=== PATIENT | female | born 1955 | race Caucasian/White ===

== ENCOUNTER → 2016-05-09 | Outpatient (CLI) | payer BC ==
[~2016-05-09] MED LIST: ACET-1047 PO; AZITTAB PO; CLIN300C2 PO; CMPS25 PR; CORN1POW2 PO; DICL50TA3 PO; HYDR-3419 PO; HYDR-5688 PO; HYDR12.56 PO; IMD/2 PO; LISI-725 PO; LISI20TA3 PO; MAGN30TA4 PO; MRLP17X PO; MULT-513 PO; ONDA8TAB6 PO; OXYC1TAB3 PO; PHEN-876 PO; PHEN95TA PO; POLY1POW2 PO; POLY335019 PO; POTA10CA28 PO; PROC1TAB5 PO; PSYL48.59; SENN8.6T36 PO
[2016-05-09 17:55] LABS: ALT/SGPT 22 U/L (12-78); BLOOD UREA NITROGEN 18 mg/dl (7-18); BUN/CREATININE RATIO 16.4 (10-20); CARBON DIOXIDE 27 mmol/L (21-32); CHLORIDE 103 mmol/L (98-107); GLUCOSE 89 mg/dl (70-99); SODIUM 138 mmol/L (136-145)
[2016-05-09 18:06] LABS: ALKALINE PHOSPHATASE 111 U/L (45-117); AST/SGOT 16 U/L (15-37)
[2016-05-09 19:05] LABS: BASO % 0.6 %; BASO ABS # 0.06 K/uL (0-0.2); COMPLETE YES; EOS % 1.8 %; HEMATOCRIT 40.9 % (37-47); IG% 0.3 %; LYMPH % 31.4 %; LYMPH ABS # 3.18 K/uL (1.2-3.4); MEAN CELL VOLUME 88.3 fL (80-100); MEAN CORPUSCULAR HEMOGLOBIN 31.5 pg (25-34); MEAN CORPUSCULAR HGB CONC 35.7 g/dl (32-36); MEAN PLATELET VOLUME 9.9 fL (7.4-10.4); NEUT % 55.9 %; PLATELET COUNT 312 K/uL (130-400); RED BLOOD COUNT 4.63 M/uL (4.2-5.4); WHITE BLOOD COUNT 10.13 K/uL (4.8-10.8)
== END | disposition home or self-care (01) ==
LOC: C.LABPVFM 15:20
PROVIDERS: ATTEND Nurse Practitioner
DX: R53.83 Other fatigue (principal); I10 Essential (primary) hypertension; H93.13 Tinnitus, bilateral; N93.9 Abnormal uterine and vaginal bleeding, unspecified; R39.9 Unspecified symptoms and signs involving the genitourinary system

== ENCOUNTER 2016-05-31 08:59 | Emergency (ER) | payer BC ==
[~2016-05-31] VITALS: Ht 165.1 cm; Wt 99.0 kg
[2016-05-31 09:01] VITALS: TEMP 38; Ht 165.1 cm; Wt 99.0 kg
[2016-05-31] MEDS ORDERED: SODIUM CHLORIDE 0.9% 1000ML 1,000 ML IV STA (09:21)
[2016-05-31] MEDS ORDERED: SODIUM CHLORIDE 0.9% 1000ML 1,000 ML IV ONE (09:21)
[2016-05-31] MEDS ORDERED: CLINDAMYCIN IV 900 MG in DEXTROSE 5% ADD-VANTAGE 100ML 100 ML IV STA (09:21)
[2016-05-31] MEDS ORDERED: ONDANSETRON INJ 2 MG/ML 2 ML VIAL IV STA (09:21)
[2016-05-31] MEDS ORDERED: MoRPHine SULFATE 4 MG/ML 1 ML CARP\\VIAL IV STA (09:21)
[2016-05-31] MEDS ORDERED: AZITTAB PO (09:31)
[2016-05-31] MEDS ORDERED: LISI-725 PO (09:31)
[2016-05-31] MEDS ORDERED: DICL50TA3 PO (09:31)
[2016-05-31 09:55] LABS: BASO % 0.1 %; BASO ABS # 0.01 K/uL (0-0.2); COMPLETE YES; EOS % 0.1 %; HEMATOCRIT 39.8 % (37-47); IG% 0.2 %; LYMPH ABS # 1.15 K/uL (1.2-3.4); MEAN CELL VOLUME 83.6 fL (80-100); MEAN CORPUSCULAR HEMOGLOBIN 30.5 pg (25-34); MEAN CORPUSCULAR HGB CONC 36.4 g/dl (32-36); MEAN PLATELET VOLUME 8.9 fL (7.4-10.4); MONO % 11.5 %; NEUT % 77.1 %; PLATELET COUNT 260 K/uL (130-400); RED BLOOD COUNT 4.76 M/uL (4.2-5.4); WHITE BLOOD COUNT 10.46 K/uL (4.8-10.8)
--- NOTE | 2016-05-31 09:55 | EMERGENCY ROOM VISIT NOTE ---
History Report prepared by Effie: Nory Palacios Under the Supervision of: Dr. Fred Patel M.D. First contact with patient: 09:08 Chief Complaint: DENTAL PAIN Stated Complaint: SWOLLEN/INFECTED TOOTH Nursing Triage Summary: PT PRESENTS C/O RIGHT UPPER #5 INFECTED TOOTH. PT SCHEDULED TO HAVE IT PULLED ON THURSDAY WITH DR. VASQUEZ. PAIN SEVERELY INCREASED TODAY DESPITE TAKING OXYCODONE AND SWELLING INCREASED, WAS STARTED ON ABX X3 DOSES. History of Present Illness The patient is a 61 year old female who presents to the Emergency Room via with complaints of worsening dental pain with onset two days ago. She rates her pain as a 10/10. Two days ago, the patient saw her dentist. The patient has an infected tooth and she has an appointment to have this tooth pulled in three days. She has been taking antibiotics and has had three doses so far. However, the patient's pain has increased today, despite the fact that the patient has tried taking oxycodone. The patient has had increased swelling of her nose and lips, starting today and she also has a headache. She denies trouble speaking or swallowing, rash, itching. No cough or shortness of breath. Source of History: patient, spouse/significant other Onset: two days ago Position: teeth Symptom Intensity: 10/10 Quality: other (dental pain) Timing: worsening Associated Symptoms: + headache, No rash Note: The patient has had increased swelling of her nose and lips. She denies trouble speaking or swallowing, itching. Review of Systems See HPI for pertinent positives & negatives. A total of 10 systems reviewed and were otherwise negative. Past Medical & Surgical Medical Problems: (1) Hypertension Old medical records were reviewed. Nurse's notes were reviewed and I agree with. Denies diabetes Family History FHx: cancer Social History Smoking Status: Never Smoker Alcohol Use: none Marital Status: Housing Status: lives with family Occupation Status: employed Current/Historical Medications Scheduled Azithromycin (Zithromax Z-Niraj), 1 PKT PO UD Clindamycin Hcl (Cleocin), 300 MG PO QID Hydrochlorothiazide (Hctz), 12.5 MG PO DAILY Lisinopril (Zestril), 20 MG PO DAILY Multivitamins/Minerals (Mvi With Minerals), 1 TAB PO DAILY Scheduled PRN Diclofenac (Voltaren), 50 MG PO TID PRN for Pain Oxycodone Immediate Rel Tab (Roxicodone Ir), 1-2 TAB PO Q4H PRN for Severe Pain Allergies Coded Allergies: Penicillins (Verified Allergy, Unknown, unk, 05/31/16) Physical Exam Vital Signs Date Time Temp Pulse Resp B/P Pulse Ox O2 Delivery O2 Flow Rate FiO2 05/31/16 10:35 70 16 137/71 98 Room Air 05/31/16 09:01 38.0 98 18 155/79 96 Room Air Physical Exam General: Non ill appearing middle aged female, in no acute distress. HEENT: Normal cephalic atraumatic. Pupils are equal round and reactive to light. Sclerae anicteric. Extraocular movements are intact. Oropharynx is pink with moist mucous membranes. Mild swelling in the right cheek, no redness or warmth, tender on the right first upper molar, multiple dental caries that have been filled. No swelling of the mouth lips or tongue. No Lugwig's angina Neck: Supple with a midline trachea. No meningeal signs or stiffness, no JVD or bruits. No Stridor. Chest: Clear to auscultation bilaterally. No wheezes or rhonchi. No increased work of breathing. Heart: regular rate and rhythm. Abdomen: Soft nontender, nondistended without rebound guarding or rigidity. Extremities: No cyanosis clubbing or edema. No calf tenderness or assymetry Spine/Back. Non tender to palpation. No CVA tenderness Skin: Good turgor without rashes. Neurologic exam: Cranial nerves two through 12 are intact. Motor and sensation are intact and symmetrical throughout. Medical Decision & Procedures Laboratory Results 05/31/16 09:15 Red Blood Count 4.76, Mean Corpuscular Volume 83.6, Mean Corpuscular Hemoglobin 30.5, Mean Corpuscular Hemoglobin Concent 36.4, Mean Platelet Volume 8.9, Neutrophils (%) (Auto) 77.1, Lymphocytes (%) (Auto) 11.0, Monocytes (%) (Auto) 11.5, Eosinophils (%) (Auto) 0.1, Basophils (%) (Auto) 0.1, Neutrophils # (Auto ) 8.07, Lymphocytes # (Auto) 1.15, Monocytes # (Auto) 1.20, Eosinophils # (Auto ) 0.01, Basophils # (Auto) 0.01 3/25/17 09:15 Test 05/31/16 09:15 White Blood Count 10.46 K/uL (4.8-10.8) Red Blood Count 4.76 M/uL (4.2-5.4) Hemoglobin 14.5 g/dL (12.0-16.0) Hematocrit 39.8 % (37-47) Mean Corpuscular Volume 83.6 fL (80-100) Mean Corpuscular Hemoglobin 30.5 pg (25-34) Mean Corpuscular Hemoglobin Concent 36.4 g/dl (32-36) Platelet Count 260 K/uL (130-400) Mean Platelet Volume 8.9 fL (7.4-10.4) Neutrophils (%) (Auto) 77.1 % Lymphocytes (%) (Auto) 11.0 % Monocytes (%) (Auto) 11.5 % Eosinophils (%) (Auto) 0.1 % Basophils (%) (Auto) 0.1 % Neutrophils # (Auto) 8.07 K/uL (1.4-6.5) Lymphocytes # (Auto) 1.15 K/uL (1.2-3.4) Monocytes # (Auto) 1.20 K/uL (0.11-0.59) Eosinophils # (Auto) 0.01 K/uL (0-0.5) Basophils # (Auto) 0.01 K/uL (0-0.2) RDW Standard Deviation 37.7 fL (36.4-46.3) RDW Coefficient of Variation 12.4 % (11.5-14.5) Immature Granulocyte % (Auto) 0.2 % Immature Granulocyte # (Auto) 0.02 K/uL (0.00-0.02) Anion Gap 8.0 mmol/L (3-11) Est Creatinine Clear Calc Drug Dose 85.0 ml/min Estimated GFR () 90.9 Estimated GFR (Non- 78.4 BUN/Creatinine Ratio 10.4 (10-20) Calcium Level 9.6 mg/dl (8.5-10.1) Laboratory studies as stated above per my review. Medications Administered Medications (Trade) Dose Ordered Sig/Radha Route Start Time Stop Time Status Last Admin Dose Admin Sodium Chloride (Nss 1000ml) 1,000 ml @ 999 mls/hr Q1H1M STAT IV 05/31/16 09:21 05/31/16 10:21 DC 05/31/16 09:41 999 MLS/HR Morphine Sulfate (MoRPHine SULFATE INJ) 4 mg NOW STAT IV 05/31/16 09:21 05/31/16 09:23 DC 05/31/16 09:40 4 MG Ondansetron HCl 4 mg 4 mg NOW STAT IV 05/31/16 09:21 05/31/16 09:23 DC 05/31/16 09:37 4 MG Clindamycin Phosphate/Dextrose (Cleocin Iv/ Dextrose Add-[place] 100ML) 106 ml @ 100 mls/hr ONE STAT IV 05/31/16 09:21 05/31/16 10:24 DC 05/31/16 09:41 100 MLS/HR ED Course 09: Past medical records reviewed. The patient was evaluated in room A2, and a complete history and physical examination were performed. 0921: Clindamycin Phosphate 9000 mg/ Dextrose 106 ml @ 100 mls/ he IV, Zofran 4 mg IV, Morphine Sulfate 4 mg IV, Sodium Chloride 1000 ml @ 150 mls/hr IV, Sodium Chloride 1000 ml @ 999 mls/hr IV 1024: Upon reevaluation, the patient is doing well. I discussed the results and treatment plan with the patient. She verbalized agreement of the treatment plan. The patient was discharged home. Medical Decision Differentials include, but are not limited to; abscess, dental caries, allergic reaction. This patient comes in as described above she has a toothache. She has a mild facial swelling of the cheek, it is not red or warm. She does have a temperature. She's had no fluctuance on exam. She was started on antibiotics yesterday with azithromycin. She was given IV clindamycin 900 mg IV as she an allergic to penicillin. I will send her home with a prescription for clindamycin as it should have better coverage. She was given IV morphine here as well as IV Zofran. She has a normal white count. she's no electrolyte or metabolic abnormalities. His feel up to going home. She has appointment with a dentist early this week which I encouraged her to keep. She should return over the weekend if: increasing pain or swelling, worsening of symptoms, any new problems or concerns. Impression Primary Impression: Toothache Additional Impression: Dental abscess Scribe Attestation The scribe's documentation has been prepared under my direction and personally reviewed by me in its entirety. I confirm that the note above accurately reflects all work, treatment, procedures, and medical decision making performed by me. Departure Information Dispostion Home / Self-Care Prescriptions Oxycodone Immediate Rel Tab (ROXICODONE IR) 5 Mg Tab 1-2 TAB PO Q4H Y for Severe Pain, #24 TAB Prov: Fred Patel M.D. 05/31/16 Clindamycin Hcl (CLEOCIN) 300 Mg Cap 300 MG PO QID for 7 Days, #28 CAP Prov: Fred Patel M.D. 05/31/16 Referrals Ana Paula Dumont, Eliceo.R.N.P (PCP) Forms HOME CARE DOCUMENTATION FORM, IMPORTANT VISIT INFORMATION Patient Instructions My [facility] Additional Instructions Rest. Drink plenty of fluids. Use clindamycin 300 mg 4 times a day for 7 days May continue to use your diclofenac For more severe pain use OxyIR 5 mg, one or 2 pills every 4-6 hours as needed OxyIR may make you drowsy and do not take before drinking, driving, working Return if: Increasing pain, worsening of symptoms, facial swelling gets worse, shortness of breath, any new problems or concerns Follow-up with your dentist on Thursday for recheck Problem Qualifiers
[2016-05-31 10:19] LABS: BLOOD UREA NITROGEN 8 mg/dl (7-18); BUN/CREATININE RATIO 10.4 (10-20); CALCIUM 9.6 mg/dl (8.5-10.1); CARBON DIOXIDE 30 mmol/L (21-32); CHLORIDE 92 mmol/L (98-107); CREATININE 0.81 mg/dl (0.60-1.20); GLUCOSE 107 mg/dl (70-99); SODIUM 130 mmol/L (136-145)
[2016-05-31] MEDS ORDERED: OXYC1TAB3 PO (10:28)
[2016-05-31] MEDS ORDERED: CLIN300C2 PO (10:28)
[2016-05-31 10:35] VITALS: BP 137/71; PULSE 70; O2SAT 98
[2016-08-05] MEDS ORDERED: PSYL48.59 (19:29)
[2016-08-06] MEDS ORDERED: CORN1POW2 PO (15:14)
[2016-08-06] MEDS ORDERED: PROC1TAB5 PO (15:15)
[2016-08-06] MEDS ORDERED: CMPS25 PR (19:11)
[2016-08-06] MEDS ORDERED: ONDA8TAB6 PO (19:11)
[2016-08-11] MEDS ORDERED: HYDR-5688 PO (11:06)
[2016-08-12] MEDS ORDERED: HYDR-3419 PO (14:58)
[2016-09-01] MEDS ORDERED: PHEN95TA PO (15:17)
[2016-09-05] MEDS ORDERED: IMD/2 PO (13:31)
[2016-09-08] MEDS ORDERED: PHEN-876 PO (15:00)
[2016-09-12] MEDS ORDERED: ACET-1047 PO (18:55)
[2016-09-12] MEDS ORDERED: MRLP17X PO (18:55)
[2016-09-17] MEDS ORDERED: PHEN-876 PO (05:50)
[2016-10-05] MEDS ORDERED: POTA10CA28 PO (05:48)
[2016-10-05] MEDS ORDERED: MAGN30TA4 PO (05:48)
[2016-10-05] MEDS ORDERED: HYDR12.56 PO (09:31)
[2016-10-05] MEDS ORDERED: MULT-513 PO (09:31)
[2016-10-05] MEDS ORDERED: ONDA8TAB6 PO (15:15)
[2016-10-31] MEDS ORDERED: LISI20TA3 PO (10:59)
== END 2016-05-31 11:02 | disposition home or self-care (01) ==
LOC: C.EDB 09:00 → C.EDA 11:02
DX: K04.7 Periapical abscess without sinus (principal); I10 Essential (primary) hypertension; Z79.899 Other long term (current) drug therapy

== ENCOUNTER → 2016-06-13 | Outpatient (CLI) | payer BC ==
[~2016-06-13] MED LIST changes: -CLIN300C2 PO; +HYDR25TA5 PO
== END | disposition home or self-care (01) ==
LOC: C.PAPS 08:53
PROVIDERS: ATTEND Obstetrics & Gynecology
DX: C53.0 Malignant neoplasm of endocervix (principal)

== ENCOUNTER → 2016-07-09 | Outpatient (CLI) | payer BC ==
[~2016-07-09] MED LIST changes: -AZITTAB PO; +GADAVIST IV PRN; -OXYC1TAB3 PO
--- NOTE | 2016-07-10 07:19 | DIAGNOSTIC IMAGING REPORT ---
MRI OF THE PELVIS WITH AND WITHOUT CONTRAST CLINICAL HISTORY: Cervical cancer. Thin cuts for treatment planning. COMPARISON STUDY: PET/CT July 09, [address] July 04, 2016. TECHNIQUE: Utilizing a 1.5 Aracelis magnet and dedicated coil, multiplanar, multi echo imaging of the pelvis was performed pre and postcontrast administration. Injection of 9.5 cc of Gadavist IV was uneventful. Thin cut imaging was performed pre and postcontrast administration. FINDINGS: No enlarged pelvic lymph nodes are identified. No areas of suspicious marrow replacement are identified within visualized skeletal structures. Note is made of a polypoid mass involving the left lateral fornix of the vagina extending into the cervix. This mass measures 4.5 x 3.2 x 4.2 cm and was FDG avid on PET/CT. There is no associated hydronephrosis. There are multiple T1 and T2 hypointense enhancing lesions within the uterus which are consistent with fibroids, the largest of which is a 3.6 x 3.7 cm posterior fundal fibroid. There is a 2.7 x 2.2 cm right uterine body fibroid. Several smaller fibroids are present. The endometrium is thickened. Note is made of an enhancing 2.3 x 1.8 x 1.5 cm lesion within the upper aspect of the endometrium which corresponds to the FDG avid focus on PET/CT from earlier today. IMPRESSION: 1. 4.5 x 3.2 x 4.2 cm polypoid mass within the left lateral fornix of the vagina extending into the cervix with disruption of the stromal ring which is consistent with the biopsy-proven carcinoma. No hydronephrosis. 2. 2.3 x 1.8 x 1.5 cm lesion within the upper aspect of the endometrial cavity which corresponds to the FDG avid focus on PET/CT from earlier today. This is suspicious for a carcinoma as well and may reflect an endometrial carcinoma. 3. Multiple uterine fibroids. 4. No pelvic lymphadenopathy. Electronically signed by: Viet Reyes M.D. 07/10/2016 7:17 AM Dictated Date/Time: 07/09/2016 3:42 PM
== END | disposition home or self-care (01) ==
LOC: C.MRI 13:19
PROVIDERS: ATTEND Physician Assistant Medical
DX: C53.8 Malignant neoplasm of overlapping sites of cervix uteri (principal); D25.9 Leiomyoma of uterus, unspecified

== ENCOUNTER → 2016-07-09 | Outpatient (CLI) | payer BC ==
[~2016-07-09] MED LIST changes: -GADAVIST IV PRN
--- NOTE | 2016-07-09 13:54 | DIAGNOSTIC IMAGING REPORT ---
PET/CT SKULL-THIGH CLINICAL HISTORY: Cervical carcinoma COMPARISON STUDY: No previous studies for comparison. FINDINGS: Patient was injected with 12.9 mCi of F 18 labeled FDG. Following the standard induction phase, PET/CT scanning is performed from the skull base to the upper thigh region. Activity within the neck is likely physiologic. There is slight asymmetry in activity involving the anterior tongue base on the right, a finding of doubtful clinical significance. Activity within the thorax is felt to be within normal limits. Wispy opacities with thin the right lower lobe are likely atelectatic or inflammatory. There is no pathologic hepatic activity. There is no pathologic adrenal activity. There is physiologic urinary tract and bowel activity. There is intense focus of increased activity within the uterine fundus with SUV maximum 8.7. This corresponds to a subtle hypodense area, possibly representing endometrial thickening. There is an adjacent fibroid but this is not felt to be FDG avid. There is intense focus of increased FDG activity involving the cervix/upper vagina to the left of midline. This measures 4.4 cm, containing central air, and has an SUV maximum of 15.8. There is no pathologic che activity within the abdomen or pelvis. IMPRESSION: 1. Intense focus of increased FDG activity involving the cervix/upper vagina to the left of midline. This measures 4.4 cm and has an SUV maximum of 15.8 2. Intense focus of increased activity within the uterine fundus with SUV maximum of 8.7 3. No evidence of pathologic che activity Electronically signed by: Clarence Rhoades M.D. 07/09/2016 1:53 PM Dictated Date/Time: 07/09/2016 1:44 PM
== END | disposition home or self-care (01) ==
LOC: C.PET 10:19
PROVIDERS: ATTEND Physician Assistant Medical
DX: C53.8 Malignant neoplasm of overlapping sites of cervix uteri (principal)

== ENCOUNTER 2016-08-11 07:39 | Day surgery (SDC) | payer BC ==
[2016-08-05 19:26] VITALS: BP 176/94; PULSE 92; TEMP 36.7; O2SAT 98
[2016-08-06 15:16] VITALS: BMI 34.0
[~2016-08-11] VITALS: Ht 165.1 cm; Wt 94.6 kg
[~2016-08-11 07:39] MED LIST changes: -ACET-1047 PO; +ATROPINE SULFATE 0.1 MG/ML 5ML SYR IV PRN; +CLINDAMYCIN 900MG IV SCH; +CLINDAMYCIN IV 900 MG in DEXTROSE 5% ADD-VANTAGE 100ML 100 ML IV SCH; -DICL50TA3 PO; +EpHEDrine SULFATE INJ 50 MG/ML AMP IV PRN; +FENTANYL CITRATE INJ 50 MCG/1 ML 2 ML VIAL IV PRN; -HYDR-3419 PO; -HYDR-5688 PO; -HYDR12.56 PO; -HYDR25TA5 PO; +HYDROmorphone INJ 1 MG/ML SYR IV PRN; -IMD/2 PO; +LACTATED RINGER'S 1000ML 1,000 ML IV SCH; -LISI20TA3 PO; -MAGN30TA4 PO; -MRLP17X PO; -MULT-513 PO; -PHEN-876 PO; -PHEN95TA PO; -POLY1POW2 PO; -POLY335019 PO; -POTA10CA28 PO; -PSYL48.59; -SENN8.6T36 PO
[2016-08-11 08:11] VITALS: BP 163/95; PULSE 87; TEMP 36.9; O2SAT 96; Ht 165.1 cm; Wt 94.6 kg
[2016-08-11 08:25] LABS: HEMATOCRIT 37.5 % (37-47); MEAN CORPUSCULAR HEMOGLOBIN 30.4 pg (25-34); MEAN PLATELET VOLUME 8.6 fL (7.4-10.4); PLATELET COUNT 241 K/uL (130-400); RED BLOOD COUNT 4.31 M/uL (4.2-5.4); WHITE BLOOD COUNT 4.85 K/uL (4.8-10.8)
[2016-08-11 08:54] LABS: MEAN CORPUSCULAR HGB CONC 34.9 g/dl (32-36)
[2016-08-11] MEDS ORDERED: LIDOCAINE HCL 2% 2 ML VIAL (20MG/ML) ONE (09:22)
[2016-08-11] MEDS ORDERED: PROPOFOL IV EMULSION 10 MG/ML 20 ML VIAL IV ONE (09:22)
[2016-08-11] MEDS ORDERED: MIDAZOLAM HCL 1 MG/ML 2ML VIAL ONE (09:22)
[2016-08-11] MEDS ORDERED: FENTANYL CITRATE INJ 50 MCG/1 ML 2 ML VIAL ONE (09:22)
[2016-08-11] MEDS ORDERED: THROMBIN FOR SOLN 20000 UNIT KIT ONE (09:36)
[2016-08-11] MEDS ORDERED: LIDOCAINE HCL 1% 20 ML VIAL ONE (09:36)
[2016-08-11] MEDS ORDERED: CEFAZOLIN SOD 1 GM VIAL ONE (09:36)
[2016-08-11] MEDS ORDERED: HEPARIN SOD (PORCINE) 1000 UNIT/ML 10 ML VIAL ONE (09:37)
--- NOTE | 2016-08-11 10:07 | History & Physical Bridge Note ---
H&P Re-Evaluation Bridge Note: I have examined the patient, reviewed the History & Physical and in the interval since the performance of the History & Physical I have noted the following changes of clinical significance: No changes noted
[2016-08-11] MEDS ORDERED: KETAMINE HCL INJ 50 MG/ML 10 ML VIAL ONE (10:21)
[2016-08-11] MEDS ORDERED: ONDANSETRON INJ 2 MG/ML 2 ML VIAL ONE (10:25)
[2016-08-11] MEDS ORDERED: SODIUM CHLORIDE 0.9% INJ 10 ML VIAL ONE (10:48)
--- NOTE | 2016-08-11 11:04 | [facility] Post Operative Brief Note ---
Immediate Operative Summary Operative Date Aug 11, 2016. Pre-Operative Diagnosis Cervical Cancer Post-Operative Diagnosis Cervical Cancer Procedure(s) Performed Insertion A-port Surgeon Dr. Santiago Promotions Assistant Sales Marketing Surgeon(s) none Estimated Blood Loss 10ML Findings placed via Lt cephalic vein Specimens none per surgeon Anesthesia local/ sedation Complication(s) None Disposition Recovery Room / PACU
[2016-08-11] MEDS ORDERED: HYDR-5688 PO (11:06)
--- NOTE | 2016-08-11 11:09 | Discharge Instructions ---
Discharge Instructions Date of Service Aug 11, 2016. Visit Reason for Visit: Cervical Squamous Cell Carcinoma Discharge Discharge Diagnosis / Problem: cervical cancer Discharge Goals Goal(s): Decrease discomfort, Improve function, Improve disease control Activity Recommendations Activity Limitations: as noted below Lifting Limitations: until after follow-up appointment Exercise/Sports Limitations: until after follow-up appointment May Resume Sexual Activity: when tolerated Shower/Bathe: tomorrow Driving or Machine Use: resume 1 day after discharge SPECIAL CARE INSTRUCTIONS: * Cover incisions and change daily for comfort/drainage. * May use ibuprofen for pain as tolerated. * Expect some swelling and bruising. Call your doctor if: * Temperature above 101 degrees * Pain not relieved by pain medicine ordered * There is increased drainage or redness from any incision * You have any unanswered questions or concerns [phone]. FOLLOW UP VISIT: If not already scheduled, please call the office for a follow-up visit. for 2 weeks- suture removal OFFICE PHONE NUMBER: Dr. Santiago Office Anesthesia . Post Anesthesia Instructions: If you have had General Anesthesia or IV Sedation: * Do not drive today. * Resume driving when surgeon permits. * Do not make important decisions or sign legal documents today. * Call surgeon for: 1. Temperature elevations greater than 101 degrees F. 2. Uncontrollable pain. 3. Excessive bleeding. 4. Persistent nausea and vomiting. 5. Medication intolerance (nausea, vomiting or rash). * For nausea and vomiting use only clear liquids such as: tea, soda, bouillon until nausea subsides, then gradually increase diet as tolerated. * If you have any concerns or questions, call your surgeon's office. If physician is unavailable and it is an emergency, call 911 or go to the nearest emergency room. . Diet Recommendations Recommended Home Diet: resume previous diet Procedures Procedures Performed: Insertion A-port Pending Studies Studies pending at discharge: no Work Instructions Return To Work: 3 days Lifting Limitations: no more than 20 pounds Medical Emergencies . Who to Call and When: Medical Emergencies: If at any time you feel your situation is an emergency, please call 911 immediately. . Non-Emergent Contact Non-Emergency issues call your: Primary Care Provider, Surgeon . . "Provider Documentation" section prepared by Alexis Santiago. .
[2016-08-11] MEDS ORDERED: ONDANSETRON INJ 2 MG/ML 2 ML VIAL IV PRN (11:15)
[2016-08-11] MEDS ORDERED: HYDROCODONE/ACETAMOPHEN 5/325MG TAB PO PRN ×2 (11:15)
--- NOTE | 2016-08-11 11:19 | Anesthesiology Progress Note ---
Anesthesia Post Op Note Date & Time Aug 11, 2016 at 11:19 Vital Signs Pain Intensity: 0 Vital Signs Past 12 Hours Date Time Temp Pulse Resp B/P (MAP) Pulse Ox O2 Delivery O2 Flow Rate FiO2 08/11/16 11:10 69 13 114/69 98 Room Air 08/11/16 11:00 36.6 75 12 109/75 99 Mask 10 08/11/16 08:11 36.9 87 16 163/95 (117) 96 Room Air Notes Mental Status: alert / awake / arousable, participated in evaluation Pt Amnestic to Procedure: Yes Nausea / Vomiting: adequately controlled Pain: adequately controlled Airway Patency, RR, SpO2: stable & adequate BP & HR: stable & adequate Hydration State: stable & adequate Anesthetic Complications: no major complications apparent
--- NOTE | 2016-08-11 11:23 | DIAGNOSTIC IMAGING REPORT ---
CHEST ONE VIEW PORTABLE CLINICAL HISTORY: A-Port catheter placement. COMPARISON STUDY: No previous studies for comparison. FINDINGS: The cardiac and mediastinal contours are normal. There is no evidence of focal pulmonary consolidation. There is no evidence of failure. No pleural effusions are visualized.[ There is a left-sided A-Port catheter. The tip projects over the superior vena cava. There is no pneumothorax. IMPRESSION: No active disease in the chest. Electronically signed by: Clarence Rhoades M.D. 08/11/2016 11:22 AM Dictated Date/Time: 08/11/2016 11:21 AM
[2016-08-11 11:25] VITALS: BP 137/71; PULSE 71; TEMP 36.7; O2SAT 100
--- NOTE | 2016-08-11 11:47 | OPERATIVE REPORT ---
DATE OF OPERATION: 08/11/2016 NAME OF OPERATION: Port placement. PREOPERATIVE DIAGNOSIS: Cervical cancer. POSTOPERATIVE DIAGNOSIS: Same. STAFF SURGEON: Dr. Santiago. ANESTHESIA: 1% plain lidocaine with sedation. PROCEDURE: The patient was brought in the operating room and placed on the operating table in supine position. Her chest was prepped and draped in usual fashion on the left side. 1% plain lidocaine was used to anesthetize skin and subcutaneous tissue over the left deltopectoral groove. Incision made carrying dissection down and identifying a large cephalic vein. It was ligated distally using 2-0 silk suture. It was then opened and a catheter passed under fluoroscopy into the superior vena cava, secured using 2-0 silk suture. The catheter was aspirated and flushed with heparinized solution. A pocket was then fashioned in the chest wall. Port attached to the catheter, port placed into the pocket, it was in the subcutaneous tissue, it was secured using 3-0 Prolene suture. Port had been aspirated and flushed with heparinized solution and also irrigated with antibiotic solution. Subcutaneous tissue was then reapproximated using 2-0 chromic catgut suture, then the skin reapproximated using 4-0 nylon suture. Dressing applied and the patient transferred to recovery room in stable condition. I attest to the content of the Intraoperative Record and any orders documented therein. Any exception s are noted below.
[2016-08-11 11:55] VITALS: BP 137/71; PULSE 74; O2SAT 97
[2016-08-11 12:20] VITALS: BP 139/70; PULSE 72; TEMP 36.3; O2SAT 100
[2016-08-12] MEDS ORDERED: HYDR-3419 PO (14:58)
[2016-09-01] MEDS ORDERED: PHEN95TA PO (15:17)
[2016-09-05] MEDS ORDERED: IMD/2 PO (13:31)
[2016-09-08] MEDS ORDERED: PHEN-876 PO (15:00)
[2016-09-12] MEDS ORDERED: MRLP17X PO (18:55)
[2016-09-12] MEDS ORDERED: ACET-1047 PO (18:55)
[2016-09-17] MEDS ORDERED: PHEN-876 PO (05:50)
[2016-10-05] MEDS ORDERED: MAGN30TA4 PO (05:48)
[2016-10-05] MEDS ORDERED: POTA10CA28 PO (05:48)
[2016-10-05] MEDS ORDERED: MULT-513 PO (09:31)
[2016-10-05] MEDS ORDERED: HYDR12.56 PO (09:31)
[2016-10-05] MEDS ORDERED: ONDA8TAB6 PO (15:15)
[2016-10-31] MEDS ORDERED: LISI20TA3 PO (10:59)
[2017-01-07] MEDS ORDERED: HYDR25TA5 PO (15:00)
== END 2016-08-11 12:27 | disposition home or self-care (01) ==
LOC: C.ACU 07:39
PROVIDERS: ATTEND Surgery
DX: C53.9 Malignant neoplasm of cervix uteri, unspecified (principal); K21.9 Gastro-esophageal reflux disease without esophagitis; F32.9 Major depressive disorder, single episode, unspecified; I10 Essential (primary) hypertension; Z82.49 Family history of ischemic heart disease and other diseases of the circulatory system; Z80.3 Family history of malignant neoplasm of breast; Z77.22 Contact with and (suspected) exposure to environmental tobacco smoke (acute) (chronic); E66.9 Obesity, unspecified

== ENCOUNTER → 2016-09-01 | Outpatient (CLI) | payer BC ==
[~2016-09-01] MED LIST changes: +ACET-1047 PO; -ATROPINE SULFATE 0.1 MG/ML 5ML SYR IV PRN; -CLINDAMYCIN 900MG IV SCH; -CLINDAMYCIN IV 900 MG in DEXTROSE 5% ADD-VANTAGE 100ML 100 ML IV SCH; -CMPS25 PR; -EpHEDrine SULFATE INJ 50 MG/ML AMP IV PRN; +FENTANYL CITRATE INJ 50 MCG/1 ML 2 ML VIAL IV ONE; -FENTANYL CITRATE INJ 50 MCG/1 ML 2 ML VIAL IV PRN; +HYDR-3419 PO; +HYDR12.56 PO; +HYDR25TA5 PO; -HYDROmorphone INJ 1 MG/ML SYR IV PRN; +IMD/2 PO; -LACTATED RINGER'S 1000ML 1,000 ML IV SCH; +LISI20TA3 PO; +MAGN30TA4 PO; +MIDAZOLAM HCL 5 MG/ML 1 ML VIAL IV ONE; +MRLP17X PO; +MULT-513 PO; +PHEN-876 PO; +PHEN95TA PO; +POLY1POW2 PO; +POLY335019 PO; +POTA10CA28 PO; +SENN8.6T36 PO
--- NOTE | 2016-09-01 13:33 | DIAGNOSTIC IMAGING REPORT ---
CHEST 2 VIEWS ROUTINE CLINICAL HISTORY: Preoperative evaluation. Cervical cancer. COMPARISON STUDY: PET/CT July 09, 2016. FINDINGS: A left subclavian [id number] is in place. There is no pneumothorax or pleural effusion. Cardiac size is normal. Mediastinal contours are normal. There is no evidence of pulmonary edema. IMPRESSION: No acute cardiopulmonary findings. Electronically signed by: Viet Reyes M.D. 09/01/2016 1:31 PM Dictated Date/Time: 09/01/2016 1:30 PM
== END | disposition home or self-care (01) ==
LOC: C.RAD 13:12
PROVIDERS: ATTEND Obstetrics & Gynecology Gynecologic Oncology
DX: Z01.818 Encounter for other preprocedural examination (principal); C53.9 Malignant neoplasm of cervix uteri, unspecified

== ENCOUNTER 2016-09-10 16:53 | Inpatient (IN) | payer BC ==
[~2016-09-10] VITALS: Ht 165.1 cm; Wt 85.0 kg
[~2016-09-10 16:53] MED LIST changes: -ACET-1047 PO; -FENTANYL CITRATE INJ 50 MCG/1 ML 2 ML VIAL IV ONE; -HYDR-3419 PO; -HYDR12.56 PO; -HYDR25TA5 PO; -LISI20TA3 PO; -MAGN30TA4 PO; -MIDAZOLAM HCL 5 MG/ML 1 ML VIAL IV ONE; -MRLP17X PO; -MULT-513 PO; -ONDA8TAB6 PO; -POLY1POW2 PO; -POLY335019 PO; -POTA10CA28 PO; -SENN8.6T36 PO
[2016-09-10] MEDS ORDERED: SODIUM CHLORIDE 0.9% 1000ML 1,000 ML IV STA (17:47)
--- NOTE | 2016-09-10 17:51 | EMERGENCY ROOM VISIT NOTE ---
History Report prepared by Effie: Toña Sarmiento Under the Supervision of: Dr. Akash Hall M.D. First contact with patient: 17:38 Chief Complaint: VOMITING Stated Complaint: LIGHT HEADED, VOMITING-CA PATIENT Nursing Triage Summary: Pt c/o lightheadedness, syncopal episode and vomiting after a BM today around 1430. Pt reports she was straining for BM. Pt has CA of cervix, last radiation tx was September 3th, dehydrated at that time was given fluids. Pt was to have another tx today, pt cancelled because she was feeling sick. Pt was referred by Oncology to check if pt was dehydrated and BP. pt reports she has a procedure is scheduled for tomorrow. History of Present Illness The patient is a 61 year old female who presents to the Emergency Room with complaints of intermittent dizziness beginning 2 days ago. The patient states that she has cervical cancer and is being treated with chemotherapy and radiation. She reports that she has finished her chemotherapy but is now getting radiation. She notes that her last appointment for radiation was 2 days ago and she states that she was feeling dizzy at her appointment but felt a little better after receiving fluids. The patient states that today she began to feel dizzy again while she was straining to have a bowel movement. She notes that she had an episode of syncope but denies any head injury or trauma. She complains of nausea, vomiting, dehydration, and dysuria that is not new. The patient notes that she takes peridium for dysuria from her radiation without relief of her symptoms. She denies any fever, black or bloody stools, and abdominal pain. The patient reports that her dizziness is worse with standing. She has been taking Zofran for nausea without any relief. She denies any previous blood transfusions. Source of History: patient Onset: 2 days ago Position: other (global) Quality: other (dizziness) Timing: intermittent Modifying Factors (Worsening): other (standing) Modifying Factors (Relieving): other (fluids) Associated Symptoms: + LOC, + nausea, + vomiting, + urinary symptoms, No fevers Note: Pt denies head injury or trauma. Review of Systems See HPI for pertinent positives & negatives. A total of 10 systems reviewed and were otherwise negative. Past Medical & Surgical Medical Problems: (1) Dizziness (2) Hypertension (3) Nausea and vomiting Family History FHx: cancer Social History Smoking Status: Never Smoker Alcohol Use: none Marital Status: Housing Status: lives with family Occupation Status: employed Current/Historical Medications Scheduled [place] Dextrin (Fiber Powder), 1 DOSE PO QAM Hydrochlorothiazide (Hctz), 12.5 MG PO QAM Lisinopril (Zestril), 20 MG PO QAM Multivitamins/Minerals (Mvi With Minerals), 1 TAB PO QAM Phenazopyridine HCl (Pyridium), 100 MG PO TID Scheduled PRN Loperamide Hcl (Imodium), 2 MG PO DIRECTED PRN for Diarrhea Ondansetron Hcl (Zofran), 8 MG PO Q8H PRN for N Prochlorperazine Maleate (Compazine), 10 MG PO Q6H PRN for PRN Allergies Coded Allergies: Penicillins (Verified Allergy, Mild, rash, nausea, 09/05/16) Sulfa Antibiotics (Unverified Allergy, Mild, rash,nausea, 09/05/16) Physical Exam Vital Signs Date Time Temp Pulse Resp B/P (MAP) Pulse Ox O2 Delivery O2 Flow Rate FiO2 09/10/16 21:57 77 20 142/65 97 Room Air 09/10/16 21:03 72 16 138/72 96 Room Air 09/10/16 20:01 75 18 132/74 99 Room Air 09/10/16 18:37 77 18 117/71 98 Room Air 09/10/16 18:09 77 16 106/60 97 Room Air 09/10/16 17:30 77 09/10/16 17:07 36.7 82 18 80/52 98 Room Air Physical Exam GENERAL: Patient is dehydrated appearing, tired appearing, mild distress, lightheaded with sitting up HEENT: No acute trauma, normocephalic atraumatic, mucous membranes moist, no nasal congestion, no scleral icterus. NECK: No stridor, no adenopathy, no meningismus, trachea is midline. CHEST: Bruising over left upper chest Mediport. LUNGS: No dyspnea. Clear to auscultation and equal bilaterally. No wheeze, no rhonchi. HEART: Regular rate and rhythm. No murmurs, rubs, gallops appreciated. ABDOMEN: Soft, nontender, bowel sounds positive, no masses appreciated, no peritonitis. BACK: No midline tenderness, no CVA tenderness EXTREMITIES: Normal motion all extremities, no cyanosis, no edema. NEUROLOGIC: Alert and oriented, no acute motor or sensory deficits, no focal weakness, cranial nerves grossly intact. SKIN: No rash, no jaundice, no diaphoresis. Medical Decision & Procedures Laboratory Results 09/10/16 18:03 Red Blood Count 2.61, Mean Corpuscular Volume 85.1, Mean Corpuscular Hemoglobin 31.4, Mean Corpuscular Hemoglobin Concent 36.9, Mean Platelet Volume 8.8, Neutrophils (%) (Auto) 83.0, Lymphocytes (%) (Auto) 9.5, Monocytes (%) (Auto) 6.7, Eosinophils (%) (Auto) 0.4, Basophils (%) (Auto) 0.2, Neutrophils # (Auto) 3.94, Lymphocytes # (Auto) 0.45, Monocytes # (Auto) 0.32, Eosinophils # (Auto) 0.02, Basophils # (Auto) 0.01 09/10/16 18:03 Test 09/10/16 18:03 09/10/16 21:30 White Blood Count 4.75 K/uL (4.8-10.8) Red Blood Count 2.61 M/uL (4.2-5.4) Hemoglobin 8.2 g/dL (12.0-16.0) Hematocrit 22.2 % (37-47) Mean Corpuscular Volume 85.1 fL (80-100) Mean Corpuscular Hemoglobin 31.4 pg (25-34) Mean Corpuscular Hemoglobin Concent 36.9 g/dl (32-36) Platelet Count 98 K/uL (130-400) Mean Platelet Volume 8.8 fL (7.4-10.4) Neutrophils (%) (Auto) 83.0 % Lymphocytes (%) (Auto) 9.5 % Monocytes (%) (Auto) 6.7 % Eosinophils (%) (Auto) 0.4 % Basophils (%) (Auto) 0.2 % Neutrophils # (Auto) 3.94 K/uL (1.4-6.5) Lymphocytes # (Auto) 0.45 K/uL (1.2-3.4) Monocytes # (Auto) 0.32 K/uL (0.11-0.59) Eosinophils # (Auto) 0.02 K/uL (0-0.5) Basophils # (Auto) 0.01 K/uL (0-0.2) RDW Standard Deviation 40.6 fL (36.4-46.3) RDW Coefficient of Variation 13.7 % (11.5-14.5) Immature Granulocyte % (Auto) 0.2 % Immature Granulocyte # (Auto) 0.01 K/uL (0.00-0.02) Platelet Estimate DECREASED Polychromasia 1+ Anisocytosis PRESENT Anion Gap 10.0 mmol/L (3-11) Est Creatinine Clear Calc Drug Dose 53.0 ml/min Estimated GFR () 56.5 Estimated GFR (Non- 48.7 BUN/Creatinine Ratio 11.9 (10-20) Calcium Level 9.4 mg/dl (8.5-10.1) Magnesium Level 1.2 mg/dl (1.8-2.4) Total Bilirubin 0.4 mg/dl (0.2-1) Direct Bilirubin 0.1 mg/dl (0-0.2) Aspartate Amino Transf (AST/SGOT) 20 U/L (15-37) Alanine Aminotransferase (ALT/SGPT) 33 U/L (12-78) Alkaline Phosphatase 96 U/L (45-117) Total Creatine Kinase 25 U/L (26-192) Troponin I < 0.015 ng/ml (0-0.045) Total Protein 6.5 gm/dl (6.4-8.2) Albumin 3.2 gm/dl (3.4-5.0) Lipase 81 U/L (73-393) Urine Color DK YELLOW Urine Appearance CLEAR (CLEAR) Urine pH 6.5 (4.5-7.5) Urine Specific Green 1.011 (1.000-1.030) Urine Protein NEG (NEG) Urine Glucose (UA) NEG (NEG) Urine Ketones NEG (NEG) Urine Occult Blood TRACE (NEG) Urine Nitrite POS (NEG) Urine Bilirubin NEG (NEG) Urine Urobilinogen NEG (NEG) Urine Leukocyte Esterase TRACE (NEG) Urine WBC (Auto) 1-5 /hpf (0-5) Urine RBC (Auto) 0-4 /hpf (0-4) Urine Hyaline Casts (Auto) 1-5 /lpf (0-5) Urine Epithelial Cells (Auto) 5-10 /lpf (0-5) Urine Bacteria (Auto) NEG (NEG) Laboratory results as reviewed by me. Medications Administered Medications (Trade) Dose Ordered Sig/Radha Route Start Time Stop Time Status Last Admin Dose Admin Sodium Chloride 1,000 ml @ 999 mls/hr Q1H1M STAT IV 09/10/16 17:47 09/10/16 18:47 DC 09/10/16 18:23 999 MLS/HR Ondansetron HCl (Zofran Inj) 4 mg NOW STAT IV 09/10/16 17:56 09/10/16 17:59 DC 09/10/16 18:23 4 MG Magnesium Sulfate (Magnesium Sulfate) 2 gm NOW STAT IV 09/10/16 18:53 09/10/16 18:55 DC 09/10/16 19:01 2 GM Prochlorperazine Edisylate (Compazine Inj) 5 mg NOW STAT IV 09/10/16 21:19 09/10/16 21:20 DC 09/10/16 21:29 5 MG Diphenhydramine HCl (Benadryl Inj) 25 mg NOW STAT IV 09/10/16 21:19 09/10/16 21:20 DC 09/10/16 21:29 25 MG ECG Indication: nausea Rate (beats per minute): 80 Rhythm: normal sinus Findings: no acute ischemic change, no ectopy ED Course 1738: The patient was evaluated in room A3. A complete history and physical exam was performed. 1747: Sodium Chloride 1000 ml @ 999 mls/hr IV. 1756: Zofran Inj 4mg IV. 1853: I reevaluated the patient. She has better coloring and is feeling better. However, with her multiple lab abnormalities we have decided to page a hospitalist for further management. 1853: Magnesium Sulfate 2gm IV. 1859: Discussed the patient's case with Dr. Dickerson of [facility] [place]. The patient will be evaluated for further treatment and disposition. 1913: Upon reevaluation, the patient is doing well. Discussed results and treatment plan with the patient. She verbalized understanding and agreement with the treatment plan. The patient will be evaluated for further management. Medical Decision Differential: Gastroenteritis, Food Borne, Esophageal Perforation, , Electrolyte Abnormality, Dehydration, Intraabdominal Infection, UTI/ Pyelonephritis, Bowel Obstruction, Biliary Pathology, amongst other pathology entertained. Blood Pressure Screening: Patient was found to have a slightly low blood pressure due to circumstances. I do not believe that the patient requires hypertension monitoring. Medication Reconciliation: I attest that I have personally reviewed the patient 's current medication list. 61 yr old female with cervical CA on chemo and radiation therapy arrives for generalized weakness and dehydration. Unable to keep hydrated and by exam very dehydrated. Fluids and vastly improved. Initial BP low but improved with fluids. Nausea meds helping. Hgb has continued trending down as well. No peritonitis and patient states no bloody/black stools. Suspect this is secondary to recent chemo. Mag continues to trend down as well. Discussed with hospitalist who will come evaluate for further treatment. Consults Time Called: 1839 Consulting Physician: Dr. Dickerson - [facility] [place] Returned Call: 1858 Discussed the patient's case with Dr. Dickerson of [facility] [place]. The patient will be evaluated for further treatment and disposition. Impression Primary Impression: Vomiting Additional Impressions: Dehydration Anemia Hypomagnesemia Scribe Attestation The scribe's documentation has been prepared under my direction and personally reviewed by me in its entirety. I confirm that the note above accurately reflects all work, treatment, procedures, and medical decision making performed by me. Departure Information Dispostion Being Evaluated By Hospitalist Referrals Ana Paula Dumont, MallyNRosalino (PCP) Patient Instructions [facility] Problem Qualifiers
[2016-09-10] MEDS ORDERED: ONDANSETRON INJ 2 MG/ML 2 ML VIAL IV STA (17:56)
[2016-09-10 18:12] LABS: HEMATOCRIT 22.2 % (37-47); MEAN CELL VOLUME 85.1 fL (80-100); MEAN CORPUSCULAR HEMOGLOBIN 31.4 pg (25-34); MEAN CORPUSCULAR HGB CONC 36.9 g/dl (32-36); RED BLOOD COUNT 2.61 M/uL (4.2-5.4); WHITE BLOOD COUNT 4.75 K/uL (4.8-10.8)
[2016-09-10 18:34] LABS: ALT/SGPT 33 U/L (12-78); BLOOD UREA NITROGEN 14 mg/dl (7-18); BUN/CREATININE RATIO 11.9 (10-20); CALCIUM 9.4 mg/dl (8.5-10.1); CARBON DIOXIDE 26 mmol/L (21-32); CHLORIDE 98 mmol/L (98-107); GLUCOSE 104 mg/dl (70-99); MAGNESIUM 1.2 mg/dl (1.8-2.4); POTASSIUM 2.8 mmol/L (3.5-5.1); SODIUM 134 mmol/L (136-145)
[2016-09-10 18:39] LABS: ALKALINE PHOSPHATASE 96 U/L (45-117); AST/SGOT 20 U/L (15-37); PLATELET COUNT 98 K/uL (130-400)
[2016-09-10 18:45] LABS: BASO % 0.2 %; BASO ABS # 0.01 K/uL (0-0.2); COMPLETE YES; EOS % 0.4 %; IG% 0.2 %; LYMPH % 9.5 %; LYMPH ABS # 0.45 K/uL (1.2-3.4); MEAN PLATELET VOLUME 8.8 fL (7.4-10.4); MONO % 6.7 %
[2016-09-10 18:46] LABS: ANISOCYTOSIS PRESENT; PLT ESTIMATE DECREASED; POLYCHROMASIA 1+
[2016-09-10] MEDS ORDERED: MAGNESIUM SULFATE 1GM / D5W 1 GM BAG IV STA (18:53)
[2016-09-10] MEDS ORDERED: DiphenhydrAMINE HCL 50 MG/ML VIAL IV STA (21:19)
[2016-09-10] MEDS ORDERED: PROCHLORPERAZINE 5 MG/ML 2 ML VIAL IV STA (21:19)
[2016-09-10 21:50] LABS: URINE APPEARANCE CLEAR (CLEAR); URINE BILIRUBIN NEG (NEG); URINE COLOR DK YELLOW; URINE NITRITE POS (NEG); URINE PH 6.5 (4.5-7.5); URINE SPECIFIC GRAVITY 1.011 (1.000-1.030); UROBILINOGEN NEG (NEG); ZZUR CULT IF INDIC CLEAN CATCH NO
[2016-09-10 21:52] LABS: MANUAL MICROSCOPIC REQUIRED? NO; REVIEW REQ? NO
[2016-09-10] MEDS ORDERED: ONDANSETRON INJ 2 MG/ML 2 ML VIAL IV PRN (22:00)
[2016-09-10] MEDS ORDERED: PROCHLORPERAZINE MALEATE 10 MG TAB PO PRN (22:00)
[2016-09-10] MEDS ORDERED: ACETAMINOPHEN 325 MG TAB PO PRN (22:00)
--- NOTE | 2016-09-10 22:29 | History and Physical ---
History & Physical Date & Time of Service: Sep 10, 2016 at 22:22 Chief Complaint: Light Headed, Vomiting-Ca Patient Primary Care Physician: Ana Paula Dumont C.R.N.P History of Present Illness Source: patient, family 61-year-old female with past medical history of hypertension, cervical cancer diagnosed in June 2016 currently undergoing chemotherapy and radiation therapy presented to the ER with complaints of intermittent dizziness which started about 2 days ago. Her last chemotherapy session was about a week ago and last radiation session was 2 days ago. During the radiation session 2 days ago she had felt dizzy but was better after receiving IV fluids. Complains of feeling dizzy/lightheaded associated with nausea and vomiting. Denies any abdominal pain, diarrhea, fevers or chills. She also complains of dysuria which she states that she has been experiencing for a while and is using Pyridium. Denies any bright red bleeding per rectum or dark tarry stools. Past Medical/Surgical History Medical Problems: (1) Hypertension Status: Chronic Family History FHx: cancer Social History Smoking Status: Never Smoker Marital Status: Occupational Status: employed Multi-Drug Resistant Organisms History of MDRO: No Allergies Coded Allergies: Penicillins (Verified Allergy, Mild, rash, nausea, 09/05/16) Sulfa Antibiotics (Unverified Allergy, Mild, rash,nausea, 09/05/16) Home Medications Scheduled [place] Dextrin (Fiber Powder), 1 DOSE PO QAM Hydrochlorothiazide (Hctz), 12.5 MG PO QAM Lisinopril (Zestril), 20 MG PO QAM Multivitamins/Minerals (Mvi With Minerals), 1 TAB PO QAM Phenazopyridine HCl (Pyridium), 100 MG PO TID Scheduled PRN Loperamide Hcl (Imodium), 2 MG PO DIRECTED PRN for Diarrhea Ondansetron Hcl (Zofran), 8 MG PO Q8H PRN for N Prochlorperazine Maleate (Compazine), 10 MG PO Q6H PRN for PRN Review of Systems Constitutional: No fever, No chills Eyes: No worsening of vision ENT: No hearing loss Respiratory: No cough, No sputum, No shortness of breath Cardiovascular: + problem reported (dizziness), No chest pain Abdomen: + nausea, + vomiting, No pain Genitourinary - Female: + dysuria, + urinary urgency, No urinary frequency Neurologic: No memory loss Psychiatric: No depression symptoms Endocrine: No fatigue Hematologic / Lymphatic: No abnormal bleeding/bruising Integumentary: No rash Physical Exam Vital Signs Date Time Temp Pulse Resp B/P (MAP) Pulse Ox O2 Delivery O2 Flow Rate FiO2 09/10/16 21:57 77 20 142/65 97 Room Air 09/10/16 21:03 72 16 138/72 96 Room Air 09/10/16 20:01 75 18 132/74 99 Room Air 09/10/16 18:37 77 18 117/71 98 Room Air 09/10/16 18:09 77 16 106/60 97 Room Air 09/10/16 17:30 77 09/10/16 17:07 36.7 82 18 80/52 98 Room Air General Appearance: WD/WN, no apparent distress Head: normocephalic Eyes: normal inspection ENT: normal ENT inspection, hearing grossly normal Neck: supple Respiratory/Chest: chest non-tender, lungs clear, normal breath sounds, no respiratory distress, no accessory muscle use Cardiovascular: regular rate, rhythm Abdomen/GI: normal bowel sounds, non tender, soft Extremities/Musculoskelatal: normal inspection, no calf tenderness Neurologic/Psych: alert, normal mood/affect, oriented x 3 Skin: normal color Diagnostics Laboratory Results Results Past 24 Hours Test 09/10/16 18:03 09/10/16 21:30 Range/Units White Blood Count 4.75 4.8-10.8 K/uL Red Blood Count 2.61 4.2-5.4 M/uL Hemoglobin 8.2 12.0-16.0 g/dL Hematocrit 22.2 37-47 % Mean Corpuscular Volume 85.1 80-100 fL Mean Corpuscular Hemoglobin 31.4 25-34 pg Mean Corpuscular Hemoglobin Concent 36.9 32-36 g/dl Platelet Count 98 130-400 K/uL Mean Platelet Volume 8.8 7.4-10.4 fL Neutrophils (%) (Auto) 83.0 % Lymphocytes (%) (Auto) 9.5 % Monocytes (%) (Auto) 6.7 % Eosinophils (%) (Auto) 0.4 % Basophils (%) (Auto) 0.2 % Neutrophils # (Auto) 3.94 1.4-6.5 K/uL Lymphocytes # (Auto) 0.45 1.2-3.4 K/uL Monocytes # (Auto) 0.32 0.11-0.59 K/uL Eosinophils # (Auto) 0.02 0-0.5 K/uL Basophils # (Auto) 0.01 0-0.2 K/uL RDW Standard Deviation 40.6 36.4-46.3 fL RDW Coefficient of Variation 13.7 11.5-14.5 % Immature Granulocyte % (Auto) 0.2 % Immature Granulocyte # (Auto) 0.01 0.00-0.02 K/uL Platelet Estimate DECREASED Polychromasia 1+ Anisocytosis PRESENT Sodium Level 134 136-145 mmol/L Potassium Level 2.8 3.5-5.1 mmol/L Chloride Level 98 98-107 mmol/L Carbon Dioxide Level 26 21-32 mmol/L Anion Gap 10.0 3-11 mmol/L Blood Urea Nitrogen 14 7-18 mg/dl Creatinine 1.20 0.60-1.20 mg/dl Est Creatinine Clear Calc Drug Dose 53.0 ml/min Estimated GFR () 56.5 Estimated GFR (Non- 48.7 BUN/Creatinine Ratio 11.9 10-20 Random Glucose 104 70-99 mg/dl Calcium Level 9.4 8.5-10.1 mg/dl Magnesium Level 1.2 1.8-2.4 mg/dl Total Bilirubin 0.4 0.2-1 mg/dl Direct Bilirubin 0.1 0-0.2 mg/dl Aspartate Amino Transf (AST/SGOT) 20 15-37 U/L Alanine Aminotransferase (ALT/SGPT) 33 12-78 U/L Alkaline Phosphatase 96 45-117 U/L Total Creatine Kinase 25 26-192 U/L Troponin I < 0.015 0-0.045 ng/ml Total Protein 6.5 6.4-8.2 gm/dl Albumin 3.2 3.4-5.0 gm/dl Lipase 81 73-393 U/L Urine Color DK YELLOW Urine Appearance CLEAR CLEAR Urine pH 6.5 4.5-7.5 Urine Specific [place] 1.011 1.000-1.030 Urine Protein NEG NEG Urine Glucose (UA) NEG NEG Urine Ketones NEG NEG Urine Occult Blood TRACE NEG Urine Nitrite POS NEG Urine Bilirubin NEG NEG Urine Urobilinogen NEG NEG Urine Leukocyte Esterase TRACE NEG Urine WBC (Auto) 1-5 0-5 /hpf Urine RBC (Auto) 0-4 0-4 /hpf Urine Hyaline Casts (Auto) 1-5 0-5 /lpf Urine Epithelial Cells (Auto) 5-10 0-5 /lpf Urine Bacteria (Auto) NEG NEG Diagnostic Radiology Normal sinus rhythm Normal ECG No previous ECGs available EKG Normal sinus rhythm Normal ECG No previous ECGs available Impression Assessment and Plan 61-year-old female with past medical history of hypertension, cervical cancer diagnosed in June 2016 currently undergoing chemotherapy and radiation therapy presented to the ER with complaints of intermittent dizziness which started about 2 days ago. Dizziness likely secondary to dehydration/ anemia - EKG unremarkable - Continue IV fluids - Orthostatic vitals every shift - Zofran/Compazine for nausea/vomiting Hypokalemia: - K at 2.8 - Mag at 1.2 - Repleted - Monitor BMP Anemia/thrombocytopenia - Likely secondary to bone marrow suppression from chemotherapy - Hemoglobin at 8.2, last hemoglobin on 09/03 was 10.4 - Recheck H&H in 4 hours - Hemoccult pending Platelet count at 98, decreased from 120 on 09/03 - Monitor platelets - Heme oncology consult Cervical cancer stage IIB, diagnosed in June 2016 - Scheduled for radiation - Radiation oncology consult - Nothing by mouth after midnight Hypertension: - Continue hydrochlorothiazide and lisinopril Dysuria likely secondary to radiation - Pyridium for symptomatic relief DVT prophylaxis: SCDs Full code Disposition: Admitted to Med Surg Resident Physician Supervision Note: I was present with Dr. Lindquist during the history and exam. I discussed the case with the resident and agree with the findings and plan as documented in the note. Any exceptions or clarifications are listed here: Documented By: Jung Byrne 61 y/o F with Cervical CA undergoing chemo / radiation - presenting with inractable N/V - has mild pancytopenia as well OE AAO x 3 S1,2 R CTAB NT, ND, BS+ No CCE AP IVF antiemetics trend BMP - may need transfusion Contact H/O and rad onc AM as she is due for radiation under anesthesia tomorrow Level of Care Med/Surg Resuscitation Status FULL RESUSCITATION VTE Prophylaxis VTE Risk Assessment Done? Y/N: Yes Risk Level: Moderate Given or contraindicated: SCD's Resident Tracking Resident Involvement: Resident Care Provided Care Provided: Adult [facility] Medicine
[2016-09-10] MEDS ORDERED: POLYETHYLENE (MIRALAX) 17 GM PACK PO PRN (22:45)
[2016-09-10 23:05] VITALS: BP 122/74; PULSE 77; TEMP 36.6; O2SAT 96; Ht 165.1 cm; Wt 85.0 kg
[2016-09-10] MEDS ORDERED: PHENAZOPYRIDINE HCL 100 MG TAB PO PRN (23:15)
[2016-09-10] MEDS: POTASSIUM CHLR 10 MEQ / WTR 10 MEQ in PREMIXED WATER 100 ML IV SCH (23:54)
[2016-09-10] MEDS: NSS + 20MEQ KCL 1000ML 1,000 ML IV SCH (23:54)
[2016-09-11] MEDS: POTASSIUM CHLR 10 MEQ / WTR 10 MEQ in PREMIXED WATER 100 ML IV SCH ×2 (01:23→02:32)
[2016-09-11 01:39] LABS: HEMATOCRIT 24.6 % (37-47); MEAN CELL VOLUME 86.6 fL (80-100); MEAN CORPUSCULAR HEMOGLOBIN 30.6 pg (25-34); MEAN CORPUSCULAR HGB CONC 35.4 g/dl (32-36); RED BLOOD COUNT 2.84 M/uL (4.2-5.4); WHITE BLOOD COUNT 3.67 K/uL (4.8-10.8)
[2016-09-11 01:40] LABS: MEAN PLATELET VOLUME 9.2 fL (7.4-10.4); PLATELET COUNT 98 K/uL (130-400)
[2016-09-11 01:59] LABS: BUN/CREATININE RATIO 12.3 (10-20); CALCIUM 8.8 mg/dl (8.5-10.1); CREATININE 0.9 mg/dl (0.60-1.20); POTASSIUM 3.9 mmol/L (3.5-5.1)
[2016-09-11 02:17] LABS: BASO % 0.3 %; BASO ABS # 0.01 K/uL (0-0.2); COMPLETE YES; EOS % 1.1 %; IG% 0.3 %; LYMPH % 10.6 %; LYMPH ABS # 0.39 K/uL (1.2-3.4); MONO % 14.7 %
[2016-09-11 06:22] LABS: HEMATOCRIT 21.9 % (37-47); MEAN CELL VOLUME 86.2 fL (80-100); MEAN CORPUSCULAR HEMOGLOBIN 30.7 pg (25-34); MEAN CORPUSCULAR HGB CONC 35.6 g/dl (32-36); RED BLOOD COUNT 2.54 M/uL (4.2-5.4); WHITE BLOOD COUNT 2.68 K/uL (4.8-10.8)
[2016-09-11 06:26] LABS: MEAN PLATELET VOLUME 8.7 fL (7.4-10.4); PLATELET COUNT 88 K/uL (130-400)
[2016-09-11 06:52] LABS: BASO % 0.4 %; BASO ABS # 0.01 K/uL (0-0.2); COMPLETE YES; EOS % 1.1 %; IG% 0.4 %; LYMPH % 10.4 %; LYMPH ABS # 0.28 K/uL (1.2-3.4); MONO % 17.5 %; NEUT % 70.2 %
[2016-09-11 06:57] LABS: CALCIUM 8.6 mg/dl (8.5-10.1); CREATININE 0.84 mg/dl (0.60-1.20); MAGNESIUM 1.7 mg/dl (1.8-2.4); POTASSIUM 3.3 mmol/L (3.5-5.1)
[2016-09-11 07:12] VITALS: BP 125/73; PULSE 74; TEMP 36.8; O2SAT 98
[2016-09-11] MEDS ORDERED: HYDROCHLOROTHIAZIDE 25 MG TAB PO SCH (09:00)
--- NOTE | 2016-09-11 09:08 | Oncology Consultation ---
Oncology/Heme Consultation Date of Consultation: Sep 11, 2016. Attending Physician: Jung Byrne M.D. Reason for Consultation: History of cervical carcinoma History of Present Illness Ms. Irvin was admitted last evening with lightheadedness and just not feeling well. She has been treated with weekly cisplatin and radiation therapy for cervical carcinoma. Her last chemotherapy was 1 week ago. She denies nausea. She states she just felt lightheaded and weak. She denied diarrhea. She denies any overt bleeding. She denies any fever or chills. She has had dysuria. Past Medical/Surgical History Medical Problems: (1) Anemia Status: Acute (2) Dehydration Status: Acute (3) Dental abscess Status: Acute (4) Hypomagnesemia Status: Acute (5) Toothache Status: Acute (6) Vomiting Status: Acute Family History FHx: cancer Social History Smoking Status: Never Smoker Marital Status: Housing Status: lives with family Occupation Status: employed Allergies Coded Allergies: Penicillins (Verified Allergy, Mild, rash, nausea, 09/05/16) Sulfa Antibiotics (Unverified Allergy, Mild, rash,nausea, 09/05/16) Home Medications Scheduled [place] Dextrin (Fiber Powder), 1 DOSE PO QAM Hydrochlorothiazide (Hctz), 12.5 MG PO QAM Lisinopril (Zestril), 20 MG PO QAM Multivitamins/Minerals (Mvi With Minerals), 1 TAB PO QAM Phenazopyridine HCl (Pyridium), 100 MG PO TID Scheduled PRN Loperamide Hcl (Imodium), 2 MG PO DIRECTED PRN for Diarrhea Ondansetron Hcl (Zofran), 8 MG PO Q8H PRN for N Prochlorperazine Maleate (Compazine), 10 MG PO Q6H PRN for PRN Current Inpatient Medications Current Inpatient Medications Medications (Trade) Dose Ordered Sig/Radha Route Start Time Stop Time Status Last Admin Dose Admin Acetaminophen (Tylenol Tab) 650 mg Q4H PRN PO 09/10/16 22:00 10/10/16 21:59 Polyethylene (Miralax Powder Packet) 17 gm DAILY PRN PO 09/10/16 22:45 10/10/16 22:44 Ondansetron HCl (Zofran Inj) 4 mg Q6H PRN IV 09/10/16 22:00 10/10/16 21:59 Hydrochlorothiazide (Hydrochlorothiazide Tab) 12.5 mg QAM PO 09/11/16 09:00 10/11/16 08:59 Lisinopril (Zestril Tab) 20 mg QAM PO 09/11/16 09:00 10/11/16 08:59 Multivitamins/ Minerals (Multivitamin W/ Minerals Tab) 1 tab QAM PO 09/11/16 09:00 10/11/16 08:59 Phenazopyridine HCl (Pyridium Tab) 100 mg TID PO 09/11/16 09:00 10/11/16 08:59 Prochlorperazine Maleate (Compazine Tab) 10 mg Q6H PRN PO 09/10/16 22:00 10/10/16 21:59 Potassium Chloride/Sodium Chloride 1,000 ml @ 100 mls/hr Q10H IV 09/10/16 23:30 10/10/16 23:29 09/10/16 23:54 100 MLS/HR Heparin Sodium (Porcine) (Heparin 100 Unit/ml 5ml Flush) 5 ml PRN PRN IV 09/11/16 06:15 10/11/16 06:14 Potassium Chloride (Klor-Con M10) 40 meq NOW STAT PO 09/11/16 09:00 09/11/16 09:01 UNV Magnesium Sulfate 1 gm/Prmx 100 ml @ 100 mls/hr ONE IV 09/11/16 09:00 10/11/16 08:59 UNV Review of Systems Constitutional: Negative for weight loss, night sweats, or fever Eyes: Negative for event change of vision ENT: Negative for epistaxis, nasal discharge, sore throat, or deafness Cardiovascular: Negative for chest pain, palpitations, dizziness, diaphoresis Respiratory: Negative for new shortness of breath,hemoptysis, or purulent cough Gastrointestinal: Negative for diarrhea, hematemesis, melena, nausea, vomiting , or dyspepsia Integumentary (skin): Negative for rash or jaundice discoloration Genitourinary: Negative for urinary frequency, hematuria, she has had dysuria Neurological: Negative for weakness, seizure activity, headache, or dizziness Lymphatic/Hematologic: Negative for petechiae, bleeding or new adenopathy Musculoskeletal: Negative for new joint or back pain Allergic/Immunologic: Negative for unusual rash or pruritis. Physical Exam Date Time Temp Pulse Resp B/P (MAP) Pulse Ox O2 Delivery O2 Flow Rate FiO2 09/11/16 07:45 Room Air 09/11/16 07:12 36.8 74 16 125/73 (90) 98 Room Air 09/10/16 23:05 36.6 77 16 122/74 (90) 96 Room Air 09/10/16 23:05 36.6 77 16 122/74 Room Air 09/10/16 23:05 Room Air 09/10/16 22:33 75 16 123/67 97 Room Air 09/10/16 21:57 77 20 142/65 97 Room Air 09/10/16 21:03 72 16 138/72 96 Room Air 09/10/16 20:01 75 18 132/74 99 Room Air 09/10/16 18:37 77 18 117/71 98 Room Air 09/10/16 18:09 77 16 106/60 97 Room Air 09/10/16 17:30 77 09/10/16 17:07 36.7 82 18 80/52 98 Room Air Constitutional: vitals are stable. Alert pleasant female. Eyes: Eyes are NOE EOMI without conjuctival erythema or icterus. ENT: External examination was negative for masses. Neck: Negative for masses or palpable thyromegaly Respiratory: Lung sounds were generally clear bilaterally Cardiovascular: Heart was RRR without significant murmur, gallops aoe rubs Gastrointestinal: No palpable hepatic or splenomegaly. The abdomen was soft with normal bowel sounds. Lymphatic system: there was no palpable peripheral lymphadenopathy Musculoskeletal System: The musculoskeletal system seemed concordant with age. Skin: The skin was negative for jaundice. Neurologic exam: The exam was negative for any focal findings. Deep tendon reflexes were equal and symmetrical. Psychiatric exam: Was essentially negative with normal mood and effect. Breast exam: Not done Extremities: Negative for edema erythema Laboratory Results Last 24 Hours Test 09/10/16 18:03 09/10/16 21:30 09/11/16 01:30 09/11/16 05:52 White Blood Count 4.75 K/uL 3.67 K/uL 2.68 K/uL Red Blood Count 2.61 M/uL 2.84 M/uL 2.54 M/uL Hemoglobin 8.2 g/dL 8.7 g/dL 7.8 g/dL Hematocrit 22.2 % 24.6 % 21.9 % Mean Corpuscular Volume 85.1 fL 86.6 fL 86.2 fL Mean Corpuscular Hemoglobin 31.4 pg 30.6 pg 30.7 pg Mean Corpuscular Hemoglobin Concent 36.9 g/dl 35.4 g/dl 35.6 g/dl Platelet Count 98 K/uL 98 K/uL 88 K/uL Mean Platelet Volume 8.8 fL 9.2 fL 8.7 fL Neutrophils (%) (Auto) 83.0 % 73.0 % 70.2 % Lymphocytes (%) (Auto) 9.5 % 10.6 % 10.4 % Monocytes (%) (Auto) 6.7 % 14.7 % 17.5 % Eosinophils (%) (Auto) 0.4 % 1.1 % 1.1 % Basophils (%) (Auto) 0.2 % 0.3 % 0.4 % Neutrophils # (Auto) 3.94 K/uL 2.68 K/uL 1.88 K/uL Lymphocytes # (Auto) 0.45 K/uL 0.39 K/uL 0.28 K/uL Monocytes # (Auto) 0.32 K/uL 0.54 K/uL 0.47 K/uL Eosinophils # (Auto) 0.02 K/uL 0.04 K/uL 0.03 K/uL Basophils # (Auto) 0.01 K/uL 0.01 K/uL 0.01 K/uL RDW Standard Deviation 40.6 fL 42.0 fL 42.2 fL RDW Coefficient of Variation 13.7 % 13.9 % 13.9 % Immature Granulocyte % (Auto) 0.2 % 0.3 % 0.4 % Immature Granulocyte # (Auto) 0.01 K/uL 0.01 K/uL 0.01 K/uL Platelet Estimate DECREASED Polychromasia 1+ Anisocytosis PRESENT Sodium Level 134 mmol/L 138 mmol/L 137 mmol/L Potassium Level 2.8 mmol/L 3.9 mmol/L 3.3 mmol/L Chloride Level 98 mmol/L 103 mmol/L 105 mmol/L Carbon Dioxide Level 26 mmol/L 28 mmol/L 26 mmol/L Anion Gap 10.0 mmol/L 7.0 mmol/L 6.0 mmol/L Blood Urea Nitrogen 14 mg/dl 11 mg/dl 10 mg/dl Creatinine 1.20 mg/dl 0.90 mg/dl 0.84 mg/dl Est Creatinine Clear Calc Drug Dose 53.0 ml/min 70.7 ml/min 75.7 ml/min Estimated GFR () 56.5 80.0 86.9 Estimated GFR (Non- 48.7 69.0 75.0 BUN/Creatinine Ratio 11.9 12.3 12.0 Random Glucose 104 mg/dl 93 mg/dl 89 mg/dl Calcium Level 9.4 mg/dl 8.8 mg/dl 8.6 mg/dl Magnesium Level 1.2 mg/dl 2.0 mg/dl 1.7 mg/dl Total Bilirubin 0.4 mg/dl Direct Bilirubin 0.1 mg/dl Aspartate Amino Transf (AST/SGOT) 20 U/L Alanine Aminotransferase (ALT/SGPT) 33 U/L Alkaline Phosphatase 96 U/L Total Creatine Kinase 25 U/L Troponin I < 0.015 ng/ml Total Protein 6.5 gm/dl Albumin 3.2 gm/dl Lipase 81 U/L Urine Color DK YELLOW Urine Appearance CLEAR Urine pH 6.5 Urine Specific [place] 1.011 Urine Protein NEG Urine Glucose (UA) NEG Urine Ketones NEG Urine Occult Blood TRACE Urine Nitrite POS Urine Bilirubin NEG Urine Urobilinogen NEG Urine Leukocyte Esterase TRACE Urine WBC (Auto) 1-5 /hpf Urine RBC (Auto) 0-4 /hpf Urine Hyaline Casts (Auto) 1-5 /lpf Urine Epithelial Cells (Auto) 5-10 /lpf Urine Bacteria (Auto) NEG Red Blood Cell Morphology Unremarkable Assessment & Plan History of cervical carcinoma receiving concurrent chemoradiotherapy. She is mildly cytopenic secondary to therapy. This been no overt bleeding. She is nearing the end of her therapy. Approach should be supportive. Magnesium is low and she is being replenished. Hemoglobin is 7.8 but may not need transfusion just yet. White cell number is adequate as is the platelet number. She has been afebrile. Recent urine culture from September 08 showed multiple organisms.
[2016-09-11] MEDS: CEROVITE ADV FORMULA TAB PO SCH (09:16)
[2016-09-11] MEDS: LISINOPRIL 20 MG TAB PO SCH (09:17)
[2016-09-11] MEDS: PHENAZOPYRIDINE HCL 100 MG TAB PO SCH ×3 (09:17→20:11)
[2016-09-11] MEDS: NSS + 20MEQ KCL 1000ML 1,000 ML IV SCH ×2 (09:18→18:55)
[2016-09-11] MEDS ORDERED: MAGNESIUM SULFATE 1GM / D5W 1 GM in PREMIXED IN D5W 100 ML IV ONE (09:30)
[2016-09-11] MEDS ORDERED: POTASSIUM CHLORIDE 10 MEQ TABCR PO ONE (09:30)
[2016-09-11 10:43] VITALS: BP 116/72; PULSE 74; TEMP 36.7; O2SAT 97
--- NOTE | 2016-09-11 10:52 | Radiation Oncology Progress Nt ---
Radiation Oncology Progress Nt Date of Service Date of Service: Sep 11, 2016. (Tanisha Perez PA-C) Subjective Pt evaluation today including: conversation w/ patient, physical exam, chart review, lab review, review of studies, conversation w/ business sales consultant, review of inpatient medication list Voiding: no voiding problems, voiding difficulty Ms. Irvin is a 61-year-old female who recently noticed some vaginal bleeding over the last 3-4 months. She noted that she was experiencing some bleeding during sexual intercourse. She was referred by her primary care physician to Dr. Funes from gynecology. Dr. Funes saw the patient in 06/13/2016 and performed a pelvic examination which revealed a lesion involving the left lateral vaginal fornix concerning for cervical cancer. A Pap smear was performed at the time of the examination which confirmed squamous cell carcinoma. The patient was referred to Dr. Panchal on 06/23/2016. Dr. Panchal performed a pelvic examination which revealed a nodularity involving the left fornix; he also noted that the cervix was abnormal and covered with abnormal vessel circumferentially. Dr. Panchal also noted some nodularity involving the left parametrium and stage the patient as FIGO stage IIB. Dr. Panchal did perform biopsies of the left posterior vaginal fornix and cervix during the office examination and both were positive for squamous cell carcinoma. We are now seeing the patient in consultation to discuss the role of radiation therapy for treatment of her cervical cancer. Currently, the patient states that she continues to have some vaginal discharge and bleeding. She denies any significant pain but does note some pain during intercourse. She denies any bleeding per rectum or discomfort with rectal defecation. She began concurrent radiation and chemotherapy 07/31/2016. She did have side effects of fatigue and and then nausea. She then developed issues with recurrent vomiting. She was given hydration in our office. Following day she continued to have difficulty. She was advised to go to the emergency room which she did. She was to have hypokalemia and low magnesium. She has been receiving fluids and electrolyte replacement. She is steadily improving and feeling well. 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 Marital Status: Allergies Coded Allergies: Sulfa Antibiotics (Unverified Allergy, Mild, rash,nausea, 07/02/16) Penicillins (Verified Allergy, Unknown, unk, 05/31/16) (Tanisha Perez PA-C) Review of Systems Constitutional: + weakness, + fatigue Eyes: No see HPI, No worsening of vision, No eye pain, No redness, No discharge , No diplopia, No problem reported ENT: No see HPI, No hearing loss, No unusual epistaxis, No nasal symptoms, No sore throat, No tinnitus, No dental problems, No trouble swallowing, No problem reported Respiratory: No see HPI, No cough, No sputum, No wheezing, No shortness of breath, No dyspnea on exertion, No dyspnea at rest, No hemoptysis, No problem reported Cardiac: No see HPI, No chest pain, No orthopnea, No PND, No edema, No claudication, No palpitations, No problem reported Abdomen: + nausea, + vomiting, + diarrhea Female : + dysuria, + urinary frequency Neurologic: No see HPI, No memory loss, No paralysis, No weakness, No numbness/ tingling, No vertigo, No balance problems, No problem reported Psychiatric: No see HPI, No depression symptoms, No anhedonism, No anxiety, No insomnia, No substance abuse, No problem reported Heme: No see HPI, No abnormal bleeding/bruising, No clotting problems, No swollen lymph nodes, No night sweats, No problem reported Endo: + fatigue (Tanisha Perez PA-C) Medications Medications Dose Route/Sig Max Daily Dose Days Date Category Pyridium (Phenazopyridine HCl) 200 Mg Tab 100 Mg PO TID 09/08/16 Reported Imodium (Loperamide HCl) 2 Mg Cap 2 Mg PO DIRECTED PRN 09/05/16 Reported Compazine (Prochlorperazine Maleate) 10 Mg Tab 10 Mg PO Q6H PRN 08/06/16 Reported Zofran (Ondansetron HCl) 8 Mg Tab 8 Mg PO Q8H PRN 08/06/16 Reported Fiber Powder ([place] Dextrin) 1 Pow Pow 1 Dose PO QAM 08/06/16 Reported Mvi With Minerals (Multivitamins/Minerals) Tab 1 Tab PO QAM 05/31/16 Reported Zestril (Lisinopril) 20 Mg Tab 20 Mg PO QAM 05/31/16 Reported Hctz (Hydrochlorothiazide) 12.5 Mg Cap 12.5 Mg PO QAM 05/31/16 Reported (Tanisha Perez PA-C) Objective Vital Signs Date Time Temp Pulse Resp B/P (MAP) Pulse Ox O2 Delivery O2 Flow Rate FiO2 09/11/16 07:45 Room Air 09/11/16 07:12 36.8 74 16 125/73 (90) 98 Room Air 09/10/16 23:05 36.6 77 16 122/74 (90) 96 Room Air 09/10/16 23:05 36.6 77 16 122/74 Room Air 09/10/16 23:05 Room Air 09/10/16 22:33 75 16 123/67 97 Room Air 09/10/16 21:57 77 20 142/65 97 Room Air 09/10/16 21:03 72 16 138/72 96 Room Air 09/10/16 20:01 75 18 132/74 99 Room Air 09/10/16 18:37 77 18 117/71 98 Room Air 09/10/16 18:09 77 16 106/60 97 Room Air 09/10/16 17:30 77 09/10/16 17:07 36.7 82 18 80/52 98 Room Air (Tanisha Perez PA-C) Physical Exam General Appearance: no apparent distress Eyes: normal inspection, EOMI ENT: normal ENT inspection, hearing grossly normal Neck: no adenopathy, thyroid normal Respiratory/Chest: lungs clear, no respiratory distress, no accessory muscle use Cardiovascular: regular rate, rhythm, no gallop, no murmur Abdomen: normal bowel sounds, non tender, soft, no organomegaly Extremities: no pedal edema Neurologic/Psychiatric: no motor/sensory deficits, alert, normal mood/affect Skin: warm/dry (Tanisha Perez PA-C) Radiological Studies 09/11/16 05:52 Red Blood Count 2.54, Mean Corpuscular Volume 86.2, Mean Corpuscular Hemoglobin 30.7, Mean Corpuscular Hemoglobin Concent 35.6, Mean Platelet Volume 8.7, Neutrophils (%) (Auto) 70.2, Lymphocytes (%) (Auto) 10.4, Monocytes (%) (Auto) 17.5, Eosinophils (%) (Auto) 1.1, Basophils (%) (Auto) 0.4, Neutrophils # (Auto ) 1.88, Lymphocytes # (Auto) 0.28, Monocytes # (Auto) 0.47, Eosinophils # (Auto ) 0.03, Basophils # (Auto) 0.01 Test 09/10/16 18:03 09/10/16 21:30 09/11/16 01:30 09/11/16 05:52 Platelet Estimate DECREASED Polychromasia 1+ Anisocytosis PRESENT Total Bilirubin 0.4 mg/dl (0.2-1) Direct Bilirubin 0.1 mg/dl (0-0.2) Aspartate Amino Transf (AST/SGOT) 20 U/L (15-37) Alanine Aminotransferase (ALT/SGPT) 33 U/L (12-78) Alkaline Phosphatase 96 U/L (45-117) Total Creatine Kinase 25 U/L (26-192) Troponin I < 0.015 ng/ml (0-0.045) Total Protein 6.5 gm/dl (6.4-8.2) Albumin 3.2 gm/dl (3.4-5.0) Lipase 81 U/L (73-393) Urine Color DK YELLOW Urine Appearance CLEAR (CLEAR) Urine pH 6.5 (4.5-7.5) Urine Specific [place] 1.011 (1.000-1.030) Urine Protein NEG (NEG) Urine Glucose (UA) NEG (NEG) Urine Ketones NEG (NEG) Urine Occult Blood TRACE (NEG) Urine Nitrite POS (NEG) Urine Bilirubin NEG (NEG) Urine Urobilinogen NEG (NEG) Urine Leukocyte Esterase TRACE (NEG) Urine WBC (Auto) 1-5 /hpf (0-5) Urine RBC (Auto) 0-4 /hpf (0-4) Urine Hyaline Casts (Auto) 1-5 /lpf (0-5) Urine Epithelial Cells (Auto) 5-10 /lpf (0-5) Urine Bacteria (Auto) NEG (NEG) Red Blood Cell Morphology Unremarkable White Blood Count 2.68 K/uL (4.8-10.8) Red Blood Count 2.54 M/uL (4.2-5.4) Hemoglobin 7.8 g/dL (12.0-16.0) Hematocrit 21.9 % (37-47) Mean Corpuscular Volume 86.2 fL (80-100) Mean Corpuscular Hemoglobin 30.7 pg (25-34) Mean Corpuscular Hemoglobin Concent 35.6 g/dl (32-36) Platelet Count 88 K/uL (130-400) Mean Platelet Volume 8.7 fL (7.4-10.4) Neutrophils (%) (Auto) 70.2 % Lymphocytes (%) (Auto) 10.4 % Monocytes (%) (Auto) 17.5 % Eosinophils (%) (Auto) 1.1 % Basophils (%) (Auto) 0.4 % Neutrophils # (Auto) 1.88 K/uL (1.4-6.5) Lymphocytes # (Auto) 0.28 K/uL (1.2-3.4) Monocytes # (Auto) 0.47 K/uL (0.11-0.59) Eosinophils # (Auto) 0.03 K/uL (0-0.5) Basophils # (Auto) 0.01 K/uL (0-0.2) RDW Standard Deviation 42.2 fL (36.4-46.3) RDW Coefficient of Variation 13.9 % (11.5-14.5) Immature Granulocyte % (Auto) 0.4 % Immature Granulocyte # (Auto) 0.01 K/uL (0.00-0.02) Anion Gap 6.0 mmol/L (3-11) Est Creatinine Clear Calc Drug Dose 75.7 ml/min Estimated GFR () 86.9 Estimated GFR (Non- 75.0 BUN/Creatinine Ratio 12.0 (10-20) Calcium Level 8.6 mg/dl (8.5-10.1) Magnesium Level 1.7 mg/dl (1.8-2.4) (Tanisha Perez PA-C) Laboratory Results Last 24 Hours Test 09/10/16 18:03 09/10/16 21:30 09/11/16 01:30 09/11/16 05:52 White Blood Count 4.75 K/uL 3.67 K/uL 2.68 K/uL Red Blood Count 2.61 M/uL 2.84 M/uL 2.54 M/uL Hemoglobin 8.2 g/dL 8.7 g/dL 7.8 g/dL Hematocrit 22.2 % 24.6 % 21.9 % Mean Corpuscular Volume 85.1 fL 86.6 fL 86.2 fL Mean Corpuscular Hemoglobin 31.4 pg 30.6 pg 30.7 pg Mean Corpuscular Hemoglobin Concent 36.9 g/dl 35.4 g/dl 35.6 g/dl Platelet Count 98 K/uL 98 K/uL 88 K/uL Mean Platelet Volume 8.8 fL 9.2 fL 8.7 fL Neutrophils (%) (Auto) 83.0 % 73.0 % 70.2 % Lymphocytes (%) (Auto) 9.5 % 10.6 % 10.4 % Monocytes (%) (Auto) 6.7 % 14.7 % 17.5 % Eosinophils (%) (Auto) 0.4 % 1.1 % 1.1 % Basophils (%) (Auto) 0.2 % 0.3 % 0.4 % Neutrophils # (Auto) 3.94 K/uL 2.68 K/uL 1.88 K/uL Lymphocytes # (Auto) 0.45 K/uL 0.39 K/uL 0.28 K/uL Monocytes # (Auto) 0.32 K/uL 0.54 K/uL 0.47 K/uL Eosinophils # (Auto) 0.02 K/uL 0.04 K/uL 0.03 K/uL Basophils # (Auto) 0.01 K/uL 0.01 K/uL 0.01 K/uL RDW Standard Deviation 40.6 fL 42.0 fL 42.2 fL RDW Coefficient of Variation 13.7 % 13.9 % 13.9 % Immature Granulocyte % (Auto) 0.2 % 0.3 % 0.4 % Immature Granulocyte # (Auto) 0.01 K/uL 0.01 K/uL 0.01 K/uL Platelet Estimate DECREASED Polychromasia 1+ Anisocytosis PRESENT Sodium Level 134 mmol/L 138 mmol/L 137 mmol/L Potassium Level 2.8 mmol/L 3.9 mmol/L 3.3 mmol/L Chloride Level 98 mmol/L 103 mmol/L 105 mmol/L Carbon Dioxide Level 26 mmol/L 28 mmol/L 26 mmol/L Anion Gap 10.0 mmol/L 7.0 mmol/L 6.0 mmol/L Blood Urea Nitrogen 14 mg/dl 11 mg/dl 10 mg/dl Creatinine 1.20 mg/dl 0.90 mg/dl 0.84 mg/dl Est Creatinine Clear Calc Drug Dose 53.0 ml/min 70.7 ml/min 75.7 ml/min Estimated GFR () 56.5 80.0 86.9 Estimated GFR (Non- 48.7 69.0 75.0 BUN/Creatinine Ratio 11.9 12.3 12.0 Random Glucose 104 mg/dl 93 mg/dl 89 mg/dl Calcium Level 9.4 mg/dl 8.8 mg/dl 8.6 mg/dl Magnesium Level 1.2 mg/dl 2.0 mg/dl 1.7 mg/dl Total Bilirubin 0.4 mg/dl Direct Bilirubin 0.1 mg/dl Aspartate Amino Transf (AST/SGOT) 20 U/L Alanine Aminotransferase (ALT/SGPT) 33 U/L Alkaline Phosphatase 96 U/L Total Creatine Kinase 25 U/L Troponin I < 0.015 ng/ml Total Protein 6.5 gm/dl Albumin 3.2 gm/dl Lipase 81 U/L Urine Color DK YELLOW Urine Appearance CLEAR Urine pH 6.5 Urine Specific [place] 1.011 Urine Protein NEG Urine Glucose (UA) NEG Urine Ketones NEG Urine Occult Blood TRACE Urine Nitrite POS Urine Bilirubin NEG Urine Urobilinogen NEG Urine Leukocyte Esterase TRACE Urine WBC (Auto) 1-5 /hpf Urine RBC (Auto) 0-4 /hpf Urine Hyaline Casts (Auto) 1-5 /lpf Urine Epithelial Cells (Auto) 5-10 /lpf Urine Bacteria (Auto) NEG Red Blood Cell Morphology Unremarkable (Tanisha Perez PA-C) Assessment and Plan (1) Cervical cancer Status: Acute Assessment & Plan: Qualified Codes: C53.8 - Malignant neoplasm of overlapping sites of cervix uteri Histology Subtype: squamous cell carcinoma Onset Date: 06/13/2016 Stage: ll (B) Permanent Comment: Postmenopausal vaginal bleeding Examination revealing a cervical lesion. Pap smear 04/15/2016 showing squamous cell carcinoma of the cervix Vaginal biopsy 06/24/2016 showing squamous cell carcinoma (2) Dehydration Status: Acute (3) Hypomagnesemia Status: Acute (4) Anemia Status: Acute (5) Vomiting Status: Acute She is currently receiving hydration and replacement of electrolytes. She was brought to our department today for her last external beam treatment. She's been scheduled for her first HDR treatment tomorrow. This will be performed in the operating room. Following recovery she'll be brought to radiation oncology for simulation. Treatment planning will be completed and the high-dose treatment will be given. This was previously reviewed with her and discussed again today. She previously signed consent. Side effects were reviewed. All questions were answered. (Tanisha Perez PA-C) We have been asked to evaluate Ms. Irvin in the inpatient setting due to her recent admission from electrolyte abnormalities, nausea, vomiting and overall failure to thrive. The patient is currently undergoing pelvic chemotherapy and radiation therapy for cervical cancer and was scheduled to undergo her first fraction of HDR brachytherapy today. Since the patient's admission, she is doing much better. I have spoken with Dr. Rojo and we will plan to bring the patient down today to complete her final fraction of external beam radiation therapy. Assuming she continues to improve and with clearance from anesthesia, we would like to take her to the operating room to place the tandem/ovoid HDR applicator under general anesthesia and then bring the patient to our department for HDR brachytherapy; Dr. Rojo was in agreement as well. I have spoken to the patient was also agreement with this plan. We explained the indications, alternatives, risks, benefits, side effects for high-dose rate (HDR) tandem and ovoid cervical brachytherapy. We explained the procedure which typically involves the placement of the sleeve in order to allow passage of the tandem through the cervical os which may or may not require sedation and and possibly placement in the operative room. We explained that the procedures have risks including bleeding, infection, fistula formation. We explained the patient may need operative clearance for any procedure with sedation or general anesthesia. We explained from the radiation perspective, that there is an increased risk for vaginal stenosis, infection, fibrosis, fistula formation, soft tissue necrosis. The patient understands and is willing to consent to treatment if necessary. The patient had multiple questions which were answered to their full satisfaction. Thank you for allowing us to participate in the care of this patient. This chart was completed in part utilizing [employer] Speech Voice Recognition software. Attempts were made to minimize the grammatical errors, random word insertions, pronoun errors and incomplete sentences. Any formal questions or concerns about the content, text or information contained within the body of this dictation should be directly addressed to the provider for clarification. Lamine Rivas MD Department of Radiation Oncology [facility] (Veeral. Rivas MD)
[2016-09-11 15:36] VITALS: BP 116/70; PULSE 79; TEMP 36.7; O2SAT 96
[2016-09-11] MEDS ORDERED: NURSING VERBAL MED ORDER ONE ×2 (20:45→21:00)
[2016-09-11] MEDS ORDERED: ALUMINUM/MAGNESIUM SUSP 30 ML UDC PO PRN (21:30)
[2016-09-11 23:10] VITALS: BP 124/76; PULSE 80; TEMP 36.9; O2SAT 96
[2016-09-12] VITALS (12 sets, daily range): BP systolic 133–158; BP diastolic 66–91; PULSE 66–86; TEMP 36.4–36.7; O2SAT 94–100
[2016-09-12] MEDS: NSS + 20MEQ KCL 1000ML 1,000 ML IV SCH ×2 (04:35→16:52)
--- NOTE | 2016-09-12 06:56 | Hospitalist Progress Note ---
Hospitalist Progress Note Date of Service Sep 11, 2016. Subjective Pt evaluation today including: conversation w/ patient Voiding: no voiding problems Pt feeling much better since admission. No further N/V. No abd pain. no CP or SOB, no lightheadedness. Has been out of bed and ambulating All Other Systems: Reviewed and Negative Objective Vital Signs Date Time Temp Pulse Resp B/P (MAP) Pulse Ox O2 Delivery O2 Flow Rate FiO2 09/11/16 23:20 Room Air 09/11/16 23:10 36.9 80 16 124/76 (92) 96 Room Air 09/11/16 16:30 Room Air 09/11/16 15:36 36.7 79 16 116/70 (85) 96 Room Air 09/11/16 10:43 36.7 74 18 116/72 (87) 97 Room Air 09/11/16 07:45 Room Air 09/11/16 07:12 36.8 74 16 125/73 (90) 98 Room Air Physical Exam General Appearance: WD/WN, no apparent distress Eyes: normal inspection, sclerae normal ENT: hearing grossly normal, pharynx normal Neck: trachea midline Respiratory/Chest: lungs clear, normal breath sounds, no respiratory distress, no accessory muscle use Cardiovascular: regular rate, rhythm, no edema, no gallop, no murmur Abdomen: normal bowel sounds, non tender, soft Extremities: non-tender, normal inspection, no pedal edema, no calf tenderness Neurologic/Psychiatric: alert, normal mood/affect, oriented x 3 Skin: normal color, warm/dry, no rash, + pertinent finding (left anterior chest wall with port-a-cath in place without surrounding erythema) Laboratory Results Last 24 Hours Test 09/12/16 06:09 Assessment and Plan 61-year-old female with past medical history of hypertension, cervical cancer diagnosed in June 2016 currently undergoing chemotherapy and radiation therapy presented to the ER with complaints of intermittent dizziness which started about 2 days ago. FOund to have significant electrolyte abnormalities and pancytopenia secondary to chemotherapy Dizziness likely secondary to lyte abnormalities, some anemia contributing too although symptoms resolved with lyte replacement and IVFs, no blood transfusion - EKG unremarkable - Continue IV fluids - Zofran/Compazine for nausea/vomiting-no longer needed Hypokalemia, Hypomagnesemia secondary to poor po intake, GI losses: - K at 2.8--> improved and then dropped slightly again-replaced - Mag at 1.2--> replaced and improved - Monitor BMP Pancytopenia secondary to chemotherapy - Hemoglobin at 8.2-->7.8, last hemoglobin on 09/03 was 10.4 - Hemoccult pending Platelet count at 98-->88, decreased from 120 on 09/03 - Monitor CBC - Heme oncology consult appreciated--> no transfusion today Cervical cancer stage IIB, diagnosed in June 2016. Has received chemo and EBR, now with plans for brachytherapy - Radiation oncology consult - Nothing by mouth after midnight for implantation of brachytherapy tomorrow -no h/o cardiac issues in past, no chest pain or SOB, can walk up and down a flight of stairs without any problems, is at average risk for this procedure Hypertension: - Continue hydrochlorothiazide and lisinopril Dysuria likely secondary to radiation - Pyridium for symptomatic relief DVT prophylaxis: SCDs Full code Disposition: Admitted to Med Surg
[2016-09-12 07:09] LABS: MEAN CELL VOLUME 88.6 fL (80-100); MEAN CORPUSCULAR HEMOGLOBIN 30.8 pg (25-34); MEAN CORPUSCULAR HGB CONC 34.8 g/dl (32-36); RED BLOOD COUNT 2.37 M/uL (4.2-5.4); WHITE BLOOD COUNT 2.13 K/uL (4.8-10.8)
[2016-09-12] MEDS: PHENAZOPYRIDINE HCL 100 MG TAB PO SCH ×2 (07:12→16:37)
[2016-09-12] MEDS: CEROVITE ADV FORMULA TAB PO SCH (07:12)
[2016-09-12] MEDS: LISINOPRIL 20 MG TAB PO SCH (07:12)
[2016-09-12 07:19] LABS: MEAN PLATELET VOLUME 8.8 fL (7.4-10.4); PLATELET COUNT 86 K/uL (130-400)
[2016-09-12 07:44] LABS: BUN/CREATININE RATIO 11.6 (10-20); CALCIUM 8.3 mg/dl (8.5-10.1); CREATININE 0.6 mg/dl (0.60-1.20); MAGNESIUM 1.6 mg/dl (1.8-2.4)
[2016-09-12 07:45] LABS: BASO % 0.5 %; BASO ABS # 0.01 K/uL (0-0.2); COMPLETE YES; EOS % 0.9 %; GIANT PLATELETS 1+; LYMPH % 13.1 %; LYMPH ABS # 0.28 K/uL (1.2-3.4); MONO % 14.6 %; NEUT % 70.9 %
[2016-09-12] MEDS ORDERED: MAGNESIUM SULFATE 1GM / D5W 1 GM in PREMIXED IN D5W 100 ML IV STA (09:13)
[2016-09-12] MEDS ORDERED: EpHEDrine SULFATE INJ 50 MG/ML AMP IV PRN (09:45)
[2016-09-12] MEDS ORDERED: ATROPINE SULFATE 0.1 MG/ML 5ML SYR IV PRN (09:45)
[2016-09-12] MEDS ORDERED: ONDANSETRON INJ 2 MG/ML 2 ML VIAL IV PRN (09:45)
[2016-09-12] MEDS ORDERED: CONRAY 60% 50 ML VIAL XX ONE (09:49)
[2016-09-12] MEDS ORDERED: LORAZEPAM 2 MG/ML 1 ML VIAL ONE (10:09)
[2016-09-12] MEDS: FENTANYL CITRATE INJ 50 MCG/1 ML 2 ML VIAL IV PRN ×4 (10:10→10:25)
--- NOTE | 2016-09-12 10:17 | DIAGNOSTIC IMAGING REPORT ---
PELVIS 1 OR 2 VIEWS ROUTINE CLINICAL HISTORY: INSERTION OF TANDEM AND OVOIDS intraoperative image intensifier COMPARISON: None. DISCUSSION: Intraoperative usage of the image intensifier was performed. Images were acquired for intraoperative surgical localization purposes. There is no evidence for soft tissue swelling. IMPRESSION: Intraoperative usage of the image intensifier Electronically signed by: Devan Obregon M.D. 09/12/2016 10:15 AM Dictated Date/Time: 09/12/2016 10:15 AM
[2016-09-12] MEDS: HYDROmorphone INJ 1 MG/ML SYR IV PRN ×3 (10:30→10:41)
[2016-09-12] MEDS ORDERED: LORAZEPAM INJ 0.5 MG in SYRINGE 0.25 ML IV PRN (10:30)
--- NOTE | 2016-09-12 10:43 | Hematology/Oncology Prog Note ---
Hematology/Onc Progress Note Date of Service Sep 12, 2016. Diagnoses Cervical cancer Medications Medications Administered Medications (Trade) Dose Ordered Sig/Radha Route Start Time Stop Time Status Last Admin Dose Admin Sodium Chloride 1,000 ml @ 999 mls/hr Q1H1M STAT IV 09/10/16 17:47 09/10/16 18:47 DC 09/10/16 18:23 999 MLS/HR Ondansetron HCl (Zofran Inj) 4 mg NOW STAT IV 09/10/16 17:56 09/10/16 17:59 DC 09/10/16 18:23 4 MG Magnesium Sulfate (Magnesium Sulfate) 2 gm NOW STAT IV 09/10/16 18:53 09/10/16 18:55 DC 09/10/16 19:01 2 GM Prochlorperazine Edisylate (Compazine Inj) 5 mg NOW STAT IV 09/10/16 21:19 09/10/16 21:20 DC 09/10/16 21:29 5 MG Diphenhydramine HCl (Benadryl Inj) 25 mg NOW STAT IV 09/10/16 21:19 09/10/16 21:20 DC 09/10/16 21:29 25 MG Hydrochlorothiazide (Hydrochlorothiazide Tab) 12.5 mg QAM PO 09/11/16 09:00 10/11/16 08:59 Future Hold 09/11/16 09:17 12.5 MG Lisinopril (Zestril Tab) 20 mg QAM PO 09/11/16 09:00 10/11/16 08:59 09/11/16 09:17 20 MG Multivitamins/ Minerals (Multivitamin W/ Minerals Tab) 1 tab QAM PO 09/11/16 09:00 10/11/16 08:59 09/11/16 09:16 1 TAB Phenazopyridine HCl (Pyridium Tab) 100 mg TID PO 09/11/16 09:00 10/11/16 08:59 09/11/16 20:11 100 MG Prochlorperazine Maleate (Compazine Tab) 10 mg Q6H PRN PO 09/10/16 22:00 10/10/16 21:59 09/11/16 20:12 10 MG Potassium Chloride 10 meq/ Prmx 100 ml @ 100 mls/hr Q1H IV 09/10/16 23:30 09/11/16 02:29 DC 09/11/16 02:32 100 MLS/HR Potassium Chloride/Sodium Chloride 1,000 ml @ 100 mls/hr Q10H IV 09/10/16 23:30 10/10/16 23:29 09/12/16 04:35 100 MLS/HR Potassium Chloride (Klor-Con M10) 40 meq 0930 ONCE PO 09/11/16 09:30 09/11/16 09:31 DC 09/11/16 09:50 40 MEQ Magnesium Sulfate 1 gm/Prmx 100 ml @ 100 mls/hr 0930 ONCE IV 09/11/16 09:30 09/11/16 10:29 DC 09/11/16 09:50 100 MLS/HR Al Hydroxide/Mg Hydroxide (Maalox Susp) 30 ml Q4H PRN PO 09/11/16 21:30 10/11/16 21:29 09/11/16 23:29 30 ML Fentanyl Citrate (Fentanyl Inj) 25 mcg Q5M PRN IV 09/12/16 09:45 09/12/16 14:45 09/12/16 10:25 25 MCG Iothalamate Meglumine (Conray 60%) 1 ml ONE ONCE XX 09/12/16 09:49 09/12/16 09:50 DC 09/12/16 09:49 1 ML Lorazepam (Ativan Inj) 2 mg STK-MED ONCE .ROUTE 09/12/16 10:09 09/12/16 10:10 DC 09/12/16 10:11 0.5 MG Hydromorphone HCl (Dilaudid Inj) 0.5 mg Q5M PRN IV 09/12/16 10:30 09/12/16 15:30 09/12/16 10:35 0.5 MG Lorazepam 0.5 mg/ Syringe 0.5 ml @ 0.5 mls/min PRN PRN IV 09/12/16 10:30 09/12/16 15:30 09/12/16 10:36 0.5 MLS/MIN Subjective Seen in recovery room. States she had some pretty fair oral intake yesterday. She has had brachytherapy this morning Review of Systems: Constitutional: Negative for night sweats, or fever Eyes: Negative for event change of vision ENT: Negative for epistaxis, nasal discharge, sore throat, or deafness Cardiovascular: Negative for chest pain, palpitations, dizziness, diaphoresis Respiratory: Negative for new shortness of breath,hemoptysis, or purulent cough Gastrointestinal: Negative for diarrhea, hematemesis, melena, nausea, vomiting , or dyspepsia Integumentary (skin): Negative for rash or jaundice discoloration Genitourinary: Negative for urinary frequency, hematuria, or dysuria Neurological: Negative for weakness, seizure activity, headache, or dizziness Lymphatic/Hematologic: Negative for petechiae, bleeding or new adenopathy Musculoskeletal: Negative for new joint or back pain Allergic/Immunologic: Negative for unusual rash or pruritis. Vital Signs Vital Signs Past 12 Hours Date Time Temp Pulse Resp B/P (MAP) Pulse Ox O2 Delivery O2 Flow Rate FiO2 09/12/16 10:25 70 17 174/81 100 Mask 10 09/12/16 10:15 77 16 157/98 100 Mask 10 09/12/16 10:06 36.4 80 21 161/83 100 Mask 10 09/12/16 09:47 36.7 80 14 97 09/12/16 07:55 97 Room Air 09/12/16 07:51 36.7 80 14 134/72 (92) 97 Room Air 09/11/16 23:20 Room Air 09/11/16 23:10 36.9 80 16 124/76 (92) 96 Room Air Physical Exam Constitutional: vitals are stable. Mildly pale Eyes: Eyes are NOE EOMI without conjuctival erythema or icterus. ENT: External examination was negative for masses. Neck: Negative for masses or palpable thyromegaly Respiratory: Lung sounds were generally clear bilaterally Cardiovascular: Heart was RRR without significant murmur, gallops aoe rubs Gastrointestinal: No palpable hepatic or splenomegaly. The abdomen was soft with normal bowel sounds. Lymphatic system: there was no palpable peripheral lymphadenopathy Musculoskeletal System: The musculoskeletal system seemed concordant with age. Skin: The skin was negative for jaundice. Neurologic exam: The exam was negative for any focal findings. Deep tendon reflexes were equal and symmetrical. Psychiatric exam: Was essentially negative with normal mood and effect. Extremities: Negative for edema Laboratory Last 24 Hours Test 09/12/16 06:09 White Blood Count 2.13 K/uL Red Blood Count 2.37 M/uL Hemoglobin 7.3 g/dL Hematocrit 21.0 % Mean Corpuscular Volume 88.6 fL Mean Corpuscular Hemoglobin 30.8 pg Mean Corpuscular Hemoglobin Concent 34.8 g/dl Platelet Count 86 K/uL Mean Platelet Volume 8.8 fL Neutrophils (%) (Auto) 70.9 % Lymphocytes (%) (Auto) 13.1 % Monocytes (%) (Auto) 14.6 % Eosinophils (%) (Auto) 0.9 % Basophils (%) (Auto) 0.5 % Neutrophils # (Auto) 1.51 K/uL Lymphocytes # (Auto) 0.28 K/uL Monocytes # (Auto) 0.31 K/uL Eosinophils # (Auto) 0.02 K/uL Basophils # (Auto) 0.01 K/uL RDW Standard Deviation 44.6 fL RDW Coefficient of Variation 14.7 % Immature Granulocyte % (Auto) 0.0 % Immature Granulocyte # (Auto) 0.00 K/uL Giant Platelets 1+ Sodium Level 138 mmol/L Potassium Level 4.0 mmol/L Chloride Level 106 mmol/L Carbon Dioxide Level 27 mmol/L Anion Gap 5.0 mmol/L Blood Urea Nitrogen 7 mg/dl Creatinine 0.60 mg/dl Est Creatinine Clear Calc Drug Dose 106.0 ml/min Estimated GFR () 114.0 Estimated GFR (Non- 98.4 BUN/Creatinine Ratio 11.6 Random Glucose 86 mg/dl Calcium Level 8.3 mg/dl Magnesium Level 1.6 mg/dl Assessment & Plan Hemoglobin is 7.3 will be given a unit of blood today. Otherwise the blood counts are acceptable. Status post brachytherapy. She remains afebrile and supportive care continues
--- NOTE | 2016-09-12 11:09 | Anesthesiology Progress Note ---
Anesthesia Post Op Note Date & Time Sep 12, 2016 at 11:09 Vital Signs Pain Intensity: 5 Vital Signs Past 12 Hours Date Time Temp Pulse Resp B/P (MAP) Pulse Ox O2 Delivery O2 Flow Rate FiO2 09/12/16 11:05 67 18 159/96 99 Nasal Cannula 2 09/12/16 10:55 36.2 63 12 164/72 100 Nasal Cannula 2 09/12/16 10:45 67 14 155/78 98 Nasal Cannula 2 09/12/16 10:35 71 20 159/99 100 Nasal Cannula 2 09/12/16 10:33 36.4 74 17 155/91 100 2.0 09/12/16 10:25 70 17 174/81 100 Mask 10 09/12/16 10:15 77 16 157/98 100 Mask 10 09/12/16 10:06 36.4 80 21 161/83 100 Mask 10 09/12/16 09:47 36.7 80 14 97 09/12/16 07:55 97 Room Air 09/12/16 07:51 36.7 80 14 134/72 (92) 97 Room Air 09/11/16 23:20 Room Air 09/11/16 23:10 36.9 80 16 124/76 (92) 96 Room Air Notes Mental Status: alert / awake / arousable, participated in evaluation Pt Amnestic to Procedure: Yes Nausea / Vomiting: adequately controlled Pain: adequately controlled Airway Patency, RR, SpO2: stable & adequate BP & HR: stable & adequate Hydration State: stable & adequate Anesthetic Complications: no major complications apparent
[2016-09-12] MEDS ORDERED: MIDAZOLAM HCL 5 MG/ML 1 ML VIAL IV ONE (13:45)
[2016-09-12] MEDS: FENTANYL CITRATE INJ 50 MCG/1 ML 2 ML VIAL IV ONE ×2 (14:12→15:45)
[2016-09-12] MEDS ORDERED: MAGNESIUM SULFATE 1GM / D5W 1 GM in PREMIXED IN D5W 100 ML IV SCH (16:00)
--- NOTE | 2016-09-12 18:05 | [facility] Operative Report ---
Operative Report Operative Date Sep 12, 2016. Pre-Operative Diagnosis cervical cancer Post-Operative Diagnosis cervical cancer Procedure(s) Performed Placement of Tandem/Ovoid HDR Applicator for Treatment of Cervical Cancer Surgeon Dr. Lamine Rivas [place] Rider Surgeon(s) Tanisha Perez PA-C Estimated Blood Loss 0 mL Findings Cervical cancer and radiation changes noted. Sleeve in place. Significant response from treatment. Specimens none per surgeon Drains Spaulding Catheter Anesthesia General Complication(s) None Disposition PCU Indications Ms. Irvin is a 61 year old female with FIGO stage IIB cervical cancer pending completion of her staging studies. She has elected for pelvic chemoradiation therapy followed by HDR tandem/ovoid brachytherapy. Description of Procedure The patient was seen today for her 1st of a planned 5 insertions. The patient was identified in the operating room and a timeout was performed. The patient was placed in stirrups and the packing that was placed to prevent movement of the cervical sleeve was removed. The area was cleansed with iodine. A Spaulding catheter was placed. The cervical sleeve was identified and a #1 tandem was inserted into the cervical sleeve. The left ovoid was then placed followed by the right ovoid. These 3 devices were connected and secured. The ovoids were spread and secured. Alatus vaginal packing balloons were placed anteriorly/ posteriorly and filled with 30 mL each to provide adequate bladder and rectal packing. Radiology was then called for imaging. An anterior image was taken showing good orientation of the tandem and ovoid. A lateral image was then obtained showing excellent placement without significant rotation. The insertion procedure was completed and the patient was taken to the recovery room. There was minimal evidence of excoriation of the introitus secondary to her treatment. There was no significant blood loss during the procedure. The patient will be brought to our department where she will undergo a simulation and following completion of treatment planning will receive her first fraction of HDR brachytherapy. I attest to the content of the Intraoperative Record and any orders documented therein. Any exceptions are noted below.
[2016-09-12] MEDS ORDERED: MRLP17X PO (18:55)
[2016-09-12] MEDS ORDERED: ACET-1047 PO (18:55)
--- NOTE | 2016-09-12 18:57 | Discharge Instructions ---
Discharge Instructions Date of Service Sep 12, 2016. Admission Reason for Admission: Dizziness, Nausea And Vomiting Discharge Discharge Diagnosis / Problem: Nausea/vomiting Discharge Goals Goal(s): Improve disease control, Therapeutic intervention Activity Recommendations Activity Limitations: resume your previous activity Lifting Limitations: gradually increase as tolerated Exercise/Sports Limitations: gradually increase as tolerated Shower/Bathe: no limitations . Instructions / Follow-Up Instructions / Follow-Up You were admitted with nausea and vomiting as well as dizziness. You were given IV fluids and electrolyte replacement. You were also given 1 unit of a blood transfusion. All of your symptoms had resolved at the time of discharge. Please follow up with Dr. Mcmanus as planned on Thursday, and Dr. Rivas as scheduled next week. Current Hospital Diet Patient's current hospital diet: Regular Diet Discharge Diet Recommended Diet: Regular Diet Procedures Procedures Performed: Placement of Tandem/Ovoid HDR Applicator for Treatment of Cervical Cancer Pending Studies Studies pending at discharge: no Laboratory Results Last 24 Hours Test 09/12/16 06:09 White Blood Count 2.13 K/uL Red Blood Count 2.37 M/uL Hemoglobin 7.3 g/dL Hematocrit 21.0 % Mean Corpuscular Volume 88.6 fL Mean Corpuscular Hemoglobin 30.8 pg Mean Corpuscular Hemoglobin Concent 34.8 g/dl Platelet Count 86 K/uL Mean Platelet Volume 8.8 fL Neutrophils (%) (Auto) 70.9 % Lymphocytes (%) (Auto) 13.1 % Monocytes (%) (Auto) 14.6 % Eosinophils (%) (Auto) 0.9 % Basophils (%) (Auto) 0.5 % Neutrophils # (Auto) 1.51 K/uL Lymphocytes # (Auto) 0.28 K/uL Monocytes # (Auto) 0.31 K/uL Eosinophils # (Auto) 0.02 K/uL Basophils # (Auto) 0.01 K/uL RDW Standard Deviation 44.6 fL RDW Coefficient of Variation 14.7 % Immature Granulocyte % (Auto) 0.0 % Immature Granulocyte # (Auto) 0.00 K/uL Giant Platelets 1+ Sodium Level 138 mmol/L Potassium Level 4.0 mmol/L Chloride Level 106 mmol/L Carbon Dioxide Level 27 mmol/L Anion Gap 5.0 mmol/L Blood Urea Nitrogen 7 mg/dl Creatinine 0.60 mg/dl Est Creatinine Clear Calc Drug Dose 106.0 ml/min Estimated GFR () 114.0 Estimated GFR (Non- 98.4 BUN/Creatinine Ratio 11.6 Random Glucose 86 mg/dl Calcium Level 8.3 mg/dl Magnesium Level 1.6 mg/dl Medical Emergencies . Who to Call and When: Medical Emergencies: If at any time you feel your situation is an emergency, please call 911 immediately. . Non-Emergent Contact Non-Emergency issues call your: Primary Care Provider, Oncologist Call Non-Emergent contact if: you have a fever, your pain is not controlled, your pain is worsening, your pain is unusual for you, your pain is concerning you, wound has increased drainage, wound has increased redness, wound has increased pain, you have any medication questions . . "Provider Documentation" section prepared by Muna Rojo. . VTE Core Measure Inpt VTE Proph given/why not?: SCD's
--- NOTE | 2016-09-13 00:46 | Discharge Summary ---
Discharge Summary Date of Service Sep 12, 2016. Discharge Summary Admission Date: Sep 10, 2016 at 22:03 Discharge Date: Sep 12, 2016 Discharge Disposition: Home Principal Diagnosis: Nausea/vomiting,dizziness Problems/Secondary Diagnoses: Cervical cancer Pancytopenia secondary to chemotherapy Hypertension Hypokalemia Hypomagnesemia Dysuria Procedures: Placement of Tandem/Ovoid HDR Applicator for Treatment of Cervical Cancer Consultations: Hematology/Oncology Radiation Oncology Medication Reconciliation New Medications: Acetaminophen (Mapap) 325 Mg Tab 650 MG PO Q4H PRN for Pain or Fever for 30 Days Polyethylene (Miralax) 17 Gm Pow 17 GM PO DAILY PRN for Constipation for 30 Days Continued Medications: Alviso Dextrin (Fiber Powder) 1 Pow Pow 1 DOSE PO QAM Hydrochlorothiazide (Hctz) 12.5 Mg Cap 12.5 MG PO QAM, TAB Lisinopril (Zestril) 20 Mg Tab 20 MG PO QAM, TAB Multivitamins/Minerals (Mvi With Minerals) Tab 1 TAB PO QAM, TAB Ondansetron Hcl (Zofran) 8 Mg Tab 8 MG PO Q8H PRN for N, TAB Phenazopyridine HCl (Pyridium) 200 Mg Tab 100 MG PO TID for Bladder Pain, #6 TAB Prochlorperazine Maleate (Compazine) 10 Mg Tab 10 MG PO Q6H PRN for PRN, TAB Discontinued Medications: Loperamide Hcl (Imodium) 2 Mg Cap 2 MG PO DIRECTED PRN for Diarrhea, CAP Discharge Exam Review of Systems: Constitutional: No fever Eyes: No problem reported ENT: No problem reported Respiratory: No problem reported Cardiovascular: No problem reported Abdomen: No nausea, No vomiting, No diarrhea, No problem reported Musculoskeletal: No problem reported Genitourinary - Female: + dysuria Neurologic: No problem reported Psychiatric: No problem reported Endocrine: No problem reported Hematologic / Lymphatic: No problem reported Integumentary: No problem reported Physical Exam: General Appearance: WD/WN, no apparent distress Eyes: normal inspection, sclerae normal ENT: hearing grossly normal Neck: trachea midline Respiratory/Chest: lungs clear, normal breath sounds, no respiratory distress, no accessory muscle use Cardiovascular: regular rate, rhythm, no edema, no gallop, no murmur, normal peripheral pulses Abdomen / GI: normal bowel sounds, non tender, soft, no organomegaly Extremities: normal inspection, no calf tenderness, normal capillary refill , no pedal edema Neurologic/Psychiatric: alert, normal mood/affect, oriented x 3 Skin: normal color, warm/dry, no rash Hospital Course 61-year-old female with past medical history of hypertension, cervical cancer diagnosed in June 2016 currently undergoing chemotherapy and radiation therapy presented to the ER with complaints of intermittent dizziness, nausea and vomiting which started about 2 days ago. FOund to have significant electrolyte abnormalities and pancytopenia secondary to chemotherapy Dizziness likely secondary to lyte abnormalities, N/V, some anemia contributing too although symptoms resolved with lyte replacement and IVFs, no blood transfusion - EKG unremarkable - received IV fluids and lyte replacement--> all symptoms resolved - Zofran/Compazine for nausea/vomiting-no longer needed Hypokalemia, Hypomagnesemia secondary to poor po intake, GI losses: - K at 2.8--> improved and then dropped slightly again-replaced an dimproved - Mag at 1.2--> replaced and improved - Monitor BMP Pancytopenia secondary to chemotherapy - Hemoglobin at 8.2-->7.8, last hemoglobin on 09/03 was 10.4 - Hemoccult pending Platelet count at 98-->88, decreased from 120 on 09/03 - Monitor CBC - Heme oncology consult appreciated--> no transfusion today Cervical cancer stage IIB, diagnosed in June 2016. Has received chemo and EBR, now with plans for brachytherapy - Radiation oncology consult - Placement of Tandem/Ovoid HDR Applicator for Treatment of Cervical Cancer -continue Rad Tx Hypertension: - Continue hydrochlorothiazide and lisinopril Dysuria likely secondary to radiation - Pyridium for symptomatic relief DVT prophylaxis: SCDs Full code Disposition: Admitted to Med Surg Total Time Spent: Greater than 30 minutes This includes examination of the patient, discharge planning, medication reconciliation, and communication with other providers. Discharge Instructions Please refer to the electronic Patient Visit Report (Discharge Instructions) for additional information. Follow-Up PCP within 1 week Medical and Radiation Oncology within 1 week as scheduled Check CBC at Thursday with Oncology Additional Copies To Ana Paula Dumont, [email or web address]; Juan cMmanus MD; Veeral. Rivas MD
[2016-09-17] MEDS ORDERED: PHEN-876 PO (05:50)
[2016-10-05] MEDS ORDERED: MAGN30TA4 PO (05:48)
[2016-10-05] MEDS ORDERED: POTA10CA28 PO (05:48)
[2016-10-05] MEDS ORDERED: MULT-513 PO (09:31)
[2016-10-05] MEDS ORDERED: HYDR12.56 PO (09:31)
[2016-10-05] MEDS ORDERED: ONDA8TAB6 PO (15:15)
[2016-10-31] MEDS ORDERED: LISI20TA3 PO (10:59)
== END 2016-09-12 20:00 | disposition home or self-care (01) | DRG 640 ==
LOC: C.EDB 16:55 → C.MSN 22:03 → ENRESERV 22:19 → C.4E 09-12 15:28
PROVIDERS: ADMIT Family Medicine; ATTEND Family Medicine
PROC: 0UH Female Reproductive System, Insertion (ICD-10-PCS; principal; 2016-09-12 08:30)
DX: E87.6 Hypokalemia (principal); D61.811 Other drug-induced pancytopenia; E86.0 Dehydration; C53.8 Malignant neoplasm of overlapping sites of cervix uteri; Z92.3 Personal history of irradiation; I10 Essential (primary) hypertension; E83.42 Hypomagnesemia; R30.0 Dysuria; Y84.2 Radiological procedure and radiotherapy as the cause of abnormal reaction of the patient, or of later complication, without mention of misadventure at the time of the procedure; Y92.009 Unspecified place in unspecified non-institutional (private) residence as the place of occurrence of the external cause; Z88.2 Allergy status to sulfonamides

== ENCOUNTER → 2016-09-17 | Day surgery (SDC) | payer BC ==
[2016-09-16 17:45] VITALS: BMI 33.0
--- NOTE | 2016-09-16 18:23 | Radiation Oncology Progress Nt ---
Radiation Oncology Progress Nt Date of Service Date of Service: Sep 16, 2016. Subjective Pt evaluation today including: conversation w/ patient, conversation w/ family , physical exam, chart review, lab review, review of studies, conversation w/ recruiting consultant Ms. Irvin is a 61-year-old female who recently noticed some vaginal bleeding over the last 3-4 months. She noted that she was experiencing some bleeding during sexual intercourse. She was referred by her primary care physician to Dr. Funes from gynecology. Dr. Funes saw the patient in 06/13/2016 and performed a pelvic examination which revealed a lesion involving the left lateral vaginal fornix concerning for cervical cancer. A Pap smear was performed at the time of the examination which confirmed squamous cell carcinoma. The patient was referred to Dr. Panchal on 06/23/2016. Dr. Panchal performed a pelvic examination which revealed a nodularity involving the left fornix; he also noted that the cervix was abnormal and covered with abnormal vessel circumferentially. Dr. Panchal also noted some nodularity involving the left parametrium and stage the patient as FIGO stage IIB. Dr. Panchal did perform biopsies of the left posterior vaginal fornix and cervix during the office examination and both were positive for squamous cell carcinoma. We are now seeing the patient in consultation to discuss the role of radiation therapy for treatment of her cervical cancer. She began concurrent radiation and chemotherapy 07/31/2016. She did have side effects of fatigue and and then nausea. She then developed issues with recurrent vomiting. She was given hydration in our office. Following day she continued to have difficulty. She was advised to go to the emergency room which she did. She was found to have hypokalemia and low magnesium. She steadily improved with hydration and replacement of electrolytes. As an inpatient she was given her first high-dose radiation treatment. Tandem and ovoids were placed in the operating room and radiation was given on 09/12/2016. Past History Specify Any Cancer Diagnosis: ca cervix , ca vagina Other Pertinent Information: left hand fracture small finger Surgical History Surgeries & Dates: laproscopy for sterilization Radiation History History of Radiation Therapy: Has completed external beam radiation therapy 07/31/2016. Had HDR #1 on 2016. Chemotherapy History History of Chemotherapy: Chemotherapy given concurrently with radiation therapy. 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 Marital Status: Allergies Coded Allergies: Sulfa Antibiotics (Unverified Allergy, Mild, rash,nausea, 07/02/16) Penicillins (Verified Allergy, Unknown, unk, 05/31/16) Review of Systems Constitutional: + weakness, + fatigue Eyes: No see HPI, No worsening of vision, No eye pain, No redness, No discharge , No diplopia, No problem reported ENT: No see HPI, No hearing loss, No unusual epistaxis, No nasal symptoms, No sore throat, No tinnitus, No dental problems, No trouble swallowing, No problem reported Respiratory: No see HPI, No cough, No sputum, No wheezing, No shortness of breath, No dyspnea on exertion, No dyspnea at rest, No hemoptysis, No problem reported Cardiac: No see HPI, No chest pain, No orthopnea, No PND, No edema, No claudication, No palpitations, No problem reported Abdomen: No see HPI, No pain, No nausea, No vomiting, No diarrhea, No constipation, No GI bleeding, No problem reported Musculoskeletal: No see HPI, No joint pain, No muscle pain, No swelling, No calf pain, No problem reported Female : No see HPI, No dysuria, No urinary frequency, No hematuria, No incontinence, No abnormal vaginal bleeding, No vaginal discharge, No problem reported Neurologic: No see HPI, No memory loss, No paralysis, No weakness, No numbness/ tingling, No vertigo, No balance problems, No problem reported Endo: + fatigue Skin: No see HPI, No rash, No itch, No new/changing skin lesions, No color change, No bleeding, No problem reported Medications Medications Dose Route/Sig Max Daily Dose Days Date Category Miralax (Polyethylene) 17 Gm Pow 17 Gm PO DAILY PRN 30 09/12/16 Rx Mapap (Acetaminophen) 325 Mg Tab 650 Mg PO Q4H PRN 30 09/12/16 Rx Pyridium (Phenazopyridine HCl) 200 Mg Tab 100 Mg PO TID 09/08/16 Reported Compazine (Prochlorperazine Maleate) 10 Mg Tab 10 Mg PO Q6H PRN 08/06/16 Reported Zofran (Ondansetron HCl) 8 Mg Tab 8 Mg PO Q8H PRN 08/06/16 Reported Fiber Powder ([place] Dextrin) 1 Pow Pow 1 Dose PO QAM 08/06/16 Reported Mvi With Minerals (Multivitamins/Minerals) Tab 1 Tab PO QAM 05/31/16 Reported Zestril (Lisinopril) 20 Mg Tab 20 Mg PO QAM 05/31/16 Reported Hctz (Hydrochlorothiazide) 12.5 Mg Cap 12.5 Mg PO QAM 05/31/16 Reported Objective Physical Exam General Appearance: no apparent distress Eyes: normal inspection, EOMI ENT: normal ENT inspection, hearing grossly normal Neck: no adenopathy, thyroid normal Respiratory/Chest: lungs clear, no respiratory distress, no accessory muscle use Cardiovascular: regular rate, rhythm, no gallop, no murmur Abdomen: non tender, soft, no organomegaly Extremities: no pedal edema Neurologic/Psychiatric: no motor/sensory deficits, alert, normal mood/affect Skin: warm/dry Lymphatic: no adenopathy Assessment and Plan (1) Cervical cancer Status: Acute Assessment & Plan: Postmenopausal vaginal bleeding Examination revealing a cervical lesion. Pap smear 04/15/2016 showing squamous cell carcinoma of the cervix Vaginal biopsy 06/24/2016 showing squamous cell carcinoma The patient is undergoing high-dose radiation therapy with tandem and ovoids. She received her first treatment 09/12/2016. She had been admitted to the hospital with nausea and the procedure was carried out as scheduled. She was given 1 unit of packed red blood cells. She also had a low magnesium and potassium. She was given supplements. She was discharged home. She is now for her second HDR treatment. This is to be performed 09/17/2016. She had been seen in our office today. She showed signs of dehydration and was given 1 L of normal saline. She felt improved following the hydration. She was found to have a low magnesium and potassium. Supplements were to be called in by Dr. Mcmanus. She'll start those immediately.
[~2016-09-17] VITALS: Ht 165.1 cm; Wt 92.5 kg
[2016-09-17] VITALS (30 sets, daily range): BP systolic 128–171; BP diastolic 46–87; PULSE 54–100; TEMP 36.4–36.7; O2SAT 91–99; Ht 165.1 cm; Wt 92.5 kg
[~2016-09-17] MED LIST changes: +ACET-1047 PO; +ATROPINE SULFATE 0.1 MG/ML 5ML SYR IV PRN; +CONRAY 60% 50 ML VIAL ONE; +EpHEDrine SULFATE 50MG/5ML SYR ONE; +EpHEDrine SULFATE INJ 50 MG/ML AMP IV PRN; +FENTANYL CITRATE INJ 50 MCG/1 ML 2 ML VIAL IV PRN; +FENTANYL CITRATE INJ 50 MCG/1 ML 2 ML VIAL ONE; +HYDR12.56 PO; -IMD/2 PO; +KETOROLAC TROMETHAMINE 30 MG/ML VIAL IV. PRN; +LACTATED RINGER'S 1000ML 1,000 ML IV SCH; +LIDOCAINE HCL 2% 2 ML VIAL (20MG/ML) ONE; +LISI20TA3 PO; +LORAZEPAM 2 MG/ML 1 ML VIAL ONE; +MAGN30TA4 PO; +MIDAZOLAM HCL 1 MG/ML 2ML VIAL ONE; +MIDAZOLAM HCL 5 MG/ML 1 ML VIAL IV PRN; +MRLP17X PO; +MULT-513 PO; +NURSING VERBAL MED ORDER ONE; +ONDA8TAB6 PO; +ONDANSETRON INJ 2 MG/ML 2 ML VIAL IV PRN; -PHEN95TA PO; +POLY1POW2 PO; +POLY335019 PO; +POTA10CA28 PO; -PROC1TAB5 PO; +PROPOFOL IV EMULSION 10 MG/ML 20 ML VIAL IV ONE; +SENN8.6T36 PO
[2016-09-17 06:03] LABS: BASO % 0.3 %; BASO ABS # 0.01 K/uL (0-0.2); HEMATOCRIT 29.3 % (37-47); IG% 0.3 %; LYMPH % 15.4 %; LYMPH ABS # 0.48 K/uL (1.2-3.4); MEAN CELL VOLUME 88.8 fL (80-100); MEAN CORPUSCULAR HEMOGLOBIN 30.6 pg (25-34); MEAN PLATELET VOLUME 9.9 fL (7.4-10.4); MONO % 13.1 %; NEUT % 69.9 %; PLATELET COUNT 124 K/uL (130-400); WHITE BLOOD COUNT 3.12 K/uL (4.8-10.8)
[2016-09-17 06:07] LABS: COMPLETE YES; MEAN CORPUSCULAR HGB CONC 34.5 g/dl (32-36)
[2016-09-17] MEDS: FENTANYL CITRATE INJ 50 MCG/1 ML 2 ML VIAL IV PRN ×8 (08:37→11:35)
--- NOTE | 2016-09-17 09:10 | [facility] Operative Report ---
Operative Report Operative Date Sep 17, 2016. Pre-Operative Diagnosis Cervical Cancer Post-Operative Diagnosis Cervical Cancer Procedure(s) Performed Insertion of Tandem and Ovoids Surgeon Dr Pelayo Forensic Investigator Surgeon(s) Maik Cedeño Estimated Blood Loss 0cc Findings Examination confirmed the presence of a cervical sleeve. Radiation changes were appreciated. There was evidence of clinical response to the external radiation. Specimens No specimens required Drains Spaulding catheter placed Anesthesia General Complication(s) None Disposition PCU Indications Ms. Irvin is a 61-year-old female was diagnosed with a FIGO stage IIb cervical carcinoma. She has opted for definitive chemoradiation. The radiation consists of a course of external radiation followed by 5 insertions of tandem and ovoid. The patient has completed her external component and received her first insertion of tandem and ovoid on August 13. She presents today for her second of a planned 5 insertions. Description of Procedure The patient was seen today for her second of a planned 5 insertions. The patient was identified in the operating room and a timeout procedure was performed. The patient was placed in stirrups and the area was cleansed with iodine. A Spaulding catheter was placed. The cervical sleeve was identified. A # 1 tandem with a 75 mL Spaulding balloon placed around it was inserted into the cervical sleeve. The cervical stop was set to allow penetration to 6.3 cm. Examination showed minimal space on the left and thus the decision was made to proceed with utilization of mini ovoids. The left mini ovoid was placed without difficulty. The right mini ovoid was then placed and the 3 devices were connected and secured. The ovoids were spread as wide as appropriate and secured in place. The Alatus vaginal packing balloons were then placed. The anterior device was inserted and secured by clip followed by placement of the posterior balloon that was also secured. These were ultimately filled with 10 ml at time for a total filling of 30 ml each. Radiology was then called for imaging. An anterior image was taken which showed good orientation of the tandem and ovoid. The patient's legs were then removed from the stirrups and placed flat. A lateral image was then obtained also showing excellent placement with no significant rotation. The insertion procedure was completed and patient was ultimately taken to the recovery room. There was no significant evidence of excoriation of the introitus secondary to her treatment. There was no significant blood loss noted during the procedure. The patient will be brought to our department where she will undergo a simulation. With this information we will then perform appropriate treatment planning. When this plan is approved the patient will then receive her second of 5 fractions of HDR brachytherapy. I attest to the content of the Intraoperative Record and any orders documented therein. Any exceptions are noted below.
--- NOTE | 2016-09-17 09:39 | DIAGNOSTIC IMAGING REPORT ---
PELVIS 1 OR 2 VIEWS ROUTINE CLINICAL HISTORY: INSERTION TANDEM AND OVOIDS COMPARISON: None. DISCUSSION: Image intensifier was used for intraoperative procedure IMPRESSION: image intensifier usage for an operative procedure Electronically signed by: Devan Obregon M.D. 09/17/2016 9:38 AM Dictated Date/Time: 09/17/2016 9:37 AM
--- NOTE | 2016-09-17 09:55 | Anesthesiology Progress Note ---
Anesthesia Post Op Note Date & Time Sep 17, 2016 at 09:54 Vital Signs Pain Intensity: 4 Vital Signs Past 12 Hours Date Time Temp Pulse Resp B/P (MAP) Pulse Ox O2 Delivery O2 Flow Rate FiO2 09/17/16 09:30 81 15 151/80 98 Room Air 09/17/16 09:25 81 15 151/80 98 Room Air 09/17/16 09:15 36.4 85 15 146/73 98 Room Air 09/17/16 09:05 88 16 147/78 99 Mask 3 09/17/16 08:55 91 20 152/72 99 Mask 3 09/17/16 08:45 101 22 167/83 100 Mask 10 09/17/16 08:35 36.6 105 21 165/93 99 Mask 10 09/17/16 05:47 36.7 100 16 135/83 (100) 96 Room Air Notes Mental Status: alert / awake / arousable, participated in evaluation Pt Amnestic to Procedure: Yes Nausea / Vomiting: adequately controlled Pain: adequately controlled Airway Patency, RR, SpO2: stable & adequate BP & HR: stable & adequate Hydration State: stable & adequate Anesthetic Complications: no major complications apparent
[2016-09-17] MEDS: FENTANYL CITRATE INJ 50 MCG/1 ML 2 ML VIAL ONE ×2 (13:02→14:52)
--- NOTE | 2016-09-17 14:23 | DIAGNOSTIC IMAGING REPORT ---
PELVIS 1 OR 2 VIEW ROUTINE HISTORY:61 yearsFemale presurgical study. COMPARISON: [employer] CT study 09/17/2016 TECHNIQUE: Portable AP view of the pelvis. FINDINGS/IMPRESSION: Opacified balloon overlying the mid pelvis suggests Spaulding catheter balloon within the region of the urinary bladder. There are 3 metallic probes within the central pelvis which appear to be present within the vagina, cervix and uterus. Calcified 2.9 x 3.2 cm lesion of the right hemipelvis suggests degenerating fibroid. The above report was generated using voice recognition software. It may contain grammatical, syntax or spelling errors. Electronically signed by: Ernie Burrows M.D. 09/17/2016 2:22 PM Dictated Date/Time: 09/17/2016 2:18 PM
== END | disposition home or self-care (01) ==
LOC: C.ACU 05:31
PROVIDERS: ATTEND Radiology Radiation Oncology
DX: C53.9 Malignant neoplasm of cervix uteri, unspecified (principal); Z79.899 Other long term (current) drug therapy

== ENCOUNTER → 2016-09-19 | Day surgery (SDC) | payer BC ==
--- NOTE | 2016-09-18 09:53 | Radiation Oncology Follow-Up ---
Radiation Oncology Follow-Up Date of Visit Sep 18, 2016. Reason For Visit High-dose treatment #3 Diagnosis (1) Cervical cancer Status: Acute Onset Date: 06/13/2016 Histology Subtype: squamous cell carcinoma Stage: ll (B) Permanent Comment: Postmenopausal vaginal bleeding Examination revealing a cervical lesion. Pap smear 04/15/2016 showing squamous cell carcinoma of the cervix Vaginal biopsy 06/24/2016 showing squamous cell carcinoma Status post completion of external beam radiation therapy 09/11/2016 Plan for 5 high-dose radiation treatments Last Edited By: Tanisha Perez on Sep 18, 2016 09:45 History of Present Illness Ms. Irvin is a 61-year-old female who recently noticed some vaginal bleeding over the last 3-4 months. She noted that she was experiencing some bleeding during sexual intercourse. She was referred by her primary care physician to Dr. Funes from gynecology. Dr. Funes saw the patient in 06/13/2016 and performed a pelvic examination which revealed a lesion involving the left lateral vaginal fornix concerning for cervical cancer. A Pap smear was performed at the time of the examination which confirmed squamous cell carcinoma. The patient was referred to Dr. Panchal on 06/23/2016. Dr. Panchal performed a pelvic examination which revealed a nodularity involving the left fornix; he also noted that the cervix was abnormal and covered with abnormal vessel circumferentially. Dr. Panchal also noted some nodularity involving the left parametrium and stage the patient as FIGO stage IIB. Dr. Panchal did perform biopsies of the left posterior vaginal fornix and cervix during the office examination and both were positive for squamous cell carcinoma. We are now seeing the patient in consultation to discuss the role of radiation therapy for treatment of her cervical cancer. Interim History Patient has completed 2 high-dose radiation treatments. She has been taken to the operating room for placement of the tandem and ovoids as well as spacer device First was 09/12/2016 and the second was on 09/17/2016. Following the completion of the external treatments she did have increasing dysuria. A urine culture was obtained and was negative for infection. She also has had some issues with nausea, vomiting, diarrhea and dehydration. These were controlled and treated. These have been controlled she has received fluids in our office. She was given prescriptions for magnesium and potassium by Dr. Mcmanus's office. She is for her third HDR treatment on 09/19/2016. Allergies Coded Allergies: Penicillins (Verified Allergy, Mild, rash, nausea, 09/17/16) Sulfa Antibiotics (Unverified Allergy, Mild, rash,nausea, 09/17/16) Home Medications Scheduled Hydrochlorothiazide (Hctz), 12.5 MG PO QAM Lisinopril (Zestril), 20 MG PO QAM Multivitamins/Minerals (Mvi With Minerals), 1 TAB PO QAM Phenazopyridine HCl (Pyridium), 200 MG PO TID Scheduled PRN Ondansetron Hcl (Zofran), 8 MG PO Q8H PRN for N Polyethylene (Miralax), 17 GM PO DAILY PRN for Constipation Review of Systems Additional Notes: Review of systems is unchanged from previous. Physical Exam See nursing notes. Fatigue: None General Appearance: no apparent distress Eyes: normal inspection, EOMI ENT: normal ENT inspection, hearing grossly normal Neck: no adenopathy, thyroid normal Respiratory/Chest: lungs clear, no respiratory distress, no accessory muscle use Cardiovascular: regular rate, rhythm, no gallop, no murmur Abdomen: non tender, soft, no organomegaly Extremities: no pedal edema Neurologic/Psychiatric: no motor/sensory deficits, alert, normal mood/affect Skin: warm/dry Laboratory Studies Test 09/03/16 09:30 09/10/16 18:03 09/10/16 21:30 09/11/16 01:30 Lactate Dehydrogenase 126 U/L (84-246) Globulin 3.9 gm/dl (2.5-4.0) Albumin/Globulin Ratio 0.8 (0.9-2) Platelet Estimate DECREASED Polychromasia 1+ Anisocytosis PRESENT Total Bilirubin 0.4 mg/dl (0.2-1) Direct Bilirubin 0.1 mg/dl (0-0.2) Aspartate Amino Transferase (AST) 20 U/L (15-37) Alanine Aminotransferase (ALT) 33 U/L (12-78) Alkaline Phosphatase 96 U/L (45-117) Total Creatine Kinase 25 U/L (26-192) Troponin I < 0.015 ng/ml (0-0.045) Total Protein 6.5 gm/dl (6.4-8.2) Albumin 3.2 gm/dl (3.4-5.0) Lipase 81 U/L (73-393) Urine Color DK YELLOW Urine Appearance CLEAR (CLEAR) Urine pH 6.5 (4.5-7.5) Urine Specific [place] 1.011 (1.000-1.030) Urine Protein NEG (NEG) Urine Glucose (UA) NEG (NEG) Urine Ketones NEG (NEG) Urine Occult Blood TRACE (NEG) Urine Nitrite POS (NEG) Urine Bilirubin NEG (NEG) Urine Urobilinogen NEG (NEG) Urine Leukocyte Esterase TRACE (NEG) Urine WBC (Auto) 1-5 /hpf (0-5) Urine RBC (Auto) 0-4 /hpf (0-4) Urine Hyaline Casts (Auto) 1-5 /lpf (0-5) Urine Epithelial Cells (Auto) 5-10 /lpf (0-5) Urine Bacteria (Auto) NEG (NEG) Red Blood Cell Morphology Unremarkable Test 09/11/16 05:52 09/12/16 06:09 09/16/16 14:33 09/17/16 05:51 Est Creatinine Clear Calc Drug Dose 75.7 ml/min 106.0 ml/min Giant Platelets 1+ Sodium Level 138 mmol/L (136-145) 134 mmol/L (136-145) Potassium Level 4.0 mmol/L (3.5-5.1) 3.2 mmol/L (3.5-5.1) Chloride Level 106 mmol/L (98-107) 100 mmol/L (98-107) Carbon Dioxide Level 27 mmol/L (21-32) 25 mmol/L (21-32) Anion Gap 5.0 mmol/L (3-11) 9.0 mmol/L (3-11) Blood Urea Nitrogen 7 mg/dl (7-18) 8 mg/dl (7-18) Creatinine 0.60 mg/dl (0.60-1.20) 0.84 mg/dl (0.60-1.20) Estimated GFR () 114.0 86.9 Estimated GFR (Non- 98.4 75.0 BUN/Creatinine Ratio 11.6 (10-20) 9.3 (10-20) Random Glucose 86 mg/dl (70-99) 103 mg/dl (70-99) Calcium Level 8.3 mg/dl (8.5-10.1) 9.5 mg/dl (8.5-10.1) Magnesium Level 1.6 mg/dl (1.8-2.4) 1.3 mg/dl (1.8-2.4) White Blood Count 2.76 K/uL (4.8-10.8) 3.12 K/uL (4.8-10.8) Red Blood Count 3.12 M/uL (4.2-5.4) 3.30 M/uL (4.2-5.4) Hemoglobin 9.5 g/dL (12.0-16.0) 10.1 g/dL (12.0-16.0) Hematocrit 27.6 % (37-47) 29.3 % (37-47) Mean Corpuscular Volume 88.5 fL (80-100) 88.8 fL (80-100) Mean Corpuscular Hemoglobin 30.4 pg (25-34) 30.6 pg (25-34) Mean Corpuscular Hemoglobin Concent 34.4 g/dl (32-36) 34.5 g/dl (32-36) Platelet Count 123 K/uL (130-400) 124 K/uL (130-400) Mean Platelet Volume 9.4 fL (7.4-10.4) 9.9 fL (7.4-10.4) Neutrophils (%) (Auto) 73.9 % 69.9 % Lymphocytes (%) (Auto) 9.4 % 15.4 % Monocytes (%) (Auto) 15.6 % 13.1 % Eosinophils (%) (Auto) 0.7 % 1.0 % Basophils (%) (Auto) 0.4 % 0.3 % Neutrophils # (Auto) 2.04 K/uL (1.4-6.5) 2.18 K/uL (1.4-6.5) Lymphocytes # (Auto) 0.26 K/uL (1.2-3.4) 0.48 K/uL (1.2-3.4) Monocytes # (Auto) 0.43 K/uL (0.11-0.59) 0.41 K/uL (0.11-0.59) Eosinophils # (Auto) 0.02 K/uL (0-0.5) 0.03 K/uL (0-0.5) Basophils # (Auto) 0.01 K/uL (0-0.2) 0.01 K/uL (0-0.2) RDW Standard Deviation 46.4 fL (36.4-46.3) 48.0 fL (36.4-46.3) RDW Coefficient of Variation 15.1 % (11.5-14.5) 15.4 % (11.5-14.5) Immature Granulocyte % (Auto) 0.0 % 0.3 % Immature Granulocyte # (Auto) 0.00 K/uL (0.00-0.02) 0.01 K/uL (0.00-0.02) Total Bilirubin 0.4 mg/dl (0.2-1) Aspartate Amino Transferase (AST) 12 U/L (15-37) Alanine Aminotransferase (ALT) 19 U/L (12-78) Alkaline Phosphatase 94 U/L (45-117) Lactate Dehydrogenase 46 U/L (84-246) Total Protein 7.0 gm/dl (6.4-8.2) Albumin 3.2 gm/dl (3.4-5.0) Globulin 3.8 gm/dl (2.5-4.0) Albumin/Globulin Ratio 0.8 (0.9-2) Assessment & Plan Plan: She'll undergo placement of tandem and ovoids as well as spacer device in the operating room on 09/19/2016. This will be treatment #3. She'll be brought to our office with radiation therapy will be given. We'll plan to give fentanyl and Versed in our office for pain control. Copy To Ana Paula Dumont, C.R.N.P; Juan Mcmanus MD Problem Qualifiers (1) Cervical cancer: Malignant neoplasm of cervix location: overlapping locations Qualified Codes: C53.8 - Malignant neoplasm of overlapping sites of cervix uteri
[2016-09-18 19:06] VITALS: BMI 33.0
[~2016-09-19] VITALS: Ht 165.1 cm; Wt 92.0 kg
[2016-09-19] VITALS (11 sets, daily range): BP systolic 109–167; BP diastolic 51–91; PULSE 68–91; TEMP 36.5–36.8; O2SAT 89–100; Ht 165.1 cm; Wt 92.0 kg
[~2016-09-19] MED LIST changes: -ACET-1047 PO; +CONRAY 30% 150ML BOTTLE ONE; -CONRAY 60% 50 ML VIAL ONE; -CORN1POW2 PO; +ESMOLOL HCL 10 MG/ML 10 ML VIAL ONE; -EpHEDrine SULFATE 50MG/5ML SYR ONE; -FENTANYL CITRATE INJ 50 MCG/1 ML 2 ML VIAL IV PRN; +HEPARIN SOD (PORCINE) 1000 UNIT/ML 10 ML VIAL ONE; +HYDROmorphone INJ 1 MG/ML SYR IV PRN; +HYDROmorphone INJ 2 MG/ML SYR/VIAL ONE; -KETOROLAC TROMETHAMINE 30 MG/ML VIAL IV. PRN; -LISI20TA3 PO; -MAGN30TA4 PO; -MIDAZOLAM HCL 5 MG/ML 1 ML VIAL IV PRN; -NURSING VERBAL MED ORDER ONE; +ONDANSETRON INJ 2 MG/ML 2 ML VIAL ONE; -POLY1POW2 PO; -POLY335019 PO; -POTA10CA28 PO; +PROTAMINE SULFATE 10 MG/ML 5 ML VIAL IV ONE; +ROCURONIUM BROMIDE 10 MG/ML 5 ML VIAL ONE; -SENN8.6T36 PO; +SUCCINYLCHOLINE 100MG/5ML SYR IV ONE
[2016-09-19 06:08] LABS: BASO % 0.3 %; BASO ABS # 0.01 K/uL (0-0.2); HEMATOCRIT 27.3 % (37-47); IG% 0.3 %; LYMPH % 9.1 %; LYMPH ABS # 0.27 K/uL (1.2-3.4); MEAN CELL VOLUME 90.1 fL (80-100); MEAN CORPUSCULAR HEMOGLOBIN 30.7 pg (25-34); MEAN PLATELET VOLUME 9.3 fL (7.4-10.4); MONO % 15.2 %; NEUT % 74.1 %; PLATELET COUNT 116 K/uL (130-400); RED BLOOD COUNT 3.03 M/uL (4.2-5.4); WHITE BLOOD COUNT 2.97 K/uL (4.8-10.8)
[2016-09-19 06:13] LABS: COMPLETE YES; MEAN CORPUSCULAR HGB CONC 34.1 g/dl (32-36)
[2016-09-19] MEDS: FENTANYL CITRATE INJ 50 MCG/1 ML 2 ML VIAL IV PRN ×3 (08:27→08:37)
--- NOTE | 2016-09-19 09:16 | Anesthesiology Progress Note ---
Anesthesia Post Op Note Date & Time Sep 19, 2016 at 09:16 Vital Signs Pain Intensity: 3 Vital Signs Past 12 Hours Date Time Temp Pulse Resp B/P (MAP) Pulse Ox O2 Delivery O2 Flow Rate FiO2 09/19/16 09:05 36.3 76 12 140/77 99 Nasal Cannula 2 09/19/16 08:55 75 15 139/78 99 Nasal Cannula 2 09/19/16 08:45 69 8 136/77 97 Nasal Cannula 2 09/19/16 08:35 69 19 130/75 99 Mask 10 09/19/16 08:25 73 14 139/83 100 Mask 10 09/19/16 08:18 36.2 89 20 141/93 100 Mask 10 09/19/16 05:53 36.7 91 18 167/91 94 Room Air Notes Mental Status: alert / awake / arousable, participated in evaluation Pt Amnestic to Procedure: Yes Nausea / Vomiting: adequately controlled Pain: adequately controlled Airway Patency, RR, SpO2: stable & adequate BP & HR: stable & adequate Hydration State: stable & adequate Anesthetic Complications: no major complications apparent
--- NOTE | 2016-09-19 12:41 | DIAGNOSTIC IMAGING REPORT ---
INTRAOPERATIVE PELVIS NO CHARGE CLINICAL HISTORY: INSERTION OF TANDEM AND OVOIDS COMPARISON STUDY: No previous studies for comparison. FINDINGS: 6 seconds of fluoroscopic time was provided for interpretation. 2 fluoroscopic spot images demonstrate metallic instruments overlying the pelvis. By history these were used during tandem and ovoid insertion IMPRESSION: Intraoperative fluoroscopic spot films of the pelvis Electronically signed by: Clarence Rhoades M.D. 09/19/2016 12:40 PM Dictated Date/Time: 09/19/2016 12:39 PM
== END | disposition home or self-care (01) ==
LOC: C.ACU 05:32
PROVIDERS: ATTEND Radiology Radiation Oncology
DX: C53.9 Malignant neoplasm of cervix uteri, unspecified (principal)

== ENCOUNTER → 2016-10-01 | Day surgery (SDC) | payer BC ==
--- NOTE | 2016-09-22 09:46 | Radiation Oncology Follow-Up ---
Radiation Oncology Follow-Up Date of Visit Sep 22, 2016. Reason For Visit For high-dose radiation therapy. This will be treatment #4. Diagnosis (1) Cervical cancer Status: Acute Onset Date: 06/13/2016 Histology Subtype: squamous cell carcinoma Stage: ll (B) Permanent Comment: Postmenopausal vaginal bleeding Examination revealing a cervical lesion. Pap smear 04/15/2016 showing squamous cell carcinoma of the cervix Vaginal biopsy 06/24/2016 showing squamous cell carcinoma Status post completion of external beam radiation therapy 09/11/2016 Plan for 5 high-dose radiation treatments Last Edited By: Tanisha Perez on Sep 18, 2016 09:45 History of Present Illness Ms. Irvin is a 61-year-old female who recently noticed some vaginal bleeding over the last 3-4 months. She noted that she was experiencing some bleeding during sexual intercourse. She was referred by her primary care physician to Dr. Funes from gynecology. Dr. Funes saw the patient in 06/13/2016 and performed a pelvic examination which revealed a lesion involving the left lateral vaginal fornix concerning for cervical cancer. A Pap smear was performed at the time of the examination which confirmed squamous cell carcinoma. The patient was referred to Dr. Panchal on 06/23/2016. Dr. Panchal performed a pelvic examination which revealed a nodularity involving the left fornix; he also noted that the cervix was abnormal and covered with abnormal vessel circumferentially. Dr. Panchal also noted some nodularity involving the left parametrium and stage the patient as FIGO stage IIB. Dr. Panchal did perform biopsies of the left posterior vaginal fornix and cervix during the office examination and both were positive for squamous cell carcinoma. We are now seeing the patient in consultation to discuss the role of radiation therapy for treatment of her cervical cancer. Interim History She has now completed 3 high-dose radiation treatments. She has been taken to the operating room for placement of tandem and ovoids as well as device. First treatment was 09/12/2016, second treatment was 09/17/2016, and her third treatment was 09/19/2016. She completed her external treatments 09/11/2016. She did require hydration and replacement of electrolytes at the end of treatment. She had fatigue and dysuria. She has been taking Pyridium for her dysuria. Dr. Mcmanus has given prescriptions for magnesium and potassium to replace her electrolytes. Her fourth high dose treatment will be 09/23/2016. Allergies Coded Allergies: Penicillins (Verified Allergy, Mild, rash, nausea, 09/19/16) Sulfa Antibiotics (Verified Allergy, Mild, rash,nausea, 09/19/16) Home Medications Scheduled Hydrochlorothiazide (Hctz), 12.5 MG PO QAM Lisinopril (Zestril), 20 MG PO QAM Multivitamins/Minerals (Mvi With Minerals), 1 TAB PO QAM Phenazopyridine HCl (Pyridium), 200 MG PO TID Scheduled PRN Ondansetron Hcl (Zofran), 8 MG PO Q8H PRN for N Polyethylene (Miralax), 17 GM PO DAILY PRN for Constipation Physical Exam Fatigue: Mild General Appearance: no apparent distress Eyes: normal inspection, EOMI ENT: normal ENT inspection, hearing grossly normal Respiratory/Chest: lungs clear, no respiratory distress, no accessory muscle use Cardiovascular: regular rate, rhythm, no gallop, no murmur Abdomen: non tender, soft, no organomegaly Extremities: no pedal edema Neurologic/Psychiatric: no motor/sensory deficits, alert, normal mood/affect Skin: warm/dry Laboratory Studies Test 09/03/16 09:30 09/10/16 18:03 09/10/16 21:30 09/11/16 01:30 Lactate Dehydrogenase 126 U/L (84-246) Globulin 3.9 gm/dl (2.5-4.0) Albumin/Globulin Ratio 0.8 (0.9-2) Platelet Estimate DECREASED Polychromasia 1+ Anisocytosis PRESENT Total Bilirubin 0.4 mg/dl (0.2-1) Direct Bilirubin 0.1 mg/dl (0-0.2) Aspartate Amino Transferase (AST) 20 U/L (15-37) Alanine Aminotransferase (ALT) 33 U/L (12-78) Alkaline Phosphatase 96 U/L (45-117) Total Creatine Kinase 25 U/L (26-192) Troponin I < 0.015 ng/ml (0-0.045) Total Protein 6.5 gm/dl (6.4-8.2) Albumin 3.2 gm/dl (3.4-5.0) Lipase 81 U/L (73-393) Urine Color DK YELLOW Urine Appearance CLEAR (CLEAR) Urine pH 6.5 (4.5-7.5) Urine Specific Bozman 1.011 (1.000-1.030) Urine Protein NEG (NEG) Urine Glucose (UA) NEG (NEG) Urine Ketones NEG (NEG) Urine Occult Blood TRACE (NEG) Urine Nitrite POS (NEG) Urine Bilirubin NEG (NEG) Urine Urobilinogen NEG (NEG) Urine Leukocyte Esterase TRACE (NEG) Urine WBC (Auto) 1-5 /hpf (0-5) Urine RBC (Auto) 0-4 /hpf (0-4) Urine Hyaline Casts (Auto) 1-5 /lpf (0-5) Urine Epithelial Cells (Auto) 5-10 /lpf (0-5) Urine Bacteria (Auto) NEG (NEG) Red Blood Cell Morphology Unremarkable Test 09/11/16 05:52 09/12/16 06:09 09/16/16 14:33 09/17/16 05:51 Est Creatinine Clear Calc Drug Dose 75.7 ml/min 106.0 ml/min Giant Platelets 1+ Sodium Level 138 mmol/L (136-145) 134 mmol/L (136-145) Potassium Level 4.0 mmol/L (3.5-5.1) 3.2 mmol/L (3.5-5.1) Chloride Level 106 mmol/L (98-107) 100 mmol/L (98-107) Carbon Dioxide Level 27 mmol/L (21-32) 25 mmol/L (21-32) Anion Gap 5.0 mmol/L (3-11) 9.0 mmol/L (3-11) Blood Urea Nitrogen 7 mg/dl (7-18) 8 mg/dl (7-18) Creatinine 0.60 mg/dl (0.60-1.20) 0.84 mg/dl (0.60-1.20) Estimated GFR () 114.0 86.9 Estimated GFR (Non- 98.4 75.0 BUN/Creatinine Ratio 11.6 (10-20) 9.3 (10-20) Random Glucose 86 mg/dl (70-99) 103 mg/dl (70-99) Calcium Level 8.3 mg/dl (8.5-10.1) 9.5 mg/dl (8.5-10.1) Magnesium Level 1.6 mg/dl (1.8-2.4) 1.3 mg/dl (1.8-2.4) Total Bilirubin 0.4 mg/dl (0.2-1) Aspartate Amino Transferase (AST) 12 U/L (15-37) Alanine Aminotransferase (ALT) 19 U/L (12-78) Alkaline Phosphatase 94 U/L (45-117) Lactate Dehydrogenase 46 U/L (84-246) Total Protein 7.0 gm/dl (6.4-8.2) Albumin 3.2 gm/dl (3.4-5.0) Globulin 3.8 gm/dl (2.5-4.0) Albumin/Globulin Ratio 0.8 (0.9-2) White Blood Count 3.12 K/uL (4.8-10.8) Red Blood Count 3.30 M/uL (4.2-5.4) Hemoglobin 10.1 g/dL (12.0-16.0) Hematocrit 29.3 % (37-47) Mean Corpuscular Volume 88.8 fL (80-100) Mean Corpuscular Hemoglobin 30.6 pg (25-34) Mean Corpuscular Hemoglobin Concent 34.5 g/dl (32-36) Platelet Count 124 K/uL (130-400) Mean Platelet Volume 9.9 fL (7.4-10.4) Neutrophils (%) (Auto) 69.9 % Lymphocytes (%) (Auto) 15.4 % Monocytes (%) (Auto) 13.1 % Eosinophils (%) (Auto) 1.0 % Basophils (%) (Auto) 0.3 % Neutrophils # (Auto) 2.18 K/uL (1.4-6.5) Lymphocytes # (Auto) 0.48 K/uL (1.2-3.4) Monocytes # (Auto) 0.41 K/uL (0.11-0.59) Eosinophils # (Auto) 0.03 K/uL (0-0.5) Basophils # (Auto) 0.01 K/uL (0-0.2) RDW Standard Deviation 48.0 fL (36.4-46.3) RDW Coefficient of Variation 15.4 % (11.5-14.5) Immature Granulocyte % (Auto) 0.3 % Immature Granulocyte # (Auto) 0.01 K/uL (0.00-0.02) Test 09/19/16 05:52 White Blood Count 2.97 K/uL (4.8-10.8) Red Blood Count 3.03 M/uL (4.2-5.4) Hemoglobin 9.3 g/dL (12.0-16.0) Hematocrit 27.3 % (37-47) Mean Corpuscular Volume 90.1 fL (80-100) Mean Corpuscular Hemoglobin 30.7 pg (25-34) Mean Corpuscular Hemoglobin Concent 34.1 g/dl (32-36) Platelet Count 116 K/uL (130-400) Mean Platelet Volume 9.3 fL (7.4-10.4) Neutrophils (%) (Auto) 74.1 % Lymphocytes (%) (Auto) 9.1 % Monocytes (%) (Auto) 15.2 % Eosinophils (%) (Auto) 1.0 % Basophils (%) (Auto) 0.3 % Neutrophils # (Auto) 2.20 K/uL (1.4-6.5) Lymphocytes # (Auto) 0.27 K/uL (1.2-3.4) Monocytes # (Auto) 0.45 K/uL (0.11-0.59) Eosinophils # (Auto) 0.03 K/uL (0-0.5) Basophils # (Auto) 0.01 K/uL (0-0.2) RDW Standard Deviation 50.0 fL (36.4-46.3) RDW Coefficient of Variation 16.0 % (11.5-14.5) Immature Granulocyte % (Auto) 0.3 % Immature Granulocyte # (Auto) 0.01 K/uL (0.00-0.02) Assessment & Plan Plan: She will undergo placement of tandem and ovoids on 09/23/2016. This will be treatment #4. She'll be brought to our office following placement of the tandem and ovoids for her radiation treatment. We will plan to give sentinel and Versed in our office for pain control. Copy To Ana Paula Dumont C.[email or web address]; Juan Mcmanus MD Problem Qualifiers (1) Cervical cancer: Malignant neoplasm of cervix location: overlapping locations Qualified Codes: C53.8 - Malignant neoplasm of overlapping sites of cervix uteri
[2016-09-30 17:54] VITALS: BMI 33.0
[~2016-10-01] VITALS: Ht 165.1 cm; Wt 86.0 kg
[2016-10-01] VITALS (8 sets, daily range): BP systolic 126–155; BP diastolic 55–86; PULSE 68–84; TEMP 36.5–36.8; O2SAT 96–99; Ht 165.1 cm; Wt 86.0 kg
[~2016-10-01] MED LIST changes: -CONRAY 30% 150ML BOTTLE ONE; +CONRAY 60% 50 ML VIAL ONE; +DEXAMETHASONE SOD INJ 4 MG/ML VIAL ONE; -ESMOLOL HCL 10 MG/ML 10 ML VIAL ONE; +EpHEDrine SULFATE 50MG/5ML SYR ONE; -HEPARIN SOD (PORCINE) 1000 UNIT/ML 10 ML VIAL ONE; +HYDROmorphone INJ 0.5 MG/0.5 ML SYR IV PRN; +LISI20TA3 PO; +LORAZEPAM 2 MG/ML 1 ML VIAL IV PRN; +MAGN30TA4 PO; +POLY1POW2 PO; +POLY335019 PO; +POTA10CA28 PO; +PROMETHAZINE HCL INJ 12.5 MG in SODIUM CHLORIDE 0.9% 50ML 50 ML IV PRN; -PROTAMINE SULFATE 10 MG/ML 5 ML VIAL IV ONE; -ROCURONIUM BROMIDE 10 MG/ML 5 ML VIAL ONE; +SENN8.6T36 PO; -SUCCINYLCHOLINE 100MG/5ML SYR IV ONE
[2016-10-01 06:07] LABS: BASO % 0.3 %; BASO ABS # 0.01 K/uL (0-0.2); COMPLETE YES; HEMATOCRIT 25.7 % (37-47); IG% 0.7 %; LYMPH % 13.2 %; LYMPH ABS # 0.39 K/uL (1.2-3.4); MEAN CELL VOLUME 93.1 fL (80-100); MEAN CORPUSCULAR HEMOGLOBIN 32.6 pg (25-34); MEAN PLATELET VOLUME 8.6 fL (7.4-10.4); MONO % 16.9 %; NEUT % 67.9 %; PLATELET COUNT 219 K/uL (130-400); RED BLOOD COUNT 2.76 M/uL (4.2-5.4); WHITE BLOOD COUNT 2.96 K/uL (4.8-10.8)
[2016-10-01 06:37] LABS: BUN/CREATININE RATIO 13.2 (10-20); CALCIUM 9.6 mg/dl (8.5-10.1); CREATININE 0.97 mg/dl (0.60-1.20); MAGNESIUM 1.8 mg/dl (1.8-2.4); POTASSIUM 3.3 mmol/L (3.5-5.1)
--- NOTE | 2016-10-01 08:27 | DIAGNOSTIC IMAGING REPORT ---
INTRAOPERATIVE RADIOGRAPHS CLINICAL HISTORY: Insertion of tandem and ovoids. Fluoroscopy time: 11 seconds. FINDINGS: 2 spot fluoroscopic views of the pelvis are presented. Surgical implements project over the pelvis. IMPRESSION: Intraoperative images of the pelvis as above. See operative report for detailed findings. Electronically signed by: Faisal Cleary M.D. 10/01/2016 8:25 AM Dictated Date/Time: 10/01/2016 8:24 AM
[2016-10-01] MEDS: FENTANYL CITRATE INJ 50 MCG/1 ML 2 ML VIAL IV PRN ×4 (08:39→08:54)
--- NOTE | 2016-10-01 09:09 | Anesthesiology Progress Note ---
Anesthesia Post Op Note Date & Time Oct 01, 2016 at 09:09 Vital Signs Pain Intensity: 4 Vital Signs Past 12 Hours Date Time Temp Pulse Resp B/P (MAP) Pulse Ox O2 Delivery O2 Flow Rate FiO2 10/01/16 08:28 36.1 90 18 156/76 100 Mask 10 10/01/16 05:57 36.8 74 18 142/81 (101) 98 Room Air Notes Mental Status: alert / awake / arousable, participated in evaluation Pt Amnestic to Procedure: Yes Nausea / Vomiting: adequately controlled Pain: adequately controlled Airway Patency, RR, SpO2: stable & adequate BP & HR: stable & adequate Hydration State: stable & adequate Anesthetic Complications: no major complications apparent
--- NOTE | 2016-10-01 09:20 | [facility] Operative Report ---
Operative Report Operative Date Oct 01, 2016. Pre-Operative Diagnosis Cervical Cancer Post-Operative Diagnosis Cervical Cancer Procedure(s) Performed Placement of Tandem/Ovoid HDR Applicator for Treatment of Cervical Cancer Surgeon Dr. Lamine Rivas Screw Driver Operator Surgeon(s) Tanisha Perez PA-C Estimated Blood Loss 0 ML Findings Cervical cancer and radiation changes noted. Sleeve in place. Significant response from treatment. Specimens none per MD Drains None Anesthesia General Complication(s) None Disposition Recovery Room / PACU Indications Ms. Irvin is a 61 year old female with FIGO stage IIB cervical cancer pending completion of her staging studies. She has elected for pelvic chemoradiation therapy followed by HDR tandem/ovoid brachytherapy. Description of Procedure The patient was seen today for her 4th of a planned 5 insertions. The patient was identified in the operating room and a timeout was performed. The patient was placed in stirrups and the packing that was placed to prevent movement of the cervical sleeve was removed. The area was cleansed with iodine. A Spaulding catheter was placed. The cervical sleeve was identified and a #1 tandem was inserted into the cervical sleeve. The left ovoid was then placed followed by the right ovoid. These 3 devices were connected and secured. The ovoids were spread and secured. Alatus vaginal packing balloons were placed anteriorly/ posteriorly and filled with 30 mL each to provide adequate bladder and rectal packing. Radiology was then called for imaging. An anterior image was taken showing good orientation of the tandem and ovoid. A lateral image was then obtained showing excellent placement without significant rotation. The insertion procedure was completed and the patient was taken to the recovery room. There was minimal evidence of excoriation of the introitus secondary to her treatment. There was no significant blood loss during the procedure. The patient will be brought to our department where she will undergo a simulation and following completion of treatment planning will receive her first fraction of HDR brachytherapy. I attest to the content of the Intraoperative Record and any orders documented therein. Any exceptions are noted below.
[2016-10-01] MEDS: HYDROmorphone INJ 0.5 MG/0.5 ML SYR IV PRN ×2 (12:11→15:01)
--- NOTE | 2016-10-01 13:13 | DIAGNOSTIC IMAGING REPORT ---
PELVIS 1 OR 2 VIEW ROUTINE CLINICAL HISTORY: md order to determoine correct placement fo instruments intraoperative evaluation COMPARISON: 09/19/2016 DISCUSSION: The bones and joint spaces appear intact. There is no evidence of fracture, dislocation or bony disease. Surgical instrument seen in the midline. IMPRESSION: AP pelvic projection for surgical enhancement localization The above report was generated using voice recognition software. It may contain grammatical, syntax or spelling errors. Electronically signed by: Devan Obregon M.D. 10/01/2016 1:11 PM Dictated Date/Time: 10/01/2016 1:11 PM
== END | disposition home or self-care (01) ==
LOC: C.ACU 05:31
PROVIDERS: ATTEND Radiology Radiation Oncology
DX: C53.9 Malignant neoplasm of cervix uteri, unspecified (principal)

== ENCOUNTER → 2016-10-03 | Day surgery (SDC) | payer BC ==
--- NOTE | 2016-10-02 17:29 | Progress Note ---
Progress Note Date of Service Oct 02, 2016. Progress Note Progress Note Reason For Visit For high-dose radiation therapy. Diagnosis (1) Cervical cancer Status: Acute Onset Date: 06/13/2016 Histology Subtype: squamous cell carcinoma Stage: ll (B) Permanent Comment: Postmenopausal vaginal bleeding Examination revealing a cervical lesion. Pap smear 04/15/2016 showing squamous cell carcinoma of the cervix Vaginal biopsy 06/24/2016 showing squamous cell carcinoma Status post completion of external beam radiation therapy 09/11/2016 Plan for 5 high-dose radiation treatments Last Edited By: Tanisha Perez on Sep 18, 2016 09:45 History of Present Illness Ms. Irvin is a 61-year-old female who recently noticed some vaginal bleeding over the last 3-4 months. She noted that she was experiencing some bleeding during sexual intercourse. She was referred by her primary care physician to Dr. Funes from gynecology. Dr. Funes saw the patient in 06/13/2016 and performed a pelvic examination which revealed a lesion involving the left lateral vaginal fornix concerning for cervical cancer. A Pap smear was performed at the time of the examination which confirmed squamous cell carcinoma. The patient was referred to Dr. Panchal on 06/23/2016. Dr. Panchal performed a pelvic examination which revealed a nodularity involving the left fornix; he also noted that the cervix was abnormal and covered with abnormal vessel circumferentially. Dr. Panchal also noted some nodularity involving the left parametrium and stage the patient as FIGO stage IIB. Dr. Panchal did perform biopsies of the left posterior vaginal fornix and cervix during the office examination and both were positive for squamous cell carcinoma. We are now seeing the patient in consultation to discuss the role of radiation therapy for treatment of her cervical cancer. Interim History She has now completed 3 high-dose radiation treatments. She has been taken to the operating room for placement of tandem and ovoids as well as device. First treatment was 09/12/2016, second treatment was 09/17/2016, and her third treatment was 09/19/2016. She completed her external treatments 09/11/2016. She did require hydration and replacement of electrolytes at the end of treatment. She had fatigue and dysuria. She has been taking Pyridium for her dysuria. Dr. Mcmanus has given prescriptions for magnesium and potassium to replace her electrolytes. Her fourth high dose treatment was on 10/01/16. The last dose will be 10/03/16. Allergies Coded Allergies: Penicillins (Verified Allergy, Mild, rash, nausea, 09/19/16) Sulfa Antibiotics (Verified Allergy, Mild, rash,nausea, 09/19/16) Home Medications Scheduled Hydrochlorothiazide (Hctz), 12.5 MG PO QAM Lisinopril (Zestril), 20 MG PO QAM Multivitamins/Minerals (Mvi With Minerals), 1 TAB PO QAM Phenazopyridine HCl (Pyridium), 200 MG PO TID Scheduled PRN Ondansetron Hcl (Zofran), 8 MG PO Q8H PRN for N Polyethylene (Miralax), 17 GM PO DAILY PRN for Constipation Physical Exam Fatigue: Mild General Appearance: no apparent distress Eyes: normal inspection, EOMI ENT: normal ENT inspection, hearing grossly normal Respiratory/Chest: lungs clear, no respiratory distress, no accessory muscle use Cardiovascular: regular rate, rhythm, no gallop, no murmur Abdomen: non tender, soft, no organomegaly Extremities: no pedal edema Neurologic/Psychiatric: no motor/sensory deficits, alert, normal mood/affect Assessment & Plan Cervical carcinoma undergoing treatment with tandem and ovoids. We will complete treatment 10/03/2016.
[2016-10-03] VITALS (10 sets, daily range): BP systolic 102–170; BP diastolic 56–80; PULSE 69–81; TEMP 36.5–36.9; O2SAT 94–100; Ht 165.1 cm; Wt 90.0 kg
[~2016-10-03] VITALS: Ht 165.1 cm; Wt 90.0 kg
[~2016-10-03] MED LIST changes: +FLUMAZENIL 0.1 MG/1 ML 10 ML VIAL IV PRN; -HYDROmorphone INJ 0.5 MG/0.5 ML SYR IV PRN; +LABETALOL HCL IV 5 MG/ML 20ML IV PRN; -LACTATED RINGER'S 1000ML 1,000 ML IV SCH; -LISI-725 PO; -LORAZEPAM 2 MG/ML 1 ML VIAL IV PRN; +NALOXONE HCL 0.4 MG/1 ML VIAL/CARP IV PRN; -PHEN-876 PO
[2016-10-03 06:36] LABS: BASO % 0.3 %; BASO ABS # 0.01 K/uL (0-0.2); EOS % 0.5 %; HEMATOCRIT 24.7 % (37-47); IG% 0.8 %; LYMPH % 11.7 %; LYMPH ABS # 0.43 K/uL (1.2-3.4); MEAN CELL VOLUME 94.3 fL (80-100); MEAN CORPUSCULAR HEMOGLOBIN 32.1 pg (25-34); MEAN PLATELET VOLUME 8.6 fL (7.4-10.4); MONO % 16.3 %; NEUT % 70.4 %; PLATELET COUNT 191 K/uL (130-400); RED BLOOD COUNT 2.62 M/uL (4.2-5.4); WHITE BLOOD COUNT 3.68 K/uL (4.8-10.8)
[2016-10-03 07:23] LABS: COMPLETE YES
[2016-10-03] MEDS: HYDROmorphone INJ 0.5 MG/0.5 ML SYR IV PRN ×2 (08:25→13:56)
--- NOTE | 2016-10-03 08:45 | Anesthesiology Progress Note ---
Anesthesia Post Op Note Date & Time Oct 03, 2016 at 08:45 Vital Signs Pain Intensity: 0 Vital Signs Past 12 Hours Date Time Temp Pulse Resp B/P (MAP) Pulse Ox O2 Delivery O2 Flow Rate FiO2 10/03/16 08:42 74 16 95 10/03/16 08:42 74 16 10/03/16 08:41 154/83 10/03/16 08:37 78 22 10/03/16 08:37 77 22 96 10/03/16 08:36 149/80 10/03/16 08:32 76 12 10/03/16 08:32 76 12 98 10/03/16 08:31 156/80 10/03/16 08:27 78 20 100 10/03/16 08:27 78 20 10/03/16 08:26 149/80 10/03/16 08:25 73 14 10/03/16 08:25 73 14 100 10/03/16 08:21 147/74 10/03/16 08:20 72 22 10/03/16 08:20 71 22 100 10/03/16 08:16 134/69 10/03/16 08:15 72 15 100 10/03/16 08:15 72 15 10/03/16 08:11 134/75 10/03/16 08:10 36.4 73 8 134/75 100 Mask 15 10/03/16 06:10 36.9 78 18 170/80 (110) 97 Room Air Notes Mental Status: alert / awake / arousable, participated in evaluation Pt Amnestic to Procedure: Yes Nausea / Vomiting: adequately controlled Pain: adequately controlled Airway Patency, RR, SpO2: stable & adequate BP & HR: stable & adequate Hydration State: stable & adequate Anesthetic Complications: no major complications apparent
--- NOTE | 2016-10-03 12:26 | DIAGNOSTIC IMAGING REPORT ---
PELVIS 1 OR 2 VIEWS ROUTINE CLINICAL HISTORY: 61 years-old Female presenting with INSERTION OF TANDEM OVOIDS. TECHNIQUE: 2 fluoroscopic spot image(s) obtained as part of intraoperative procedure. COMPARISON: 10/01/2016. FINDINGS/IMPRESSION: Radiation device in place in the vagina. Please see surgical report for further details. Fluoroscopy dosage (mGy): Not available. Fluoroscopy time: 9 seconds. Number of fluoroscopic spot images: 2. Electronically signed by: Tacos Gibbs M.D. 10/03/2016 12:25 PM Dictated Date/Time: 10/03/2016 12:24 PM
--- NOTE | 2016-10-03 12:37 | [facility] Operative Report ---
Operative Report Operative Date Oct 03, 2016. Pre-Operative Diagnosis Cervical Cancer Post-Operative Diagnosis Cervical Cancer Procedure(s) Performed Placement of Tandem/Ovoid HDR Applicator for Treatment of Cervical Cancer Surgeon Dr Lamine Rivas Working Second Hand Surgeon(s) Tanisha Perez PA-C Estimated Blood Loss 0cc Findings Cervical cancer and radiation changes noted. Sleeve in place. Specimens None Drains None Anesthesia General Complication(s) None Disposition Recovery Room / PACU Indications Ms. Irvin is a 61 year old female with FIGO stage IIB cervical cancer pending completion of her staging studies. She has elected for pelvic chemoradiation therapy followed by HDR tandem/ovoid brachytherapy. She is here today for her 5/ 5 HDR treatments. Description of Procedure The patient was seen today for her 5th of a planned 5 insertions. The patient was identified in the operating room and a timeout was performed. The patient was placed in stirrups and the packing that was placed to prevent movement of the cervical sleeve was removed. The area was cleansed with iodine. A Spaulding catheter was placed. The cervical sleeve was identified and a #1 tandem was inserted into the cervical sleeve. The left ovoid was then placed followed by the right ovoid. These 3 devices were connected and secured. The ovoids were spread and secured. Alatus vaginal packing balloons were placed anteriorly/ posteriorly and filled with 30 mL each to provide adequate bladder and rectal packing. Radiology was then called for imaging. An anterior image was taken showing good orientation of the tandem and ovoid. A lateral image was then obtained showing excellent placement without significant rotation. The insertion procedure was completed and the patient was taken to the recovery room. There was minimal evidence of excoriation of the introitus secondary to her treatment. There was no significant blood loss during the procedure. The patient will be brought to our department where she will undergo a simulation and following completion of treatment planning will receive her first fraction of HDR brachytherapy. I attest to the content of the Intraoperative Record and any orders documented therein. Any exceptions are noted below.
--- NOTE | 2016-10-03 12:58 | DIAGNOSTIC IMAGING REPORT ---
PELVIS 1 OR 2 VIEW ROUTINE CLINICAL HISTORY: 61 years-old Female presenting with STAT portable pelvic x-ray prior to procedure.. TECHNIQUE: Single frontal view of the pelvis was obtained. COMPARISON: 10/01/2016. FINDINGS: 3-prong radiation delivery device projects over the vagina and lower pelvis. Osseous structures intact. IMPRESSION: Expected positioning of the endovaginal radiation delivery device. Electronically signed by: Tacos Gibbs M.D. 10/03/2016 12:57 PM Dictated Date/Time: 10/03/2016 12:55 PM
== END | disposition home or self-care (01) ==
LOC: C.ACU 05:43
PROVIDERS: ATTEND Radiology Radiation Oncology
DX: C53.8 Malignant neoplasm of overlapping sites of cervix uteri (principal)

== ENCOUNTER 2016-10-05 17:16 | Emergency (ER) | payer BC ==
[~2016-10-05] VITALS: Ht 165.1 cm; Wt 86.3 kg
[~2016-10-05 17:16] MED LIST changes: -ATROPINE SULFATE 0.1 MG/ML 5ML SYR IV PRN; -CONRAY 60% 50 ML VIAL ONE; -DEXAMETHASONE SOD INJ 4 MG/ML VIAL ONE; -EpHEDrine SULFATE 50MG/5ML SYR ONE; -EpHEDrine SULFATE INJ 50 MG/ML AMP IV PRN; -FENTANYL CITRATE INJ 50 MCG/1 ML 2 ML VIAL ONE; -FLUMAZENIL 0.1 MG/1 ML 10 ML VIAL IV PRN; -HYDROmorphone INJ 1 MG/ML SYR IV PRN; -HYDROmorphone INJ 2 MG/ML SYR/VIAL ONE; -LABETALOL HCL IV 5 MG/ML 20ML IV PRN; -LIDOCAINE HCL 2% 2 ML VIAL (20MG/ML) ONE; +LISI-725 PO; -LISI20TA3 PO; -LORAZEPAM 2 MG/ML 1 ML VIAL ONE; -MIDAZOLAM HCL 1 MG/ML 2ML VIAL ONE; -NALOXONE HCL 0.4 MG/1 ML VIAL/CARP IV PRN; -ONDANSETRON INJ 2 MG/ML 2 ML VIAL IV PRN; -ONDANSETRON INJ 2 MG/ML 2 ML VIAL ONE; +PHEN-876 PO; -POLY1POW2 PO; -POLY335019 PO; -PROMETHAZINE HCL INJ 12.5 MG in SODIUM CHLORIDE 0.9% 50ML 50 ML IV PRN; -PROPOFOL IV EMULSION 10 MG/ML 20 ML VIAL IV ONE; -SENN8.6T36 PO
[2016-10-05 17:19] VITALS: TEMP 36.7; Ht 165.1 cm; Wt 86.3 kg
--- NOTE | 2016-10-05 18:08 | DIAGNOSTIC IMAGING REPORT ---
ABDOMEN 2VIEW W/PA CHEST RTN CLINICAL HISTORY: constipation pain COMPARISON STUDY: 09/01/2016 FINDINGS: The soft tissues, psoas shadows, renal outlines and intestinal gas pattern appear normal. There is no evidence for bowel obstruction. There is no evidence for free intraperitoneal air. No abnormal abdominal calcifications are seen. A frontal view of the chest was performed and is unremarkable. Moderate increase in fecal load to colon. No evidence for fecal impaction. IMPRESSION: Moderate increase in fecal load throughout the colon consistent with fecal stasis. No obstructive changes. Negative chest. The above report was generated using voice recognition software. It may contain grammatical, syntax or spelling errors. Electronically signed by: Devan Obregon M.D. 10/05/2016 6:06 PM Dictated Date/Time: 10/05/2016 6:05 PM
[2016-10-05] MEDS ORDERED: SENN8.6T36 PO (18:14)
[2016-10-05] MEDS ORDERED: POLY1POW2 PO (18:14)
[2016-10-05] MEDS ORDERED: POLY335019 PO (18:19)
[2016-10-05] MEDS ORDERED: MAGNESIUM CITRATE 296 ML/BTL PO ONE (18:30)
[2016-10-05 18:36] VITALS: BP 150/100; PULSE 76; O2SAT 98
--- NOTE | 2016-10-05 18:45 | EMERGENCY ROOM VISIT NOTE ---
History Report prepared by Effie: Valentine Kaur Under the Supervision of: Dr. Tejas Santos D.O. First contact with patient: 17:24 Chief Complaint: ABDOMINAL PAIN Stated Complaint: CERVICAL CA, BOWEL Nursing Triage Summary: pt c/o "bowels are stuffed up." pt states last regular BM was last thursday. patient states she had small BM with little relief this AM. pt states she takes colace and fiber in coffee for constipation. pt denies nausea at this time pt had last cervical radiation 10/03. History of Present Illness The patient is a 61 year old female who presents to the Emergency Room with complaints of persistent constipation starting 1 week ago. She has tried taking Colace and fiber in her coffee to no significant relief. She has had small bowel movements, but she has mostly passed mucous. She is now having abdominal pain which feels like gas. The pain comes and goes. Her abdomen is more distended than usual. She notes that she has not been eating a lot. She denies any rectal bleeding, fever, or trouble urinating. The patient has cervical cancer and her last treatment was 2 days ago. She has not experienced these symptoms with her treatments before. She denies any prior surgeries. Source of History: patient, family Onset: 1 week ago Position: other (global) Quality: other (constipation) Timing: other (persistent) Associated Symptoms: + abdominal pain, No fevers, No urinary symptoms Note: Pt denies rectal bleeding. Review of Systems See HPI for pertinent positives & negatives. A total of 10 systems reviewed and were otherwise negative. Past Medical & Surgical Medical Problems: (1) Dizziness (2) Hypertension (3) Nausea and vomiting Family History FHx: cancer Social History Smoking Status: Never Smoker Alcohol Use: none Marital Status: Housing Status: lives with family Occupation Status: employed Current/Historical Medications Scheduled Hydrochlorothiazide (Hctz), 12.5 MG PO QAM Magnesium Gluconate (Magnesium), 1 TAB PO DAILY Multivitamins/Minerals (Mvi With Minerals), 1 TAB PO QAM Polyethylene Glycol 3350 (Miralax), 17 GM PO DAILY Potassium Chloride (Micro-K Ext Rel), 10 MEQ PO DAILY Scheduled PRN Ondansetron Hcl (Zofran), 8 MG PO Q8H PRN for Nausea Polyethylene Glycol 3350 (Bulk (Polyethylene Glycol 3350), 17 GM PO DAILY PRN for Constipation Sennosides-Docusate Sodium (Docusate Sodium/Senna), 1 DOSE PO UD PRN for Constipation Allergies Coded Allergies: Penicillins (Verified Allergy, Mild, rash, nausea, 10/03/16) Sulfa Antibiotics (Verified Allergy, Mild, rash,nausea, 10/03/16) Physical Exam Vital Signs Date Time Temp Pulse Resp B/P (MAP) Pulse Ox O2 Delivery O2 Flow Rate FiO2 10/05/16 18:36 76 18 150/100 98 10/05/16 17:19 36.7 88 20 117/72 97 Room Air Physical Exam GENERAL: Patient is awake, alert, and in no acute distress. Patient is resting comfortably and showing no signs of anxiety EYES: The conjunctivae are clear. The pupils are round and reactive. EARS, NOSE, MOUTH AND THROAT: The nose is without any evidence of any deformity. Mucous membranes are moist tongue is midline NECK: The neck is nontender and supple. RESPIRATORY: Normal respiratory effort is noted there is no evidence of wheezing rhonchi or rales CARDIOVASCULAR: Regular rate and rhythm noted there no murmurs rubs or gallops normal S1 normal S2 GASTROINTESTINAL: The abdomen is mildly distended but soft, no tenderness guarding or rigidity appreciated. BACK: No midline tenderness or or step-off noted range of motion in flexion extension as well as rotation no signs of muscle spasm noted MUSCULOSKELETAL/EXTREMITIES: There is no evidence of gross deformity full range of motion is noted in the hips and shoulders SKIN: There is no obvious evidence of any rash. There are no petechiae, pallor or cyanosis noted. NEUROLOGIC: Patient is awake alert and oriented x3 strength is symmetric patellar reflexes are 2+ bilaterally Medical Decision & Procedures ER Provider Diagnostic Interpretation: X-ray results as stated below per interpretation by me and the radiologist. ABDOMEN 2VIEW W/PA CHEST RTN CLINICAL HISTORY: constipation pain COMPARISON STUDY: 09/01/2016 FINDINGS: The soft tissues, psoas shadows, renal outlines and intestinal gas pattern appear normal. There is no evidence for bowel obstruction. There is no evidence for free intraperitoneal air. No abnormal abdominal calcifications are seen. A frontal view of the chest was performed and is unremarkable. Moderate increase in fecal load to colon. No evidence for fecal impaction. IMPRESSION: Moderate increase in fecal load throughout the colon consistent with fecal stasis. No obstructive changes. Negative chest. The above report was generated using voice recognition software. It may contain grammatical, syntax or spelling errors. Electronically signed by: Devan Obregon M.D. 10/05/2016 6:06 PM Dictated Date/Time: 10/05/2016 6:05 PM Medications Administered Medications (Trade) Dose Ordered Sig/Radha Route Start Time Stop Time Status Last Admin Dose Admin Magnesium Citrate (Citrate Of Magnesia Soln) 296 ml NOW ONCE PO 10/05/16 18:30 10/05/16 18:31 DC 10/05/16 18:33 296 ML ED Course 1727: The patient was evaluated in room A11B. A complete history and physical examination were performed. 1816: Upon reevaluation, the patient is resting comfortably. I discussed the results and treatment plan with her. She verbalized agreement of the treatment plan. She was discharged home. 0: Magnesium Citrate 296 ml PO. Medical Decision Prior records/ancillary studies reviewed. Triage Nursing notes reviewed. Additional history obtained from family. The patient's history was concerning for abdominal pain. Differential diagnosis: Etiologies such as appendicitis, diverticulitis, PUD, biliary pathology, UTI, pancreatitis, obstruction, mesenteric ischemia, aortic pathology, infections, inflammatory bowel disease, renal colic, as well as others were entertained. The patient is a 61-year-old female who presented to the emergency department for an evaluation of constipation. The patient has had similar symptoms in the past but she's not been able to have a good bowel movement with over-the- counter modalities. The patient did not have a physical exam consistent with an acute surgical abdomen. I discussed the patient's review graphic studies with her. She was encouraged to continue medications as prescribed and follow-up with her primary care physician in a few days she was also encouraged return to emergency department immediately if symptoms change worsen or the need arises. Medication Reconcilliation Current Medication List: was personally reviewed by me Blood Pressure Screening Patient's blood pressure: Normal blood pressure Blood pressure disposition: Did not require urgent referral Impression Primary Impression: Constipation Scribe Attestation The scribe's documentation has been prepared under my direction and personally reviewed by me in its entirety. I confirm that the note above accurately reflects all work, treatment, procedures, and medical decision making performed by me. Departure Information Dispostion Home / Self-Care Prescriptions Polyethylene Glycol 3350 (MIRALAX) 1 Pow Pow 17 GM PO DAILY, #527 GM Prov: Tejas Santos, DO 10/05/16 Referrals Abdullahi Rivas M.D. Forms HOME CARE DOCUMENTATION FORM, IMPORTANT VISIT INFORMATION Patient Instructions Constipation, My [facility] [address] Additional Instructions Continue all medications as prescribed. Drink plenty clear liquids. Drink half of the bottle of the magnesium citrate when you get home. Drink the other half a bottle tomorrow morning if you do not have relief of your symptoms. Continue all other medications as prescribed. Follow-up with your doctor this week for reevaluation. Problem Qualifiers Primary Impression: Constipation Constipation type: unspecified constipation type Qualified Codes: K59.00 - Constipation, unspecified
[2016-10-31] MEDS ORDERED: LISI20TA3 PO (10:59)
== END 2016-10-05 18:37 | disposition home or self-care (01) ==
LOC: C.EDB 17:17 → C.EDA 18:37
DX: K59.00 Constipation, unspecified (principal); I10 Essential (primary) hypertension

== ENCOUNTER → 2016-10-31 | Outpatient (CLI) | payer BC ==
[~2016-10-31] MED LIST changes: -LISI-725 PO; +LISI20TA3 PO; -MRLP17X PO; -PHEN-876 PO; +POLY1POW2 PO; +POLY335019 PO; +SENN8.6T36 PO
[2016-10-31 10:59] VITALS: BP 150/89; PULSE 90; TEMP 36.8; O2SAT 98
--- NOTE | 2016-10-31 11:59 | Radiation Oncology Follow-Up ---
Radiation Oncology Follow-Up Date of Visit Oct 31, 2016. Reason For Visit One-month follow-up and cancer survivorship care plan Radiation Completion Date 09/11/16 external, 10/03/16 external Diagnosis (1) Cervical cancer Status: Resolved Onset Date: 06/13/2016 Stage: ll (B) Permanent Comment: Postmenopausal vaginal bleeding Examination revealing a cervical lesion. 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 600 cGy each final treatment 10/03/2016 Last Edited By: Tanisha Perez on Oct 17, 2016 08: 58 History of Present Illness Ms. Irvin is a 61-year-old female who recently noticed some vaginal bleeding over the last 3-4 months. She noted that she was experiencing some bleeding during sexual intercourse. She was referred by her primary care physician to Dr. Funes from gynecology. Dr. Funes saw the patient in 06/13/2016 and performed a pelvic examination which revealed a lesion involving the left lateral vaginal fornix concerning for cervical cancer. A Pap smear was performed at the time of the examination which confirmed squamous cell carcinoma. The patient was referred to Dr. Panchal on 06/23/2016. Dr. Panchal performed a pelvic examination which revealed a nodularity involving the left fornix; he also noted that the cervix was abnormal and covered with abnormal vessel circumferentially. Dr. Panchal also noted some nodularity involving the left parametrium and stage the patient as FIGO stage IIB. Dr. Panchal did perform biopsies of the left posterior vaginal fornix and cervix during the office examination and both were positive for squamous cell carcinoma. We are now seeing the patient in consultation to discuss the role of radiation therapy for treatment of her cervical cancer. The patient received combined radiation and chemotherapy. External beam therapy completed 09/11/2016 she received 4500 cGy. She also received 5 tandem and ovoid HDR treatments. She received 600 cGy with each treatment. The final treatment was 10/03/2016. Interim History She's been doing well over this past month. She has had steady improvement in her energy levels. The discomfort with urination steadily improved she no longer has any dysuria. She does not require the use of Pyridium. She does not require any pain medication. Bowel movements are regular. She has had some mild peeling of the skin. Her appetite is good and weight is stable. She had requested a return to work slip. She'll be returning on Thursday. She saw Dr. Mcmanus in follow-up he has recommended a follow-up PET scan at the end of November or early December. She has not had a follow-up appointment with Dr. Kearney. She denies any vaginal discharge or bleeding. Allergies Coded Allergies: Penicillins (Verified Allergy, Mild, rash, nausea, 10/03/16) Sulfa Antibiotics (Verified Allergy, Mild, rash,nausea, 10/03/16) Home Medications Scheduled Lisinopril (Prinivil), 20 MG PO DAILY Magnesium Gluconate (Magnesium), 250 PO DAILY Multivitamins/Minerals (Mvi With Minerals), 1 TAB PO QAM Polyethylene Glycol 3350 (Miralax), 17 GM PO DAILY Potassium Chloride (Micro-K Ext Rel), 10 MEQ PO DAILY Scheduled PRN Polyethylene Glycol 3350 (Bulk (Polyethylene Glycol 3350), 17 GM PO DAILY PRN for Constipation Review of Systems Gastrointestinal: Symptoms: Constipation GI Comments: ok now on miralax Oral: Symptoms: No Problems Respiratory: Symptoms: WNL Urinary: Symptoms: WNL Skin: Other Skin Symptoms: still itchy and some rash at perineum Physical Exam Vital Signs Date Time Temp Pulse Resp B/P (MAP) Pulse Ox O2 Delivery O2 Flow Rate FiO2 10/31/16 10:59 36.8 90 20 150/89 98 Pain: Patient Pain Scale: 0 - 10 Initial Pain Intensity: 0.0 Fatigue: None General Appearance: no apparent distress Eyes: normal inspection, EOMI ENT: normal ENT inspection, hearing grossly normal Neck: no adenopathy, thyroid normal Respiratory/Chest: lungs clear, no respiratory distress, no accessory muscle use Cardiovascular: regular rate, rhythm, no gallop, no murmur Abdomen: non tender, soft, no organomegaly Genitourinary - Female: Pelvic examination reveals normal external genitalia. There is no erythema. Vagina shows post radiation changes with mild induration. There is no vaginal discharge. No signs of infection. The sleeve is noted and sutures are not easily seen. Extremities: no pedal edema Neurologic/Psychiatric: no motor/sensory deficits, alert, normal mood/affect Laboratory Studies Test 09/10/16 18:03 09/10/16 21:30 09/11/16 01:30 09/12/16 06:09 Platelet Estimate DECREASED Polychromasia 1+ Anisocytosis PRESENT Direct Bilirubin 0.1 mg/dl (0-0.2) Total Creatine Kinase 25 U/L (26-192) Troponin I < 0.015 ng/ml (0-0.045) Lipase 81 U/L (73-393) Urine Color DK YELLOW Urine Appearance CLEAR (CLEAR) Urine pH 6.5 (4.5-7.5) Urine Specific Shade 1.011 (1.000-1.030) Urine Protein NEG (NEG) Urine Glucose (UA) NEG (NEG) Urine Ketones NEG (NEG) Urine Occult Blood TRACE (NEG) Urine Nitrite POS (NEG) Urine Bilirubin NEG (NEG) Urine Urobilinogen NEG (NEG) Urine Leukocyte Esterase TRACE (NEG) Urine WBC (Auto) 1-5 /hpf (0-5) Urine RBC (Auto) 0-4 /hpf (0-4) Urine Hyaline Casts (Auto) 1-5 /lpf (0-5) Urine Epithelial Cells (Auto) 5-10 /lpf (0-5) Urine Bacteria (Auto) NEG (NEG) Red Blood Cell Morphology Unremarkable Giant Platelets 1+ Est Creatinine Clear Calc Drug Dose 106.0 ml/min Test 09/16/16 14:33 09/30/16 14:57 10/01/16 05:56 10/03/16 06:20 Lactate Dehydrogenase 46 U/L (84-246) 102 U/L (84-246) Sodium Level 133 mmol/L (136-145) 138 mmol/L (136-145) Chloride Level 99 mmol/L (98-107) 102 mmol/L (98-107) Carbon Dioxide Level 27 mmol/L (21-32) 27 mmol/L (21-32) Anion Gap 7.0 mmol/L (3-11) 9.0 mmol/L (3-11) Blood Urea Nitrogen 11 mg/dl (7-18) 13 mg/dl (7-18) Creatinine 0.91 mg/dl (0.60-1.20) 0.97 mg/dl (0.60-1.20) Estimated GFR () 78.9 73.1 Estimated GFR (Non- 68.1 63.0 BUN/Creatinine Ratio 12.1 (10-20) 13.2 (10-20) Random Glucose 98 mg/dl (70-99) 109 mg/dl (70-99) Calcium Level 9.9 mg/dl (8.5-10.1) 9.6 mg/dl (8.5-10.1) Magnesium Level 1.8 mg/dl (1.8-2.4) 1.8 mg/dl (1.8-2.4) Total Bilirubin 0.3 mg/dl (0.2-1) 0.3 mg/dl (0.2-1) Aspartate Amino Transferase (AST) 18 U/L (15-37) 19 U/L (15-37) Alanine Aminotransferase (ALT) 28 U/L (12-78) 27 U/L (12-78) Alkaline Phosphatase 87 U/L (45-117) 83 U/L (45-117) Total Protein 7.1 gm/dl (6.4-8.2) 7.0 gm/dl (6.4-8.2) Albumin 3.5 gm/dl (3.4-5.0) 3.5 gm/dl (3.4-5.0) Globulin 3.6 gm/dl (2.5-4.0) 3.5 gm/dl (2.5-4.0) Albumin/Globulin Ratio 1.0 (0.9-2) 1.0 (0.9-2) White Blood Count 2.96 K/uL (4.8-10.8) 3.68 K/uL (4.8-10.8) Red Blood Count 2.76 M/uL (4.2-5.4) 2.62 M/uL (4.2-5.4) Hemoglobin 9.0 g/dL (12.0-16.0) 8.4 g/dL (12.0-16.0) Hematocrit 25.7 % (37-47) 24.7 % (37-47) Mean Corpuscular Volume 93.1 fL (80-100) 94.3 fL (80-100) Mean Corpuscular Hemoglobin 32.6 pg (25-34) 32.1 pg (25-34) Mean Corpuscular Hemoglobin Concent 35.0 g/dl (32-36) 34.0 g/dl (32-36) Platelet Count 219 K/uL (130-400) 191 K/uL (130-400) Mean Platelet Volume 8.6 fL (7.4-10.4) 8.6 fL (7.4-10.4) Neutrophils (%) (Auto) 67.9 % 70.4 % Lymphocytes (%) (Auto) 13.2 % 11.7 % Monocytes (%) (Auto) 16.9 % 16.3 % Eosinophils (%) (Auto) 1.0 % 0.5 % Basophils (%) (Auto) 0.3 % 0.3 % Neutrophils # (Auto) 2.01 K/uL (1.4-6.5) 2.59 K/uL (1.4-6.5) Lymphocytes # (Auto) 0.39 K/uL (1.2-3.4) 0.43 K/uL (1.2-3.4) Monocytes # (Auto) 0.50 K/uL (0.11-0.59) 0.60 K/uL (0.11-0.59) Eosinophils # (Auto) 0.03 K/uL (0-0.5) 0.02 K/uL (0-0.5) Basophils # (Auto) 0.01 K/uL (0-0.2) 0.01 K/uL (0-0.2) RDW Standard Deviation 57.5 fL (36.4-46.3) 59.9 fL (36.4-46.3) RDW Coefficient of Variation 17.3 % (11.5-14.5) 17.6 % (11.5-14.5) Immature Granulocyte % (Auto) 0.7 % 0.8 % Immature Granulocyte # (Auto) 0.02 K/uL (0.00-0.02) 0.03 K/uL (0.00-0.02) Potassium Level 3.3 mmol/L (3.5-5.1) 3.1 mmol/L (3.5-5.1) Est Creatinine Clear Calc Drug Dose 66.0 ml/min Red Blood Cell Morphology Unremarkable Assessment & Plan Plan: Patient was seen and examined by Dr. Rivas. She is seeing Dr. Garrison will be having a PET scan at the end of November or early December. We have arranged an appointment for her to see Dr. Panchal to have the sleeve removed. She is currently not sexually active. She does plan become sexually active in the future. We discussed using a vaginal dilator if she does not become sexually active. We asked her to return to our office in mid December 2016. Today we completed a cancer survivorship care plan. The survivorship care plan was given to the patient for her records. She may call our office if she has any questions or concerns. ADDENDUM: Today, we attempted to remove the Jason sleeve but it was technically challenging due to patient discomfort and anatomy. Given issues, we have asked Dr. Panchal to assist in removal of Jason Sleeve. His office has been contact. Otherwise, I agree with note created by Tanisha Perez PA-C. I reviewed the patient's chart and information with her. I have examined and evaluated the patient. I reviewed relevant clinical information and answered the patient's and /or family's questions. 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 I spent 20 minutes reviewing information, preparing the survivorship document, and completing this note. AK I spent 15 minutes examining and counseling the patient. MIXING TUMBLER OPERATOR Copy To Ana Paula Dumont, [email or web address]; Juan Mcmanus MD; Steven Panchal M.D.
== END | disposition home or self-care (01) ==
LOC: C.ONC 10:45
PROVIDERS: ATTEND Physician Assistant Medical
DX: Z08 Encounter for follow-up examination after completed treatment for malignant neoplasm (principal); Z92.3 Personal history of irradiation; Z85.41 Personal history of malignant neoplasm of cervix uteri

== ENCOUNTER → 2016-12-18 | Outpatient (CLI) | payer BC ==
[~2016-12-18] MED LIST changes: -HYDR12.56 PO; -ONDA8TAB6 PO; -SENN8.6T36 PO
--- NOTE | 2016-12-19 14:12 | MAMMOGRAPHY REPORT ---
BILATERAL DIGITAL SCREENING MAMMOGRAM TOMOSYNTHESIS WITH CAD: 12/18/2016 CLINICAL HISTORY: Routine screening. TECHNIQUE: Breast tomosynthesis in addition to standard 2D mammography was performed. Current study was also evaluated with a Computer Aided Detection (CAD) system. COMPARISON: Comparison is made to exams dated: 01/05/2004 mammogram and 01/03/2003 mammogram - [facility]. BREAST COMPOSITION: There are scattered areas of fibroglandular density in both breasts. FINDINGS: No suspicious masses, calcifications, or areas of architectural distortion are noted in ei ther breast. IMPRESSION: ACR BI-RADS CATEGORY 1: NEGATIVE There is no mammographic evidence of malignancy. A 1 year screening mammogram is recommended. The pa tient will receive written notification of the results. Approximately 10% of breast cancers are not detected with mammography. A negative mammographic report should not delay biopsy if a clinically suggestive mass is present. Sabra Sheets M.D. ah/:12/18/2016 16:10:43 Custody Officer: Keyur LOERA(R)(Amos), [facility] letter sent: Normal 1/2 BI-RADS Code: ACR BI-RADS Category 1: Negative
== END | disposition home or self-care (01) ==
LOC: C.MAMM 15:10
PROVIDERS: ATTEND Internal Medicine Hematology & Oncology
DX: Z12.31 Encounter for screening mammogram for malignant neoplasm of breast (principal)

== ENCOUNTER → 2016-12-31 | Outpatient (CLI) | payer BC ==
--- NOTE | 2016-12-31 14:23 | DIAGNOSTIC IMAGING REPORT ---
PET/CT CLINICAL HISTORY: Cervical cancer. COMPARISON STUDY: PET/CT dated 07/09/2016. TECHNIQUE: One hour following the IV administration of 11.37 mCi of F-18 FDG, PET/CT examination was performed from the orbital meatal line through the bony pelvis. Noncontrast CT is performed for the purposes of anatomic correlation and attenuation correction. Note that this does not reflect a diagnostic CT examination. Images were reviewed on a separate [employer] independent workstation. Fused images were obtained. Standard uptake values reported are maximum values within the region of interest expressed in gm/mL. FINDINGS: PET FINDINGS: Head and neck: There is expected physiologic activity within the visualized brain parenchyma at the skull base and the salivary glands. Thorax: Evaluation of the thorax demonstrates expected physiologic myocardial activity. A 3 mm right middle lobe pulmonary nodule is seen on image #81. This is too small for PET characterization and unchanged from previous. Abdomen and pelvis: There is expected activity within the liver, spleen, kidneys, renal collecting system, and bladder. Low-level bowel activity is likely within physical limits. There is fullness of the left cervix is compared to the right. This has decreased in size from 07/09/2016, and this region now measures up to 3.1 cm as seen on image #206. This has significantly decreased FDG activity from 07/09/2016. The maximum SUV in this region now measures up to 2.6. Endometrial thickening is noted in the fundal region on image #195 and measures up to 1.9 cm. Abnormal FDG localization and the site serial 07/09/[address] images: Result brain parenchyma the skull base is normal in appearance. The bony orbits are intact and the orbital contents are normal in appearance. The visualized paranasal sinuses and mastoid air cells are clear. The salivary and thyroid glands are within normal limits. No cervical lymphadenopathy is seen. A left subclavian central venous infusion port is in place. The thoracic aorta is normal in caliber. The heart is normal in size and without pericardial effusion. There is no mediastinal, hilar, or axillary lymphadenopathy. A tiny hiatal hernia is noted. There is no airspace consolidation or pleural effusion. Bibasilar atelectasis is noted. The unenhanced liver, gallbladder, spleen, adrenal glands, kidneys, and pancreas are grossly unremarkable. The abdominal aorta is normal in course and caliber. There is a small fat-containing umbilical hernia. No bowel obstruction is seen. No intraperitoneal free air or abdominal ascites is identified. The bladder is decompressed and grossly unremarkable. There are calcified uterine fibroids. No abdominal, pelvic, or inguinal lymphadenopathy is seen. Presacral induration is nonspecific and likely treatment related. The skeletal structures are osteopenic. No lytic or blastic lesions are identified. IMPRESSION: 1. There has been significant decrease in size of the left cervical mass lesion as compared to 07/09/2016. There is only low-level residual FDG activity within this lesion which is nonspecific and may be treatment related. 2. There is persistent endometrial thickening the fundal region which measures up to 1.9 cm. Abnormal FDG localization within this region has resolved from previous. Endometrial thickening is an abnormal finding in this age group. Follow-up with a nonemergent pelvic ultrasound is recommended. 3. There is no evidence of distant metastatic disease. 4. Presacral induration is likely treatment related. 5. There are calcified uterine fibroids. 6. A 3 mm right middle lobe pulmonary nodule is indeterminant but of low suspicion and unchanged from previous. 7. Additional findings as above. Electronically signed by: Faisal Cleary M.D. 12/31/2016 2:22 PM Dictated Date/Time: 12/31/2016 2:11 PM
== END | disposition home or self-care (01) ==
LOC: C.PET 11:23
PROVIDERS: ATTEND Internal Medicine Hematology & Oncology
DX: C53.1 Malignant neoplasm of exocervix (principal)

== ENCOUNTER → 2017-01-07 | Outpatient (CLI) | payer BC ==
[~2017-01-07] MED LIST changes: +HYDR25TA5 PO
[2017-01-07 14:47] VITALS: BP 164/76; PULSE 74; TEMP 36.9; O2SAT 97
--- NOTE | 2017-01-07 16:31 | Radiation Oncology Follow-Up ---
Radiation Oncology Follow-Up Date of Visit Jan 07, 2017. Reason For Visit 2 month follow-up Radiation Completion Date 09/11/16 (External), 10/03/16 (5 T&O Internal) Diagnosis (1) Cervical cancer Status: Resolved Onset Date: 06/13/2016 Stage: ll (B) Permanent Comment: Postmenopausal vaginal bleeding Examination revealing a cervical lesion. 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 600 cGy each final treatment 10/03/2016 Last Edited By: Tanisha Perez on Oct 17, 2016 08: 58 History of Present Illness Ms. Jon developed vaginal bleeding over 3-4 months. She noted that she was experiencing some bleeding during sexual intercourse. She was referred by her primary care physician to Dr. Funes from gynecology. Dr. Funes saw the patient in 06/13/2016 and performed a pelvic examination which revealed a lesion involving the left lateral vaginal fornix concerning for cervical cancer. A Pap smear was performed at the time of the examination which confirmed squamous cell carcinoma. The patient was referred to Dr. Panchal on 06/23/2016. Dr. Panchal performed a pelvic examination which revealed a nodularity involving the left fornix; he also noted that the cervix was abnormal and covered with abnormal vessel circumferentially. Dr. Panchal also noted some nodularity involving the left parametrium and stage the patient as FIGO stage IIB. Dr. Panchal did perform biopsies of the left posterior vaginal fornix and cervix during the office examination and both were positive for squamous cell carcinoma. We are now seeing the patient in consultation to discuss the role of radiation therapy for treatment of her cervical cancer. The patient received combined radiation and chemotherapy. External beam therapy completed 09/11/2016 she received 4500 cGy. She also received 5 tandem and ovoid HDR treatments. She received 600 cGy with each treatment. The final treatment was 10/03/2016. Interim History She has been doing well over the past 2 months. She denies any vaginal bleeding. She does describe external irritation and itching. She tried over- the-counter Benadryl cream. This did help the itching somewhat. She's had no change in urination or bowel habits. Her energy levels are back to normal. She been seen and followed by medical oncology and has undergone recheck evaluation with PET scan. Allergies Coded Allergies: Penicillins (Verified Allergy, Mild, rash, nausea, 10/03/16) Sulfa Antibiotics (Verified Allergy, Mild, rash,nausea, 10/03/16) Home Medications Scheduled Hydrochlorothiazide (Hydrochlorothiazide), 1 TAB PO DAILY Lisinopril (Prinivil), 20 MG PO DAILY Magnesium Gluconate (Magnesium), 250 PO DAILY Multivitamins/Minerals (Mvi With Minerals), 1 TAB PO QAM Potassium Chloride (Micro-K Ext Rel), 10 MEQ PO DAILY Review of Systems Gastrointestinal: Symptoms: WNL Oral: Symptoms: No Problems Respiratory: Symptoms: WNL Urinary: Symptoms: WNL Skin: Symptoms: No Problems Other Skin Symptoms: Dryness and states she has "bumps that itch" Physical Exam Vital Signs Date Time Temp Pulse Resp B/P (MAP) Pulse Ox O2 Delivery O2 Flow Rate FiO2 01/07/17 14:47 36.9 74 16 164/76 97 Fatigue: None General Appearance: no apparent distress Eyes: normal inspection, EOMI ENT: normal ENT inspection, hearing grossly normal Neck: no adenopathy Respiratory/Chest: lungs clear, no respiratory distress, no accessory muscle use Cardiovascular: regular rate, rhythm, no gallop, no murmur Abdomen: non tender, soft Genitourinary - Female: She has an erythematous rash noted in the groins which extends to the mons. There is dryness of the skin. Pelvic examination was performed by Dr. Rivas. There are post radiation changes and friability. There are no visible or palpable lesions. Bimanual examination was negative she does have narrowing of the vagina. Anal / Rectum: Performed by Dr. Rivas: normal sphincter tone no rectal masses no rectal bleeding. Extremities: no pedal edema Neurologic/Psychiatric: no motor/sensory deficits, alert, normal mood/affect Skin: warm/dry Lymphatic: no adenopathy Additional Studies Patient: DENISE JON Address1: [address] [place] [address] Rec: [id number] Address2: [address] Acct ID: [id number] [facility] Zip: [place] [address] Date: 1955 Sex: F Room/Bed: Ref Phy: SC: Eliceo.PET Att Phy: Juan Mcmanus MD Report #: [id number] Annette Phy: Ana Paula Dumont C.R.N.P Test: PETCTST Admit Phy: Four Slide Machine Setter: ELROY Interpreting Phy: Faisal Cleary M.D. Diagnosis: C53.1 MALIGNANT NEOPLASM OF EXOCERVIX Ordering Phy: Juan Mcmanus MD Service Date: 12/31/16 Admit Date: 12/31/16 MNE: [id number] CONF: DICTATED BY: Faisal Cleary M.D.]] CC: Ana Paula Dumont C.R.N.P O'Donnell, Sean B., MD Endcc: [~ rep ct add3]] PET/CT CLINICAL HISTORY: Cervical cancer. COMPARISON STUDY: PET/CT dated 07/09/2016. TECHNIQUE: One hour following the IV administration of 11.37 mCi of F-18 FDG, PET/CT examination was performed from the orbital meatal line through the bony pelvis. Noncontrast CT is performed for the purposes of anatomic correlation and attenuation correction. Note that this does not reflect a diagnostic CT examination. Images were reviewed on a separate [employer] independent workstation. Fused images were obtained. Standard uptake values reported are maximum values within the region of interest expressed in gm/mL. FINDINGS: PET FINDINGS: Head and neck: There is expected physiologic activity within the visualized brain parenchyma at the skull base and the salivary glands. Thorax: Evaluation of the thorax demonstrates expected physiologic myocardial activity. A 3 mm right middle lobe pulmonary nodule is seen on image #81. This is too small for PET characterization and unchanged from previous. Abdomen and pelvis: There is expected activity within the liver, spleen, kidneys, renal collecting system, and bladder. Low-level bowel activity is likely within physical limits. There is fullness of the left cervix is compared to the right. This has decreased in size from 07/09/2016, and this region now measures up to 3.1 cm as seen on image #206. This has significantly decreased FDG activity from 07/09/2016. The maximum SUV in this region now measures up to 2.6. Endometrial thickening is noted in the fundal region on image #195 and measures up to 1.9 cm. Abnormal FDG localization and the site serial 07/09/[address] images: Result brain parenchyma the skull base is normal in appearance. The bony orbits are intact and the orbital contents are normal in appearance. The visualized paranasal sinuses and mastoid air cells are clear. The salivary and thyroid glands are within normal limits. No cervical lymphadenopathy is seen. A left subclavian central venous infusion port is in place. The thoracic aorta is normal in caliber. The heart is normal in size and without pericardial effusion. There is no mediastinal, hilar, or axillary lymphadenopathy. A tiny hiatal hernia is noted. There is no airspace consolidation or pleural effusion. Bibasilar atelectasis is noted. The unenhanced liver, gallbladder, spleen, adrenal glands, kidneys, and pancreas are grossly unremarkable. The abdominal aorta is normal in course and caliber. There is a small fat-containing umbilical hernia. No bowel obstruction is seen. No intraperitoneal free air or abdominal ascites is identified. The bladder is decompressed and grossly unremarkable. There are calcified uterine fibroids. No abdominal, pelvic, or inguinal lymphadenopathy is seen. Presacral induration is nonspecific and likely treatment related. The skeletal structures are osteopenic. No lytic or blastic lesions are identified. IMPRESSION: 1. There has been significant decrease in size of the left cervical mass lesion as compared to 07/09/2016. There is only low-level residual FDG activity within this lesion which is nonspecific and may be treatment related. 2. There is persistent endometrial thickening the fundal region which measures up to 1.9 cm. Abnormal FDG localization within this region has resolved from previous. Endometrial thickening is an abnormal finding in this age group. Follow-up with a nonemergent pelvic ultrasound is recommended. 3. There is no evidence of distant metastatic disease. 4. Presacral induration is likely treatment related. 5. There are calcified uterine fibroids. 6. A 3 mm right middle lobe pulmonary nodule is indeterminant but of low suspicion and unchanged from previous. 7. Additional findings as above. Electronically signed by: Faisal Cleary M.D. 12/31/2016 2:22 PM Dictated Date/Time: 12/31/2016 2:11 PM Assessment & Plan Plan: The PET scan was reviewed. She has had an excellent response to treatment. She has been encouraged to continue follow-up with the gynecologic oncologist. She'll continue follow-up with medical oncology. For the external irritation she was given a prescription for nystatin powder. She can use this twice daily. We did discuss use of a vaginal dilator. She is hopeful that she will be able to return to having normal sexual activity. She was advised that this may be difficult due to the narrowing of the vagina. This should still be avoided for at least 2 weeks because of the friability that was noted on examination. We asked her to return to our office in 6 months. She may call if she has any questions or concerns in the interim. Assessment & Plan (Attending) ADDENDUM: I agree with note created by Tanisha Perez PA-C. I reviewed the patient's chart and information with her. I have examined and evaluated the patient. I reviewed relevant clinical information and answered the patient's and /or family's questions. DIE CAST PATTERNMAKER Total Time In Follow-Up I spent 20 minutes speaking to the patient and performing examination. A 15 minutes reviewing information and completing this note. AK Total Time (Attending) In Follow-Up I spent 15 minutes examining and counseling the patient. DIE CAST PATTERNMAKER Copy To Ana Paula Dumont, CStarrR.NStarrP; Juan Mcmanus MD; Steven Panchal M.D. Problem Qualifiers (1) Cervical cancer: Malignant neoplasm of cervix location: overlapping locations Qualified Codes: C53.8 - Malignant neoplasm of overlapping sites of cervix uteri
== END | disposition home or self-care (01) ==
LOC: C.ONC 14:42
PROVIDERS: ATTEND Physician Assistant Medical
DX: Z08 Encounter for follow-up examination after completed treatment for malignant neoplasm (principal); Z92.3 Personal history of irradiation; Z85.41 Personal history of malignant neoplasm of cervix uteri

== ENCOUNTER → 2017-03-30 | Outpatient (CLI) | payer BC ==
[~2017-03-30] MED LIST changes: +OPTIRAY 320 IV PRN; -POLY1POW2 PO; -POLY335019 PO
--- NOTE | 2017-03-30 17:13 | DIAGNOSTIC IMAGING REPORT ---
ABD/PELVIS IV AND ORAL CONT CT DOSE: 968.89 mGycm HISTORY: Mass SQUAMOS CELL CARCINOMA CERVIX TECHNIQUE: Multiaxial CT images of the abdomen and pelvis were performed following the use of intravenous and oral contrast. A dose lowering technique was utilized adhering to the principles of ALARA. COMPARISON STUDY: PET scan 12/31/2016 FINDINGS: 3 mm nodule right middle lobe is unchanged. Lung bases otherwise are clear. Liver spleen and pancreas are uniform. Minimal stable hyperplastic change of the left adrenal. The kidneys enhance uniformly. The upper abdominal bowel pattern is nonobstructive. There is no significant perihepatic or right. Medial adenopathy. Examination of pelvis shows a considerable increase in distention of the central uterine canal. Maximum cross-section of the canal 6.8 x 6.4 cm The uterine fundus with evidence for central fluid containment. This consistent with hydrometracolpos. The cervix has increased in bulk and now demonstrates maximum soft tissue disc dimension of 4.6 x 3.2 cm. This is increased overall as compared to the prior study IMP of approximately 50%. This may account for what appears to be obstructive changes involving the central canal. Several uterine fibroids are noted. These are perhaps slightly more apparent as compared to the prior exam. The presacral post therapeutic changes similar. Bladder remains midline. Inguinal regions are considered negative for significant adenopathy. There does not appear to be a significant degree of pelvic adenopathy. Major osseous structures appear to be intact. IMPRESSION: 1. Interval increase in volume of the cervix with current maximum dimensions of 4.6 x 3.2 cm. 2. This is now associated with distention of the central uterine canal which is fluid-filled. This suggests obstructive hydrometracolpos 3. This appearance suggests progressive localized disease of the cervix 4. Unchanging presacral infiltrative change presumably on a post therapeutic bases. 5. Uterine fibroids essentially unchanged/or slightly progressive in terms of visibility compared to the prior exam. 6. No significant distant metastatic change with all remaining components of the study unremarkable. The above report was generated using voice recognition software. It may contain grammatical, syntax or spelling errors. Electronically signed by: Devan Obregon M.D. 03/30/2017 5:12 PM Dictated Date/Time: 03/30/2017 5:01 PM
== END | disposition home or self-care (01) ==
LOC: C.CTS 16:12
PROVIDERS: ATTEND Internal Medicine Hematology & Oncology
DX: C53.1 Malignant neoplasm of exocervix (principal); N85.8 Other specified noninflammatory disorders of uterus; D25.9 Leiomyoma of uterus, unspecified

== ENCOUNTER → 2017-05-04 | Outpatient (CLI) | payer BC ==
[~2017-05-04] MED LIST changes: -OPTIRAY 320 IV PRN
--- NOTE | 2017-05-04 13:55 | DIAGNOSTIC IMAGING REPORT ---
PET/CT CLINICAL HISTORY: Cervical cancer. TECHNIQUE: A PET/CT was performed from the skull base through the upper thighs following intravenous injection of 10.9 mCi of F 18 FDG IV. The injection was performed at 8:15 AM on May 04, 2017 and imaging began at 9:27 AM on May 04, 2017. Unenhanced CT was performed for attenuation correction purposes and anatomic localization. COMPARISON STUDY: PET/CT December 31, [address] of the abdomen and pelvis March 30, 2017. FINDINGS: Head and neck: No abnormal FDG uptake is identified within the neck. There is no cervical lymphadenopathy. Chest: A left subclavian [id number] is in place. No enlarged thoracic lymph nodes are noted. There is mild focal FDG uptake within the right hilum shown on axial image 88 with an SUV max of 3.9. 9 mm right middle lobe nodule shown image 92 has increased in size since PET/CT of December 31, 2016 when it measured 3 mm. This has mild FDG uptake with an SUV max of 1.6. No additional pulmonary nodules are identified. The heart is moderately enlarged. Abdomen and Pelvis: No abnormal FDG uptake is identified within the abdomen. Multiple uterine fibroids are noted. There are no enlarged abdominal or pelvic lymph nodes. There is significant distention of the uterine cavity which measures 7.8 x 6.1 cm. This has slightly increased since CT of March 30, 2017 and significantly increased since PET/CT of December 31, 2016. The contents have no significant FDG uptake. However, there has been interval development of moderate focal uptake within the left lower uterine segment shown on axial image 211 with an SUV max of 6.8. Musculoskeletal: No suspicious skeletal uptake is identified. IMPRESSION: 1. Increase in size of a 9 mm right middle lobe nodule which demonstrates minimal FDG uptake. This is suspicious for metastatic disease. 2. Interval development of a small focus of moderate FDG uptake within the left lower uterine segment which is suspicious for disease progression. 3. Increased distention of the uterine cavity which likely contains fluid. This could be due to cervical stenosis/tumor. 4. Focal mild right hilar uptake without corresponding pathologically enlarged lymph node. This either represents uptake within a normal size lymph node or vascular uptake. This should be assessed on subsequent study. Electronically signed by: Viet Reyes M.D. 05/04/2017 1:54 PM Dictated Date/Time: 05/04/2017 10:45 AM
== END | disposition home or self-care (01) ==
LOC: C.PET 07:22
PROVIDERS: ATTEND Obstetrics & Gynecology Gynecologic Oncology
DX: C53.1 Malignant neoplasm of exocervix (principal); D49.89 Neoplasm of unspecified behavior of other specified sites; R93.5 Abnormal findings on diagnostic imaging of other abdominal regions, including retroperitoneum

== ENCOUNTER → 2017-05-28 | Outpatient (CLI) | payer BC ==
[2017-05-28 16:36] LABS: HEMATOCRIT 36.3 % (37-47); HEMOGLOBIN 12.6 g/dL (12.0-16.0); MEAN CELL VOLUME 89.2 fL (80-100); MEAN CORPUSCULAR HGB CONC 34.7 g/dl (32-36); MEAN PLATELET VOLUME 8.7 fL (7.4-10.4); PLATELET COUNT 251 K/uL (130-400); RED CELL DISTRIBUTION WIDTH SD 42.3 fL (36.4-46.3)
--- NOTE | 2017-05-28 16:44 | DIAGNOSTIC IMAGING REPORT ---
CHEST 2 VIEWS ROUTINE CLINICAL HISTORY: Z85.41,R93.5,Z01.818 dyspnea COMPARISON STUDY: 10/05/2016 FINDINGS: The bones soft tissues and hemidiaphragms are normal. The cardiomediastinal silhouette is normal. The lungs are clear. The pulmonary vasculature is normal. Central catheter is in the superior vena cava. IMPRESSION: No acute process. The above report was generated using voice recognition software. It may contain grammatical, syntax or spelling errors. Electronically signed by: Devan Obregon M.D. 05/28/2017 4:42 PM Dictated Date/Time: 05/28/2017 4:41 PM
[2017-05-28 17:03] LABS: ALBUMIN 4.1 gm/dl (3.4-5.0); ALT/SGPT 18 U/L (12-78); AST/SGOT 14 U/L (15-37); BLOOD UREA NITROGEN 20 mg/dl (7-18); CALCIUM 10.3 mg/dl (8.5-10.1); CARBON DIOXIDE 28 mmol/L (21-32); CREATININE 0.89 mg/dl (0.60-1.20); GLUCOSE 91 mg/dl (70-99); POTASSIUM 3.5 mmol/L (3.5-5.1); SODIUM 130 mmol/L (136-145)
[2017-05-28 17:06] LABS: ALKALINE PHOSPHATASE 104 U/L (45-117); TOTAL PROTEIN 8.1 gm/dl (6.4-8.2)
== END | disposition home or self-care (01) ==
LOC: C.RAD 14:55
PROVIDERS: ATTEND Obstetrics & Gynecology Gynecologic Oncology
DX: Z85.41 Personal history of malignant neoplasm of cervix uteri (principal); R93.5 Abnormal findings on diagnostic imaging of other abdominal regions, including retroperitoneum; Z01.818 Encounter for other preprocedural examination

== ENCOUNTER 2017-07-22 00:50 | Emergency (ER) | payer BC ==
[~2017-07-22] VITALS: Ht 165.1 cm; Wt 93.4 kg
[2017-07-22 00:54] VITALS: Ht 165.1 cm; Wt 93.4 kg
[2017-07-22] MEDS ORDERED: SODIUM CHLORIDE 0.9% 500ML 500 ML IV STA (01:12)
[2017-07-22] MEDS ORDERED: MoRPHine SULFATE 4 MG/ML 1 ML CARP\\VIAL IV STA (01:12)
[2017-07-22] MEDS ORDERED: ONDANSETRON INJ 2 MG/ML 2 ML VIAL IV STA (01:12)
[2017-07-22] MEDS ORDERED: OPTIRAY 320 IV PRN (01:30)
[2017-07-22 01:48] VITALS: O2SAT 94
[2017-07-22 01:56] LABS: BASO % 0.3 %; BASO ABS # 0.02 K/uL (0-0.2); EOS % 2.6 %; EOS ABS # 0.18 K/uL (0-0.5); HEMATOCRIT 34.8 % (37-47); HEMOGLOBIN 12.1 g/dL (12.0-16.0); IG# 0.01 K/uL (0.00-0.02); LYMPH ABS # 0.55 K/uL (1.2-3.4); MEAN CELL VOLUME 87.2 fL (80-100); MEAN CORPUSCULAR HEMOGLOBIN 30.3 pg (25-34); MEAN CORPUSCULAR HGB CONC 34.8 g/dl (32-36); MEAN PLATELET VOLUME 8.4 fL (7.4-10.4); MONO % 12.9 %; MONO ABS # 0.89 K/uL (0.11-0.59); NEUT % 76.1 %; NEUT ABS # 5.23 K/uL (1.4-6.5); PLATELET COUNT 236 K/uL (130-400); RED CELL DISTRIBUTION WIDTH SD 42.1 fL (36.4-46.3); WHITE BLOOD COUNT 6.88 K/uL (4.8-10.8)
[2017-07-22 02:20] LABS: ALBUMIN 3.4 gm/dl (3.4-5.0); CALCIUM 9.4 mg/dl (8.5-10.1); CREATININE 0.92 mg/dl (0.60-1.20)
[2017-07-22 02:23] LABS: TOTAL PROTEIN 7.2 gm/dl (6.4-8.2)
[2017-07-22] MEDS ORDERED: DiphenhydrAMINE HCL 50 MG/ML VIAL IV STA (02:32)
[2017-07-22] MEDS ORDERED: METHYLPREDNISOLONE 125 MG VIAL IV STA (02:32)
[2017-07-22] MEDS ORDERED: METR-163 PO (03:49)
[2017-07-22] MEDS ORDERED: CIPR-255 PO (03:49)
[2017-07-22] MEDS ORDERED: CIPROFLOXACIN 500 MG TAB PO STA (03:50)
[2017-07-22] MEDS ORDERED: METRONIDAZOLE 250 MG TAB PO STA (03:50)
[2017-07-22] MEDS ORDERED: ONDANSETRON HOME PACK 4MG OD TAB PO ONE (04:00)
[2017-07-22] MEDS ORDERED: OXYCODONE IR HOME PACK PO ONE (04:00)
[2017-07-22 04:01] VITALS: BP 128/70; PULSE 60; TEMP 36.8; O2SAT 96
--- NOTE | 2017-07-22 04:24 | EMERGENCY ROOM VISIT NOTE ---
History First contact with patient: 00:58 Chief Complaint: ABDOMINAL PAIN Stated Complaint: LOWER LEFT SIDE ABD PAIN Nursing Triage Summary: left lower abdominal pain History of Present Illness The patient is a 62 year old female who presents to the Emergency Room with complaints of left lower quadrant pain for the past several days has been increasing in severity currently 8 out of 10. Patient tried Advil with no relief of symptoms. Patient states she was treated last year for cervical carcinoma with chemoradiation. She follows with Dr. Rivas and Dr. Mcmanus here. She sees [facility] in [place]. She has not seen them recently. She states she recently had a biopsy of her cervix and does not know the results. Patient had a PET scan earlier this year and a CT scan. No history of colonoscopy in the past. No history of diverticulitis. Patient denies chest pain, dyspnea, fever, chills, nausea, vomiting, diarrhea, back pain, flank pain , urinary symptoms, vaginal itching or discharge. No night sweats or weight loss. Review of Systems An 10 system review of systems was completed with positives and pertinent negatives listed in the HPI. Past Medical/Surgical History Medical Problems: (1) Cervical cancer (2) Dizziness (3) Hypertension (4) Nausea and vomiting Family History FHx: cancer Social History Smoking Status: Never Smoker Alcohol Use: none Marital Status: Housing Status: lives with family Occupation Status: employed Current/Historical Medications Scheduled Ciprofloxacin Hcl (Cipro), 500 MG PO BID Metronidazole (Flagyl), 500 MG PO TID Multivitamins/Minerals (Mvi With Minerals), 1 TAB PO QAM Physical Exam Vital Signs Date Time Temp Pulse Resp B/P (MAP) Pulse Ox O2 Delivery O2 Flow Rate FiO2 07/22/17 04:01 36.8 60 18 128/70 96 Room Air 07/22/17 02:58 65 18 131/72 96 Room Air 07/22/17 01:52 66 07/22/17 01:48 94 Room Air 07/22/17 00:54 36.7 79 18 167/100 98 Room Air Physical Exam VITALS: Vitals are noted on the nurse's note and reviewed by myself. Vital signs stable. GENERAL: Pleasant female, in no acute distress, nondiaphoretic, well-developed well-nourished. SKIN: The skin was without rashes, erythema, edema, or bruising. There is no tenting of the skin. Capillary reflex less than 2 seconds. HEAD: Normocephalic atraumatic. EARS: External auditory canals clear, tympanic membranes pearly pitts without erythema or effusion bilaterally. EYES: Pupils equal round and reactive to light and accommodation. Conjunctivae without injection, sclerae without icterus. Extraocular movements intact. NOSE: Patent, turbinates without inflammation or discharge. MOUTH: Mucous membranes moist. Pharynx without erythema or exudate. Uvula midline. Airway patent. Tongue does not deviate. NECK: Supple without nuchal rigidity. No lymphadenopathy. No thyromegaly. Cervical spine is nontender. No JVD. HEART: Regular rate and rhythm without murmurs gallops or rubs. LUNGS: Clear to auscultation bilaterally without wheezes, rales or rhonchi. No retractions or accessory muscle use. ABDOMEN: Positive bowel sounds x 4. Normal tympanic percussion. Soft, tender to palpation left lower quadrant, without masses or organomegaly. Venegas sign negative. No guarding or rebound tenderness. No CVA tenderness MUSCULOSKELETAL: No muscle atrophy, erythema, or edema noted. NEURO: Patient was alert and oriented to person place and time. Normal sensation to light and sharp touch. No focal neurological deficits. Medical Decision & Procedures Laboratory Results 07/22/17 01:46 Red Blood Count 3.99, Mean Corpuscular Volume 87.2, Mean Corpuscular Hemoglobin 30.3, Mean Corpuscular Hemoglobin Concent 34.8, Mean Platelet Volume 8.4, Neutrophils (%) (Auto) 76.1, Lymphocytes (%) (Auto) 8.0, Monocytes (%) (Auto) 12.9, Eosinophils (%) (Auto) 2.6, Basophils (%) (Auto) 0.3, Neutrophils # (Auto ) 5.23, Lymphocytes # (Auto) 0.55, Monocytes # (Auto) 0.89, Eosinophils # (Auto ) 0.18, Basophils # (Auto) 0.02 07/22/17 01:46 Test 07/22/17 01:46 07/22/17 01:51 White Blood Count 6.88 K/uL (4.8-10.8) Red Blood Count 3.99 M/uL (4.2-5.4) Hemoglobin 12.1 g/dL (12.0-16.0) Hematocrit 34.8 % (37-47) Mean Corpuscular Volume 87.2 fL (80-100) Mean Corpuscular Hemoglobin 30.3 pg (25-34) Mean Corpuscular Hemoglobin Concent 34.8 g/dl (32-36) Platelet Count 236 K/uL (130-400) Mean Platelet Volume 8.4 fL (7.4-10.4) Neutrophils (%) (Auto) 76.1 % Lymphocytes (%) (Auto) 8.0 % Monocytes (%) (Auto) 12.9 % Eosinophils (%) (Auto) 2.6 % Basophils (%) (Auto) 0.3 % Neutrophils # (Auto) 5.23 K/uL (1.4-6.5) Lymphocytes # (Auto) 0.55 K/uL (1.2-3.4) Monocytes # (Auto) 0.89 K/uL (0.11-0.59) Eosinophils # (Auto) 0.18 K/uL (0-0.5) Basophils # (Auto) 0.02 K/uL (0-0.2) RDW Standard Deviation 42.1 fL (36.4-46.3) RDW Coefficient of Variation 13.0 % (11.5-14.5) Immature Granulocyte % (Auto) 0.1 % Immature Granulocyte # (Auto) 0.01 K/uL (0.00-0.02) Anion Gap 4.0 mmol/L (3-11) Est Creatinine Clear Calc Drug Dose 71.6 ml/min Estimated GFR () 77.3 Estimated GFR (Non- 66.7 BUN/Creatinine Ratio 19.7 (10-20) Calcium Level 9.4 mg/dl (8.5-10.1) Total Bilirubin 0.4 mg/dl (0.2-1) Direct Bilirubin 0.1 mg/dl (0-0.2) Aspartate Amino Transf (AST/SGOT) 15 U/L (15-37) Alanine Aminotransferase (ALT/SGPT) 16 U/L (12-78) Alkaline Phosphatase 88 U/L (45-117) Total Protein 7.2 gm/dl (6.4-8.2) Albumin 3.4 gm/dl (3.4-5.0) Lipase 148 U/L (73-393) Urine Color YELLOW Urine Appearance CLEAR (CLEAR) Urine pH 7.0 (4.5-7.5) Urine Specific [place] 1.015 (1.000-1.030) Urine Protein NEG (NEG) Urine Glucose (UA) NEG (NEG) Urine Ketones NEG (NEG) Urine Occult Blood NEG (NEG) Urine Nitrite NEG (NEG) Urine Bilirubin NEG (NEG) Urine Urobilinogen NEG (NEG) Urine Leukocyte Esterase NEG (NEG) Medications Administered Medications (Trade) Dose Ordered Sig/Radha Route Start Time Stop Time Status Last Admin Dose Admin Ondansetron HCl (Zofran Inj) 4 mg NOW STAT IV 07/22/17 01:12 07/22/17 01:15 DC 07/22/17 01:44 4 MG Morphine Sulfate (MoRPHine SULFATE INJ) 4 mg NOW STAT IV 07/22/17 01:12 07/22/17 01:15 DC 07/22/17 01:44 4 MG Sodium Chloride 500 ml @ 999 mls/hr Q31M STAT IV 07/22/17 01:12 07/22/17 01:42 DC 07/22/17 01:45 999 MLS/HR Methylprednisolone Sodium Succinate (Solu-Medrol IV) 125 mg NOW STAT IV 07/22/17 02:32 07/22/17 02:33 DC 07/22/17 02:42 125 MG Diphenhydramine HCl (Benadryl Inj) 50 mg NOW STAT IV 07/22/17 02:32 07/22/17 02:33 DC 07/22/17 02:42 50 MG Ciprofloxacin (Cipro Tab) 500 mg NOW STAT PO 07/22/17 03:50 07/22/17 03:52 DC 07/22/17 03:58 500 MG Metronidazole (Flagyl Tab) 500 mg NOW STAT PO 07/22/17 03:50 07/22/17 03:52 DC 07/22/17 03:58 500 MG Oxycodone HCl (Roxicodone Immediate Rel 5MG Home Pack) 1 homepack UD ONCE PO 07/22/17 04:00 07/22/17 04:01 DC 07/22/17 03:58 1 HOMEPACK Ondansetron HCl (ZOFRAN ODT 4MG Home Pack) 1 homepack UD ONCE PO 07/22/17 04:00 07/22/17 04:01 DC 07/22/17 03:58 1 [facility] ED Course Prior records/ancillary studies reviewed. Triage Nursing notes reviewed. Additional history obtained from family. The patient's history was concerning for abdominal pain. Differential diagnosis: Etiologies such as progression of cervical cancer, appendicitis, diverticulitis , PUD, biliary pathology, UTI, pancreatitis, obstruction, mesenteric ischemia, aortic pathology, infections, inflammatory bowel disease, renal colic, as well as others were entertained. Physical examination findings: As above. ER treatment provided: Morphine, Zofran, Cipro, Flagyl On reassessment the patient felt better. Diagnostics interpreted by me: The labs revealed no worrisome leukocytosis or electrolyte abnormality. Negative urine Imaging studies: CT ABDOMEN & PELVIS With Contrast: Comparison March 30. Axial images only. Again noted is distention of central uterine cavity with fluid density suggesting hydrometrocolpos. This appears more prominent than the previous. Difficult to exclude some progression of patient's known cervical cancer though grossly, appearance of the cervix appear similar to the previous. There is trace pelvic free fluid. Diverticulosis. Left sided colon is under distended limiting evaluation for wall thickening. Mild stranding adjacent to sigmoid diverticula suspected which may represent diverticulitis. No drainable abscess. Findings are subtle and somewhat equivocal. Please correlate clinically. No evidence for acute pancreatitis, bowel obstruction, appendicitis or other acute process. Fibroid uterus, stable adrenal thickening and other incidentals. Radiologist: Rodolfo Johnson M.D. Exam and history seem consistent with abdominal pain that could be related to diverticulitis or progression of her cervical carcinoma. Patient was started on antibiotics. She was strongly encouraged to see her cancer specialist and her [facility] within the week and her family care doctor for the possible diverticulitis. She is advised to take the medicines as directed, rest, stay well-hydrated and return to the ER immediately for abdominal pain, fevers, vomiting, bleeding, worsening signs or symptoms or as needed. Patient had no leukocytosis. She was afebrile and nontoxic. She does not have acute abdomen on exam. She was well-appearing.By the evaluation outlined above emergent etiologies such as appendicitis, PUD, biliary pathology, UTI, pancreatitis, obstruction, mesenteric ischemia, aortic pathology, infections, inflammatory bowel disease, renal colic, as well as others were deemed relatively unlikely. Patient has a penicillin and sulfa allergy. She was given Cipro and Flagyl because of this for her possible diverticulitis. The pt informed about the findings as listed above. All questions were answered and pleased with the treatment. Return instructions were outlined and the patient was discharged in stable condition. Outpatient prescription management: Cipro, Flagyl, home pack OxyIR and Zofran Referral: The patient was referred back to their primary care physician, her [facility] and oncologist for follow-up in 2 to 3 days for a recheck of the current condition. Case reviewed with my attending The chart was completed utilizing [employer] voice recognition software. Grammatical errors, random word insertions, pronoun errors, and incomplete sentences are an occassional consequence of this system due to software limitations, ambient noise, and hardware issues. Any formal questions or concerns about the content, text, or information contained within the body of this dictation should be directly addressed to the physician assistant director of financial aid for clarification. Medical Decision As above Medication Reconcilliation Current Medication List: was personally reviewed by me Blood Pressure Screening Patient's blood pressure: Normal blood pressure Impression Primary Impression: Diverticulitis Departure Information Dispostion Home / Self-Care Condition GOOD Prescriptions Ciprofloxacin Hcl (CIPRO) 500 Mg Tab 500 MG PO BID for 14 Days, #28 TAB Prov: Marla Cunha .MARISELA 07/22/17 Metronidazole (Flagyl) 500 Mg Tab 500 MG PO TID for 14 Days, #42 TAB Prov: Marla Cunha PA-C 07/22/17 Forms Call Back Authorization, HOME CARE DOCUMENTATION FORM, IMPORTANT VISIT INFORMATION Patient Instructions Diverticulitis [place], My [facility] Additional Instructions DO NOT drive, drink alcohol, operate machinery, or perform dangerous activities today. You were given medications in the ER that can affect your ability to safely function or operate a vehicle. Zofran 4 m tablet every 6 hours as needed for nausea or vomiting. Oxycodone (OxyIR) 5mg: Take 1-2 pills every four hours for breakthrough pain. Avoid alcohol, operating machinery or dangerous equipment, working on ladders or roofs, DRIVING, or situations where being under the influence may be dangerous. It is recommended to use an [id number] stool softener such as Colace, 100mg twice daily while taking this medication to avoid constipation. Ciprofloxacin(Cipro) 500mg: Take one pill twice daily for 14 days for your bowel infection. All antibiotics can cause diarrhea. If this occurs and you feel worse or it does not resolve in 1-2 days follow up with your doctor or return to the Emergency Department as this could be signs of serious underlying problems. If you experience any pain in your tendons or any tendon injury return to the ER for re-evaluation. Any medication can cause an allergic reaction, stop the pills immediately and return to the ER for rash, hives, breathing difficulties, or swelling. Metronidazole(Flagyl) 500mg: Take one pill 3 times daily for 14 days for your bowel infection. DO NOT drink alcohol or take alcohol containing products with this medication. Any medication can cause an allergic reaction, stop the pills immediately and return to the ER for rash, hives, breathing difficulties, or swelling. Ibuprofen(Motrin, Advil) may be used for fever or pain. Use 600mg every six hours as needed. Take with food. Avoid using more than 2400mg in a 24 hour period. Do not use 2400mg per day for more than three consecutive days without physician direction. Prolonged inappropriate use can lead to stomach upset or ulcers. (AND/OR) Acetaminophen(Tylenol) may be used for fever or pain. Use 1000mg every six hours as needed. Avoid using more than 3000mg in a 24 hour period. Rest and drink plenty of fluids as tolerated. Slow sips of water or sports drinks are recommended instead of large amounts all at once. Continue current medications. Once your stomach is settled start with a clear liquid diet (jello, soup broth, etc.) and then advance as tolerated. You should avoid full, heavy meals for about 24 hrs from the time your symptoms resolved. Return to the ER immediately for worsening or persistent abdominal pain, vomiting, fevers, chest pains, difficulty breathing, black or bloody stools, worsening of your condition, or as needed. Follow up with your primary physician/corporate communications associate in 2-3 days for a recheck of your current condition. Follow up with your oncologist and [facility] oncologist this week for further evaluation and workup for your possible cervical cancer.
--- NOTE | 2017-07-22 06:54 | DIAGNOSTIC IMAGING REPORT ---
CT ABD/PELVIS IV CONTRAST ONLY CLINICAL HISTORY: Left lower quadrant abdominal pain. Cervical carcinoma. COMPARISON STUDY: March 30, 2017 TECHNIQUE: Following the IV administration of 92 mL of Optiray-320, CT scan of the abdomen and pelvis was performed from the lung bases to the proximal femurs. Images are reviewed in the axial, sagittal, and coronal planes. IV contrast was administered without complication. A dose lowering technique was utilized adhering to the principles of ALARA. CT DOSE: 898.32 mGy.cm FINDINGS: Lower chest: There are minor basilar atelectatic changes. Liver: The contrast-enhanced liver is normal in size, contour, and attenuation. There is no intrahepatic biliary ductal dilatation. The hepatic veins and portal veins are patent. Gallbladder: Unremarkable. Spleen: Normal in size and attenuation. Pancreas: Unremarkable. Adrenal glands: There is stable mild left adrenal gland thickening Kidneys: There is symmetric renal cortical enhancement. The kidneys are normal in size without hydronephrosis. Bowel: There are no transition zones indicate bowel obstruction. There is no evidence of acute appendicitis. There is colonic diverticulosis. There is no convincing evidence of acute diverticulitis. Slight stranding adjacent the sigmoid colon, likely secondary finding secondary to pericervical soft tissue stranding. Peritoneum: There is no intraperitoneal free air or abdominal ascites. Vasculature: The abdominal aorta is normal in course and caliber. Adenopathy: None. Pelvic viscera: There are right ovarian calcifications. There are multiple uterine fibroids. There is a markedly dilated endometrial cavity consistent with obstruction. There is slight stranding surrounding the cervix, likely secondary to treatment. This extends the sigmoid region. Skeletal structures: No destructive osseous lesions are seen. IMPRESSION: 1. 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 No evidence of bowel obstruction. No evidence of free air 3. Mild soft tissue stranding surrounding the cervix, likely secondary to prior treatments 4. Diverticulosis. No convincing evidence of acute diverticulitis. Minimal perisigmoid stranding is likely secondary to patient's cervical process and treatment 5. Right ovarian calcifications Electronically signed by: Clarence Rhoades M.D. 07/22/2017 6:53 AM Dictated Date/Time: 07/22/2017 6:47 AM
== END 2017-07-22 04:03 | disposition home or self-care (01) ==
LOC: C.EDB 00:51
DX: K57.92 Diverticulitis of intestine, part unspecified, without perforation or abscess without bleeding (principal); Z85.41 Personal history of malignant neoplasm of cervix uteri; I10 Essential (primary) hypertension

== ENCOUNTER 2018-12-16 15:50 | Inpatient (IN) ==
[2018-12-16] MEDS ORDERED: SODIUM CHLORIDE 0.9% 1000ML 1,000 ML IV ONE (16:20)
[2018-12-16] MEDS ORDERED: FAMOTIDINE 20MG IV PUSH 20 MG/5 ML SYR IV STA (16:21)
[2018-12-16] MEDS ORDERED: PROCHLORPERAZINE 1 ML IV ONE (16:21)
--- NOTE | 2018-12-16 16:44 | XRay Report ---
XR chest 1V portable HISTORY: 63 years-old Female Chest Pain acute atypical chest pain COMPARISON: CTA of the chest 12/12/2018 TECHNIQUE: Portable AP view of the chest FINDINGS: Large mass of the right middle lobe is redemonstrated measuring over 8 cm in greatest dimension. Left subclavian [id number] catheter redemonstrated. No pneumothorax, large pleural effusion or overt p ulmonary edema. Cardiac silhouette appears normal. Degenerative changes of the shoulders and spine. IMPRESSION: 1. No acute process. 2. Large mass of the right middle lobe redemonstrated. The above report was generated using voice recognition software. It may contain grammatical, syntax o r spelling errors. Electronically signed by: Ernie Burrows M.D. 12/16/2018 4:43 PM
--- NOTE | 2018-12-16 17:15 | Emergency Department Note ---
Entered by Lauro Vanessa acting as a scribe for History of Present Illness General Chief complaint: Nausea Stated complaint: DIZZY,NAUSEA,VOMITING,ABD PAIN Time Seen by Provider: 12/16/18 16:09 Source: patient History of Present Illness Onset (ago): hour(s) 1 Location: head Pain Consistency: + intermittent Maximum Pain Intensity: 5 Quality: + other (lightheadedness) Exacerbated By: + other (standing) Associated symptoms: + denies other symptoms (hitting her head, loss of consciousness) The patient is a 63 y/o female who presents to the ED w/ CC of intermittent lightheadedness beginning an hour ago. The patient states she fell today. She reports she was standing up and making soup in the kitchen. The patient notes she suddenly became lightheaded and fell to the ground. She states she fell to her bottom and did not hit her head or lose consciousness. The patient reports her did not hear her fall. She notes she feels baseline now, but she cannot stand for a long time because it causes her lightheadedness to return. The patient states she is currently undergoing chemotherapy for mass that is growing under her ribs. She reports the mass started from her history of cervical cancer. The patient notes she last had chemotherapy a month ago, and she was scheduled to have it today. She states she did not have it today because she has had low platelets and recent electrolyte abnormalities. The patient reports she was in the ED four days ago for weakness and lightheadedness and was given magnesium and sodium. She notes she had a CT scan of her abd/chest/head and now has an MRI of her head scheduled for tomorrow because of the results of her head CT. The patient states she is on Lasix for a history of fluid retention. Her oncologist is Dr. Pittman, [facility]. Home Medications Home Medications Medication Instructions Recorded Confirmed Type furosemide 10 mg PO DAILY 12/12/18 12/16/18 History gabapentin 300 mg PO HS 12/12/18 12/16/18 History lisinopril 10 mg PO HS 12/12/18 12/16/18 History Allergies Allergy/AdvReac Type Severity Reaction Status Date / Time Iodinated Contrast Media Allergy Intermediate ITCHINESS Verified 12/16/18 17:07 Penicillins Allergy Mild rash, Verified 12/16/18 17:07 nausea Sulfa (Sulfonamide Allergy Mild rash,nausea Verified 12/16/18 17:07 Antibiotics) Past Med/Surg History Medical History Encounter for venous access device care Hypertension Loss of teeth due to extraction Squamous cell carcinoma of cervix Invasive of the exocervix extending into the vaginal wall. Mets to right cardiophrenic che chain. Tubal ligation status Surgical History No pertinent past surgical history Family History Other FHx: cancer Social History Preferred Language: Sinhala Communication Ability: Effective Truss Puller Helper Required: No Beliefs That Will Affect Care: None Current Living Situation: Spouse Feels Safe at Home: Yes Smoking Status: Never smoker Hx Alcohol Use: Yes Alcohol type: wine Hx Substance Use: No Review of Systems See HPI for pertinent positives & negatives. and A total of 10 systems reviewed and were otherwise negative Physical Exam Vital Signs Vital Signs - 24 hr 12/16/18 16:30 12/16/18 16:33 12/16/18 17:00 Pulse Rate 92 H 99 H 88 Pulse Rate [Apical] Pulse Rate from SpO2 Sensor 93 H 88 Pulse Rhythm [Apical] Pulse Strength [Apical] Respiratory Rate 23 20 22 Respiratory Effort / Characteristics Respiratory Depth Respiratory Pattern Blood Pressure 138/83 137/76 Blood Pressure [Left Arm] Blood Pressure Mean 101 96 Blood Pressure Mean [Left Arm] Blood Pressure Position [Left Arm] Pulse Oximetry 98 98 98 Oxygen Delivery Method Room Air 12/16/18 17:15 12/16/18 17:30 12/16/18 17:32 Pulse Rate 89 89 Pulse Rate [Apical] 88 Pulse Rate from SpO2 Sensor 89 88 Pulse Rhythm [Apical] Regular Pulse Strength [Apical] Normal Respiratory Rate 22 15 15 Respiratory Effort / Characteristics Non-Labored Spontaneous Respiratory Depth Normal Respiratory Pattern Regular Blood Pressure 150/82 H Blood Pressure [Left Arm] 150/82 H Blood Pressure Mean 104 Blood Pressure Mean [Left Arm] 104 Blood Pressure Position [Left Arm] Lying Pulse Oximetry 98 97 97 Oxygen Delivery Method Room Air 12/16/18 17:45 12/16/18 18:00 10/10/19 18:15 Pulse Rate 85 86 88 Pulse Rate [Apical] Pulse Rate from SpO2 Sensor 85 86 90 Pulse Rhythm [Apical] Pulse Strength [Apical] Respiratory Rate 16 20 16 Respiratory Effort / Characteristics Respiratory Depth Respiratory Pattern Blood Pressure 139/85 Blood Pressure [Left Arm] Blood Pressure Mean 103 Blood Pressure Mean [Left Arm] Blood Pressure Position [Left Arm] Pulse Oximetry 97 99 98 Oxygen Delivery Method 12/16/18 18:30 12/16/18 19:00 12/16/18 19:30 Pulse Rate 90 81 Pulse Rate [Apical] Pulse Rate from SpO2 Sensor 94 H 91 H 80 Pulse Rhythm [Apical] Pulse Strength [Apical] Respiratory Rate 20 20 Respiratory Effort / Characteristics Respiratory Depth Respiratory Pattern Blood Pressure 191/170 H 127/75 Blood Pressure [Left Arm] Blood Pressure Mean 177 92 Blood Pressure Mean [Left Arm] Blood Pressure Position [Left Arm] Pulse Oximetry 99 100 97 Oxygen Delivery Method GENERAL: Awake, alert, fatigue-appearing, in no distress HENT: Normocephalic, atraumatic. Oropharynx with dry mucous membranes and otherwise unremarkable. EYES: Normal conjunctiva. Sclera non-icteric. EOMI. No nystamgus. PEARRL. NECK: Supple. No nuchal rigidity. FROM. No JVD. RESPIRATORY: CTAB. CARDIAC: Regular rate, normal rhythm. Extremities warm and well perfused. Pulses equal. ABDOMEN: Soft, non-distended. No tenderness to palpation. No rebound or guarding. No masses. RECTAL: Deferred. MUSCULOSKELETAL: Chest examination reveals no tenderness. The back is symmetrical on inspection without obvious abnormality. There is no CVA tenderness to palpation. No joint edema. LOWER EXTREMITIES: Calves are equal size bilaterally and non-tender. No edema. No discoloration. NEURO: Normal sensorium. No sensory or motor deficits noted. Cerebellar function intact, including finger to nose, alternating palms, heel to combs. 5/5 strength and SILT x 4 extremities. SKIN: No rash or jaundice noted. Course 1612: Past medical records reviewed. The patient was evaluated in room B03B. A complete history and physical exam was performed. 1753: Upon reevaluation, the patient is resting comfortably. I discussed laboratory and radiographic results with her. She verbalized agreement of the treatment plan. The patient will be evaluated for further management and care. 1815: I reviewed the patient's case with Dr. Minor, [facility] Hospitalist. She will evaluate the patient for further management. Administered Medications Famotidine (Pepcid) 20 mg PO BID MALATHI Stop: 01/15/19 21:45 Last Admin: 12/17/18 08:30 Dose: 20 mg Documented by: [id number] Admin: 12/16/18 22:41 Dose: 20 mg Documented by: [id number] Gabapentin (Neurontin) 300 mg PO HS MALATHI Stop: 01/15/19 21:45 Last Admin: 12/16/18 22:41 Dose: 300 mg Documented by: [id number] Gadobutrol (Gadavist 65ml) 8.5 ml IV ONCE PRN PRN Reason: Interaction Checking Stop: 12/21/18 00:33 Last Admin: 12/17/18 00:08 Dose: 8.5 ml Documented by: [id number] Discontinued Medications Prochlorperazine (Compazine) 1 mls @ 1 mls/min IV ONE ONE Stop: 12/16/18 16:22 Last Admin: 12/16/18 16:59 Dose: 1 mls/min Documented by: [id number] Sodium Chloride (Nss 1000ml) 1,000 mls @ 999 mls/hr IV .Q1H1M ONE Stop: 12/16/18 17:20 Last Infusion: 12/16/18 17:54 Dose: 0 mls/hr Documented by: [id number] Admin: 12/16/18 16:53 Dose: 999 mls/hr Documented by: [id number] Famotidine (Pepcid 20mg Iv Push) 20 mg in 5 mls @ 2.5 mls/min IV NOW STA Stop: 12/16/18 16:22 Last Admin: 12/16/18 17:02 Dose: 2.5 mls/min Documented by: [id number] Magnesium Sulfate/Dextrose (Magnesium Sulfate / D5w) 1 gm in 100 mls @ 100 mls/hr IV NOW STA Stop: 12/16/18 18:48 Last Infusion: 12/16/18 19:25 Dose: 0 mls/hr Documented by: [id number] Admin: 12/16/18 18:15 Dose: 100 mls/hr Documented by: [id number] Potassium Phosphate 9 mmol/ (Sodium Chloride) 253 mls @ 88 mls/hr IV ONE ONE Stop: 12/16/18 21:07 Last Infusion: 12/16/18 21:22 Dose: 0 mls/hr Documented by: [id number] Admin: 12/16/18 18:18 Dose: 88 mls/hr Documented by: [id number] Magnesium Oxide (Mag-Ox) 400 mg PO BID MALATHI Stop: 01/16/19 10:29 Last Admin: 12/17/18 10:34 Dose: 400 mg Documented by: [id number] Potassium Phosphate (Phospha 250 Neutral 155-852-130 Mg) 2 tab PO NOW STA Stop: 12/16/18 17:56 Last Admin: 12/16/18 18:14 Dose: 2 tab Documented by: [id number] Medical Decision Making Differential Diagnosis Differential: Vaso-vagal, Intracerebral Event, Neurologic, Infectious, Volume Deficiency, Hypoglycemia, Electrolyte Abnormality, Cardiac Source, Toxicologic, amongst other pathologies entertained. Medical Records Attestation: I reviewed the patient's medical records. Home Medications Current Medication List: was personally reviewed by me Laboratory Data Attestation: I reviewed the patient's lab results. Result diagrams: 12/17/18 06:00 12/17/18 06:00 Lab Results 12/16/18 12/16/18 12/16/18 Range/Units 16:53 16:53 16:54 WBC 4.41 L (4.8-10.8) K/uL RBC 2.43 L (4.2-5.4) M/uL Hgb 8.2 L (12.0-16.0) g/dL Hct 23.3 L (37-47) % MCV 95.9 (80-100) fL MCH 33.7 (25-34) pg MCHC 35.2 (32-36) g/dL RDW Std Deviation 64.6 H (36.4-46.3) fL RDW Coeff of Nikki 18.7 H (11.5-14.5) % Plt Count 76 L (130-400) K/uL MPV 9.4 (7.4-10.4) fL Immature Gran % (Auto) 0.2 % Neut % (Auto) 76.2 % Lymph % (Auto) 9.5 % [place] % (Auto) 13.4 % Eos % (Auto) 0.7 % Baso % (Auto) 0.0 % Immature Gran # (Auto) 0.01 (0.00-0.02) K/uL Neut # (Auto) 3.36 (1.4-6.5) K/uL Lymph # (Auto) 0.42 L (1.2-3.4) K/uL [place] # (Auto) 0.59 (0.11-0.59) K/uL Eos # (Auto) 0.03 (0-0.5) K/uL Baso # (Auto) 0.00 (0-0.2) K/uL Sodium 127 L (136-145) mmol/L Potassium 3.6 (3.5-5.1) mmol/L Chloride 95 L (98-107) mmol/L Carbon Dioxide 22 (21-32) mmol/L Anion Gap 10.0 (3-11) BUN 12 (7-18) mg/dl Creatinine 0.76 (0.6-1.2) mg/dl Est Cr Clr Drug Dosing 81.2 ml/min Est GFR ( Amer) 96.8 Est GFR (Non-Af Amer) 83.5 BUN/Creatinine Ratio 15.1 (10-20) Glucose 93 (70-99) mg/dl Osmolality 263 L (280-300) mOsm/kg Calcium 10.1 (8.5-10.1) mg/dl Phosphorus 2.2 L (2.5-4.9) mg/dl Magnesium 1.3 L (1.8-2.4) mg/dl Total Bilirubin 0.7 (0.2-1) mg/dl AST 13 L (15-37) U/L ALT 13 (12-78) U/L Alkaline Phosphatase 99 (45-117) U/L Troponin I < 0.015 (0-0.045) ng/ml Total Protein 7.5 (6.4-8.2) gm/dl Albumin 3.2 L (3.4-5.0) gm/dl Globulin 4.3 H (2.5-4.0) gm/dl Albumin/Globulin Ratio 0.7 L (0.9-2) Lipase 46 L (73-393) U/L TSH 1.110 (0.300-4.500) uIu/ml Urine Color Urine Appearance (Clear) Urine pH (4.5-7.5) Ur Specific [place] (1.000-1.030) Urine Protein (Negative) Urine Glucose (UA) (Negative) Urine Ketones (Negative) Urine Blood (Negative) Urine Nitrite (Negative) Urine Bilirubin (Negative) Urine Urobilinogen (Negative) Ur Leukocyte Esterase (Negative) Urine Osmolality (500-800) mOsm/kg 12/16/18 12/16/18 Range/Units 17:09 17:09 WBC (4.8-10.8) K/uL RBC (4.2-5.4) M/uL Hgb (12.0-16.0) g/dL Hct (37-47) % MCV (80-100) fL MCH (25-34) pg MCHC (32-36) g/dL RDW Std Deviation (36.4-46.3) fL RDW Coeff of Nikki (11.5-14.5) % Plt Count (130-400) K/uL MPV (7.4-10.4) fL Immature Gran % (Auto) % Neut % (Auto) % Lymph % (Auto) % [place] % (Auto) % Eos % (Auto) % Baso % (Auto) % Immature Gran # (Auto) (0.00-0.02) K/uL Neut # (Auto) (1.4-6.5) K/uL Lymph # (Auto) (1.2-3.4) K/uL [place] # (Auto) (0.11-0.59) K/uL Eos # (Auto) (0-0.5) K/uL Baso # (Auto) (0-0.2) K/uL Sodium (136-145) mmol/L Potassium (3.5-5.1) mmol/L Chloride (98-107) mmol/L Carbon Dioxide (21-32) mmol/L Anion Gap (3-11) BUN (7-18) mg/dl Creatinine (0.6-1.2) mg/dl Est Cr Clr Drug Dosing ml/min Est GFR ( Amer) Est GFR (Non-Af Amer) BUN/Creatinine Ratio (10-20) Glucose (70-99) mg/dl Osmolality (280-300) mOsm/kg Calcium (8.5-10.1) mg/dl Phosphorus (2.5-4.9) mg/dl Magnesium (1.8-2.4) mg/dl Total Bilirubin (0.2-1) mg/dl AST (15-37) U/L ALT (12-78) U/L Alkaline Phosphatase (45-117) U/L Troponin I (0-0.045) ng/ml Total Protein (6.4-8.2) gm/dl Albumin (3.4-5.0) gm/dl Globulin (2.5-4.0) gm/dl Albumin/Globulin Ratio (0.9-2) Lipase (73-393) U/L TSH (0.300-4.500) uIu/ml Urine Color Yellow Urine Appearance Clear (Clear) Urine pH 6.5 (4.5-7.5) Ur Specific [place] 1.010 (1.000-1.030) Urine Protein Negative (Negative) Urine Glucose (UA) Negative (Negative) Urine Ketones Trace H (Negative) Urine Blood Negative (Negative) Urine Nitrite Negative (Negative) Urine Bilirubin Negative (Negative) Urine Urobilinogen Negative (Negative) Ur Leukocyte Esterase Negative (Negative) Urine Osmolality 280 L (500-800) mOsm/kg Imaging Data Radiologist's Impression: Radiology results as stated below per my review and the radiologist's interpretation: XR chest 1V portable HISTORY: 63 years-old Female Chest Pain acute atypical chest pain COMPARISON: CTA of the chest 12/12/2018 TECHNIQUE: Portable AP view of the chest FINDINGS: Large mass of the right middle lobe is redemonstrated measuring over 8 cm in greatest dimension. Left subclavian Etasbd-b-Kker catheter redemonstrated. No pneumothorax, large pleural effusion or overt pulmonary edema. Cardiac silhouette appears normal. Degenerative changes of the shoulders and spine. IMPRESSION: 1. No acute process. 2. Large mass of the right middle lobe redemonstrated. The above report was generated using voice recognition software. It may contain grammatical, syntax or spelling errors. Electronically signed by: Ernie Burrows M.D. 12/16/2018 4:43 PM ECG Data Attestation: I personally reviewed and interpreted this ECG as follows: Indication: nausea Rate (beats per minute): 91 Rhythm: normal sinus Findings: + other (Normal axis); no ST depression, no ST elevation and no acute ischemic change Blood Pressure Blood Pressure Findings: Elevated blood pressure Blood Pressure Disposition: Referred to patients primary care provider [facility] Narrative The patient is a pleasant 63-year-old woman with a past medical history of metastatic cervical cancer currently undergoing chemotherapy who presents emergency department with near syncopal episode where she collapsed to the ground when she was making soup prior to arrival per hpi. Patient denies any head strike or loss of consciousness. She does report she is been feeling weak lightheaded and nauseated for some time and was in the emergency department on 12/12 for similar symptoms. On arrival patient is fatigued appearing but no acute distress, afebrile with heart rate in the 120s and vital signs otherwise stable. Appears clinically dry. She is neurologically intact. Review of the patient's CT scans from her prior visit demonstrates progressive metastatic disease within the chest, abdomen and pelvis particularly in the right lung base which is consistent with the patient's pain when she presented on her last visit. Additionally the patient did have a 9 mm hypodense focus within the left temporal lobe that was suspicious for malignancy. Admission was recommended at that time however the patient preferred to not be admitted and follow-up outpatient for this and has a scheduled MRI tomorrow. EKG without overt acute ischemia. Chest x-ray demonstrates previously identified large right middle lobe mass otherwise no acute findings. WBC 4.4, nonspecific. H/H8 0.2/23.3 similar to prior range of values. Platelets 76 also similar to prior range of values. Sodium 127 consistent with the patient's recent chronic hyponatremia. Magnesium 1.3 with repletion provided and also similar to recent low values over the past month however this certainly could contribute to the patient's syncopal symptoms. Phosphorus 2.2 with repletion provided. Troponin negative and undetectable. UA negative for infection although with ketones consistent with the patient's clinically dry appearance. The patient was feeling improved after IV fluid hydration, Compazine, Pepcid. However given the patient's repeat ED visit in the setting of her chronic electrolyte abnormalities reasonable to admit the patient for further evaluation and MRI as was scheduled for tomorrow to further clarify her recent the identified hypodensity on CT. Case was discussed with Dr. Gonzalez, [facility] [place] hospitalist, who will evaluate the patient for admission. Impression & Plan Syncope, Hypomagnesemia, Hyponatremia, Hypophosphatemia, Metastatic disease Discharge Plan Visit Data *Final* Discharge Date/Time: 12/16/18 21:28 Chief Complaint: Nausea Stated Complaint: DIZZY,NAUSEA,VOMITING,ABD PAIN ED Provider: Ernesto Camarillo Discharge Problem: Syncope, Hypomagnesemia, Hyponatremia, Hypophosphatemia, Metastatic disease Patient Disposition: Admitted As Inpatient Discharge Instructions Interventions: ED Discharge Assessment Last Done: 12/16/18 21:28 Discharge Problem: Syncope Qualifiers: Syncope type: unspecified Qualified Code(s): R55 - Syncope and collapse The scribe's documentation has been prepared under my direction and personally reviewed by me in its entirety. I confirm that the note above accurately reflects all work, treatment, procedures, and medical decision making performed by me.
[2018-12-16 17:23] LABS: Hematocrit (blood only) 23.3 % (37-47); Hemoglobin 8.2 g/dL (12.0-16.0); Mean Corpuscular Hemoglobin 33.7 pg (25-34); Mean Corpuscular Hgb Conc 35.2 g/dL (32-36); Mean Corpuscular Volume 95.9 fL (80-100); RDW Coefficient of Variation 18.7 % (11.5-14.5); RDW Standard Deviation 64.6 fL (36.4-46.3); Red Blood Count 2.43 M/uL (4.2-5.4); White Blood Count 4.41 K/uL (4.8-10.8)
[2018-12-16 17:25] LABS: Appearance Urine Clear (Clear); Bilirubin Urine Negative (Negative); Blood Urine Negative (Negative); Color Urine Yellow; Glucose Urine UA Negative (Negative); Ketones Urine Trace (Negative); Leukocyte Esterase Urine Negative (Negative); Nitrite Urine Negative (Negative); Protein Urine Negative (Negative); Urobilinogen Urine Negative (Negative); pH Urine 6.5 (4.5-7.5)
[2018-12-16 17:40] LABS: Alanine Aminotransferase 13 U/L (12-78); Albumin Level 3.2 gm/dl (3.4-5.0); Aspartate Aminotransferase 13 U/L (15-37); BUN Creatinine Ratio 15.1 (10-20); Blood Urea Nitrogen 12 mg/dl (7-18); Calcium 10.1 mg/dl (8.5-10.1); Carbon Dioxide 22 mmol/L (21-32); Chloride 95 mmol/L (98-107); Creatinine Clr Calc Pharmacy 81.2 ml/min; Est GFR (African American) 96.8; Est GFR (Non-African American) 83.5; Glucose 93 mg/dl (70-99); Lipase 46 U/L (73-393); Magnesium 1.3 mg/dl (1.8-2.4); Potassium 3.6 mmol/L (3.5-5.1); Sodium 127 mmol/L (136-145)
[2018-12-16 17:41] LABS: Mean Platelet Volume 9.4 fL (7.4-10.4); Platelet Count 76 K/uL (130-400)
[2018-12-16 17:42] LABS: Eosinophils # (auto) 0.03 K/uL (0-0.5); Eosinophils % (auto) 0.7 %; Immature Granulocytes # (auto) 0.01 K/uL (0.00-0.02); Immature Granulocytes % (auto) 0.2 %; Lymphocytes # (auto) 0.42 K/uL (1.2-3.4); Lymphocytes % (auto) 9.5 %; Monocytes # (auto) 0.59 K/uL (0.11-0.59); Monocytes % (auto) 13.4 %; Neutrophils # (auto) 3.36 K/uL (1.4-6.5); Neutrophils % (auto) 76.2 %
[2018-12-16] MEDS ORDERED: MAGNESIUM SULFATE / D5W 1 GM/100 ML BAG IV STA (17:49)
[2018-12-16 17:51] LABS: Albumin Globulin Ratio 0.7 (0.9-2); Alkaline Phosphatase 99 U/L (45-117); Bilirubin,Total 0.7 mg/dl (0.2-1); Globulin 4.3 gm/dl (2.5-4.0); Phosphorus 2.2 mg/dl (2.5-4.9); Total Protein 7.5 gm/dl (6.4-8.2); Troponin I < 0.015 ng/ml (0-0.045)
[2018-12-16] MEDS ORDERED: POT PHOSPHATE MONOBASIC W/ SOD TAB PO STA (17:55)
[2018-12-16] MEDS ORDERED: POTASSIUM PHOS 3 MMOL/1 ML INFUSION IV STA (17:59)
[2018-12-16] MEDS ORDERED: POTASSIUM PHOSPHATE 9 MMOL in SODIUM CHLORIDE 0.9% 250 ML IV ONE (18:15)
--- NOTE | 2018-12-16 20:39 | History & Physical Report ---
Date of Service December 16, 2018 Assessment & Plan (1) Hyponatremia: Admit tele monitor sodium IVF D5 NSS with 20meq KCL at 125ml/hr. (2) Hypomagnesemia: 1 gram given in the ED I will repeat 1gram for total of 2 grams recheck in the am. (3) Hypophosphatemia: Replaced in the ED Recheck in the am. (4) Near syncope: Suspect due to volume contraction Giving IVF as above. Orthostatic vitals in the am. (5) Metastasis from cervical cancer: Recent CT head showed possibility of left temporal lobe met. MRI brain ordered. Currently undergoing chemo. Pain and nausea control. DVT prophylaxis = SCDs, pharmacologic held due to platelets of 76,000. History of Present Illness 63 y/o female presented to the ED from her home with a 1 hour duration of lightheadedness with standing. She had fallen in her kitchen to which she describes falling on her buttocks and does not recall actually losing consciousness. She did not hit her head. She is currently undergoing chemo for metastatic cervical cancer. She was scheduled to have chemo today, but was held due to thrombocytopenia and electrolyte abnormalities. She also reports having been scheduled for an MRI of the brain on 12/17/18 due to a finding on CT head (possible met to L temporal lobe). No F/C, cough, SOB, vomiting, diarrhea, chest pain, or unilateral leg swelling. She did have transient nausea upon arrival, but at my visit this has resolved and in fact she reports being hungry. I discussed code status with she and her to which she is a full code. Her oncologist is Dr. Pittman, Hemo[facility]c and [facility]. Primary Care Provider: Clemente Hays MD Allergies Allergy/AdvReac Type Severity Reaction Status Date / Time Iodinated Contrast Media Allergy Intermediate ITCHINESS Verified 12/16/18 17:07 Penicillins Allergy Mild rash, Verified 12/16/18 17:07 nausea Sulfa (Sulfonamide Allergy Mild rash,nausea Verified 12/16/18 17:07 Antibiotics) Home Medications Home Medications Medication Instructions Recorded Confirmed Type furosemide 10 mg PO DAILY 12/12/18 12/16/18 History gabapentin 300 mg PO HS 12/12/18 12/16/18 History lisinopril 10 mg PO HS 12/12/18 12/16/18 History Past Med/Surg History Medical History Encounter for venous access device care Hypertension Loss of teeth due to extraction Squamous cell carcinoma of cervix Invasive of the exocervix extending into the vaginal wall. Mets to right cardiophrenic che chain. Tubal ligation status Surgical History No pertinent past surgical history Family History Other FHx: cancer Social History Preferred Language: Gabonese Feels Safe at Home: Yes Smoking Status: Never smoker Review of Systems Review of Systems: NEEDS EDITING Constitutional- no fever. + fatigue which has been occurring. Eyes- no acute visual changes ENT- no sinus drainage; no pharyngitis Pulmonary- no cough, no wheezing, no shortness of breath Cardiac- no chest pain, no palpitations, no orthopnea, no dependent edema GI- no vomiting, no diarrhea, no melena, no hematochezia - no dysuria, no hematuria Musculoskeletal- no arthralgias, no myalgias Derm- no rashes, no new skin lesions, no changing skin lesions Hematologic- no unusual bruising, no unusual bleeding Lymphatics- no adenopathy Endocrine- no polyuria or polydipsia; no heat or cold intolerance Neuro- no headaches, no focal neurologic symptoms Psych- no anxiety, no depression Physical Exam Physical Exam: NEEDS EDITING General- adult female, NAD Head- atraumatic Eyes- PERRL, EOMI, anicteric ENT- oropharynx clear Neck- supple, no JVD, no adenopathy, no thyromegaly. Lungs- clear to auscultation, No rales, rhonchi, or wheezes. Heart- regular rhythm; no murmur, no gallop, no rub appreciated Abdomen- normal bowel sounds, soft, nontender. Extremities- no pretibial edema, no calf tenderness; peripheral pulses intact Neuro- alert, oriented x 3; PERRL, EOMI; multi care technician II-XII grossly intact, non-focal. Skin- warm & dry Results & Data Vital Signs (Past 12 Hours) Vital Signs Temp Pulse Pulse Resp BP BP Pulse Ox 12/16/18 20:00 79 23 114/68 97 12/16/18 19:30 81 20 127/75 97 12/16/18 19:00 90 20 191/170 H 100 12/16/18 18:30 99 12/16/18 18:15 88 16 98 12/16/18 18:00 86 20 139/85 99 12/16/18 17:45 85 16 97 12/16/18 17:32 88 15 150/82 H 97 12/16/18 17:30 89 15 150/82 H 97 12/16/18 17:15 89 22 98 12/16/18 17:00 88 22 137/76 98 12/16/18 16:33 99 H 20 98 12/16/18 16:30 92 H 23 138/83 98 12/16/18 16:13 95 H 27 H 98 12/16/18 16:11 95 H 19 158/80 H 98 12/16/18 15:56 36.7 C 124 H 20 167/75 H 98 Laboratory Results Laboratory Results WBC 4.41 K/uL (4.8-10.8) L 12/16/18 16:53 RBC 2.43 M/uL (4.2-5.4) L 12/16/18 16:53 Hgb 8.2 g/dL (12.0-16.0) L 12/16/18 16:53 Hct 23.3 % (37-47) L 12/16/18 16:53 MCV 95.9 fL (80-100) 12/16/18 16:53 MCH 33.7 pg (25-34) 12/16/18 16:53 MCHC 35.2 g/dL (32-36) 12/16/18 16:53 RDW Std Deviation 64.6 fL (36.4-46.3) H 12/16/18 16:53 RDW Coeff of Nikki 18.7 % (11.5-14.5) H 12/16/18 16:53 Plt Count 76 K/uL (130-400) L 12/16/18 16:53 MPV 9.4 fL (7.4-10.4) 12/16/18 16:53 Immature Gran % (Auto) 0.2 % 12/16/18 16:53 Neut % (Auto) 76.2 % 12/16/18 16:53 Lymph % (Auto) 9.5 % 12/16/18 16:53 [place] % (Auto) 13.4 % 12/16/18 16:53 Eos % (Auto) 0.7 % 12/16/18 16:53 Baso % (Auto) 0.0 % 12/16/18 16:53 Immature Gran # (Auto) 0.01 K/uL (0.00-0.02) 12/16/18 16:53 Neut # (Auto) 3.36 K/uL (1.4-6.5) 12/16/18 16:53 Lymph # (Auto) 0.42 K/uL (1.2-3.4) L 12/16/18 16:53 [place] # (Auto) 0.59 K/uL (0.11-0.59) 12/16/18 16:53 Eos # (Auto) 0.03 K/uL (0-0.5) 12/16/18 16:53 Baso # (Auto) 0.00 K/uL (0-0.2) 12/16/18 16:53 Sodium 127 mmol/L (136-145) L 12/16/18 16:53 Potassium 3.6 mmol/L (3.5-5.1) 12/16/18 16:53 Chloride 95 mmol/L (98-107) L 12/16/18 16:53 Carbon Dioxide 22 mmol/L (21-32) 12/16/18 16:53 Anion Gap 10.0 (3-11) 12/16/18 16:53 BUN 12 mg/dl (7-18) 12/16/18 16:53 Creatinine 0.76 mg/dl (0.6-1.2) 12/16/18 16:53 Est Cr Clr Drug Dosing 81.2 ml/min 12/16/18 16:53 Est GFR ( Amer) 96.8 12/16/18 16:53 Est GFR (Non-Af Amer) 83.5 12/16/18 16:53 BUN/Creatinine Ratio 15.1 (10-20) 12/16/18 16:53 Glucose 93 mg/dl (70-99) 12/16/18 16:53 Osmolality 263 mOsm/kg (280-300) L 12/16/18 16:54 Calcium 10.1 mg/dl (8.5-10.1) 12/16/18 16:53 Phosphorus 2.2 mg/dl (2.5-4.9) L 12/16/18 16:53 Magnesium 1.3 mg/dl (1.8-2.4) L 12/16/18 16:53 Total Bilirubin 0.7 mg/dl (0.2-1) 12/16/18 16:53 AST 13 U/L (15-37) L 12/16/18 16:53 ALT 13 U/L (12-78) 12/16/18 16:53 Alkaline Phosphatase 99 U/L (45-117) 12/16/18 16:53 Troponin I < 0.015 ng/ml (0-0.045) 12/16/18 16:53 Total Protein 7.5 gm/dl (6.4-8.2) 12/16/18 16:53 Albumin 3.2 gm/dl (3.4-5.0) L 12/16/18 16:53 Globulin 4.3 gm/dl (2.5-4.0) H 12/16/18 16:53 Albumin/Globulin Ratio 0.7 (0.9-2) L 12/16/18 16:53 Lipase 46 U/L (73-393) L 12/16/18 16:53 TSH 1.110 uIu/ml (0.300-4.500) 12/16/18 16:53 Urine Color Yellow 12/16/18 17:09 Urine Appearance Clear (Clear) 12/16/18 17:09 Urine pH 6.5 (4.5-7.5) 12/16/18 17:09 Ur Specific [place] 1.010 (1.000-1.030) 12/16/18 17:09 Urine Protein Negative (Negative) 12/16/18 17:09 Urine Glucose (UA) Negative (Negative) 12/16/18 17:09 Urine Ketones Trace (Negative) H 12/16/18 17:09 Urine Blood Negative (Negative) 12/16/18 17:09 Urine Nitrite Negative (Negative) 12/16/18 17:09 Urine Bilirubin Negative (Negative) 12/16/18 17:09 Urine Urobilinogen Negative (Negative) 12/16/18 17:09 Ur Leukocyte Esterase Negative (Negative) 12/16/18 17:09 Urine Osmolality 280 mOsm/kg (500-800) L 12/16/18 17:09 Code Status & VTE Plan VTE Prophylaxis Plan VTE Prophylaxis will be ordered: Yes PG Care Time/CCT Total # of Minutes Spent Total Time Spent: 65 Total Time Spent with Patient: Total time spent is greater than 50% in coordination of care (as documented) at patient's floor/unit and/or counseling patient:
[2018-12-16] MEDS ORDERED: ACETAMINOPHEN 325 MG TAB PO PRN (21:46)
[2018-12-16] MEDS ORDERED: MoRPHine SULFATE 4 MG/ML 1 ML CARP\\VIAL IV PRN (21:46)
[2018-12-16] MEDS ORDERED: OXYCODONE/ACETAMINOPHEN 5mg/325mg TAB PO PRN (21:46)
[2018-12-16] MEDS ORDERED: ONDANSETRON INJ 2 MG/ML 2 ML VIAL IV PRN (21:46)
[2018-12-16] MEDS: GABAPENTIN 300 MG CAP PO SCH (22:41)
[2018-12-16] MEDS: FAMOTIDINE 20 MG TAB PO SCH (22:41)
[2018-12-17] MEDS ORDERED: GADOBUTROL 65ML VIAL IV PRN (00:34)
[2018-12-17 06:31] LABS: Hematocrit (blood only) 21.4 % (37-47); Hemoglobin 7.5 g/dL (12.0-16.0); Mean Corpuscular Hemoglobin 33.8 pg (25-34); Mean Corpuscular Volume 96.4 fL (80-100); RDW Coefficient of Variation 19.5 % (11.5-14.5); RDW Standard Deviation 65.9 fL (36.4-46.3); Red Blood Count 2.22 M/uL (4.2-5.4); White Blood Count 3.63 K/uL (4.8-10.8)
[2018-12-17 06:48] LABS: Platelet Count 81 K/uL (130-400)
--- NOTE | 2018-12-17 07:01 | Magnetic Resonance Report ---
MR brain wo/w con CLINICAL HISTORY: 63 years-old Female presenting with Metastatic cervical CA, collapse, syncope, dizz iness and fall, concern for intracranial metastatic disease, radiation treatment finished in 2017, ch emotherapy finished 1 month ago. TECHNIQUE: Multisequence, multiplanar MR imaging of the brain was performed before and after the admi nistration of intravenous contrast. IV contrast: 8.5 mL of Gadavist. COMPARISON: Noncontrast CT head from 12/12/[address] contrast-enhanced CT head from 09/22/2018. FINDINGS: Localizer images: Unremarkable. Bone marrow signal intensity within the calvarium within normal limits. Normal midline sagittal structures. Ventricles and sulci normal in size apart from a effacement of th e temporal horn of the left lateral ventricle. Regional mass effect in the anterior left temporal hor n. No midline shift. Restricted hyperintensity at the anterior left temporal horn lesion, which is T1 hypointense with peripheral facilitated diffusion and focal round nodular strict diffusion along the left lateral aspect. Rim-enhancing 21 mm lesion in the anterior left temporal lobe corresponding to the CT abnormality from 12/12/2018. No additional lesion is evident. No extra-axial fluid collection. T2 skull base flow voids preserved. IMPRESSION: 1. Solitary intracranial 21 mm metastatic lesion in the anterior left temporal lobe. Electronically signed by: Tacos Gibbs M.D. 12/17/2018 6:59 AM
[2018-12-17 07:03] LABS: BUN Creatinine Ratio 14.5 (10-20); Calcium 9.5 mg/dl (8.5-10.1); Creatinine Clr Calc Pharmacy 95.4 ml/min; Est GFR (African American) 109.5; Est GFR (Non-African American) 94.5; Magnesium 1.9 mg/dl (1.8-2.4); Potassium 3.7 mmol/L (3.5-5.1)
[2018-12-17] MEDS: FAMOTIDINE 20 MG TAB PO SCH ×2 (08:30→20:44)
[2018-12-17] MEDS ORDERED: HEPARIN 100 UNIT/ML 5ML FLUSH FLUSH PRN (09:28)
[2018-12-17] MEDS ORDERED: MAGNESIUM OXIDE 400 MG TAB PO SCH (10:30)
[2018-12-17] MEDS ORDERED: DOCUSATE SODIUM 100 MG CAP PO PRN (10:59)
[2018-12-17] MEDS ORDERED: SODIUM CHLORIDE 0.9% 250 ML IV PRN (11:52)
--- NOTE | 2018-12-17 12:43 | Radiation OncologyConsultation ---
Date of Consultation December 17, 2018 Assessment & Plan (1) Cervical cancer: Assessment: Ms. Irvin is a 63-year-old female with progressive and metastatic cervical cancer. The patient has been receiving carboplatin, Taxol and Avastin underneath the supervision of Dr. Juan Mcmanus. Unfortunately, the patient's most recent CT staging scans have shown evidence of progression of disease. The patient more recently presented to the emergency room for lightheadedness and was admitted for work-up due to an MRI brain which revealed metastatic disease involving the left temporal lobe. I am now seeing the patient in consultation to discuss the role of radiation therapy. Treatment Options: 1. Stereotactic radiosurgery. 2. Whole brain radiation therapy. 3. Surgical resection. Recommendation: Given the patient's history of biopsy-proven metastatic disease of the patient's cervical cancer that is not responding well to systemic therapy, I would recommend stereotactic radiosurgery for likely metastatic disease. I did explain to the patient that metastatic disease to the brain from cervical cancer is typically very uncommon however the patient does have progression of disease while on treatment which makes it more likely that she may actually have metastatic disease to the brain. With that in mind, I will have her case discussed at our next multidisciplinary tumor board on Thursday to confirm that radiation therapy is the proper approach for treatment. If the patient had no evidence of metastatic disease, I would have strongly urged her to consider a surgical resection for confirmation of tissue diagnosis given the fact that metastatic disease from cervical cancer to the brain is uncommon. Plan: 1. Discussion of patient's case at next multidisciplinary tumor board. Will communicate recommendations from tumor board to patient. 2. CT simulation in the outpatient setting next week. IV contrast. Plan for stereotactic radiosurgery. 3. Patient will see medical oncology shortly as well to discuss the role of further chemotherapy. 4. Patient should continue follow-up with all the providers. 5. Patient and family encouraged to call us with any further questions or concerns. Rationale/Explanation of Treatment: In general, we did discuss treatment recommendations for the management of metastatic disease to the brain. I did explain to the patient that most often biopsies are not performed given the patient's previous history of cancer unless the patient plans to undergo surgical resection. I discussed treatment options including surgical resection and radiation therapy. The patient defer surgical intervention and would prefer to undergo radiation therapy. I then discussed the advantages and disadvantages of both whole brain radiation therapy and stereotactic radiosurgery. I did discuss the benefits of whole brain radiation therapy with respect to overall intracranial control and the most significant disadvantages including long-term neurocognitive side effects; we then focused or conversation and stereotactic radiosurgery and explained the benefits which included minimizing radiation therapy to the normal brain and potentially reducing long-term side effects from radiation therapy as well as the disadvantages including the inability to potentially prevent further lesions from developing in the brain. I did explain that after the completion of stereotactic radiosurgery we would follow the patient with an MRI of the brain every 2-3 months which would enable us to potentially diagnose new lesions early while they are still asymptomatic and potentially treatable with stereotactic radiosurgery. The patient would like to undergo stereotactic radiosurgery. The patient will be brought back for CT simulation for treatment planning. I explained the indications, alternatives, benefits, risks and side effects of external beam radiation therapy to the brain. I explain the most common side effects including but not limited to skin erythema, skin break down, hair loss, radiation necrosis, fatigue, short-term memory loss, decreased neurocognitive performance, cerebral edema, hearing loss, damage to cochlea structures, seizures, loss of sensory and or motor function. I explained the treatment planning process and what to expect before during and after treatment. The patient understands and would be willing to consent to treatment. The patient had multiple questions which were answered to her full satisfaction. Thank you for allowing us to participate in the care of this patient. This chart was completed in part utilizing [employer] Speech Voice Recognition software. Attempts were made to minimize the grammatical errors, random word insertions, pronoun errors and incomplete sentences. Any formal questions or concerns about the content, text or information contained within the body of this dictation should be directly addressed to the provider for clarification. Lamine Rivas MD Department of Radiation Oncology [facility] Malignant neoplasm of cervix location: overlapping locations Qualified Code(s): C53.8 - Malignant neoplasm of overlapping sites of cervix uteri History of Present Illness History of Present Illness 06/23/2016. Patient diagnosed with cervical cancer by Dr. Panchal. 07/31/2016 - 09/12/2016. Patient received concurrent pelvic radiation therapy with chemotherapy followed by tandem/ovoid HDR brachytherapy. 01/25/2018. PET/CT. IMPRESSION: 1. Marked progression in metastatic disease 2. Interval development of intensely FDG avid mediastinal lymph nodes, lower right internal mammary chain node, and right cardiophrenic angle adenopathy. 3. Intensely FDG avid masslike consolidation of the right middle lobe with SUV maximum of 17.8. This is consistent with neoplasm, or a combination of centrally obstructing neoplasm and secondary postobstructive pneumonia 4. 15 mm FDG avid hepatic mass consistent with metastatic disease 5. Extracapsular right hepatic lobe soft tissue nodule , consistent with metastatic disease 6. Markedly dilated fluid-filled uterus, consistent with cervical stenosis/obstructing tumor 7. The compressed right-sided myometrium is FDG avid with SUV maximum of 7.3. 01/01/2018. Biopsy of internal mammary lymph node at [facility]. Squamous cell carcinoma with an IHC pattern consistent with likely cervical pr imary (as per medical oncology records). 02/10/2018 to 05/27/2018. Carboplatin/paclitaxel and Avastin chemotherapy underneath the supervision of Dr. Juan Mcmanus. 09/27/2018. Medical oncology follow-up with Dr. Juan Mcmanus. Dr. Mcmanus has kept patient on chemotherapy treatment holiday and will plan to potentially reinitiate treatment soon after patient's symptoms subside. 11/11/2018. Medical oncology follow-up with Dr. Mcmanus. Patient restarted on carboplatin, Taxol and Avastin chemotherapy. Recommendation was to continue with therapy. 12/12/2018. CT of chest. IMPRESSION: 1. No evidence for pulmonary embolus. 2. Significant progression of the metastatic disease as described above. 12/12/2018. CT of abdomen/pelvis.IMPRESSION: 1. Progressive metastatic disease within the right lung base which is better appreciated on the same day chest CTA. 2. Decrease in size in the hepatic metastatic lesions. 3. No bowel wall thickening or obstruction.4. Colonic diverticulosis. 5. Additional findings as described above. 12/16/2018. Patient presents to emergency room for lightheadedness. Patient admitted to hospital for further work-up and evaluation. 12/16/2018. MRI of brain. IMPRESSION: 1. Solitary intracranial 21 mm metastatic lesion in the anterior left temporal lobe. In general, the patient is doing relatively well. She is somewhat distressed about her current diagnosis. Allergies Allergy/AdvReac Type Severity Reaction Status Date / Time Iodinated Contrast Media Allergy Intermediate ITCHINESS Verified 12/16/18 17:07 Penicillins Allergy Mild rash, Verified 12/16/18 17:07 nausea Sulfa (Sulfonamide Allergy Mild rash,nausea Verified 12/16/18 17:07 Antibiotics) Home Medications Home Medications Medication Instructions Recorded Confirmed Type furosemide 10 mg PO DAILY 12/12/18 12/16/18 History gabapentin 300 mg PO HS 12/12/18 12/16/18 History lisinopril 10 mg PO HS 12/12/18 12/16/18 History Patient History Medical History Encounter for venous access device care Hypertension Loss of teeth due to extraction Squamous cell carcinoma of cervix Invasive of the exocervix extending into the vaginal wall. Mets to right cardiophrenic che chain. Tubal ligation status Surgical History No pertinent past surgical history Family History Other FHx: cancer Social History Preferred Language: Bulgarian Communication Ability: Effective Finance Associate Required: No Beliefs That Will Affect Care: None Current Living Situation: Spouse Feels Safe at Home: Yes Smoking Status: Never smoker Hx Alcohol Use: Yes Alcohol type: wine Hx Substance Use: No Review of Systems Review of Systems: As per HPI. Physical Exam Constitutional: WD/WN, vitals as above well developed and well nourished Eyes: PERRL, conjunctivae normal, anicteric sclerae ENMT: external ear and nose normal, oropharynx normal Neck: trachea midline, no thyromegaly Respiratory: normal respiratory effort, lungs clear to auscultation Cardiovascular: RRR, no murmur, no edema Gastrointestinal (Abdomen): normal bowel sounds, soft, nontender, no hepatosplenomegaly Musculoskeletal: no cyanosis or clubbing, extremities motor strength 5/5 Skin: no rashes, warm and dry Neurologic: patellar DTR's 2+ bilat, sensation intact and PERRL, EOMI, accommodation nl, no face palsy, no dysarthria Psychiatric: A+Ox3, euthymic affect Results Additional Studies 12/16/18 16:20 ECG 12 lead EKG Stat XR chest 1V portable Stat 12/16/18 22:56 MR brain wo/w con Routine 12/17/18 10:00 CA echo transthoracic complete Routine Time Spent Attending I spent 40 minutes for this consultation, which included obtaining clinical information, reviewing the imaging studies, discussing the case with Dr. Mcmanus, performing a physical exam, recommending a plan of action and answering questions. Greater than 50% of the time spent was direct face to face interaction with the patient.
--- NOTE | 2018-12-17 17:41 | Hospitalist Progress Note ---
Date of Service December 17, 2018 Assessment & Plan (1) Near syncope: Suspect due to volume contraction from poor po intake the 2-3 days prior to admission and recent addition of po lasix one week prior, also with significant anemia Had ketones on UA Had description of nausea, lightheadedness, but did not pass out. had no chest pain or palpitations and likely did not have a cardiac event. Troponin negative, ECHO here with only mild PHTN, preserved EF and normal valves Tele with NSR and sinus tach at times, orthostatics negative Now feeling much better with IVF hydration, dc lasix -continue tele monitoring -transfusing with PRBCs (2) Pancytopenia due to antineoplastic chemotherapy: Plts recovering but hgb dropped to 7.5 Given presyncope as above, will transfuse PRBCs 2 units today -follow CBC in AM (3) Hyponatremia: Na+ has been low as far back as 2016 Ur Osm 280, she was slightly volume contracted most likely on admission and Na+ has improved with NS IVFs, however presumably she was euvolemic at some points for the other times in the last two years she had low Na+ levels and 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 Previously reports did not respond to po magnesium and she stopped taking it- unsure of what dose -restart mag oxide 800mg po bid -replaced here with IV Mag also and now normalized -check Mag in AM (5) Hypophosphatemia: Replaced in the ED (6) Metastasis from cervical cancer: Recent CT head showed possibility of left temporal lobe met. 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 Mcmanus -continue chemo -consult Rad-Onc appreciated--> case to be discussed at tumor board on Thursday and the most likely recommendation will be for stereotactic radiosurgery as opposed to surgical resection of mass for biopsy (7) Hypertension: BPs high and did not get her lisinopril last night -restarted lisinopril but now will dc in favor of amlodipine as above (8) DVT prophylaxis: DVT prophylaxis = SCDs, pharmacologic held due to thrombocytopenia TEDs Subjective Pt feels much improved since yesterday. No further nausea and she was able to eat her breakfast. No further lightheadedness. Sh ehas been OOB to the bathroom today and doing well with that. had some right lower abd pain yesterday which is now resolved. This RLQ pain has been coming and going over the last year, sometimes she will go months without it and sometimes it will come twice in the same week and last for a day. Reports she was not eating or drinking much at all the last 3 days and also was started on lasix 1 week ago for leg edema. Denies headache now but has been having HAs off and on for 5 months. Denies CP or SOB, no heart palpitations at any time Tele with NSR and I discussed her care with her primary Oncologist, Dr. Mcmanus, and with Rad- Onc Dr. Rivas Review of Systems Review of Systems: All systems reviewed & are unremarkable except as noted in HPI & below Physical Exam Constitutional: WD/WN, vitals as above Eyes: PERRL, conjunctivae normal, anicteric sclerae ENMT: external ear and nose normal, oropharynx normal Neck: trachea midline, no thyromegaly normal visual inspection; neck nontender and no nuchal rigidity Respiratory: normal respiratory effort, lungs clear to auscultation Cardiovascular: RRR, no murmur, no edema Gastrointestinal (Abdomen): normal bowel sounds, soft, nontender, no hepatosplenomegaly Musculoskeletal: Extremities: extremities normal to inspection; no cyanosis and no clubbing Skin: no rashes, warm and dry Neurologic: moves all extremities and awake; no focal motor deficits Psychiatric: A+Ox3, euthymic affect Results & Data Vital Signs (Past 12 Hours) Vital Signs Temp Pulse Pulse Resp BP BP BP 12/17/18 16:43 37.3 C 90 20 160/71 H 12/17/18 15:57 83 12/17/18 15:43 37 C 75 20 144/80 H 12/17/18 15:19 36.9 C 92 H 21 158/88 H 12/17/18 14:43 37.1 C 80 17 147/83 H 12/17/18 14:13 37.2 C 88 19 126/76 12/17/18 13:58 37.0 C 82 18 134/80 12/17/18 13:40 36.4 C L 87 18 145/81 H 12/17/18 12:05 36.8 C 85 17 149/82 H 12/17/18 08:00 77 12/17/18 07:37 36.6 C 82 22 143/82 H Pulse Ox 12/17/18 16:43 95 12/17/18 15:57 12/17/18 15:43 12/17/18 15:19 94 12/17/18 14:43 95 12/17/18 14:13 93 12/17/18 13:58 95 12/17/18 13:40 95 12/17/18 12:05 97 12/17/18 08:00 12/17/18 07:37 100 Laboratory Results 12/17/18 12/17/18 12/17/18 Range/Units 11:58 06:00 06:00 WBC (4.8-10.8) K/uL RBC (4.2-5.4) M/uL Hgb (12.0-16.0) g/dL Hct (37-47) % MCV (80-100) fL MCH (25-34) pg MCHC (32-36) g/dL RDW Std Deviation (36.4-46.3) fL RDW Coeff of Nikki (11.5-14.5) % Plt Count (130-400) K/uL MPV (7.4-10.4) fL Sodium 132 L (136-145) mmol/L Potassium 3.7 (3.5-5.1) mmol/L Chloride 100 (98-107) mmol/L Carbon Dioxide 24 (21-32) mmol/L Anion Gap 8.0 (3-11) BUN 9 (7-18) mg/dl Creatinine 0.65 (0.6-1.2) mg/dl Est Cr Clr Drug Dosing 95.4 ml/min Est GFR ( Amer) 109.5 Est GFR (Non-Af Amer) 94.5 BUN/Creatinine Ratio 14.5 (10-20) Glucose 94 (70-99) mg/dl Calcium 9.5 (8.5-10.1) mg/dl Magnesium 1.9 (1.8-2.4) mg/dl Hepatitis C Ab Screen Neg (Neg) Blood Type O Positive Antibody Screen NEGATIVE Crossmatch See Detail 12/17/18 Range/Units 06:00 WBC 3.63 L (4.8-10.8) K/uL RBC 2.22 L (4.2-5.4) M/uL Hgb 7.5 L (12.0-16.0) g/dL Hct 21.4 L (37-47) % MCV 96.4 (80-100) fL MCH 33.8 (25-34) pg MCHC 35.0 (32-36) g/dL RDW Std Deviation 65.9 H (36.4-46.3) fL RDW Coeff of Nikki 19.5 H (11.5-14.5) % Plt Count 81 L (130-400) K/uL MPV 9.0 (7.4-10.4) fL Sodium (136-145) mmol/L Potassium (3.5-5.1) mmol/L Chloride (98-107) mmol/L Carbon Dioxide (21-32) mmol/L Anion Gap (3-11) BUN (7-18) mg/dl Creatinine (0.6-1.2) mg/dl Est Cr Clr Drug Dosing ml/min Est GFR ( Amer) Est GFR (Non-Af Amer) BUN/Creatinine Ratio (10-20) Glucose (70-99) mg/dl Calcium (8.5-10.1) mg/dl Magnesium (1.8-2.4) mg/dl Hepatitis C Ab Screen (Neg) Blood Type Antibody Screen Crossmatch PG Care Time/CCT Total # of Minutes Spent Total Time Spent with Patient: Total time spent is greater than 50% in coordination of care (as documented) at patient's floor/unit and/or counseling patient:
[2018-12-17] MEDS: MAGNESIUM OXIDE 400 MG TAB PO SCH (20:43)
[2018-12-17] MEDS: GABAPENTIN 300 MG CAP PO SCH (20:43)
[2018-12-17] MEDS ORDERED: lisinopriL 10 MG TAB PO SCH (21:00)
[2018-12-18 07:57] LABS: Hematocrit (blood only) 28.4 % (37-47); Hemoglobin 9.6 g/dL (12.0-16.0); Mean Corpuscular Hemoglobin 31.4 pg (25-34); Mean Corpuscular Hgb Conc 33.8 g/dL (32-36); Mean Corpuscular Volume 92.8 fL (80-100); RDW Coefficient of Variation 19.7 % (11.5-14.5); RDW Standard Deviation 65.7 fL (36.4-46.3); Red Blood Count 3.06 M/uL (4.2-5.4); White Blood Count 3.76 K/uL (4.8-10.8)
[2018-12-18 08:07] LABS: Mean Platelet Volume 9.9 fL (7.4-10.4); Platelet Count 80 K/uL (130-400)
[2018-12-18] MEDS: MAGNESIUM OXIDE 400 MG TAB PO SCH (08:12)
[2018-12-18] MEDS: FAMOTIDINE 20 MG TAB PO SCH (08:13)
[2018-12-18 08:23] LABS: BUN Creatinine Ratio 20.1 (10-20); Calcium 9.9 mg/dl (8.5-10.1); Est GFR (African American) 96.8; Est GFR (Non-African American) 83.5; Magnesium 1.5 mg/dl (1.8-2.4); Potassium 3.8 mmol/L (3.5-5.1)
[2018-12-18] MEDS ORDERED: AMLODIPINE BESYLATE 5 MG TAB PO SCH (09:00)
[2018-12-18] MEDS: MAGNESIUM SULFATE / D5W 1 GM/100 ML BAG IV SCH ×2 (09:52→10:47)
--- NOTE | 2018-12-18 10:56 | Discharge Summary ---
Date of Service December 18, 2018 Admission HPI Per Admitting Provider 63 y/o female presented to the ED from her home with a 1 hour duration of lightheadedness with standing. She had fallen in her kitchen to which she describes falling on her buttocks and does not recall actually losing consciousness. She did not hit her head. She is currently undergoing chemo for metastatic cervical cancer. She was scheduled to have chemo today, but was held due to thrombocytopenia and electrolyte abnormalities. She also reports having been scheduled for an MRI of the brain on 12/17/18 due to a finding on CT head (possible met to L temporal lobe). No F/C, cough, SOB, vomiting, diarrhea, chest pain, or unilateral leg swelling. She did have transient nausea upon arrival, but at my visit this has resolved and in fact she reports being hungry. I discussed code status with she and her to which she is a full code. Her oncologist is Dr. Pittman, Hemo/Onc and [facility]. Principal Diagnosis Hyponatremia, Presyncope, hypomagnesemia, Pancytopenia Discharge Exam Constitutional WD/WN, vitals as above Eyes + anicteric sclerae ENMT external ear and nose normal, oropharynx normal Neck trachea midline, no thyromegaly normal visual inspection; neck nontender and no nuchal rigidity Respiratory normal respiratory effort, lungs clear to auscultation Cardiovascular RRR, no murmur, no edema Gastrointestinal (Abdomen) normal bowel sounds, soft, nontender, no hepatosplenomegaly Musculoskeletal Extremities: extremities normal to inspection; no cyanosis and no clubbing Skin no rashes, warm and dry Neurologic moves all extremities and awake; no focal motor deficits Psychiatric A+Ox3, euthymic affect Discharge Data Allergies Allergy/AdvReac Type Severity Reaction Status Date / Time Iodinated Contrast Media Allergy Intermediate ITCHINESS Verified 12/16/18 17:07 Penicillins Allergy Mild rash, Verified 12/16/18 17:07 nausea Sulfa (Sulfonamide Allergy Mild rash,nausea Verified 12/16/18 17:07 Antibiotics) Consultations 12/16/18 17:59 ED Decision to Admit Stat 12/17/18 10:03 Consult Radiation Oncology Routine Ordered Studies 12/16/18 22:56 MR brain wo/w con Routine CXR Hospital Course (1) Near syncope: Suspect due to volume contraction from poor po intake the 2-3 days prior to admission and recent addition of po lasix one week prior, also with significant anemia Had ketones on UA Had description of nausea, lightheadedness, but did not pass out. Had no chest pain or palpitations and likely did not have a cardiac event. Troponin negative, ECHO here with only mild PHTN, preserved EF and normal valves Tele with NSR and sinus tach at times,, some PVCs; orthostatics negative Now feeling much better with IVF hydration, PRBCs transfused, discontinued lasix, replaced Mag, Phos, and sodium improved Was ambulating without any symptoms prior to discharge (2) Pancytopenia due to antineoplastic chemotherapy: Plts recovering at 80k on day of discharge, hgb dropped to 7.5 and she was transfused 2 units PRBCs, hgb up to 9.5 on day of discharge, WBC 3 -follow CBC as outpt with Oncology (3) Hyponatremia: Na+ has been low as far back as 2016, was 127 on admission Ur Osm 280, Ur Na+ not checked prior to replacement with NS upon admission. She was slightly volume contracted most likely on admission and Na+ has improved with NS IVFs, however presumably she was euvolemic at some points for the other times in the last two years she had low Na+ levels and this is likely SIADH She previously was on an SSRI and is also on lisinopril, both of which can cause SIADH Na+ remains stable at 131 on day of discharge -recommend dc lisinopril, dc lasix -replaced lisinopril with amlodipine for BP control -SERGE hose instead for LE edema and increase protein in diet -follow BMP as outpt (4) Hypomagnesemia: Severely low at times throughout the last two years 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 Previously reports did not respond to po magnesium and she stopped taking it- unsure of what dose -restarted mag oxide 800mg po bid -replaced here with IV Mag also -check Mag as outpt (5) Hypophosphatemia: Replaced (6) Metastasis from cervical cancer: Recent CT head showed possibility of left temporal lobe met. 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 Mcmanus -continue chemo -consult Rad-Onc appreciated--> case to be discussed at tumor board on Thursday and the most likely recommendation will be for stereotactic radiosurgery as opposed to surgical resection of mass for biopsy -will give Rx for Zofran prn nausea at home (7) Hypertension: BPs were high and now improved -discontinued lisinopril in favor of amlodipine as above for SIADH -follow BP as outpt (8) Neuropathy: recently restarted on gabapentin as outpt-continue 300mg po qhs (9) DVT prophylaxis: DVT prophylaxis = SCDs, pharmacologic held due to thrombocytopenia TEDs Dispo-stable for dc to home today Total Time Total Time Spent Total Time Spent (In Minutes): >30 min Total Time Includes: Examination of the Patient, Discharge Planning and Medication Reconciliation Discharge Plan Discharge Items Patient Disposition: Home - Self-Care Reason For Visit: HYPONATREMIA, SYNCOPE Discharge Diagnosis: Hyponatremia, presyncope Condition on Discharge: Good Activity: Resume your previous activity Bathing: No limitations Non-emergency contact: Primary Care Provider and Oncologist Call non-emergency contact if: you have any medication questions, your symptoms worsen, you have a fever and your temperature is above 101 Follow-up/Referrals: Lamine Rivas MD [Physician] - 12/22/18 9:30 am Clemente Hays MD [Primary Care Provider] - Diet: Regular Addtl Attending Provider Instructions: You were admitted with lightheadedness/presyncope. Your sodium level was a bit lower than it has been recently and you were likely dehydrated. It is recommended that you drink plenty of fluids, wear compression stockings for your leg swelling, and STOP taking the lasix (water pill). You were given 2 units of red blood cells also for your anemia and this also improved your lightheadedness. Also, your chronically low sodium level may be from your lisinopril. Please STOP your lisinopril and start taking amlodipine instead for your blood pressure. Please restart your magnesium supplement and take 800mg twice a day and have your magnesium levels checked routinely with Oncology. Because of the mass/growth in your brain, the Radiation Oncologist has scheduled an appointment for you to discuss possibly starting radiation treatment to the brain. Please keep your follow up appointment with Sasha Bernard of Oncology on Thursday and see your PCP within 1-2 weeks as well. Pending Studies at Discharge: No Stand-Alone Forms: [facility] Medications and DC Order Prescriptions: New amlodipine [Norvasc] 5 mg Tablet 5 mg PO QAM Qty: 30 RF: 0 acetaminophen [Mapap (acetaminophen)] 325 mg Tablet 1,000 mg PO Q8H PRN (Reason: pain) Qty: 30 RF: 0 docusate sodium 100 mg Capsule 100 mg PO BID PRN (Reason: constipation) Qty: 30 RF: 0 magnesium oxide 400 mg (241.3 mg magnesium) Tablet 800 mg PO BID Qty: 60 RF: 0 ondansetron 4 mg tablet,disintegrating 4 mg PO Q8H PRN (Reason: nausea and vomiting) 5 Days Qty: 15 RF: 0 Continued gabapentin 300 mg capsule 300 mg PO HS RF: 0 Discontinued lisinopril 10 mg tablet 10 mg PO HS RF: 0 furosemide 20 mg tablet 10 mg PO DAILY RF: 0 Discharge Orders: Discharge Order (Routine); Ordered 12/18/18 Ordered By: Muna Rojo Admission Data Admit Date/Time: 12/16/18 19:54 Attending Provider: Muna Rojo Admit Provider: Andrew Gonzalez Primary Care Provider: Clemente Hays Other Providers: Morelia Minor Veeral B.
== END 2018-12-18 13:14 | disposition home or self-care (01) | DRG 640 ==
LOC: ED 15:50 → 2S 19:54 → SUATTDRO 19:54 → 2S 21:28

== ENCOUNTER 2019-02-15 09:27 | Inpatient (IN) ==
[2019-02-15] MEDS ORDERED: SODIUM CHLORIDE 0.9% 500 ML IV SCH (10:15)
[2019-02-15] MEDS ORDERED: HYDROmorphone INJ 0.5 MG/0.5 ML SYR IV STA ×2 (10:21→13:09)
[2019-02-15] MEDS ORDERED: ONDANSETRON INJ 2 MG/ML 2 ML VIAL IV STA (10:21)
[2019-02-15] MEDS ORDERED: DiphenhydrAMINE HCL 50 MG/ML VIAL IV STA (10:21)
--- NOTE | 2019-02-15 10:43 | XRay Report ---
XR chest 1V portable HISTORY: weakness COMPARISON: Chest 02/05/2019. FINDINGS: No pneumothorax. There is again noted a masslike density within the right lung base. This h as increased in size. Trace right pleural effusion. The left lung is clear. Left subclavian Port-A-Ca th terminates at the SVC. The heart is normal in size. IMPRESSION: Slight increase in size in the right middle lobe mass with a trace right pleural effusion. Electronically signed by: Javed Jimenez M.D. 02/15/2019 10:42 AM
[2019-02-15 11:01] LABS: Basophils # (auto) 0.01 K/uL (0-0.2); Basophils % (auto) 0.1 %; Eosinophils # (auto) 0.05 K/uL (0-0.5); Eosinophils % (auto) 0.5 %; Hematocrit (blood only) 26.9 % (37-47); Immature Granulocytes # (auto) 0.12 K/uL (0.00-0.02); Immature Granulocytes % (auto) 1.1 %; Lymphocytes # (auto) 0.87 K/uL (1.2-3.4); Lymphocytes % (auto) 7.9 %; Mean Corpuscular Hemoglobin 34.2 pg (25-34); Mean Corpuscular Hgb Conc 33.5 g/dL (32-36); Mean Corpuscular Volume 102.3 fL (80-100); Mean Platelet Volume 9.4 fL (7.4-10.4); Monocytes # (auto) 1.22 K/uL (0.11-0.59); Neutrophils # (auto) 8.79 K/uL (1.4-6.5); Neutrophils % (auto) 79.4 %; Platelet Count 112 K/uL (130-400); RDW Coefficient of Variation 19.2 % (11.5-14.5); RDW Standard Deviation 70.8 fL (36.4-46.3); Red Blood Count 2.63 M/uL (4.2-5.4); White Blood Count 11.06 K/uL (4.8-10.8)
[2019-02-15 11:05] LABS: Appearance Urine Clear (Clear); Bilirubin Urine Negative (Negative); Blood Urine Negative (Negative); Color Urine Yellow; Glucose Urine UA Negative (Negative); Ketones Urine Negative (Negative); Leukocyte Esterase Urine Negative (Negative); Nitrite Urine Negative (Negative); Protein Urine Negative (Negative); Specific Gravity Urine 1.016 (1.000-1.030); Urobilinogen Urine Negative (Negative)
[2019-02-15 11:24] LABS: Albumin Level 2.7 gm/dl (3.4-5.0); BUN Creatinine Ratio 21.9 (10-20); Calcium 10.3 mg/dl (8.5-10.1); Creatinine Clr Calc Pharmacy 86.8 ml/min; Est GFR (African American) 100.9; Magnesium 1.4 mg/dl (1.8-2.4); Potassium 3.2 mmol/L (3.5-5.1)
[2019-02-15] MEDS: SODIUM CHLORIDE 0.9% 1000ML 1,000 ML IV SCH ×2 (11:24→18:06)
[2019-02-15 11:34] LABS: Albumin Globulin Ratio 0.6 (0.9-2); Bilirubin,Total 0.5 mg/dl (0.2-1); Globulin 4.3 gm/dl (2.5-4.0); Thyroid Stimulating Hormone 1.8 uIu/ml (0.300-4.500)
[2019-02-15] MEDS ORDERED: OPTIRAY 320 125ml IV PRN (11:44)
--- NOTE | 2019-02-15 11:59 | CT Scan Report ---
CT OF THE HEAD WITHOUT CONTRAST CLINICAL HISTORY: Weakness. History of metastatic cervical cancer. COMPARISON STUDY: MRI of the brain December 16, 2018. Head CT February 05, 2019. TECHNIQUE: Helical axial images of the head were obtained without IV contrast. Automated exposure con trol was utilized for the study. A dose lowering technique was utilized adhering to the principles o f ALARA. FINDINGS: No acute intracranial hemorrhage, midline shift or mass effect is present. The ventricular system is unremarkable. The basilar cisterns are patent. No extra-axial collections are present. Ther e are no findings to suggest acute dural sinus thrombosis or acute territorial infarct. Subtle hypode nsity within the left temporal lobe on axial image 8 of is similar to head CT of February 05, 2019 . This is less conspicuous when compared to PET/CT of December 12, 2018. There are no suspicious calvar ial lesions. IMPRESSION: 1. No acute intracranial findings. 2. Subtle hypodensity within the left temporal lobe at site of known metastasis which is similar to h ead CT of February 05, 2019 but decreased since head CT of December 12, 2018. Electronically signed by: Viet Reyes M.D. 02/15/2019 11:57 AM
--- NOTE | 2019-02-15 12:03 | CT Scan Report ---
LUMBAR SPINE CT CT DOSE: HISTORY: mets cervical cancer, leg weakness TECHNIQUE: Multiaxial CT images of the lumbar spine were performed and reformatted in the sagittal an d coronal plane without the use of contrast. A dose lowering technique was utilized adhering to the principles of ALARA. COMPARISON: None. FINDINGS: No fractures. No subluxation. Paraspinal soft tissues are unremarkable. No severe central c anal or neural foraminal narrowing by CT technique. Disc spaces are preserved for age. The sacrum is intact. IMPRESSION: No fractures within the lumbar spine. Electronically signed by: Javed Jimenez M.D. 02/15/2019 12:02 PM
--- NOTE | 2019-02-15 12:11 | CT Scan Report ---
CT ANGIOGRAPHY OF THE CHEST, PULMONARY EMBOLUS PROTOCOL CLINICAL HISTORY: Chest pain. History of cervical cancer. COMPARISON STUDY: Chest CT December 12, 2018. Chest radiograph February 15, 2019. TECHNIQUE: Following IV administration of 116 mL of Optiray-320, helical axial images of the chest we re obtained utilizing the pulmonary embolus protocol. Maximal intensity projections and sagittal and coronal reformats were viewed on an independent 3D workstation. IV contrast was administered withou t complication. Automated exposure control was utilized for the study. A dose lowering technique wa s utilized adhering to the principles of ALARA. CT DOSE: 1221.67 mGy.cm FINDINGS: No pulmonary emboli are identified. Several pulmonary arteries are narrowed by the right m iddle lobe mass. There is no evidence for thoracic aortic dissection. A left subclavian Rxyypb-w-Sknw is in place. Multiple enlarged mediastinal lymph nodes have moderately increased in size since CT of December 12, 2018. A large right middle lobe mass has increased in size. This mass now measures 9.6 cm . It previously measured 7.7 cm. A trace pericardial effusion is noted with suspected pericardial imp lants. Cardiophrenic angle nodes have increased in size. A moderate right pleural effusion has develo ped. There is no pneumothorax. Right lower lobe opacities suggest atelectasis. There is no consolidat ion to suggest pneumonia. Interlobular septal thickening within the right lung is noted. The right mcclure perior pulmonary vein is narrowed by the right middle lobe mass. A lytic lesion within the left aspec t of the T8 vertebral body since prior exam. There is a mild associated fracture involving the superi or endplate. Multiple hepatic metastases have significantly increased since exam of December 12, 2018. IMPRESSION: 1. No pulmonary emboli identified. 2. Significant progression of metastatic disease since CT of December 12, 2018, as described above, wit h progression of the right middle lobe mass, thoracic lymphadenopathy, liver metastases and a new T8 lytic lesion with pathologic fracture. Moderate right pleural effusion. Electronically signed by: Viet Reyes M.D. 02/15/2019 12:09 PM
--- NOTE | 2019-02-15 12:11 | CT Scan Report ---
ABDOMEN AND PELVIS CT WITH IV CONTRAST CT DOSE: HISTORY: Abdominal distention, abd pain, cervical cancer TECHNIQUE: Multiaxial CT images of the abdomen and pelvis were performed following the use of intrave nous contrast. A dose lowering technique was utilized adhering to the principles of ALARA. COMPARISON STUDY: Abdomen and pelvis CT 12/12/2018. FINDINGS: Increase in size in the right middle lobe mass which currently measures 10 x 9 cm. This is better appreciated on the same day chest CTA. There is a new small right pleural effusion. Multiple r ight anterior diaphragmatic soft tissue nodules with the largest measuring 2.7 cm. These also increas ed in size and are consistent with metastatic disease. No pneumoperitoneum. No pneumatosis. No suspic ious lytic are blastic osseous lesions. There are 5 peripheral enhancing hypodense masses within the liver. Dominant lesion within the left hepatic lobe measures 3.3 cm. These are consistent with metast atic foci and have progressed in the interval. The gallbladder, spleen, adrenal glands, pancreas, and kidneys are unremarkable. No retroperitoneal lymphadenopathy. No hydronephrosis. The bladder is unre markable. Multiple heterogeneous uterine masses. Some of these demonstrate calcification and therefor e favor fibroids. These remain unchanged. No bowel wall thickening or obstruction. Colonic diverticul osis. IMPRESSION: 1. Interval progression of the metastatic disease within the lower chest including a new small right pleural effusion as described above. Please refer to the same day chest CTA for further evaluation. 2. Interval progression of the hepatic metastatic disease. 3. No bowel wall thickening or obstruction. 4. Additional findings as described above. Electronically signed by: Javed Jimenez M.D. 02/15/2019 12:09 PM
[2019-02-15] MEDS ORDERED: ZOLPIDEM TARTRATE 5 MG TAB PO PRN (14:11)
[2019-02-15] MEDS ORDERED: MAGNESIUM HYDROXIDE SUSP 30 ML UDC PO PRN (14:11)
[2019-02-15] MEDS ORDERED: ALUMINUM/MAGNESIUM SUSP 30 ML UDC PO PRN (14:11)
[2019-02-15] MEDS ORDERED: POLYETHYLENE (MIRALAX) 17 GM PACK PO PRN (14:11)
--- NOTE | 2019-02-15 14:37 | History & Physical Report ---
Date of Service February 15, 2019 Assessment & Plan (1) Metastasis from cervical cancer: Unfortunately images that were obtained today including CT angiogram chest, CT abdomen and pelvis showed progression of the disease, progression of right lung mass, progression of liver metastasis. Last chemotherapy was on December [address] Mcmanus. Pain management with Dilaudid IV. IV fluid hydration. Consult nutrition for moderate protein caloric malnutrition. Lovenox for DVT prophylaxis (2) Hypomagnesemia: Replaced in ED IV We will continue to replace orally (3) Neuropathy: Sensation intact on physical exam Patient feels that it might be getting worse due to her right lower extremity giving up on her (4) Mass of middle lobe of right lung: Unfortunately further progressed Has worsening pleural effusion Consult Dr. Somers for her pleural effusion Possibly also to discuss results of biopsies obtained (5) T8 vertebral fracture: Consult orthopedic for PT/OT clearance Pain management with Dilaudid IV and Lidoderm patch on the back (6) Generalized weakness: PT/OT after clearance by orthopedic (7) Hypokalemia: Replace and recheck in a.m. (8) Essential hypertension: Continue Norvasc 5 mg p.o. daily, dose can be increased to 10 mg for better control if needed History of Present Illness Primary Care Provider: Clemente Hays MD 64-year-old female with past medical history of metastatic cervical cancer was diagnosed 2017 status post chemotherapy and radiation. Unfortunately patient developed new metastasis and started chemotherapy last was December 2018. Patient follows up with Dr. Mcmanus, she had a recent biopsy of right lung mass done by Dr. Somers. This she was supposed to have an appointment today with him in his office to discuss the results of her biopsy. Unfortunately patient developed progressive weakness and shortness of breath. She also noted that her right lower extremity keeps giving up on her and she was not sure if her neuropathy is getting worse. She decided to come to the ED for further evaluation. She denies any recent fall. Denies any significant diarrhea or urinary symptoms. She has only mild right lower quadrant abdominal pain, she describes it as gas pain. She feels extremely exhausted and tired. Unable to ambulate at home due to severe weakness and particularly her right lower extremity giving up on her. In ED she had multiple imaging including head CT that revealed a pre-existing left temporal lobe metastatic lesion that was noticed in a previous CT scan, CT angiogram of her chest ruled out pulmonary embolism but showed lytic lesion in T 8 with pathologic fracture. Also showed progression of the disease and pr ogression of her right middle lobe lung mass. CT abdomen and pelvis showed progression of disease and progression of liver metastasis. Her labs showed hypokalemia hypomagnesemia and hypoproteinemia. Patient will be admitted for further evaluation and management. Allergies Allergy/AdvReac Type Severity Reaction Status Date / Time Iodinated Contrast Media Allergy Intermediate pruritus Verified 02/15/19 11:28 Penicillins Allergy Mild rash, Verified 02/15/19 11:28 nausea Sulfa (Sulfonamide Allergy Mild rash,nausea Verified 02/15/19 11:28 Antibiotics) Home Medications Home Medications Medication Instructions Recorded Confirmed Type acetaminophen [Mapap 1,000 mg PO Q8H PRN #30 tab 12/18/18 02/15/19 Rx (acetaminophen)] gabapentin 300 mg capsule 300 mg PO TID 12/20/18 02/15/19 History magnesium 200 mg tablet 400 mg PO QAM tab 12/20/18 02/15/19 History dexamethasone 4 mg tablet 4 mg PO Q OTHER DAY 12/31/18 02/15/19 History Centrum Silver Women 1 tab PO QAM 01/25/19 02/15/19 History ascorbic acid (vitamin C) [Vitamin 500 mg PO QAM 01/25/19 02/15/19 History C] cholecalciferol (vitamin D3) 25 mcg PO QAM 01/25/19 02/15/19 History [Vitamin D3] coenzyme Q10 [Co Q-10] 100 mg PO QAM 01/25/19 02/15/19 History digestive enzymes 1 cap PO QAM 01/25/19 02/15/19 History amlodipine 5 mg tablet 5 mg PO QAM #90 tab 02/01/19 02/15/19 Rx vitamin B complex 1 tab PO QAM 02/15/19 02/15/19 History Past Med/Surg History Medical History Anemia chronic (hgb in the 7-9 range over past month per chart review) most recent blood transfusion 12/2018 (felt chemo related) Brain lesion metastatic lesion of left temporal lobe per 12/16/17 brain MRI Diverticular disease GERD (gastroesophageal reflux disease) controlled Hypertension Lung mass Mediastinal lymphadenopathy Metastasis from cervical cancer Neuropathy 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- most recent chemo 11/2018;on dexamethasone 4mg every other day (started in setting of chemo/xrt)-- now weaning off Surgical History History of cervical biopsy History of surgery insertion of Tandom & Ovoid x 5 History of tooth extraction History of tubal ligation History of vascular access device Left chest wall Family History Mother Breast cancer Hypertension Father Cancer Other No family history of adverse response to anesthesia Social History Preferred Language: Nepali Communication Ability: Effective Wax Pattern Coater Required: No Beliefs That Will Affect Care: None marital status: Current Living Situation: Spouse Feels Safe at Home: Yes Smoking Status: Never smoker Second Hand Exposure: Yes (as a child and used to smoke in the house (stopped 1 year ago)) ; Hx Alcohol Use: Yes Alcohol type: wine Alcohol Intake Frequency: Rarely Hx Substance Use: Yes substance use type: does not use Dental Care, Regularly: No Seatbelt Use: always Review of Systems Review of Systems: Review of system Constitutional: No fever / no chills /positive for generalized weakness and fatigue Eyes: no blurring of vision / no eye pain / no discharge / no redness ENT: no hearing loss / no epistaxis /no swallowing problems Respiratory: Positive for generalized shortness of breath, no cough / no wheezing / no hemoptysis Cardiovascular: no Chest pain / no lower extremity edema / no palpitation Abdomen: Mild right lower quadrant pain plus nausea / no vomiting / no constipation Musculoskeletal: Generalized body aches and pain in all joints Genitourinary: no dysuria / no incontinence / no urinary retention Neurologic: Generalized weakness overall but more pronounced in her right lower extremity, Psychiatric: Sad due to her condition but no psychologic or pathologic depression symptoms / no anxiety / no insomnia Skin: No rash / no pallor Physical Exam Physical Exam: Physical examination General frail elderly female HEENT: Atraumatic , normocephalic /no jaundice /slightly pale with dry mucous membrane /normal external ear inspection Neck: Supple /no swelling /central trach Heart: S1/S2 with mild tachycardia/regular rate and rhythm/no gallop /no rub /2/6 murmur Lungs: Decreased air entry bilaterally mainly on the right, faint rhonchi bilateral lung suh, no use of accessory muscles of respiration, normal chest wall expansion. Abdomen: Very mild tenderness and right lower quadrant, but overall abdomen is soft/nontender/no guarding/no rebound/no organomegaly/no pulsatile mass Musculoskeletal: No swelling/no edema/no tenderness/normal range of motion Neuro exam: Awake alert oriented 3/cranial nerves II through XII appear to be intact/sensation intact/moves all extremities/no abnormal movements Psychiatric evaluation: No depressed mood/normal affect Skin: No rash on exposed skin area/no erythema Extremity: Normal pulse/no pitting edema/no clubbing or cyanosis Results & Data Vital Signs (Past 12 Hours) Vital Signs Temp Pulse Pulse Resp BP BP Pulse Ox 02/15/19 12:00 103 H 22 156/74 H 94 02/15/19 10:49 107 H 22 159/92 H 96 02/15/19 10:02 95 02/15/19 09:31 36.7 C 111 H 18 144/87 H 95 Code Status & VTE Plan Code Status Patient is full code as per discussion with her VTE Prophylaxis Plan VTE Prophylaxis will be ordered: Yes PG Care Time/CCT Total # of Minutes Spent Total Time Spent with Patient: 35 minutes total time spent is greater than 50% in coordination of care (as documented) at patient's floor/unit and/or counseling patient/family discussion of care with nursing staff
[2019-02-15] MEDS: POTASSIUM CHLORIDE / WTR 10 MEQ/100 ML PLCT IV SCH ×2 (14:47→17:24)
[2019-02-15] MEDS: MAGNESIUM SULFATE / D5W 1 GM/100 ML BAG IV SCH ×2 (14:48→17:18)
[2019-02-15] MEDS: ACETAMINOPHEN 500 MG TAB PO PRN (16:16)
[2019-02-15] MEDS: ONDANSETRON INJ 2 MG/ML 2 ML VIAL IV PRN (17:22)
[2019-02-15] MEDS: AMLODIPINE BESYLATE 5 MG TAB PO SCH (17:23)
[2019-02-15] MEDS: dexAMETHasone 4 MG TAB PO SCH (17:24)
[2019-02-15] MEDS: ENOXAPARIN INJ 40 MG/0.4 ML SYR SQ SCH (17:24)
[2019-02-15] MEDS: LIDOCAINE 5% 1 PATCH TD SCH (17:37)
[2019-02-15] MEDS: HYDROmorphone INJ 1 MG/ML SYRINGE IV PRN (18:01)
[2019-02-15] MEDS: NSS + 20MEQ KCL 20 MEQ/1,000 ML BAG IV SCH (18:31)
--- NOTE | 2019-02-15 18:37 | Emergency Department Note ---
Entered by Alexis Abdullahi acting as a scribe for History of Present Illness General Chief complaint: Illness Stated complaint: CANCER PT, REF BY , PAIN ALL OVER, LETHARGIC Source: patient History of Present Illness Provider complaint: Headache Onset (ago): day(s) 2 Location: head Pain Consistency: + constant Maximum Pain Intensity: 7 Current Pain Intensity: 7 Relieved By: + none Associated symptoms: + headaches, + nausea/vomiting (No vomiting), + shortness of breath and + weakness; no fever/chills The patient is a 64 year old female who presents to the Emergency Room with complaints of a constant headache that started about 2 days ago. The patient has had constant nausea and gas pains as well however she has not vomited. She rates the pain as a 7/10 and notes nothing seems to help improve it. The patient reports generalized pain, especially in her left shoulder. The patient notes her pain is worse with deep breaths. The patient adds that she has lower extremity weakness from her neuropathy that is causing her to have ambulatory difficulties. The patient has a history of metastatic cervical cancer that has spread to her blood, brain, and lungs. The patient's last chemo treatment was 2 months ago but she just had a biopsy of her cervical lymph nodes last week. The patient reports that she took Tylenol at 02:00 this morning with no relief of symptoms. The patient also mentioned that she has been able to void and move her bowels with no issues. She has no history of bowel obstructions or blood clots. Home Medications Home Medications Medication Instructions Recorded Confirmed Type acetaminophen [Mapap 1,000 mg PO Q8H PRN #30 tab 12/18/18 02/20/19 Rx (acetaminophen)] gabapentin 300 mg capsule 300 mg PO TID 12/20/18 02/20/19 History magnesium 200 mg tablet 400 mg PO QAM tab 12/20/18 02/20/19 History dexamethasone 4 mg tablet 4 mg PO Q OTHER DAY 12/31/18 02/20/19 History Centrum Silver Women 1 tab PO QAM 01/25/19 02/20/19 History ascorbic acid (vitamin C) [Vitamin 500 mg PO QAM 01/25/19 02/20/19 History C] cholecalciferol (vitamin D3) 25 mcg PO QAM 01/25/19 02/20/19 History [Vitamin D3] coenzyme Q10 [Co Q-10] 100 mg PO QAM 01/25/19 02/20/19 History digestive enzymes 1 cap PO QAM 01/25/19 02/20/19 History amlodipine 5 mg tablet 5 mg PO QAM #90 tab 02/01/19 02/20/19 Rx vitamin B complex 1 tab PO QAM 02/15/19 02/20/19 History acetaminophen [Mapap 650 mg PO TID #180 tab 02/17/19 02/20/19 Rx (acetaminophen)] aluminum-magnesium hydroxide 15 ml PO Q4H PRN #3000 ml 02/17/19 02/20/19 Rx [MAG-AL] magnesium hydroxide [Milk of 30 ml PO Q6H PRN 30 Days #3840 ml 02/17/19 02/20/19 Rx Magnesia] magnesium oxide 400 mg PO BID #60 tab 02/17/19 02/20/19 Rx polyethylene glycol 3350 [Miralax] 17 g PO DAILY PRN #30 ea 02/17/19 02/20/19 Rx hydromorphone [Dilaudid] 4 mg PO Q6H PRN #120 tab 02/18/19 02/20/19 Rx ondansetron HCl [Zofran] 4 mg PO TID PRN 30 Days #120 tab 02/18/19 02/20/19 Rx Allergies Allergy/AdvReac Type Severity Reaction Status Date / Time Iodinated Contrast Media Allergy Intermediate pruritus Verified 02/20/19 18:12 Penicillins Allergy Mild rash, Verified 02/20/19 18:12 nausea Sulfa (Sulfonamide Allergy Mild rash,nausea Verified 02/20/19 18:12 Antibiotics) Past Med/Surg History Medical History (Updated 02/22/19 @ 18:38 by Muna Rojo MD) Anemia chronic (hgb in the 7-9 range over past month per chart review) most recent blood transfusion 12/2018 (felt chemo related) Brain lesion metastatic lesion of left temporal lobe per 12/16/17 brain MRI Diverticular disease GERD (gastroesophageal reflux disease) controlled Hypertension Lung mass Mediastinal lymphadenopathy Metastasis from cervical cancer Neuropathy 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- most recent chemo 11/2018;on dexamethasone 4mg every other day (started in setting of chemo/xrt)-- now weaning off Thrombocytopenia Surgical History History of cervical biopsy History of surgery insertion of Tandom & Ovoid x 5 History of tooth extraction History of tubal ligation History of vascular access device Left chest wall Family History Mother Breast cancer Hypertension Father Cancer Other No family history of adverse response to anesthesia Social History Preferred Language: Macedonian Communication Ability: Effective Staple Cutter Required: No Beliefs That Will Affect Care: None marital status: Current Living Situation: Spouse Feels Safe at Home: Yes Smoking Status: Never smoker Second Hand Exposure: Yes (as a child and used to smoke in the house (stopped 1 year ago)) ; Hx Alcohol Use: No Hx Substance Use: No Dental Care, Regularly: No Seatbelt Use: always Review of Systems See HPI for pertinent positives & negatives. and A total of 10 systems reviewed and were otherwise negative Physical Exam Vital Signs Vital Signs - 24 hr 02/15/19 09:31 02/15/19 10:02 02/15/19 10:49 Temperature 36.7 C Temperature Source Oral Pulse Rate 111 H Pulse Rate [Left Finger] 107 H Respiratory Rate 18 22 Respiratory Effort / Characteristics Non-Labored Spontaneous Respiratory Depth Normal Respiratory Pattern Regular Blood Pressure 144/87 H Blood Pressure [Right Arm] 159/92 H Blood Pressure Mean 106 Blood Pressure Mean [Right Arm] 114 Blood Pressure Position Sitting Pulse Oximetry 95 95 96 Oxygen Delivery Method Room Air Room Air Room Air Sepsis Recent Fever Within 48 Hours No Sepsis New/Unexplained Change in Mental Status No Sepsis Action Taken by Nursing No Action Required 02/15/19 12:00 Temperature Temperature Source Pulse Rate Pulse Rate [Left Finger] 103 H Respiratory Rate 22 Respiratory Effort / Characteristics Non-Labored Spontaneous Respiratory Depth Normal Respiratory Pattern Blood Pressure Blood Pressure [Right Arm] 156/74 H Blood Pressure Mean Blood Pressure Mean [Right Arm] 101 Blood Pressure Position Pulse Oximetry 94 Oxygen Delivery Method Room Air Sepsis Recent Fever Within 48 Hours Sepsis New/Unexplained Change in Mental Status Sepsis Action Taken by Nursing Vital signs reviewed. General: Chronically ill-appearing 64 year old female, in no significant distress. HEENT: No scleral icterus, PERRLA, neck supple. Atraumatic. Cardiovascular: Regular rate and rhythm, no extra sounds. Pulmonary: Diminished breath sounds on the right side, normal work of breathing. Abdomen: Soft, tenderness to the RUQ, nondistended, positive bowel sounds. Musculoskeletal: Atraumatic, no peripheral edema. Neurologic: Patient awake alert and oriented x 3, full strength in the upper extremities, 4/5 strength in the lower extremities. Cranial nerves 2 through 12 grossly intact. Skin: Warm, dry, no rash Course Course 1014: Past medical records reviewed. The patient was evaluated in room A12B, and a complete history and physical examination were performed. 1309: I reevaluated the patient and updated her on results. After discussing the treatment options the patient would feel most comfortable staying in the hospital. 1413: I spoke to Dr. Barraza [facility] Hospitalist about the patient's case. He is going to accept the patient for further evaluation. Consultations Consultation #1: I spoke to Dr. Barraza [facility] Hospitalist about the patient's case. He is going to accept the patient for further evaluation. Time: 14:13 Administered Medications Discontinued Medications Acetaminophen (Tylenol) 1,000 mg PO Q8H PRN PRN Reason: pain Stop: 03/17/19 14:08 Last Admin: 02/16/19 15:46 Dose: 1,000 mg Documented by: [id number] Admin: 02/15/19 16:16 Dose: 1,000 mg Documented by: [id number] Acetaminophen (Tylenol) 650 mg PO TID [facility] Stop: 03/19/19 08:59 Last Admin: 02/18/19 14:08 Dose: 650 mg Documented by: [id number] Admin: 02/18/19 08:08 Dose: 650 mg Documented by: [id number] Admin: 02/17/19 20:24 Dose: 650 mg Documented by: [id number] Admin: 02/17/19 14:09 Dose: 650 mg Documented by: [id number] Admin: 02/17/19 08:53 Dose: 650 mg Documented by: [id number] Amlodipine Besylate (Norvasc) 5 mg PO QAM [facility] Stop: 03/17/19 14:14 Last Admin: 02/18/19 08:07 Dose: 5 mg Documented by: [id number] Admin: 02/17/19 08:47 Dose: 5 mg Documented by: [id number] Admin: 02/16/19 09:16 Dose: 5 mg Documented by: [id number] Admin: 02/15/19 17:23 Dose: 5 mg Documented by: [id number] Ascorbic Acid (Vitamin C) 500 mg PO QAM [facility] Stop: 03/18/19 08:59 Last Admin: 02/18/19 08:08 Dose: 500 mg Documented by: [id number] Admin: 02/17/19 08:49 Dose: 500 mg Documented by: [id number] Admin: 02/16/19 09:16 Dose: 500 mg Documented by: [id number] Dexamethasone (Decadron) 4 mg PO Q2D@0900 [facility] Stop: 03/17/19 15:59 Last Admin: 02/17/19 08:48 Dose: 4 mg Documented by: [id number] Admin: 02/15/19 17:24 Dose: 4 mg Documented by: [id number] Diphenhydramine HCl (Benadryl) 50 mg IV NOW [facility] Stop: 02/15/19 10:22 Last Admin: 02/15/19 10:57 Dose: 50 mg Documented by: [id number] Enoxaparin Sodium (Lovenox) 40 mg SQ Q24H [facility] Stop: 03/17/19 15:59 Last Admin: 02/17/19 16:27 Dose: 40 mg Documented by: [id number] Admin: 02/16/19 15:43 Dose: 40 mg Documented by: [id number] Admin: 02/15/19 17:24 Dose: 40 mg Documented by: [id number] Gabapentin (Neurontin) 300 mg PO TID [facility] Stop: 03/17/19 20:59 Last Admin: 02/18/19 14:08 Dose: 300 mg Documented by: [id number] Admin: 02/18/19 08:08 Dose: 300 mg Documented by: [id number] Admin: 02/17/19 20:25 Dose: 300 mg Documented by: [id number] Admin: 02/17/19 14:09 Dose: 300 mg Documented by: [id number] Admin: 02/17/19 08:47 Dose: 300 mg Documented by: [id number] Admin: 02/16/19 21:50 Dose: 300 mg Documented by: [id number] Admin: 02/16/19 15:43 Dose: 300 mg Documented by: [id number] Admin: 02/16/19 09:16 Dose: 300 mg Documented by: [id number] Admin: 02/15/19 20:00 Dose: 300 mg Documented by: [id number] Heparin Sodium (Porcine) (Heparin Sod 100 Unit/Ml Flush) 5 ml FLUSH PRN PRN PRN Reason: Flush Stop: 03/18/19 00:44 Last Admin: 02/17/19 08:54 Dose: 5 ml Documented by: [id number] Admin: 02/16/19 19:47 Dose: 5 ml Documented by: [id number] Hydromorphone HCl (Dilaudid) 0.5 mg IV NOW STA Stop: 02/15/19 10:22 Last Admin: 02/15/19 10:57 Dose: 0.5 mg Documented by: [id number] Hydromorphone HCl (Dilaudid) 0.5 mg IV NOW STA Stop: 02/15/19 13:10 Last Admin: 02/15/19 13:20 Dose: 0.5 mg Documented by: [id number] Hydromorphone HCl (Dilaudid) 1 mg IV Q4H PRN PRN Reason: Pain Stop: 03/01/19 14:09 Last Admin: 02/17/19 04:40 Dose: 1 mg Documented by: [id number] Admin: 02/16/19 21:01 Dose: 1 mg Documented by: [id number] Admin: 02/16/19 06:28 Dose: 1 mg Documented by: [id number] Admin: 02/15/19 18:01 Dose: 1 mg Documented by: [id number] Sodium Chloride (Nss) 500 mls @ 999 mls/hr IV .Q31M [facility] Stop: 02/15/19 10:45 Last Infusion: 02/15/19 11:24 Dose: 0 mls/hr Documented by: [id number] Admin: 02/15/19 10:52 Dose: 999 mls/hr Documented by: [id number] Sodium Chloride (Nss 1000ml) 1,000 mls @ 200 mls/hr IV .Q5H [facility] Stop: 03/17/19 10:14 Last Admin: 02/15/19 18:06 Dose: Not Given Documented by: [id number] Infusion: 02/15/19 16:24 Dose: 0 mls/hr Documented by: [id number] Admin: 02/15/19 11:24 Dose: 200 mls/hr Documented by: [id number] Magnesium Sulfate/Dextrose (Magnesium Sulfate / D5w) 1 gm in 100 mls @ 100 mls/hr IV Q1H [facility] Stop: 02/15/19 15:29 Last Infusion: 02/15/19 18:18 Dose: 0 mls/hr Documented by: [id number] Admin: 02/15/19 17:18 Dose: 100 mls/hr Documented by: [id number] Admin: 02/15/19 14:48 Dose: Not Given Documented by: [id number] Potassium Chloride (K Dipak / Wtr) 10 meq in 100 mls @ 100 mls/hr IV Q1H [facility] Stop: 02/15/19 15:29 Last Infusion: 02/15/19 18:24 Dose: 0 mls/hr Documented by: [id number] Admin: 02/15/19 17:24 Dose: 100 mls/hr Documented by: [id number] Admin: 02/15/19 14:47 Dose: Not Given Documented by: [id number] Potassium Chloride/Sodium Chloride (Normal Saline W/20 Meq Kcl) 20 meq in 1,000 mls @ 50 mls/hr IV .Q20H [facility] Stop: 03/17/19 15:59 Last Infusion: 02/16/19 20:43 Dose: 0 mls/hr Documented by: [id number] Admin: 02/16/19 12:35 Dose: 50 mls/hr Documented by: [id number] Infusion: 02/16/19 12:35 Dose: 50 mls/hr Documented by: [id number] Admin: 02/15/19 18:31 Dose: 50 mls/hr Documented by: [id number] Ioversol (Optiray 320 125ml) 116 ml IV ONCE PRN PRN Reason: Interaction Checking Stop: 02/19/19 11:43 Last Admin: 02/15/19 11:44 Dose: 116 ml Documented by: [id number] Lidocaine (Lidoderm 5%) 1 patch TD QAM [facility] Stop: 03/17/19 14:14 Last Admin: 02/18/19 08:08 Dose: 1 patch Documented by: [id number] Admin: 02/17/19 08:48 Dose: 1 patch Documented by: [id number] Admin: 02/16/19 09:14 Dose: 1 patch Documented by: [id number] Admin: 02/15/19 17:37 Dose: 1 patch Documented by: [id number] Magnesium Oxide (Mag-Ox) 400 mg PO QAM [facility] Stop: 03/18/19 08:59 Last Admin: 02/16/19 09:16 Dose: Not Given Documented by: [id number] Magnesium Oxide (Mag-Ox) 400 mg PO BID [facility] Stop: 03/18/19 08:59 Last Admin: 02/18/19 08:08 Dose: 400 mg Documented by: [id number] Admin: 02/17/19 20:25 Dose: 400 mg Documented by: [id number] Admin: 02/17/19 08:47 Dose: 400 mg Documented by: [id number] Admin: 02/16/19 21:50 Dose: 400 mg Documented by: [id number] Admin: 02/16/19 09:16 Dose: 400 mg Documented by: [id number] Miscellaneous (Remove Lidoderm Patch) 1 ea N/A DAILY@2100 [facility] Stop: 03/17/19 20:59 Last Admin: 02/17/19 20:24 Dose: 1 ea Documented by: [id number] Admin: 02/16/19 21:53 Dose: 1 ea Documented by: [id number] Admin: 02/15/19 19:59 Dose: 1 ea Documented by: [id number] Multivitamins/Minerals (Multivitamin W/ Minerals Tab) 1 tab PO QAM [facility] Stop: 03/18/19 08:59 Last Admin: 02/18/19 08:08 Dose: 1 tab Documented by: [id number] Admin: 02/17/19 08:48 Dose: 1 tab Documented by: [id number] Admin: 02/16/19 09:16 Dose: 1 tab Documented by: [id number] Ondansetron HCl (Zofran) 4 mg IV NOW STA Stop: 02/15/19 10:22 Last Admin: 02/15/19 10:57 Dose: 4 mg Documented by: [id number] Ondansetron HCl (Zofran) 4 mg IV Q6H PRN PRN Reason: nausea Stop: 03/17/19 14:14 Last Admin: 02/16/19 02:40 Dose: 4 mg Documented by: [id number] Admin: 02/15/19 17:22 Dose: 4 mg Documented by: [id number] Oxycodone HCl (Roxicodone Immediate Rel) 5 mg PO Q4 PRN PRN Reason: Pain Stop: 03/02/19 16:51 Last Admin: 02/17/19 08:00 Dose: 5 mg Documented by: [id number] Admin: 02/17/19 01:25 Dose: 5 mg Documented by: [id number] Oxycodone HCl (Roxicodone Immediate Rel) 5 mg PO NOW STA Stop: 02/18/19 00:02 Last Admin: 02/18/19 00:16 Dose: 5 mg Documented by: [id number] Polyethylene Glycol (Miralax Powder Packet) 17 gm PO DAILY PRN PRN Reason: Constipation Stop: 03/17/19 14:10 Last Admin: 02/17/19 20:30 Dose: 17 gm Documented by: [id number] Potassium Chloride (Klor-Con M20) 20 meq PO NOW ONE Stop: 02/17/19 08:46 Last Admin: 02/17/19 08:47 Dose: 20 meq Documented by: [id number] Senna/Docusate Sodium (Senokot S) 1 tab PO QAM [facility] Stop: 03/18/19 09:44 Last Admin: 02/18/19 08:11 Dose: 1 tab Documented by: [id number] Admin: 02/17/19 08:49 Dose: 1 tab Documented by: [id number] Admin: 02/16/19 12:35 Dose: 1 tab Documented by: [id number] Vitamin B Complex (Vitamin B Complex) [facility] [place] Stop: 03/18/19 08:59 Last Admin: 02/18/19 08:08 Dose: 1 tab Documented by: [id number] Admin: 02/17/19 08:49 Dose: 1 tab Documented by: [id number] Admin: 02/16/19 09:16 Dose: 1 tab Documented by: [id number] Vitamin D (Vitamin D3) 1,000 units [facility] [place] Stop: 03/18/19 08:59 Last Admin: 02/18/19 08:08 Dose: 1,000 units Documented by: [id number] Admin: 02/17/19 08:47 Dose: 1,000 units Documented by: [id number] Admin: 02/16/19 09:16 Dose: 1,000 units Documented by: [id number] Medical Decision Making Differential Diagnosis Differential Diagnosis includes but is not limited to progression of metastatic disease, dehydration, stroke, anemia, hypoglycemia, hyponatremia, hypernatremia, urinary tract infection, pneumonia, bronchitis, sepsis, gastroenteritis, additional abdominal pathology, metabolic abnormalities and infections. Medical Records Attestation: I reviewed the patient's medical records. Home Medications Current Medication List: was personally reviewed by me Laboratory Data Attestation: I reviewed the patient's lab results. Result diagrams: 02/17/19 06:54 02/17/19 06:54 Lab Results 02/15/19 02/15/19 02/15/19 Range/Units 10:50 10:50 10:50 WBC 11.06 H (4.8-10.8) K/uL RBC 2.63 L (4.2-5.4) M/uL Hgb 9.0 L (12.0-16.0) g/dL Hct 26.9 L (37-47) % MCV 102.3 H (80-100) fL MCH 34.2 H (25-34) pg MCHC 33.5 (32-36) g/dL RDW Std Deviation 70.8 H (36.4-46.3) fL RDW Coeff of Nikki 19.2 H (11.5-14.5) % Plt Count 112 L (130-400) K/uL MPV 9.4 (7.4-10.4) fL Immature Gran % (Auto) 1.1 % Neut % (Auto) 79.4 % Lymph % (Auto) 7.9 % [place] % (Auto) 11.0 % Eos % (Auto) 0.5 % Baso % (Auto) 0.1 % Immature Gran # (Auto) 0.12 H (0.00-0.02) K/uL Neut # (Auto) 8.79 H (1.4-6.5) K/uL Lymph # (Auto) 0.87 L (1.2-3.4) K/uL [place] # (Auto) 1.22 H (0.11-0.59) K/uL Eos # (Auto) 0.05 (0-0.5) K/uL Baso # (Auto) 0.01 (0-0.2) K/uL Sodium 133 L (136-145) mmol/L Potassium 3.2 L (3.5-5.1) mmol/L Chloride 99 (98-107) mmol/L Carbon Dioxide 29 (21-32) mmol/L Anion Gap 5.0 (3-11) BUN 16 (7-18) mg/dl Creatinine 0.73 (0.6-1.2) mg/dl Est Cr Clr Drug Dosing 86.8 ml/min Est GFR ( Amer) 100.9 Est GFR (Non-Af Amer) 87.0 BUN/Creatinine Ratio 21.9 H (10-20) Glucose 92 (70-99) mg/dl Calcium 10.3 H (8.5-10.1) mg/dl Phosphorus (2.5-4.9) mg/dl Magnesium 1.4 L (1.8-2.4) mg/dl Total Bilirubin 0.5 (0.2-1) mg/dl AST 24 (15-37) U/L ALT 24 (12-78) U/L Alkaline Phosphatase 110 (45-117) U/L Total Protein 7.0 (6.4-8.2) gm/dl Albumin 2.7 L (3.4-5.0) gm/dl Globulin 4.3 H (2.5-4.0) gm/dl Albumin/Globulin Ratio 0.6 L (0.9-2) TSH 1.800 (0.300-4.500) uIu/ml Urine Color Yellow Urine Appearance Clear (Clear) Urine pH 7.0 (4.5-7.5) Ur Specific [place] 1.016 (1.000-1.030) Urine Protein Negative (Negative) Urine Glucose (UA) Negative (Negative) Urine Ketones Negative (Negative) Urine Blood Negative (Negative) Urine Nitrite Negative (Negative) Urine Bilirubin Negative (Negative) Urine Urobilinogen Negative (Negative) Ur Leukocyte Esterase Negative (Negative) 02/15/19 Range/Units 10:50 WBC (4.8-10.8) K/uL RBC (4.2-5.4) M/uL Hgb (12.0-16.0) g/dL Hct (37-47) % MCV (80-100) fL MCH (25-34) pg MCHC (32-36) g/dL RDW Std Deviation (36.4-46.3) fL RDW Coeff of Nikki (11.5-14.5) % Plt Count (130-400) K/uL MPV (7.4-10.4) fL Immature Gran % (Auto) % Neut % (Auto) % Lymph % (Auto) % [place] % (Auto) % Eos % (Auto) % Baso % (Auto) % Immature Gran # (Auto) (0.00-0.02) K/uL Neut # (Auto) (1.4-6.5) K/uL Lymph # (Auto) (1.2-3.4) K/uL [place] # (Auto) (0.11-0.59) K/uL Eos # (Auto) (0-0.5) K/uL Baso # (Auto) (0-0.2) K/uL Sodium (136-145) mmol/L Potassium (3.5-5.1) mmol/L Chloride (98-107) mmol/L Carbon Dioxide (21-32) mmol/L Anion Gap (3-11) BUN (7-18) mg/dl Creatinine (0.6-1.2) mg/dl Est Cr Clr Drug Dosing ml/min Est GFR ( Amer) Est GFR (Non-Af Amer) BUN/Creatinine Ratio (10-20) Glucose (70-99) mg/dl Calcium (8.5-10.1) mg/dl Phosphorus 2.8 (2.5-4.9) mg/dl Magnesium (1.8-2.4) mg/dl Total Bilirubin (0.2-1) mg/dl AST (15-37) U/L ALT (12-78) U/L Alkaline Phosphatase (45-117) U/L Total Protein (6.4-8.2) gm/dl Albumin (3.4-5.0) gm/dl Globulin (2.5-4.0) gm/dl Albumin/Globulin Ratio (0.9-2) TSH (0.300-4.500) uIu/ml Urine Color Urine Appearance (Clear) Urine pH (4.5-7.5) Ur Specific [place] (1.000-1.030) Urine Protein (Negative) Urine Glucose (UA) (Negative) Urine Ketones (Negative) Urine Blood (Negative) Urine Nitrite (Negative) Urine Bilirubin (Negative) Urine Urobilinogen (Negative) Ur Leukocyte Esterase (Negative) Imaging Data Radiologist's Impression: Radiology results as stated below per my review and the radiologist's interpretation: XR chest 1V portable HISTORY: weakness COMPARISON: Chest 02/05/2019. FINDINGS: No pneumothorax. There is again noted a masslike density within the right lung base. This has increased in size. Trace right pleural effusion. The left lung is clear. Left subclavian Port-A-Cath terminates at the SVC. The heart is normal in size. IMPRESSION: Slight increase in size in the right middle lobe mass with a trace right pleural effusion. Electronically signed by: Javed Jimenez M.D. 02/15/2019 10:[address] OF THE HEAD WITHOUT CONTRAST CLINICAL HISTORY: Weakness. History of metastatic cervical cancer. COMPARISON STUDY: MRI of the brain December 16, 2018. Head CT February 05, 2019. TECHNIQUE: Helical axial images of the head were obtained without IV contrast. Automated exposure control was utilized for the study. A dose lowering technique was utilized adhering to the principles of ALARA. FINDINGS: No acute intracranial hemorrhage, midline shift or mass effect is present. The ventricular system is unremarkable. The basilar cisterns are patent. No extra-axial collections are present. There are no findings to suggest acute dural sinus thrombosis or acute territorial infarct. Subtle hypodensity within the left temporal lobe on axial image 8 of is similar to head CT of February 05, 2019. This is less conspicuous when compared to PET/CT of December 12, 2018. There are no suspicious calvarial lesions. IMPRESSION: 1. No acute intracranial findings. 2. Subtle hypodensity within the left temporal lobe at site of known metastasis which is similar to head CT of February 05, 2019 but decreased since head CT of December 12, 2018. Electronically signed by: Viet Reyes M.D. 02/15/2019 11:[address] ANGIOGRAPHY OF THE CHEST, PULMONARY EMBOLUS PROTOCOL CLINICAL HISTORY: Chest pain. History of cervical cancer. COMPARISON STUDY: Chest CT December 12, 2018. Chest radiograph February 15, 2019. TECHNIQUE: Following IV administration of 116 mL of Optiray-320, helical axial images of the chest were obtained utilizing the pulmonary embolus protocol. Maximal intensity projections and sagittal and coronal reformats were viewed on an independent 3D workstation. IV contrast was administered without complication. Automated exposure control was utilized for the study. A dose lowering technique was utilized adhering to the principles of ALARA. CT DOSE: 1221.67 mGy.cm FINDINGS: No pulmonary emboli are identified. Several pulmonary arteries are narrowed by the right middle lobe mass. There is no evidence for thoracic aortic dissection. A left subclavian [id number] is in place. Multiple enlarged mediastinal lymph nodes have moderately increased in size since CT of December 12, 2018. A large right middle lobe mass has increased in size. This mass now measures 9.6 cm. It previously measured 7.7 cm. A trace pericardial effusion is noted with suspected pericardial implants. Cardiophrenic angle nodes have increased in size. A moderate right pleural effusion has developed. There is no pneumothorax. Right lower lobe opacities suggest atelectasis. There is no consolidation to suggest pneumonia. Interlobular septal thickening within the right lung is noted. The right superior pulmonary vein is narrowed by the right middle lobe mass. A lytic lesion within the left aspect of the T8 vertebral body since prior exam. There is a mild associated fracture involving the superior endplate. Multiple hepatic metastases have significantly increased since exam of December 12, 2018. IMPRESSION: 1. No pulmonary emboli identified. 2. Significant progression of metastatic disease since CT of December 12, 2018, as described above, with progression of the right middle lobe mass, thoracic lymphadenopathy, liver metastases and a new T8 lytic lesion with pathologic fracture. Moderate right pleural effusion. Electronically signed by: Viet Reyes M.D. 02/15/2019 12:09 PM ABDOMEN AND PELVIS CT WITH IV CONTRAST CT DOSE: HISTORY: Abdominal distention, abd pain, cervical cancer TECHNIQUE: Multiaxial CT images of the abdomen and pelvis were performed following the use of intravenous contrast. A dose lowering technique was utilized adhering to the principles of ALARA. COMPARISON STUDY: Abdomen and pelvis CT 12/12/2018. FINDINGS: Increase in size in the right middle lobe mass which currently measures 10 x 9 cm. This is better appreciated on the same day chest CTA. There is a new small right pleural effusion. Multiple right anterior diaphragmatic soft tissue nodules with the largest measuring 2.7 cm. These also increased in size and are consistent with metastatic disease. No pneumoperitoneum. No pneumatosis. No suspicious lytic are blastic osseous lesions. There are 5 peripheral enhancing hypodense masses within the liver. Dominant lesion within the left hepatic lobe measures 3.3 cm. These are consistent with metastatic foci and have progressed in the interval. The gallbladder, spleen, adrenal glands, pancreas, and kidneys are unremarkable. No retroperitoneal lymphadenopathy. No hydronephrosis. The bladder is unremarkable. Multiple heterogeneous uterine masses. Some of these demonstrate calcification and therefore favor fibroids. These remain unchanged. No bowel wall thickening or obstruction. Colonic diverticulosis. IMPRESSION: 1. Interval progression of the metastatic disease within the lower chest including a new small right pleural effusion as described above. Please refer to the same day chest CTA for further evaluation. 2. Interval progression of the hepatic metastatic disease. 3. No bowel wall thickening or obstruction. 4. Additional findings as described above. Electronically signed by: Javed Jimenez M.D. 02/15/2019 12:[address] DOSE: HISTORY: mets cervical cancer, leg weakness TECHNIQUE: Multiaxial CT images of the lumbar spine were performed and reformatted in the sagittal and coronal plane without the use of contrast. A dose lowering technique was utilized adhering to the principles of ALARA. COMPARISON: None. FINDINGS: No fractures. No subluxation. Paraspinal soft tissues are unremarkable. No severe central canal or neural foraminal narrowing by CT technique. Disc spaces are preserved for age. The sacrum is intact. IMPRESSION: No fractures within the lumbar spine. Electronically signed by: Javed Jimenez M.D. 02/15/2019 12:02 PM ECG Data Attestation: I personally reviewed and interpreted this ECG as follows: Indication: + tachycardia and + weakness Rate (beats per minute): 105 Rhythm: + sinus tachycardia ECG Intervals/blocks: + Normal QT ECG ST segments: no ST depression and no ST elevation ECG Findings: + Other (Non-specific T wave flattening inferiorly ); no PACs and no PVCs Blood Pressure Blood Pressure Findings: Elevated blood pressure Blood Pressure Disposition: further management by hospitalist Impression & Plan Metastasis from cervical cancer, Hypomagnesemia, Hypokalemia, Pleural effusion on right, Dehydration Discharge Plan Visit Data *Final* Discharge Date/Time: 02/15/19 15:08 Chief Complaint: Illness Stated Complaint: CANCER PT, REF BY , PAIN ALL OVER, LETHARGIC ED Provider: Courtney Chavarria Discharge Problem: Metastasis from cervical cancer, Hypomagnesemia, Hypokalemia, Pleural effusion on right, Dehydration Patient Disposition: Admitted As Inpatient Discharge Instructions Interventions: ED Discharge Assessment Last Done: 02/15/19 15:08 The scribe's documentation has been prepared under my direction and personally reviewed by me in its entirety. I confirm that the note above accurately reflect s all work, treatment, procedures, and medical decision making performed by me.
[2019-02-15] MEDS: GABAPENTIN 300 MG CAP PO SCH (20:00)
--- NOTE | 2019-02-15 20:52 | Ultrasound Report ---
US venous doppler LE BI HISTORY: Pain. Edema. pain w hx of cancer, r/o DVT COMPARISON STUDY: None. FINDINGS: There is normal compressibility, flow, and augmentation within the bilateral lower extremit y deep venous systems. IMPRESSION: No DVT within the right or left lower extremity. The above report was generated using voice recognition software. It may contain grammatical, syntax or spelling errors. Electronically signed by: Devan Obregon M.D. 02/15/2019 8:51 PM
--- NOTE | 2019-02-15 23:03 | Consultation Report ---
DATE OF CONSULTATION: 02/15/2019 SURGICAL CONSULTATION REASON FOR CONSULTATION: Pleural effusion. HISTORY OF PRESENT ILLNESS: Mrs. Irvin is a 64-year-old female who is known to our service. She has a history of metastatic BILLET HEADER cancer and she was referred to Dr. Somers for mediastinal adenopathy as well as a right lung mass. Dr. Somers took the patient to the operating room on 02/02/2019 and he performed an endobronchial ultrasound as well as a fiberoptic bronchoscopy with destruction of the endotracheal tumor. The patient's pathology from this procedure was reviewed and the patient was noted to have moderately differentiated squamous cell carcinoma that was found on the right middle lobe tumor biopsies. She was also noted to have a metastatic squamous cell carcinoma at the level 11 R-nodes, the level 4 L-nodes as well as level 7 nodes that showed rare malignant epithelial cells consistent with her history of carcinoma. The patient was scheduled to see Dr. Somers in the office today; however, she was unable to keep this appointment as she developed some pain on the right side of her flank that was worse with deep inspirations along with weakness, nausea, vomiting and she therefore presented to the Emergency Department. In the Emergency Department, the patient did have extensive evaluation including a CT scan of her chest that was negative for pulmonary emboli; however, she was noted to have a moderate pleural effusion. There was evidence of progression of metastatic disease with increased size of mediastinal lymph nodes, suspected pericardial implants as well as a lytic lesion in the left aspect of the T8 vertebral body. Hepatic metastases were also noted on this study. CT scan of her head was negative for acute intracranial process. She had a lumbar spine CT scan that was negative for fractures and she was also noted to have a CT scan of her abdomen and pelvis that showed progression of hepatic mets, no evidence of bowel obstruction was noted. The patient had labs where white blood cell count was 11.0, hemoglobin and hematocrit of 9.0 and 26.9, her platelet count is 112,000. Chemistry profile showed sodium of 133, potassium 3.2. Her BUN and creatinine were both noted to be normal. Magnesium was noted to be 1.4. We are asked to see the patient due to the findings of pleural effusion on her CT scan. I visited with the patient in room 221. I had a lengthy discussion with the patient on her presenting symptoms. She said that she is really not short of breath, but she did describe some pain in her right flank and back area that is worse with deep inspirations. She also had some associated nausea. She also noted some generalized weakness of her lower extremities. Concerning other symptomatology, she has not had any falls, head injuries, visual changes, tinnitus or sore throat. She denies any neck pain. She denies any substernal chest pain. When questioned further, she initially said she was not short of breath, but did admit to some dyspnea on exertion. She had some nausea with no abdominal pain. She denies any myalgias. At the time of my exam, the patient was resting comfortably in bed and did not appear to be dyspneic. PAST MEDICAL HISTORY: Includes the followin. History of chronic anemia. 2. History of GERD. 3. History of diverticular disease. 4. Hypertension. 5. History of metastatic cervical cancer. 6. Neuropathy. PAST SURGICAL HISTORY: Includes: 1. Bronchoscopy as noted above. 2. History of cervical biopsy. 3. History of dental extractions. 4. Tubal ligation. 5. History of port placement. FAMILY HISTORY: Her mother had breast cancer. SOCIAL HISTORY: The patient is a lifetime nonsmoker. ALLERGIES: SHE HAS LISTED ALLERGIES TO IV CONTRAST, PENICILLIN AND SULFA. HOME MEDICATIONS: Include: 1. P.r.n. Tylenol. 2. Norvasc 5 mg daily. 3. Vitamin C 500 mg daily. 4. Centrum multivitamin 1 daily. 5. Vitamin D3 25 mcg daily. 6. Coenzyme Q10 100 mg daily. 7. Dexamethasone 4 mg every other day. 8. Digestive enzymes daily. 9. Gabapentin 300 mg 3 times daily. 10. Magnesium 400 mg daily. 11. Vitamin B complex daily. REVIEW OF SYSTEMS: As described above. PHYSICAL EXAMINATION: VITAL SIGNS: The patient's blood pressure is 150/83, her pulse is 112 and regular, respirations are 20, they are nonlabored. She is afebrile with temperature of 37.0. I did check her pulse ox myself and it was 95% on room air. GENERAL: She is alert. She is oriented x3, in no distress. HEENT: Head is atraumatic, normocephalic. Eyes: Pupils equal, round react to light and accommodation. Extraocular motions are intact. Ears: Auditory acuity is grossly intact. Nose: Nasal patency was intact. Sinuses are nontender. Mouth is moist without exudates. NECK: Supple. There is no tracheal shift or stridor. CARDIOVASCULAR: Regular rate and rhythm. LUNGS: The patient's lungs were overall clear with slight decrease at the right base. She was moving air well without use of accessory muscles. No wheezing or rhonchi were noted. ABDOMEN: Soft and nontender. EXTREMITIES: Revealed no cyanosis, clubbing or edema. NEUROLOGIC: Revealed she can move all 4 extremities. No focal deficits. DIAGNOSTIC DATA: As noted above. IMPRESSION: A 64-year-old female with metastatic cervical cancer. PLAN: The patient has been admitted by the medical service. Her pigment furnace tender has been consulted for recommendations regarding further care. Orthopedic surgery has been consulted for a lytic lesion fracture noted at T8. We will await their input. Concerning her pleural effusion, it did appear enlarged by chest x-ray; however, a CT is much more sensitive to this. We may consider performing an ultrasound-guided thoracentesis if ultrasound shows that the amount of fluid is large enough to warrant thoracentesis. Dr. Somers will see the patient tomorrow morning and go over her pathology results from her recent bronchoscopies. We will follow along with the patient while she is in the hospital.
[2019-02-16] MEDS: ONDANSETRON INJ 2 MG/ML 2 ML VIAL IV PRN (02:40)
[2019-02-16] MEDS: HYDROmorphone INJ 1 MG/ML SYRINGE IV PRN ×2 (06:28→21:01)
[2019-02-16 06:43] LABS: Hematocrit (blood only) 25.3 % (37-47); Hemoglobin 8.6 g/dL (12.0-16.0); Mean Corpuscular Hemoglobin 34.4 pg (25-34); Mean Corpuscular Volume 101.2 fL (80-100); RDW Coefficient of Variation 19.2 % (11.5-14.5); RDW Standard Deviation 70.1 fL (36.4-46.3); White Blood Count 7.97 K/uL (4.8-10.8)
[2019-02-16 07:14] LABS: BUN Creatinine Ratio 19.3 (10-20); Calcium 10.4 mg/dl (8.5-10.1); Creatinine Clr Calc Pharmacy 96.5 ml/min; Est GFR (African American) 108.7; Est GFR (Non-African American) 93.8; Magnesium 1.6 mg/dl (1.8-2.4); Potassium 3.6 mmol/L (3.5-5.1)
[2019-02-16 07:15] LABS: Phosphorus 2.6 mg/dl (2.5-4.9)
[2019-02-16 07:19] LABS: Mean Platelet Volume 9.1 fL (7.4-10.4); Platelet Count 104 K/uL (130-400); Platelet Estimate Decreased (Normal)
--- NOTE | 2019-02-16 08:49 | Orthopedic Consultation ---
Date of Consultation February 16, 2019 Assessment & Plan (1) Metastasis from cervical cancer: This probably be treated without surgical intervention. I will order a brace for support see if that is effective in a degree. I suggest he tries a brace on at the bedside before being purchased Present on Admission?: Yes (2) T8 vertebral fracture: History of Present Illness Reason for Consultation: Chief complaint: Midthoracic back pain History Heather is delightful she is 64 she has metastatic carcinoma spread to her upper thoracic spine. Compression fracture of the T8 vertebrae that will be treated conservatively. Attending Physician: Supa Monreal DO Allergies Allergy/AdvReac Type Severity Reaction Status Date / Time Iodinated Contrast Media Allergy Intermediate pruritus Verified 02/15/19 11:28 Penicillins Allergy Mild rash, Verified 02/15/19 11:28 nausea Sulfa (Sulfonamide Allergy Mild rash,nausea Verified 02/15/19 11:28 Antibiotics) Home Medications Home Medications Medication Instructions Recorded Confirmed Type acetaminophen [Mapap 1,000 mg PO Q8H PRN #30 tab 12/18/18 02/15/19 Rx (acetaminophen)] gabapentin 300 mg capsule 300 mg PO TID 12/20/18 02/15/19 History magnesium 200 mg tablet 400 mg PO QAM tab 12/20/18 02/15/19 History dexamethasone 4 mg tablet 4 mg PO Q OTHER DAY 12/31/18 02/15/19 History Centrum Silver Women 1 tab PO QAM 01/25/19 02/15/19 History ascorbic acid (vitamin C) [Vitamin 500 mg PO QAM 01/25/19 02/15/19 History C] cholecalciferol (vitamin D3) 25 mcg PO QAM 01/25/19 02/15/19 History [Vitamin D3] coenzyme Q10 [Co Q-10] 100 mg PO QAM 01/25/19 02/15/19 History digestive enzymes 1 cap PO QAM 01/25/19 02/15/19 History amlodipine 5 mg tablet 5 mg PO QAM #90 tab 02/01/19 02/15/19 Rx vitamin B complex 1 tab PO QAM 02/15/19 02/15/19 History Patient History Medical History Anemia chronic (hgb in the 7-9 range over past month per chart review) most recent blood transfusion 12/2018 (felt chemo related) Brain lesion metastatic lesion of left temporal lobe per 12/16/17 brain MRI Diverticular disease GERD (gastroesophageal reflux disease) controlled Hypertension Lung mass Mediastinal lymphadenopathy Metastasis from cervical cancer Neuropathy 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- most recent chemo 11/2018;on dexamethasone 4mg every other day (started in setting of chemo/xrt)-- now weaning off Surgical History History of cervical biopsy History of surgery insertion of Tandom & Ovoid x 5 History of tooth extraction History of tubal ligation History of vascular access device Left chest wall Family History Mother Breast cancer Hypertension Father Cancer Other No family history of adverse response to anesthesia Social History Preferred Language: Malay Communication Ability: Effective Human Resource Intern Required: No Beliefs That Will Affect Care: None marital status: Current Living Situation: Spouse Feels Safe at Home: Yes Smoking Status: Never smoker Second Hand Exposure: Yes (as a child and used to smoke in the house (stopped 1 year ago)) ; Hx Alcohol Use: No Hx Substance Use: No Dental Care, Regularly: No Seatbelt Use: always Review of Systems Review of Systems: She has no fever sweats chills paralysis. No unexplained weight loss as of yet. No chest pain shortness of breath Denies any neurosensory issues to the extremities Moderate musculoskeletal back pain Physical Exam Physical Exam: Pupils react to light and accommodation no blurred vision HEENT examination normal Lungs clear slight decreased breath sounds Abdomen soft nontender no referred pain Normal motor strength of the extremities upper and lower. No signs of hyperreflexia or spinal cord pressure Results & Data Vital Signs (Past 12 Hours) Vital Signs Temp Pulse Pulse Resp BP Pulse Ox 02/16/19 07:27 36.6 C 94 H 17 143/78 H 94 02/16/19 02:36 36.5 C 86 18 143/80 H 95 02/16/19 00:06 36.7 C 97 H 18 143/82 H 93 02/15/19 23:50 92 H PG Care Time/CCT Total # of Minutes Spent Total Time Spent with Patient: Total time spent is greater than 50% in coordination of care (as documented) at patient's floor/unit and/or counseling patient:
[2019-02-16] MEDS ORDERED: MAGNESIUM OXIDE 400 MG TAB PO SCH (09:00)
[2019-02-16] MEDS: LIDOCAINE 5% 1 PATCH TD SCH (09:14)
[2019-02-16] MEDS: CEROVITE ADV FORMULA TAB PO SCH (09:16)
[2019-02-16] MEDS: AMLODIPINE BESYLATE 5 MG TAB PO SCH (09:16)
[2019-02-16] MEDS: CHOLECALCIFEROL 1,000 UNITS TAB PO SCH (09:16)
[2019-02-16] MEDS: VITAMIN B COMPLEX TAB PO SCH (09:16)
[2019-02-16] MEDS: MAGNESIUM OXIDE 400 MG TAB PO SCH ×2 (09:16→21:50)
[2019-02-16] MEDS: ASCORBIC ACID 500 MG TAB PO SCH (09:16)
[2019-02-16] MEDS: GABAPENTIN 300 MG CAP PO SCH ×3 (09:16→21:50)
[2019-02-16] MEDS ORDERED: MAGNESIUM HYDROXIDE SUSP 30 ML UDC PO PRN (09:31)
--- NOTE | 2019-02-16 09:47 | Hospitalist Progress Note ---
Date of Service February 16, 2019 Assessment & Plan (1) Metastasis from cervical cancer: 64 yo F PMH metastatic cervical cancer with mets to brain and liver diagnosed in 2017 s/p chemotherapy and radiation 1) Metastatic squamous cell carcinoma from cervix with progressive mets to brain and liver, s/p chemotherapy and radiation - Dr. Magdaleno consulted for recommendations regarding chemotherapy management going forward - pain control with Dilaudid 1 mg Q4H PRN - venous LE Doppler negative for thrombi bilaterally 2) Electrolyte Abnormality - Mg 1.6 on admission, repleted with 400 mg MgOx BID PO - K 3.2 on admission, repleted to 3.6. Currently on IVF NS with 20mEq K rider at 50 ml/hr 3) Right middle lobe mass + Pleural effusion - s/p fiberoptic bronchoscopy with destruction of the endotracheal tumor on . - biopsy showed squamous cell carcinoma in line with previous cancer and spread of malignant cells to lymph nodes. See consultation note for further details. - Dr. Somers consulted for recommendations: benefit of drainage vs. symptomatic management. Per note, will consider ultrasound guided thoracentesis depending on fluid levels seen on ultrasound. 4) T8 Lytic Lesion - orthopedic surgery consulted - recommended conservative management with trial of back brace 5) HTN - continuing home dose of Norvasc 5 mg 6) Constipation - ordered milk of magnesia, docusate/senna PRN - last BM was 02/13 FEN/GI: regular diet, IVF NS with 20mEq K rider at 50 ml/hr DVT:Lovenox SubQ Dispo: Telemetry Code Status: Full Code (2) Electrolyte abnormality: (3) Pleural effusion on right: (4) T8 vertebral fracture: (5) Essential hypertension: (6) Generalized weakness: (7) Headache: (8) S/P bronchoscopy with biopsy: (9) Mass of middle lobe of right lung: Supervising Physician Co-Signing Physician Notes I personally examined the patient and verified all martínez points of history and exam, discussed case, and agree with decision making with Dr Uriostegui. feeling a good bit better - still back pain radiating around to under breast. does note shoulder pain but relates this to using cane more than walker. relates she should use walker more. notes will bring it in. discussed overall plan of care - dr cota has next steps outlined for her. vitals noted nad heent nc at mmm breathing unlabored no accessory muscles good effort no rashes no pallor or icterus. paraspinal muscles somewhat hypertonic but direct myofascial without pain improvement pain/weakness - appearing related to worsening cancer progression and mets -pain control -walker -PT/OT -home once pain under better control. DVT proph -lovenox stable for med/surg Subjective 64 yo F PMH metastatic cervical cancer with mets to brain and liver diagnosed in 2017 s/p chemotherapy and radiation. Sees Dr. Magdaleno for oncology management. New lung met biopsied in december by Dr. Somers; results showed Squamous cell carcinoma in line with previous met biopsies. She came to the hospital for worsening weakness and shortness of breath with pain on the right lower chest. CT head was negative for acute change -- showed pre-existing L temporal lobe met. CT Angio was negative for PE but did show progression of the right middle lobe mass and a T8 lytic lesion with pathologic fracture. CT Abd/Pelv shows progression of previous liver mets. Review of Systems Constitutional: no fever, no chills, no body aches and no fatigue Respiratory: + dyspnea on exertion; no cough, no dyspnea and no pain on inspiration Cardiovascular: + chest pain (right lower chest pain); no dyspnea and no edema Gastrointestinal: + nausea and + constipation; no abdominal pain, no vomiting and no diarrhea/loose stools Genitourinary: no dysuria Physical Exam Constitutional: cooperative; no acute distress and not ill appearing Neck: normal visual inspection Respiratory: normal respiratory effort and able to speak in complete sentences; no respiratory distress, no labored breathing, no retractions, no cough and no audible wheezes Auscultation: lungs clear to auscultation bilaterally; no crackles, no rales, no rhonchi and no wheezes Cardiovascular: Rate/Rhythm: regular rate and regular rhythm Heart Sounds: normal S1 and normal S2; no gallop, no murmur and no cardiac rub Vessels: posterior tibial pulses present Extremities: no pedal edema and no edema Gastrointestinal (Abdomen): Inspection/Auscultation: abdomen normal to inspection and normal bowel sounds; abdomen not distended Percussion/Palpation: abdomen soft; abdomen nontender, no guarding, abdomen not rigid and no abdominal mass Results & Data Vital Signs (Past 12 Hours) Vital Signs Temp Pulse Pulse Resp BP Pulse Ox 02/16/19 07:27 36.6 C 94 H 17 143/78 H 94 02/16/19 02:36 36.5 C 86 18 143/80 H 95 02/16/19 00:06 36.7 C 97 H 18 143/82 H 93 02/15/19 23:50 92 H 02/16/19 02/16/19 02/16/19 Range/Units 06:25 06:25 06:24 WBC 7.97 (4.8-10.8) K/uL RBC 2.50 L (4.2-5.4) M/uL Hgb 8.6 L (12.0-16.0) g/dL Hct 25.3 L (37-47) % MCV 101.2 H (80-100) fL MCH 34.4 H (25-34) pg MCHC 34.0 (32-36) g/dL RDW Std Deviation 70.1 H (36.4-46.3) fL RDW Coeff of Nikki 19.2 H (11.5-14.5) % Plt Count 104 L (130-400) K/uL MPV 9.1 (7.4-10.4) fL Immature Gran % (Auto) % Neut % (Auto) % Lymph % (Auto) % [place] % (Auto) % Eos % (Auto) % Baso % (Auto) % Immature Gran # (Auto) (0.00-0.02) K/uL Neut # (Auto) (1.4-6.5) K/uL Lymph # (Auto) (1.2-3.4) K/uL [place] # (Auto) (0.11-0.59) K/uL Eos # (Auto) (0-0.5) K/uL Baso # (Auto) (0-0.2) K/uL Platelet Estimate Decreased L (Normal) Sodium 132 L (136-145) mmol/L Potassium 3.6 (3.5-5.1) mmol/L Chloride 99 (98-107) mmol/L Carbon Dioxide 27 (21-32) mmol/L Anion Gap 6.0 (3-11) BUN 13 (7-18) mg/dl Creatinine 0.65 (0.6-1.2) mg/dl Est Cr Clr Drug Dosing 96.5 ml/min Est GFR ( Amer) 108.7 Est GFR (Non-Af Amer) 93.8 BUN/Creatinine Ratio 19.3 (10-20) Glucose 105 H (70-99) mg/dl Calcium 10.4 H (8.5-10.1) mg/dl Phosphorus 2.6 (2.5-4.9) mg/dl Magnesium 1.6 L (1.8-2.4) mg/dl Total Bilirubin (0.2-1) mg/dl AST (15-37) U/L ALT (12-78) U/L Alkaline Phosphatase (45-117) U/L Total Protein (6.4-8.2) gm/dl Albumin (3.4-5.0) gm/dl Globulin (2.5-4.0) gm/dl Albumin/Globulin Ratio (0.9-2) TSH (0.300-4.500) uIu/ml Urine Color Urine Appearance (Clear) Urine pH (4.5-7.5) Ur Specific [place] (1.000-1.030) Urine Protein (Negative) Urine Glucose (UA) (Negative) Urine Ketones (Negative) Urine Blood (Negative) Urine Nitrite (Negative) Urine Bilirubin (Negative) Urine Urobilinogen (Negative) Ur Leukocyte Esterase (Negative) Hepatitis C Ab Screen Pending 02/15/19 02/15/19 02/15/19 Range/Units 10:50 10:50 10:50 WBC (4.8-10.8) K/uL RBC (4.2-5.4) M/uL Hgb (12.0-16.0) g/dL Hct (37-47) % MCV (80-100) fL MCH (25-34) pg MCHC (32-36) g/dL RDW Std Deviation (36.4-46.3) fL RDW Coeff of Nikki (11.5-14.5) % Plt Count (130-400) K/uL MPV (7.4-10.4) fL Immature Gran % (Auto) % Neut % (Auto) % Lymph % (Auto) % [place] % (Auto) % Eos % (Auto) % Baso % (Auto) % Immature Gran # (Auto) (0.00-0.02) K/uL Neut # (Auto) (1.4-6.5) K/uL Lymph # (Auto) (1.2-3.4) K/uL [place] # (Auto) (0.11-0.59) K/uL Eos # (Auto) (0-0.5) K/uL Baso # (Auto) (0-0.2) K/uL Platelet Estimate (Normal) Sodium 133 L (136-145) mmol/L Potassium 3.2 L (3.5-5.1) mmol/L Chloride 99 (98-107) mmol/L Carbon Dioxide 29 (21-32) mmol/L Anion Gap 5.0 (3-11) BUN 16 (7-18) mg/dl Creatinine 0.73 (0.6-1.2) mg/dl Est Cr Clr Drug Dosing 86.8 ml/min Est GFR ( Amer) 100.9 Est GFR (Non-Af Amer) 87.0 BUN/Creatinine Ratio 21.9 H (10-20) Glucose 92 (70-99) mg/dl Calcium 10.3 H (8.5-10.1) mg/dl Phosphorus 2.8 (2.5-4.9) mg/dl Magnesium 1.4 L (1.8-2.4) mg/dl Total Bilirubin 0.5 (0.2-1) mg/dl AST 24 (15-37) U/L ALT 24 (12-78) U/L Alkaline Phosphatase 110 (45-117) U/L Total Protein 7.0 (6.4-8.2) gm/dl Albumin 2.7 L (3.4-5.0) gm/dl Globulin 4.3 H (2.5-4.0) gm/dl Albumin/Globulin Ratio 0.6 L (0.9-2) TSH 1.800 (0.300-4.500) uIu/ml Urine Color Yellow Urine Appearance Clear (Clear) Urine pH 7.0 (4.5-7.5) Ur Specific [place] 1.016 (1.000-1.030) Urine Protein Negative (Negative) Urine Glucose (UA) Negative (Negative) Urine Ketones Negative (Negative) Urine Blood Negative (Negative) Urine Nitrite Negative (Negative) Urine Bilirubin Negative (Negative) Urine Urobilinogen Negative (Negative) Ur Leukocyte Esterase Negative (Negative) Hepatitis C Ab Screen 02/15/19 Range/Units 10:50 WBC 11.06 H (4.8-10.8) K/uL RBC 2.63 L (4.2-5.4) M/uL Hgb 9.0 L (12.0-16.0) g/dL Hct 26.9 L (37-47) % MCV 102.3 H (80-100) fL MCH 34.2 H (25-34) pg MCHC 33.5 (32-36) g/dL RDW Std Deviation 70.8 H (36.4-46.3) fL RDW Coeff of Nikki 19.2 H (11.5-14.5) % Plt Count 112 L (130-400) K/uL MPV 9.4 (7.4-10.4) fL Immature Gran % (Auto) 1.1 % Neut % (Auto) 79.4 % Lymph % (Auto) 7.9 % [place] % (Auto) 11.0 % Eos % (Auto) 0.5 % Baso % (Auto) 0.1 % Immature Gran # (Auto) 0.12 H (0.00-0.02) K/uL Neut # (Auto) 8.79 H (1.4-6.5) K/uL Lymph # (Auto) 0.87 L (1.2-3.4) K/uL [place] # (Auto) 1.22 H (0.11-0.59) K/uL Eos # (Auto) 0.05 (0-0.5) K/uL Baso # (Auto) 0.01 (0-0.2) K/uL Platelet Estimate (Normal) Sodium (136-145) mmol/L Potassium (3.5-5.1) mmol/L Chloride (98-107) mmol/L Carbon Dioxide (21-32) mmol/L Anion Gap (3-11) BUN (7-18) mg/dl Creatinine (0.6-1.2) mg/dl Est Cr Clr Drug Dosing ml/min Est GFR ( Amer) Est GFR (Non-Af Amer) BUN/Creatinine Ratio (10-20) Glucose (70-99) mg/dl Calcium (8.5-10.1) mg/dl Phosphorus (2.5-4.9) mg/dl Magnesium (1.8-2.4) mg/dl Total Bilirubin (0.2-1) mg/dl AST (15-37) U/L ALT (12-78) U/L Alkaline Phosphatase (45-117) U/L Total Protein (6.4-8.2) gm/dl Albumin (3.4-5.0) gm/dl Globulin (2.5-4.0) gm/dl Albumin/Globulin Ratio (0.9-2) TSH (0.300-4.500) uIu/ml Urine Color Urine Appearance (Clear) Urine pH (4.5-7.5) Ur Specific [place] (1.000-1.030) Urine Protein (Negative) Urine Glucose (UA) (Negative) Urine Ketones (Negative) Urine Blood (Negative) Urine Nitrite (Negative) Urine Bilirubin (Negative) Urine Urobilinogen (Negative) Ur Leukocyte Esterase (Negative) Hepatitis C Ab Screen Resident Activity Tracking Resident Involvement: Resident Care Provided Care Provided: Adult Hospital Medicine (1) Headache Headache chronicity pattern: acute headache Headache type: unspecified Intractability: not intractable Qualified Code(s): R51 - Headache
--- NOTE | 2019-02-16 11:59 | Surgery Progress Note ---
Date of Service February 16, 2019 Assessment & Plan (1) Pleural effusion on right: Present on Admission?: Yes (2) Metastasis from cervical cancer: I had a long talk with Heather this morning. I explained that her biopsies from the endobronchial ultrasound showed metastatic disease contralaterally and her mediastinal lymph nodes. This is not surprising. Her right pleural effusion is homogenous but small. I would follow this with serial chest x-rays. I do not believe we need to perform a thoracentesis therapeutically at this point but we will continue to follow. Present on Admission?: Yes Subjective Patient complains of some shortness of breath when she lies flat. Physical Exam Physical Exam: She does have decreased breath sounds in the right base. She is on room air with 94% saturations and her vital signs are stable. Results & Data Vital Signs (Past 12 Hours) Vital Signs Temp Pulse Resp BP Pulse Ox 02/16/19 11:18 36.5 C 90 17 132/75 94 02/16/19 07:27 36.6 C 94 H 17 143/78 H 94 02/16/19 02:36 36.5 C 86 18 143/80 H 95 02/16/19 00:06 36.7 C 97 H 18 143/82 H 93 PG Care Time/CCT Total # of Minutes Spent Total Time Spent with Patient: Total time spent is greater than 50% in coordination of care (as documented) at patient's floor/unit and/or counseling patient:
[2019-02-16] MEDS: NSS + 20MEQ KCL 20 MEQ/1,000 ML BAG IV SCH (12:35)
[2019-02-16] MEDS: DOCUSATE SODIUM/SENNA 50/8.6MG TAB PO SCH (12:35)
[2019-02-16] MEDS: ENOXAPARIN INJ 40 MG/0.4 ML SYR SQ SCH (15:43)
[2019-02-16] MEDS: ACETAMINOPHEN 500 MG TAB PO PRN (15:46)
--- NOTE | 2019-02-16 16:55 | Billing Data ---
Coding Level of Care Code 32155 Subseq Hosp Care Lvl 3
--- NOTE | 2019-02-16 17:29 | Oncology Consultation ---
Date of Consultation February 16, 2019 History of Present Illness Attending Physician: Supa Monreal DO Allergies Allergy/AdvReac Type Severity Reaction Status Date / Time Iodinated Contrast Media Allergy Intermediate pruritus Verified 02/15/19 11:28 Penicillins Allergy Mild rash, Verified 02/15/19 11:28 nausea Sulfa (Sulfonamide Allergy Mild rash,nausea Verified 02/15/19 11:28 Antibiotics) Home Medications Home Medications Medication Instructions Recorded Confirmed Type acetaminophen [Mapap 1,000 mg PO Q8H PRN #30 tab 12/18/18 02/15/19 Rx (acetaminophen)] gabapentin 300 mg capsule 300 mg PO TID 12/20/18 02/15/19 History magnesium 200 mg tablet 400 mg PO QAM tab 12/20/18 02/15/19 History dexamethasone 4 mg tablet 4 mg PO Q OTHER DAY 12/31/18 02/15/19 History Centrum Silver Women 1 tab PO QAM 01/25/19 02/15/19 History ascorbic acid (vitamin C) [Vitamin 500 mg PO QAM 01/25/19 02/15/19 History C] cholecalciferol (vitamin D3) 25 mcg PO QAM 01/25/19 02/15/19 History [Vitamin D3] coenzyme Q10 [Co Q-10] 100 mg PO QAM 01/25/19 02/15/19 History digestive enzymes 1 cap PO QAM 01/25/19 02/15/19 History amlodipine 5 mg tablet 5 mg PO QAM #90 tab 02/01/19 02/15/19 Rx vitamin B complex 1 tab PO QAM 02/15/19 02/15/19 History Patient History Medical History Anemia chronic (hgb in the 7-9 range over past month per chart review) most recent blood transfusion 12/2018 (felt chemo related) Brain lesion metastatic lesion of left temporal lobe per 12/16/17 brain MRI Diverticular disease GERD (gastroesophageal reflux disease) controlled Hypertension Lung mass Mediastinal lymphadenopathy Metastasis from cervical cancer Neuropathy 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- most recent chemo 11/2018;on dexamethasone 4mg every other day (started in setting of chemo/xrt)-- now weaning off Surgical History History of cervical biopsy History of surgery insertion of Tandom & Ovoid x 5 History of tooth extraction History of tubal ligation History of vascular access device Left chest wall Family History Mother Breast cancer Hypertension Father Cancer Other No family history of adverse response to anesthesia Social History Preferred Language: [place] Communication Ability: Effective Slate Roofer Required: No Beliefs That Will Affect Care: None marital status: Current Living Situation: Spouse Feels Safe at Home: Yes Smoking Status: Never smoker Second Hand Exposure: Yes (as a child and used to smoke in the house (stopped 1 year ago)) ; Hx Alcohol Use: No Hx Substance Use: No Dental Care, Regularly: No Seatbelt Use: always Results & Data Vital Signs (Past 12 Hours) Vital Signs Temp Pulse Resp BP Pulse Ox 02/16/19 11:18 36.5 C 90 17 132/75 94 02/16/19 07:27 36.6 C 94 H 17 143/78 H 94
[2019-02-16] MEDS: HEPARIN 100 UNIT/ML 5ML FLUSH FLUSH PRN (19:47)
[2019-02-17] MEDS: OXYCODONE HCL IR 5 MG TAB (IMMEDIATE RELEASE) PO PRN ×2 (01:25→08:00)
[2019-02-17] MEDS: HYDROmorphone INJ 1 MG/ML SYRINGE IV PRN (04:40)
[2019-02-17 07:06] LABS: Hematocrit (blood only) 25.5 % (37-47); Hemoglobin 8.6 g/dL (12.0-16.0); Mean Corpuscular Hemoglobin 34.4 pg (25-34); Mean Corpuscular Hgb Conc 33.7 g/dL (32-36); RDW Coefficient of Variation 18.8 % (11.5-14.5); RDW Standard Deviation 69.9 fL (36.4-46.3); White Blood Count 7.46 K/uL (4.8-10.8)
[2019-02-17 07:33] LABS: Basophils # (auto) 0.01 K/uL (0-0.2); Basophils % (auto) 0.1 %; Eosinophils # (auto) 0.04 K/uL (0-0.5); Eosinophils % (auto) 0.5 %; Immature Granulocytes # (auto) 0.08 K/uL (0.00-0.02); Immature Granulocytes % (auto) 1.1 %; Lymphocytes # (auto) 0.83 K/uL (1.2-3.4); Lymphocytes % (auto) 11.1 %; Mean Platelet Volume 9.3 fL (7.4-10.4); Monocytes # (auto) 0.77 K/uL (0.11-0.59); Monocytes % (auto) 10.3 %; Neutrophils # (auto) 5.73 K/uL (1.4-6.5); Neutrophils % (auto) 76.9 %; Platelet Count 82 K/uL (130-400); Platelet Estimate Decreased (Normal)
[2019-02-17 07:36] LABS: Albumin Level 2.5 gm/dl (3.4-5.0); BUN Creatinine Ratio 16.2 (10-20); Calcium 10.5 mg/dl (8.5-10.1); Creatinine Clr Calc Pharmacy 87.1 ml/min; Est GFR (African American) 100.9; Potassium 3.3 mmol/L (3.5-5.1)
[2019-02-17 07:39] LABS: Albumin Globulin Ratio 0.6 (0.9-2); Bilirubin,Total 0.4 mg/dl (0.2-1); Globulin 4.2 gm/dl (2.5-4.0); Total Protein 6.7 gm/dl (6.4-8.2)
--- NOTE | 2019-02-17 08:08 | Surgery Progress Note ---
Date of Service February 17, 2019 Assessment & Plan (1) Pleural effusion on right: Present on Admission?: Yes (2) Metastasis from cervical cancer: I had a long talk with Heather Irvin this morning. She was asking about possible etiologies and explained that most likely this is a malignant effusion. Again we do not need any diagnostic material however, I am a bit concerned with how different her physical exam is. We will check an AP and lateral chest x-ray today. I explained her there is a chance I may offer her a thoracentesis depending on the results. Present on Admission?: Yes Subjective Low we still has pain. She is on room air with no respiratory complaints but has not pushed herself. Physical Exam Physical Exam: I think she has worsening of the breath sounds in the right base compared to 2 days ago. Results & Data Vital Signs (Past 12 Hours) Vital Signs Temp Pulse Resp BP Pulse Ox 02/17/19 07:30 36.8 C 95 H 18 149/81 H 92 02/17/19 04:00 36.7 C 98 H 18 167/89 H 93 02/17/19 00:00 36.8 C 98 H 20 123/74 94 PG Care Time/CCT Total # of Minutes Spent Total Time Spent with Patient: Total time spent is greater than 50% in coordination of care (as documented) at patient's floor/unit and/or counseling patient:
--- NOTE | 2019-02-17 08:29 | XRay Report ---
XR chest 2V PA/lateral CLINICAL HISTORY: 64 years-old Female presenting with right pleural effusion. TECHNIQUE: PA and lateral views of the chest were obtained. COMPARISON: 02/15/2019. FINDINGS: Left subclavian Mediport terminates in the lower SVC and has been accessed. Cardiomediastinal silhoue tte normal. Elevation of the right hemidiaphragm may be present. Small to moderate right pleural effu junior. Extensive dense right basilar opacity as on prior. No pneumothorax. Degenerative changes of the thoracic spine. Upper abdomen normal. IMPRESSION: 1. Persistent small to moderate right pleural effusion. 2. Right basilar opacity corresponds to the mass at the right lung base evident on CT chest from 12/2018. Electronically signed by: Tacos Gibbs M.D. 02/17/2019 8:28 AM
[2019-02-17] MEDS ORDERED: POTASSIUM CHLORIDE 20 MEQ TABCR PO ONE (08:45)
[2019-02-17] MEDS: GABAPENTIN 300 MG CAP PO SCH ×3 (08:47→20:25)
[2019-02-17] MEDS: AMLODIPINE BESYLATE 5 MG TAB PO SCH (08:47)
[2019-02-17] MEDS: CHOLECALCIFEROL 1,000 UNITS TAB PO SCH (08:47)
[2019-02-17] MEDS: MAGNESIUM OXIDE 400 MG TAB PO SCH ×2 (08:47→20:25)
[2019-02-17] MEDS: LIDOCAINE 5% 1 PATCH TD SCH (08:48)
[2019-02-17] MEDS: dexAMETHasone 4 MG TAB PO SCH (08:48)
[2019-02-17] MEDS: CEROVITE ADV FORMULA TAB PO SCH (08:48)
[2019-02-17] MEDS: ASCORBIC ACID 500 MG TAB PO SCH (08:49)
[2019-02-17] MEDS: VITAMIN B COMPLEX TAB PO SCH (08:49)
[2019-02-17] MEDS: DOCUSATE SODIUM/SENNA 50/8.6MG TAB PO SCH (08:49)
[2019-02-17] MEDS: ACETAMINOPHEN 325 MG TAB PO SCH ×3 (08:53→20:24)
[2019-02-17] MEDS: HEPARIN 100 UNIT/ML 5ML FLUSH FLUSH PRN (08:54)
[2019-02-17] MEDS: ENOXAPARIN INJ 40 MG/0.4 ML SYR SQ SCH (16:27)
[2019-02-17] MEDS ORDERED: HYDROmorphone HCL 2 MG TAB PO PRN (18:22)
--- NOTE | 2019-02-17 19:18 | Hospitalist Progress Note ---
Date of Service February 17, 2019 Assessment & Plan (1) Metastasis from cervical cancer: Pain control, supportive care, possible trial of treatment being formulated by hematology/oncology. (2) Electrolyte abnormality: (3) Pleural effusion on right: Most likely malignant, but not causing significant dyspnea. Strongly suspect the pain is radicular from her T8 fracture. (4) T8 vertebral fracture: Ongoing pain control, she did not like the brace. I suspect the pain radiating around to the front of her chest is from this/from nerve impingement from thisoutpatient pain management evaluation. Ongoing medication titration. (5) Essential hypertension: Continue home meds (6) Generalized weakness: Related to the decline from her cancer, but does appear that she will be stable to go home (7) Headache: (8) S/P bronchoscopy with biopsy: (9) Mass of middle lobe of right lung: Appears to be related to her cervical cancer (10) Discharge planning issues: Anticipate home tomorrow pending assurance of good pain control on an entirely oral regimen (she was still getting IV through today) and assuming that her home situation is conducive to a safe discharge. Subjective Feeling better overall. Pain controlled. Thought about being able to get home today, but home situation is being changed right now as a bed is being placed on her first floor, and she was not sure if everything would really be ready to accommodate her today. Extensive discussions with patient and mother on pain control. Patient's mother just lost her about a week ago, and is now facing the prospect of losing her daughter, empathy and support offered. Review of systems otherwise negative. Case discussed with hematology/oncology, input greatly appreciated. Review of Systems Review of Systems: All systems reviewed & are unremarkable except as noted in HPI & below Physical Exam Physical Exam: General she is awake and alert pleasant no distress. HEENT normocephalic atraumatic mucous membranes moist. Breathing unlabored no ac cessory muscle use good effort. Skin shows no rashes no pallor or icterus. Results & Data Vital Signs (Past 12 Hours) Vital Signs Temp Pulse Resp BP Pulse Ox 02/17/19 15:00 98.4 F 93 H 18 139/81 92 02/17/19 11:16 98.8 F 104 H 18 150/85 H 93 02/17/19 07:30 98.2 F 95 H 18 149/81 H 92 PG Care Time/CCT Total # of Minutes Spent Total Time Spent with Patient: Total time spent is greater than 50% in coordination of care (as documented) at patient's floor/unit and/or counseling patient: (1) Headache Headache chronicity pattern: acute headache Headache type: unspecified Intractability: not intractable Qualified Code(s): R51 - Headache
[2019-02-18] MEDS ORDERED: OXYCODONE HCL IR 5 MG TAB (IMMEDIATE RELEASE) PO STA (00:01)
[2019-02-18] MEDS: AMLODIPINE BESYLATE 5 MG TAB PO SCH (08:07)
[2019-02-18] MEDS: LIDOCAINE 5% 1 PATCH TD SCH (08:08)
[2019-02-18] MEDS: ASCORBIC ACID 500 MG TAB PO SCH (08:08)
[2019-02-18] MEDS: CHOLECALCIFEROL 1,000 UNITS TAB PO SCH (08:08)
[2019-02-18] MEDS: VITAMIN B COMPLEX TAB PO SCH (08:08)
[2019-02-18] MEDS: GABAPENTIN 300 MG CAP PO SCH ×2 (08:08→14:08)
[2019-02-18] MEDS: CEROVITE ADV FORMULA TAB PO SCH (08:08)
[2019-02-18] MEDS: MAGNESIUM OXIDE 400 MG TAB PO SCH (08:08)
[2019-02-18] MEDS: ACETAMINOPHEN 325 MG TAB PO SCH ×2 (08:08→14:08)
[2019-02-18] MEDS: DOCUSATE SODIUM/SENNA 50/8.6MG TAB PO SCH (08:11)
--- NOTE | 2019-02-18 09:39 | Discharge Summary ---
Date of Service February 18, 2019 Admission HPI Per Admitting Provider 64-year-old female with past medical history of metastatic cervical cancer was diagnosed 2017 status post chemotherapy and radiation. Unfortunately patient developed new metastasis and started chemotherapy last was December 2018. Patient follows up with Dr. Mcmanus, she had a recent biopsy of right lung mass done by Dr. Somers. This she was supposed to have an appointment today with him in his office to discuss the results of her biopsy. Unfortunately patient developed progressive weakness and shortness of breath. She also noted that her right lower extremity keeps giving up on her and she was not sure if her neuropathy is getting worse. She decided to come to the ED for further evaluation. She denies any recent fall. Denies any significant diarrhea or urinary symptoms. She has only mild right lower quadrant abdominal pain, she describes it as gas pain. She feels extremely exhausted and tired. Unable to ambulate at home due to severe weakness and particularly her right lower extremity giving up on her. In ED she had multiple imaging including head CT that revealed a pre-existing left temporal lobe metastatic lesion that was noticed in a previous CT scan, CT angiogram of her chest ruled out pulmonary embolism but showed lytic lesion in T 8 with pathologic fracture. Also showed progression of the disease and progression of her right middle lobe lung mass. CT abdomen and pelvis showed progression of disease and progression of liver metastasis. Her labs showed hypokalemia hypomagnesemia and hypoproteinemia. Patient will be admitted for further evaluation and management. Admission Exam Per Admitting Provider Physical Exam: General frail elderly female HEENT: Atraumatic , normocephalic /no jaundice /slightly pale with dry mucous membrane /normal external ear inspection Neck: Supple /no swelling /central trach Heart: S1/S2 with mild tachycardia/regular rate and rhythm/no gallop /no rub /2/6 murmur Lungs: Decreased air entry bilaterally mainly on the right, faint rhonchi bilateral lung suh, no use of accessory muscles of respiration, normal chest wall expansion. Abdomen: Very mild tenderness and right lower quadrant, but overall abdomen is soft/nontender/no guarding/no rebound/no organomegaly/no pulsatile mass Musculoskeletal: No swelling/no edema/no tenderness/normal range of motion Neuro exam: Awake alert oriented 3/cranial nerves II through XII appear to be intact/sensation intact/moves all extremities/no abnormal movements Psychiatric evaluation: No depressed mood/normal affect Skin: No rash on exposed skin area/no erythema Extremity: Normal pulse/no pitting edema/no clubbing or cyanosis Principal Diagnosis Shortness of breath, Progression of cancer, T8 Spinal Fracture Discharge Exam Constitutional WD/WN, vitals as above Respiratory normal respiratory effort; no respiratory distress and no labored breathing Auscultation: lungs clear to auscultation bilaterally and + diminished lung sounds (RLL); no crackles, no rhonchi, no wheezes and no pleural rub Cardiovascular Rate/Rhythm: regular rate and regular rhythm Heart Sounds: normal S1 and normal S2; no gallop and no murmur Extremities: no edema Discharge Data Allergies Allergy/AdvReac Type Severity Reaction Status Date / Time Iodinated Contrast Media Allergy Intermediate pruritus Verified 02/15/19 11:28 Penicillins Allergy Mild rash, Verified 02/15/19 11:28 nausea Sulfa (Sulfonamide Allergy Mild rash,nausea Verified 02/15/19 11:28 Antibiotics) Consultations 02/15/19 14:11 Consult Hematology Routine 02/15/19 14:17 Consult Orthopedic Surgery Stat Consult Thoracic Surgery Stat Ordered Studies 02/15/19 10:15 CT abd pelvis IV con only Stat CT lumbar spine wo con Stat 02/15/19 10:18 CT head/brain wo con Stat 02/15/19 10:21 CT angio chest PE protocol Stat 02/15/19 15:54 US venous doppler LE Routine Hospital Course (1) Metastasis from cervical cancer: 64 yo F PMH metastatic cervical cancer with mets to brain and liver diagnosed in 2017 s/p chemotherapy and radiation Ms. Irvin is a pleasant 64-year-old female with a PMH of Metastatic squamous cell carcinoma from cervix with progressive mets to brain and liver, s/p chemotherapy and radiation who presented to the emergency department with complaints of generalized weakness and shortness of breath and pain in her right lower chest. Exam in the emergency department included a CT head, CTA of the chest, as well as a CT of the abdomen and pelvis. The CT head showed no acute changes no intracranial bleeds and stable metastasis from previous head CT. CTA of the chest for pulmonary embolism was negative however it did show a lytic lesion of the T8 vertebrae. CT abdomen of pelvis showed progression of her liver metastases and no other acute abdominal or pelvic findings. Her extremity Doppler exam was also done which was negative for thrombi bilaterally. After transfer to the floor she was seen by orthopedic surgery who signed off and recommended a back brace for support of the T8 fracture and recommended against surgery. She was also seen by Dr. Somers the cardiothoracic surgeon for evaluation of the lung mass and pleural effusion surrounding it. After examination on the chest x-ray he noted that there would not be enough fluid to perform a thoracentesis on and provide symptomatic relief. During her admission she also was noted to have a few electrolyte abnormalities including hypomagnesemia on admission which was repleted, as well as hypokalemia which was repleted as well. During her stay she was provided IV Dilaudid 1 mg every 4 as well as Roxicodone orally 5 mg every 4. We discussed with her her pain regimen going forward extensively. We decided that given her rib pain being likely secondary to nerve after aggravation from the T8 fracture she would benefit in the future from a nerve block done by pain management. In the meantime we will send her home with 4 mg of Dilaudid p.o. every 6 as well as 650 mg of Tylenol every 8 for baseline pain control. Also discussed with the patient the benefit of perhaps doing a lidocaine patch in the interim and escalating pain management to include an extended release opioid if she is actually requiring the Dilaudids every 6 hours. We also discussed having a scheduled bowel regimen to avoid the running problem of opioid-induced constipation. (2) Electrolyte abnormality: (3) Pleural effusion on right: (4) T8 vertebral fracture: (5) Essential hypertension: (6) Generalized weakness: (7) Headache: (8) S/P bronchoscopy with biopsy: (9) Mass of middle lobe of right lung: Total Time Total Time Spent Total Time Spent (In Minutes): >30 Discharge Plan Discharge Items Patient Disposition: Home - Self-Care Reason For Visit: PROGRESSION OF CANCER AND FRACTURE IN T8 Discharge Diagnosis: Progression of cancer, T8 fracture Activity: Resume your previous activity Non-emergency contact: Primary Care Provider and Oncologist Call non-emergency contact if: you have any medication questions, your pain is not controlled and your temperature is above 101 Follow-up/Referrals: Clemente Hays MD [Primary Care Provider] - 02/24/19 10:00 am (Please, follow up at [facility] with Dr. Hays on February 24 at 10:00 am. *If you need to change this appointment, call the office at [phone].) Diet: Regular Addtl Attending Provider Instructions: You were admitted to the hospital for weakness and shortness of breath. Imaging in the emergency department showed progression of the cancer mets in your liver and stable mets in your brain. During your stay, you were seen by your Oncologist Dr. Magdaleno, as well as the Orthopedic surgery team, and Dr. Giovanny wheeler the Thoracic surgeon. Orthopedic surgery suggested the best plan of action for your fracture in your T8 vertebrae would be conservative management with a back brace rather than do surgery. Dr. Somers imaged the fluid surrounding the mass in your right lung and believed it was too small an amount to drain and provide benefit. Given this, outpatient treatment of your cancer and close coordination between your Oncologist and Primary Care Physician will be optimal going forward. As we discussed, there will be multiple methods of pain control available for you. The 650 mg of tylenol will be scheduled every 8 hours to provide a base level pain control. On top of that, the 4 mg of dilaudid by mouth will allow coverage of stronger, shorter length breakthrough pain. If you find yourself rolando ing the Dilaudid every 6 hours as scheduled instead of fewer and farther inbetween, let your primary care physician know. At that time, you can discuss adding another long acting medication to your regimen (extended release oxycontin, dilaudid or a fentanyl patch) to provide better pain coverage. Pain Medicine may be able to set you up with nerve block injections by your affected rib to also provide buttermaker continuous churn pain management options. These can be done every few weeks depending on how effective they are for your pain control. An example maximum pain control schedule is listed below: this would be similar to a regimen you could keep right before needing to add more coverage with a long acting pain medication. The dilaudid's are on an as-needed basis, whereas the tylenol is scheduled for basic control. 6AM: Dilaudid 4mg (if needed) 8AM: Tylenol 650mg Noon: Dilaudid 4mg (if needed) 4PM: Tylenol 650mg 6PM: Dilaudid 4mg (if needed) Midnight: Tylenol 650mg, Dilaudid 4mg (if needed) Your primary care physician should be able to put you in contact with pain management to look into options of pain control through nerve blocks. Follow up closely with them and your oncologist. It was a pleasure taking care of you, happy holidays! Pending Studies at Discharge: No Stand-Alone Forms: [facility], Opioid Pain Management, Smoking Cessation Medications and DC Order Prescriptions: New acetaminophen [Mapap (acetaminophen)] 325 mg Tablet 650 mg PO TID Qty: 180 RF: 0 polyethylene glycol 3350 [Miralax] 17 gram Powder In Packet 17 g PO DAILY PRN (Reason: constipation) Qty: 30 RF: 0 magnesium oxide 400 mg (241.3 mg magnesium) Tablet 400 mg PO BID Qty: 60 RF: 0 magnesium hydroxide [Milk of Magnesia] 400 mg/5 mL Suspension 30 ml PO Q6H PRN (Reason: constipation) 30 Days Qty: 3840 RF: 0 MAG-AL 200-200 mg/5 mL Suspension 15 ml PO Q4H PRN (Reason: constipation) Qty: 3000 RF: 0 ondansetron HCl [Zofran] 4 mg tablet 4 mg PO TID PRN (Reason: nausea and vomiting) 30 Days Qty: 120 RF: 0 hydromorphone [Dilaudid] 4 mg tablet 4 mg PO Q6H PRN (Reason: pain) Qty: 120 RF: 0 Continued dexamethasone 4 mg tablet 4 mg PO Q OTHER DAY RF: 0 gabapentin 300 mg capsule 300 mg PO TID RF: 0 magnesium 200 mg tablet 400 mg PO QAM RF: 0 amlodipine [Norvasc] 5 mg tablet 5 mg PO QAM Qty: 90 RF: 1 digestive enzymes Capsule 1 cap PO QAM RF: 0 ascorbic acid (vitamin C) [Vitamin C] 500 mg Tablet 500 mg PO QAM RF: 0 coenzyme Q10 [Co Q-10] 100 mg Capsule 100 mg PO QAM RF: 0 cholecalciferol (vitamin D3) [Vitamin D3] 25 mcg (1,000 unit) Tablet 25 mcg PO QAM RF: 0 Centrum Silver Women 8 mg iron-400 mcg-300 mcg Tablet 1 tab PO QAM RF: 0 acetaminophen [Mapap (acetaminophen)] 325 mg Tablet 1,000 mg PO Q8H PRN (Reason: pain) Qty: 30 RF: 0 vitamin B complex Tablet 1 tab PO QAM RF: 0 Discharge Orders: Discharge Order (Routine); Ordered 02/18/19 Ordered By: Guillermina Uriostegui Admission Data Admit Date/Time: 02/15/19 14:12 Attending Provider: Supa Monreal Admit Provider: Tammy May Primary Care Provider: Clemente Hays Other Providers: Tammy May ; Juan Mcmanus ; Go Goldsmith ; Guevara Somers Other Interventions: Discharge Summary Assessment (RN) Last Done: 02/18/19 11:33 DC Date/Time DO NOT enter until pt leaves facility: 02/18/19 14:35 Supervising Physician Co-Signing Physician Notes I personally examined the patient and verified all martínez points of history and exam, discussed case, and agree with decision making with Dr Uriostegui. Feels up to going home. Pain medicine is working well. No new complaints. Understands the plans. vitals noted nad heent nc at mmm breathing unlabored no accessory muscles good effort no rashes no pallor or icterus. pain/weakness - appearing related to worsening cancer progression and mets -pain controlright now affected with just as needed Dilaudid. Discussed with patient that as cancer pain progresses, she will likely need a long-acting narcotic and or escalation in her gabapentin. -Refer to pain management for considerations for injection of her T8 nerve root since this seems to be causing radicular pain -Home with close outpatient follow-up DVT proph -lovenox utilized during her stay Resident Activity Tracking Resident Involvement: Resident Care Provided Care Provided: Adult Hospital Medicine
--- NOTE | 2019-02-18 20:07 | Billing Data ---
Date of Service February 18, 2019 Coding Level of Care Code D/C Day Management <30 mins
--- NOTE | 2019-02-24 15:33 | Emergency Department Note ---
ED Visit Note Entered by Alexis Abdullahi acting as a scribe for Courtney Chavarria MD DOS 02/15/19 History of Present Illness General Chief complaint: Illness Stated complaint: CANCER PT, REF BY , PAIN ALL OVER, LETHARGIC Source: patient History of Present Illness Provider complaint: Headache Onset (ago): day(s) 2 Location: head Pain Consistency: + constant Maximum Pain Intensity: 7 Current Pain Intensity: 7 Relieved By: + none Associated symptoms: + headaches, + nausea/vomiting (No vomiting), + shortness of breath and + weakness; no fever/chills The patient is a 64 year old female who presents to the Emergency Room with complaints of a constant headache that started about 2 days ago. The patient has had constant nausea and gas pains as well however she has not vomited. She rates the pain as a 7/10 and notes nothing seems to help improve it. The patient reports generalized pain, especially in her left shoulder. The patient notes her pain is worse with deep breaths. The patient adds that she has lower extremity weakness from her neuropathy that is causing her to have ambulatory difficulties. The patient has a history of metastatic cervical cancer that has spread to her blood, brain, and lungs. The patient's last chemo treatment was 2 months ago but she just had a biopsy of her cervical lymph nodes last week. The patient reports that she took Tylenol at 02:00 this morning with no relief of symptoms. The patient also mentioned that she has been able to void and move her bowels with no issues. She has no history of bowel obstructions or blood clots. Home Medications Medication Instructions Recorded Confirmed Type acetaminophen [Mapap 1,000 mg PO Q8H PRN #30 tab 12/18/18 02/20/19 Rx (acetaminophen)] gabapentin 300 mg capsule 300 mg PO TID 12/20/18 02/20/19 History magnesium 200 mg tablet 400 mg PO QAM tab 12/20/18 02/20/19 History dexamethasone 4 mg tablet 4 mg PO Q OTHER DAY 12/31/18 02/20/19 History Centrum Silver Women 1 tab PO QAM 01/25/19 02/20/19 History ascorbic acid (vitamin C) [Vitamin 500 mg PO QAM 01/25/19 02/20/19 History C] cholecalciferol (vitamin D3) 25 mcg PO QAM 01/25/19 02/20/19 History [Vitamin D3] coenzyme Q10 [Co Q-10] 100 mg PO QAM 01/25/19 02/20/19 History digestive enzymes 1 cap PO QAM 01/25/19 02/20/19 History amlodipine 5 mg tablet 5 mg PO QAM #90 tab 02/01/19 02/20/19 Rx vitamin B complex 1 tab PO QAM 02/15/19 02/20/19 History acetaminophen [Mapap 650 mg PO TID #180 tab 02/17/19 02/20/19 Rx (acetaminophen)] aluminum-magnesium hydroxide 15 ml PO Q4H PRN #3000 ml 02/17/19 02/20/19 Rx [MAG-AL] magnesium hydroxide [Milk of 30 ml PO Q6H PRN 30 Days #3840 ml 02/17/19 02/20/19 Rx Magnesia] magnesium oxide 400 mg PO BID #60 tab 02/17/19 02/20/19 Rx polyethylene glycol 3350 [Miralax] 17 g PO DAILY PRN #30 ea 02/17/19 02/20/19 Rx hydromorphone [Dilaudid] 4 mg PO Q6H PRN #120 tab 02/18/19 02/20/19 Rx ondansetron HCl [Zofran] 4 mg PO TID PRN 30 Days #120 tab 02/18/19 02/20/19 Rx Allergies Allergy/AdvReac Type Severity Reaction Status Date / Time Iodinated Contrast Media Allergy Intermediate pruritus Verified 1 04/23/18 18:12 Penicillins Allergy Mild rash, Verified 02/20/19 18:12 nausea Sulfa (Sulfonamide Allergy Mild rash,nausea Verified 02/20/19 18:12 Antibiotics) Past Med/Surg History Medical History (Updated 02/22/19 @ 18:38 by Muna Rojo MD) Anemia chronic (hgb in the 7-9 range over past month per chart review) most recent blood transfusion 12/2018 (felt chemo related) Brain lesion metastatic lesion of left temporal lobe per 12/16/17 brain MRI Diverticular disease GERD (gastroesophageal reflux disease) controlled Hypertension Lung mass Mediastinal lymphadenopathy Metastasis from cervical cancer Neuropathy 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- most recent chemo 11/2018;on dexamethasone 4mg every other day (started in setting of chemo/xrt)-- now weaning off Thrombocytopenia Surgical History History of cervical biopsy History of surgery insertion of Tandom & Ovoid x 5 History of tooth extraction History of tubal ligation History of vascular access device Left chest wall Family History Mother Breast cancer Hypertension Father Cancer Other No family history of adverse response to anesthesia Social History Preferred Language: Faroese Communication Ability: Effective Drying 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 and A total of 10 systems reviewed and were otherwise negative Physical Exam Vital Signs - 24 hr 09:31 02/15/19 10:02 02/15/19 10:49 Temperature 36.7 C Temperature Source Oral Pulse Rate 111 H Pulse Rate [Left Finger] 107 H Respiratory Rate 18 22 Respiratory Effort / Characteristics Non-Labored Spontaneous Respiratory Depth Normal Respiratory Pattern Regular Blood Pressure 144/87 H Blood Pressure [Right Arm] 159/92 H Blood Pressure Mean 106 Blood Pressure Mean [Right Arm] 114 Blood Pressure Position Sitting Pulse Oximetry 95 95 96 Oxygen Delivery Method Room Air Room Air Room Air Sepsis Recent Fever Within 48 Hours No Sepsis New/Unexplained Change in Mental Status No Sepsis Action Taken by Nursing No Action Required 02/15/19 12:00 Temperature Temperature Source Pulse Rate Pulse Rate [Left Finger] 103 H Respiratory Rate 22 Respiratory Effort / Characteristics Non-Labored Spontaneous Respiratory Depth Normal Respiratory Pattern Blood Pressure Blood Pressure [Right Arm] 156/74 H Blood Pressure Mean Blood Pressure Mean [Right Arm] 101 Blood Pressure Position Pulse Oximetry 94 Oxygen Delivery Method Room Air Sepsis Recent Fever Within 48 Hours Sepsis New/Unexplained Change in Mental Status Sepsis Action Taken by Nursing PE: Vital signs reviewed. General: Chronically ill-appearing 64 year old female, in no significant distress. HEENT: No scleral icterus, PERRLA, neck supple. Atraumatic. Cardiovascular: Regular rate and rhythm, no extra sounds. Pulmonary: Diminished breath sounds on the right side, normal work of breathing. Abdomen: Soft, tenderness to the RUQ, nondistended, positive bowel sounds. Musculoskeletal: Atraumatic, no peripheral edema. Neurologic: Patient awake alert and oriented x 3, full strength in the upper extremities, 4/5 strength in the lower extremities. Cranial nerves 2 through 12 grossly intact. Skin: Warm, dry, no rash Course Course 1014: Past medical records reviewed. The patient was evaluated in room A12B, and a complete history and physical examination were performed. 1309: I reevaluated the patient and updated her on results. After discussing the treatment options the patient would feel most comfortable staying in the hospit al. 1413: I spoke to Dr. Barraza [facility] Hospitalist about the patient's case. He is going to accept the patient for further evaluation. Consultations Consultation #1: [facility] He is going to accept the patient for further evaluation. Time: 14:13 Medical Decision Making Differential Diagnosis includes but is not limited to progression of metastatic disease, dehydration, stroke, anemia, hypoglycemia, hyponatremia, hypernatremia, urinary tract infection, pneumonia, bronchitis, sepsis, gastroenteritis, additional abdominal pathology, metabolic abnormalities and infections. Medical Records Attestation: I reviewed the patient's medical records. Home Medications Current Medication List: was personally reviewed by me Laboratory Data Attestation: I reviewed the patient's lab results. Result diagrams: 02/17/19 06:54 document embedded image 02/17/19 06:54 document embedded image Lab Results 02/15/19 02/15/19 02/15/19 Range/Units 10:50 10:50 10:50 WBC 11.06 H (4.8-10.8) K/uL RBC 2.63 L (4.2-5.4) M/uL Hgb 9.0 L (12.0-16.0) g/dL Hct 26.9 L (37-47) % MCV 102.3 H (80-100) fL MCH 34.2 H (25-34) pg MCHC 33.5 (32-36) g/dL RDW Std Deviation 70.8 H (36.4-46.3) fL RDW Coeff of Nikki 19.2 H (11.5-14.5) % Plt Count 112 L (130-400) K/uL MPV 9.4 (7.4-10.4) fL Immature Gran % (Auto) 1.1 % Neut % (Auto) 79.4 % Lymph % (Auto) 7.9 % [place] % (Auto) 11.0 % Eos % (Auto) 0.5 % Baso % (Auto) 0.1 % Immature Gran # (Auto) 0.12 H (0.00-0.02) K/uL Neut # (Auto) 8.79 H (1.4-6.5) K/uL Lymph # (Auto) 0.87 L (1.2-3.4) K/uL [place] # (Auto) 1.22 H (0.11-0.59) K/uL Eos # (Auto) 0.05 (0-0.5) K/uL Baso # (Auto) 0.01 (0-0.2) K/uL Sodium 133 L (136-145) mmol/L Potassium 3.2 L (3.5-5.1) mmol/L Chloride 99 (98-107) mmol/L Carbon Dioxide 29 (21-32) mmol/L Anion Gap 5.0 (3-11) BUN 16 (7-18) mg/dl Creatinine 0.73 (0.6-1.2) mg/dl Est Cr Clr Drug Dosing 86.8 ml/min Est GFR ( Amer) 100.9 Est GFR (Non-Af Amer) 87.0 BUN/Creatinine Ratio 21.9 H (10-20) Glucose 92 (70-99) mg/dl Calcium 10.3 H (8.5-10.1) mg/dl Phosphorus (2.5-4.9) mg/dl Magnesium 1.4 L (1.8-2.4) mg/dl Total Bilirubin 0.5 (0.2-1) mg/dl AST 24 (15-37) U/L ALT 24 (12-78) U/L Alkaline Phosphatase 110 (45-117) U/L Total Protein 7.0 (6.4-8.2) gm/dl Albumin 2.7 L (3.4-5.0) gm/dl Globulin 4.3 H (2.5-4.0) gm/dl Albumin/Globulin Ratio 0.6 L (0.9-2) TSH 1.800 (0.300-4.500) uIu/ml Urine Color Yellow Urine Appearance Clear (Clear) Urine pH 7.0 (4.5-7.5) Ur Specific [place] 1.016 (1.000-1.030) Urine Protein Negative (Negative) Urine Glucose (UA) Negative (Negative) Urine Ketones Negative (Negative) Urine Blood Negative (Negative) Urine Nitrite Negative (Negative) Urine Bilirubin Negative (Negative) Urine Urobilinogen Negative (Negative) Ur Leukocyte Esterase Negative (Negative) 02/15/19 Range/Units 10:50 WBC (4.8-10.8) K/uL RBC (4.2-5.4) M/uL Hgb (12.0-16.0) g/dL Hct (37-47) % MCV (80-100) fL MCH (25-34) pg MCHC (32-36) g/dL RDW Std Deviation (36.4-46.3) fL RDW Coeff of Nikki (11.5-14.5) % Plt Count (130-400) K/uL MPV (7.4-10.4) fL Immature Gran % (Auto) % Neut % (Auto) % Lymph % (Auto) % [place] % (Auto) % Eos % (Auto) % Baso % (Auto) % Immature Gran # (Auto) (0.00-0.02) K/uL Neut # (Auto) (1.4-6.5) K/uL Lymph # (Auto) (1.2-3.4) K/uL [place] # (Auto) (0.11-0.59) K/uL Eos # (Auto) (0-0.5) K/uL Baso # (Auto) (0-0.2) K/uL Sodium (136-145) mmol/L Potassium (3.5-5.1) mmol/L Chloride (98-107) mmol/L Carbon Dioxide (21-32) mmol/L Anion Gap (3-11) BUN (7-18) mg/dl Creatinine (0.6-1.2) mg/dl Est Cr Clr Drug Dosing ml/min Est GFR ( Amer) Est GFR (Non-Af Amer) BUN/Creatinine Ratio (10-20) Glucose (70-99) mg/dl Calcium (8.5-10.1) mg/dl Phosphorus 2.8 (2.5-4.9) mg/dl Magnesium (1.8-2.4) mg/dl Total Bilirubin (0.2-1) mg/dl AST (15-37) U/L ALT (12-78) U/L Alkaline Phosphatase (45-117) U/L Total Protein (6.4-8.2) gm/dl Albumin (3.4-5.0) gm/dl Globulin (2.5-4.0) gm/dl Albumin/Globulin Ratio (0.9-2) TSH (0.300-4.500) uIu/ml Urine Color Urine Appearance (Clear) Urine pH (4.5-7.5) Ur Specific [place] (1.000-1.030) Urine Protein (Negative) Urine Glucose (UA) (Negative) Urine Ketones (Negative) Urine Blood (Negative) Urine Nitrite (Negative) Urine Bilirubin (Negative) Urine Urobilinogen (Negative) Ur Leukocyte Esterase (Negative) Imaging Data Radiologist's Impression: Radiology results as stated below per my review and the radiologist's interpretation: XR chest 1V portable HISTORY: weakness COMPARISON: Chest 02/05/2019. FINDINGS: No pneumothorax. There is again noted a masslike density within the right lung base. This has increased in size. Trace right pleural effusion. The left lung is clear. Left subclavian Port-A-Cath terminates at the SVC. The heart is normal in size. IMPRESSION: Slight increase in size in the right middle lobe mass with a trace right pleural effusion. Electronically signed by: Javed Jimenez M.D. 02/15/2019 10:[address] OF THE HEAD WITHOUT CONTRAST CLINICAL HISTORY: Weakness. History of metastatic cervical cancer. COMPARISON STUDY: MRI of the brain December 16, 2018. Head CT February 05, 2019. TECHNIQUE: Helical axial images of the head were obtained without IV contrast. Automated exposure control was utilized for the study. A dose lowering technique was utilized adhering to the principles of ALARA. FINDINGS: No acute intracranial hemorrhage, midline shift or mass effect is present. The ventricular system is unremarkable. The basilar cisterns are patent. No extra-axial collections are present. There are no findings to suggest acute dural sinus thrombosis or acute territorial infarct. Subtle hypodensity within the left temporal lobe on axial image 8 of is similar to head CT of February 05, 2019. This is less conspicuous when compared to PET/CT of December 12, 2018. There are no suspicious calvarial lesions. IMPRESSION: 1. No acute intracranial findings. 2. Subtle hypodensity within the left temporal lobe at site of known metastasis which is similar to head CT of February 05, 2019 but decreased since head CT of December 12, 2018. Electronically signed by: Viet Reyes M.D. 02/15/2019 11:[address] ANGIOGRAPHY OF THE CHEST, PULMONARY EMBOLUS PROTOCOL CLINICAL HISTORY: Chest pain. History of cervical cancer. COMPARISON STUDY: Chest CT December 12, 2018. Chest radiograph February 15, 2019. TECHNIQUE: Following IV administration of 116 mL of Optiray-320, helical axial images of the chest were obtained utilizing the pulmonary embolus protocol. Maximal intensity projections and sagittal and coronal reformats were viewed on an independent 3D workstation. IV contrast was administered without comp lication. Automated exposure control was utilized for the study. A dose lowering technique was utilized adhering to the principles of ALARA. CT DOSE: 1221.67 mGy.cm FINDINGS: No pulmonary emboli are identified. Several pulmonary arteries are narrowed by the right middle lobe mass. There is no evidence for thoracic aortic dissection. A left subclavian [id number] is in place. Multiple enlarged mediastinal lymph nodes have moderately increased in size since CT of December 12, 2018. A large right middle lobe mass has increased in size. This mass now measures 9.6 cm. It previously measured 7.7 cm. A trace pericardial effusion is noted with suspected pericardial implants. Cardiophrenic angle nodes have increased in size. A moderate right pleural effusion has developed. There is no pneumothorax. Right lower lobe opacities suggest atelectasis. There is no consolidation to suggest pneumonia. Interlobular septal thickening within the right lung is noted. The right superior pulmonary vein is narrowed by the right middle lobe mass. A lytic lesion within the left aspect of the T8 vertebral body since prior exam. There is a mild associated fracture involving the superior endplate. Multiple hepatic metastases have significantly increased since exam of December 12, 2018. IMPRESSION: 1. No pulmonary emboli identified. 2. Significant progression of metastatic disease since CT of December 12, 2018, as described above, with progression of the right middle lobe mass, thoracic lymphadenopathy, liver metastases and a new T8 lytic lesion with pathologic fracture. Moderate right pleural effusion. Electronically signed by: Viet Reyes M.D. 02/15/2019 12:09 PM ABDOMEN AND PELVIS CT WITH IV CONTRAST CT DOSE: HISTORY: Abdominal distention, abd pain, cervical cancer TECHNIQUE: Multiaxial CT images of the abdomen and pelvis were performed following the use of intravenous contrast. A dose lowering technique was utilized adhering to the principles of ALARA. COMPARISON STUDY: Abdomen and pelvis CT 12/12/2018. FINDINGS: Increase in size in the right middle lobe mass which currently measures 10 x 9 cm. This is better appreciated on the same day chest CTA. There is a new small right pleural effusion. Multiple right anterior diaphragmatic soft tissue nodules with the largest measuring 2.7 cm. These also increased in size and are consistent with metastatic disease. No pneumoperitoneum. No pneumatosis. No suspicious lytic are blastic osseous lesions. There are 5 peripheral enhancing hypodense masses within the liver. Dominant lesion within the left hepatic lobe measures 3.3 cm. These are consistent with metastatic foci and have progressed in the interval. The gallbladder, spleen, adrenal glands, pancreas, and kidneys are unremarkable. No retroperitoneal lymphadenopathy. No hydronephrosis. The bladder is unremarkable. Multiple heterogeneous uterine masses. Some of these demonstrate calcification and therefore favor fibroids. These remain unchanged. No bowel wall thickening or obstruction. Colonic diverticulosis. IMPRESSION: 1. Interval progression of the metastatic disease within the lower chest including a new small right pleural effusion as described above. Please refer to the same day chest CTA for further evaluation. 2. Interval progression of the hepatic metastatic disease. 3. No bowel wall thickening or obstruction. 4. Additional findings as described above. Electronically signed by: Javed Jimenez M.D. 02/15/2019 12:[address] DOSE: HISTORY: mets cervical cancer, leg weakness TECHNIQUE: Multiaxial CT images of the lumbar spine were performed and reformatted in the sagittal and coronal plane without the use of contrast. A dose lowering technique was utilized adhering to the principles of ALARA. COMPARISON: None. FINDINGS: No fractures. No subluxation. Paraspinal soft tissues are unremarkable. No severe central canal or neural foraminal narrowing by CT technique. Disc spaces are preserved for age. The sacrum is intact. IMPRESSION: No fractures within the lumbar spine. Electronically signed by: Javed Jimenez M.D. 02/15/2019 12:02 PM ECG Data Attestation: I personally reviewed and interpreted this ECG as follows: Indication: + tachycardia and + weakness Rate (beats per minute): 105 Rhythm: + sinus tachycardia ECG Intervals/blocks: + Normal QT ECG ST segments: no ST depression and no ST elevation ECG Findings: + Other (Non-specific T wave flattening inferiorly ); no PACs and no PVCs Blood Pressure Blood Pressure Findings: Elevated blood pressure Blood Pressure Disposition: further management by hospitalist MDM:This pt was evaluated and appeared to be in significant discomfort. IV access was obtained and lab work was drawn. PT was hydrated with NSS, given IV hydromorphone, IV zofran for her discomforts. Pt is found to be hypokalemic and hypomagnesemic, these were repleted. CT imaging of head, chest and AP was performed as pt had a pleuritic pain, RUQ discomfort and h/o brain mets, now leg weakness with gait instability. Imaging reveals progression of the disease with right pl effusion, likely explaining pts discomforts. Pt has had poor pain co ntrol and poor PO intake, and will require additional care. The hospitalist service was consulted for further management. Of note, this document was originally assigned to the incorrect physician and was unable to be signed in a timely manor. Impression & Plan Metastasis from cervical cancer, Hypomagnesemia, Hypokalemia, Pleural effusion on right, Dehydration Discharge Plan Visit Data *Final* Discharge Date/Time: 02/15/19 15:08 Chief Complaint: Illness Stated Complaint: CANCER PT, REF BY , PAIN ALL OVER, LETHARGIC ED Provider: Courtney Chavarria Discharge Problem: Metastasis from cervical cancer, Hypomagnesemia, Hypokalemia, Pleural effusion on right, Dehydration Patient Disposition: Admitted As Inpatient Discharge Instructions Interventions: ED Discharge Assessment Last Done: 02/15/19 15:08 The scribe's documentation has been prepared under my direction and personally reviewed by me in its entirety. I confirm that the note above accurately reflects all work, treatment, procedures, and medical decision making performed by me. Signed By: Created: 02/15/19 1016 The status of this report is Draft. Draft = Not yet reviewed or approved by Medical Physician. Signed = Reviewed and approved by Medical Physician. .
== END 2019-02-18 14:35 | disposition home or self-care (01) | DRG 755 ==
LOC: ED 09:27 → SUATTDRO 14:12 → 2S 14:12 → 4W 02-16 16:55

== ENCOUNTER 2019-03-10 13:10 | Inpatient (IN) ==
[2019-03-10] MEDS ORDERED: SODIUM CHLORIDE 0.9% 1000ML 1,000 ML IV ONE (13:29)
[2019-03-10] MEDS ORDERED: ACETAMINOPHEN 1000 MG/100 ML IV IV STA (13:30)
[2019-03-10] MEDS ORDERED: ONDANSETRON INJ 2 MG/ML 2 ML VIAL IV STA (14:07)
[2019-03-10] MEDS ORDERED: DiphenhydrAMINE HCL 50 MG/ML VIAL IV STA (14:08)
--- NOTE | 2019-03-10 14:08 | XRay Report ---
XR knee RT 1 or 2V routine HISTORY: 64 years-old Female trauma acute right knee pain. History of cervical cancer COMPARISON: CT abdomen and pelvis 02/15/2019 TECHNIQUE: 2 views of the right knee FINDINGS: There is an acute comminuted fracture of the distal diaphyseal femur, apex medial angulation of 25 de grees with 7 mm lateral displacement of the distal fracture fragment. There is apex volar angulation of 33 degrees. Fracture is centered about an infiltrative moderate lytic lesion of the medullary spac e and medial cortex with ill-defined margins. Moderate soft tissue swelling. The knee articulation is intact. No large joint effusion. Mild tricomp artmental degenerative changes. IMPRESSION: Infiltrative lytic lesion of the distal femoral shaft with acute pathologic comminuted di splaced and angulated fracture. ACT 112: Negative or not required by law. The above report was generated using voice recognition software. It may contain grammatical, syntax o r spelling errors. Electronically signed by: Ernie Burrows M.D. 03/10/2019 2:06 PM
[2019-03-10] MEDS ORDERED: methylPREDNISolone 125 MG/2 ML VIAL IV STA (14:12)
[2019-03-10] MEDS: fentaNYL citrate 100 MCG/2 ML VIAL IV PRN ×3 (14:18→17:01)
[2019-03-10 14:27] LABS: Alanine Aminotransferase 12 U/L (12-78); Albumin Globulin Ratio 0.4 (0.9-2); Albumin Level 1.8 gm/dl (3.4-5.0); Alkaline Phosphatase 119 U/L (45-117); Aspartate Aminotransferase 27 U/L (15-37); BUN Creatinine Ratio 15.6 (10-20); Bilirubin,Total 0.5 mg/dl (0.2-1); Blood Urea Nitrogen 10 mg/dl (7-18); Carbon Dioxide 41 mmol/L (21-32); Chloride 81 mmol/L (98-107); Est GFR (Non-African American) 95.8; Globulin 4.7 gm/dl (2.5-4.0); Glucose 97 mg/dl (70-99); Magnesium 1.4 mg/dl (1.8-2.4); Sodium 126 mmol/L (136-145); Total Protein 6.5 gm/dl (6.4-8.2); Troponin I < 0.015 ng/ml (0-0.045)
--- NOTE | 2019-03-10 14:29 | XRay Report ---
SINGLE VIEW CHEST CLINICAL HISTORY: Sepsis. FINDINGS: An AP, portable, upright chest radiograph is compared to chest x-ray and chest CT dated . The examination is degraded by portable technique and patient rotation. A left subclavian ce ntral venous infusion port is unchanged in position. The heart is mildly enlarged noting atherosclero tic calcification of the thoracic aorta. There is mild pulmonary vascular congestion. Loculated fluid is seen at the right apex. Masslike opacities and consolidation in the right mid to lower lung is un changed. Scarring/atelectasis is noted at the left lung base. No pneumothorax is seen. The skeletal s tructures are osteopenic. The bony thorax is grossly intact. IMPRESSION: 1. Cardiomegaly with mild pulmonary vascular congestion. 2. Masslike consolidation in the right mid to lower lung is similar to previous. This was better asse ssed on the 02/26/[address] 3. Loculated fluid is again seen at the right apex. ACT 112: Negative or not required by law. Electronically signed by: Faisal Cleary M.D. 03/10/2019 2:28 PM
[2019-03-10 14:46] LABS: Appearance Urine Turbid (Clear); Bacteria Urine Automated 2+ (Negative); Bilirubin Urine Negative (Negative); Blood Urine 3+ (Negative); Color Urine Yellow; Epithelial Cell Urine Auto >30 /lpf (0-5); Glucose Urine UA Negative (Negative); Ketones Urine Negative (Negative); Leukocyte Esterase Urine 2+ (Negative); Nitrite Urine Positive (Negative); Protein Urine 1+ (Negative); RBC Urine Automated >30 /hpf (0-4); Specific Gravity Urine 1.016 (1.000-1.030); Urobilinogen Urine Negative (Negative); WBC Urine Automated >30 /hpf (0-5); pH Urine 6.5 (4.5-7.5)
[2019-03-10] MEDS ORDERED: OPTIRAY 320 125ml IV PRN (15:02)
[2019-03-10] MEDS: MAGNESIUM SULFATE / D5W 1 GM/100 ML BAG IV SCH ×2 (15:04→15:54)
[2019-03-10] MEDS: POTASSIUM CHLORIDE / WTR 10 MEQ/100 ML PLCT IV SCH ×2 (15:04→15:36)
[2019-03-10] MEDS ORDERED: cefTRIAXone SODIUM 2,000 MG/70 ML BAG IV STA (15:15)
[2019-03-10 15:27] LABS: Hematocrit (blood only) 19.6 % (37-47); Hemoglobin 6.5 g/dL (12.0-16.0); Mean Corpuscular Hemoglobin 32.8 pg (25-34); Mean Corpuscular Hgb Conc 33.2 g/dL (32-36); Mean Platelet Volume 9.7 fL (7.4-10.4); Platelet Count 99 K/uL (130-400); RDW Coefficient of Variation 17.8 % (11.5-14.5); RDW Standard Deviation 64.3 fL (36.4-46.3); Red Blood Count 1.98 M/uL (4.2-5.4); White Blood Count 13.54 K/uL (4.8-10.8)
--- NOTE | 2019-03-10 15:35 | CT Scan Report ---
CT ANGIOGRAM OF THE CHEST CLINICAL HISTORY: Dyspnea. COMPARISON STUDY: Chest CT dated 02/26/2019 and 04/12/2018. TECHNIQUE: Following the IV administration of 116 cc of Optiray 320, CT angiogram of the chest was pe rformed from the upper abdomen to the thoracic inlet utilizing the pulmonary embolus protocol. Images are reviewed in the axial, sagittal, and coronal planes. 3-D MIPS images are created and assessed. T he patient was premedicated for a reported history of contrast allergy. IV contrast was administered without complication. A dose lowering technique was utilized adhering to the principles of ALARA. Th e Examination is significantly degraded by motion artifact. CT DOSE: 408.02 mGy.cm FINDINGS: Thyroid: Imaged portions of the thyroid gland are normal in size and attenuation. Thoracic aorta: The thoracic aorta is normal in caliber and demonstrates standard 3-vessel arch anato my. No dissection is seen. Pulmonary vasculature: The pulmonary trunk is normal in caliber. There are no filling defects identif ied in main, lobar, or proximal segmental pulmonary branches to suggest pulmonary embolus. Evaluation of the peripheral branches is degraded by motion artifact. Heart: A left subclavian central venous infusion port is in place. The heart is normal in size and th ere is a small pericardial effusion. Pericardial implants are again noted. Lungs and pleural spaces: There is a large mass lesion in the right midlung with associated consolida tion throughout the right lower lung. This occludes the right middle and right lower lobe airways and also narrows the right middle and lower lobe pulmonary arteries. There is a moderate and multilocula angelita right pleural collection which extends from the lung base posteriorly to the apex. This is increa sed in size from 02/26/2019. There is trace pleural effusions seen on the left. Foci of atelectasis a re noted throughout the left lung. The trachea is clear. Mediastinum: There are numerous mildly enlarged mediastinal lymph nodes. Yessi: The right hilum is obscured. The left hilum appears clear. Axillae: There is no axillary lymphadenopathy. Upper abdomen: Multifocal hepatic metastatic disease is similar to previous. The largest lesion is se en in the left lobe and measures 4.4 cm. A pathologically enlarged right cardiophrenic lymph node fatoumata sures 3.0 x 1.7 cm. A 2.1 cm right adrenal nodule is seen on image #10. Skeletal structures: Findings of multifocal osteolytic metastatic disease have not significantly mai ged from 02/26/2019. The largest lesions are seen in the thoracic spine and sternum. IMPRESSION: 1. Motion compromised examination. 2. There is no evidence of pulmonary embolus in the main, lobar, or proximal segmental pulmonary primo julia. 3. 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 4. A large mass lesion is again seen in the right midlung with complete atelectasis of the right lowe r lung. This has progressed from 02/26/2019. 5. There is a moderate and multiloculated right-sided pleural collection. This extends from the lung base to the apex and has increased in size from 02/26/2019. The sterility of this collection cannot b e assessed by CT. 6. There is trace left pleural effusion. 7. There are pathologically enlarged mediastinal and right cardiophrenic lymph nodes. 8. Additional findings as above. ACT 112: Negative or not required by law. Electronically signed by: Faisal Cleary M.D. 03/10/2019 3:33 PM
[2019-03-10 15:39] LABS: INR 1.2 (0.9-1.1); Partial Thromboplastin Ratio 0.9; Partial Thromboplastin Time 24.4 Seconds (21.0-31.0); Prothrombin Time 11.9 Seconds (9.0-12.0)
[2019-03-10 15:55] LABS: Influenza A virus by PCR Neg for Influ A (Neg); Influenza B virus by PCR Neg for Influ B (Neg)
[2019-03-10] MEDS ORDERED: SODIUM CHLORIDE 0.9% 250 ML IV PRN ×3 (16:15→19:44)
[2019-03-10 16:25] LABS: Anisocytosis Present; Basophils # (auto) 0.01 K/uL (0-0.2); Basophils % (auto) 0.1 %; Eosinophils # (auto) 0.08 K/uL (0-0.5); Eosinophils % (auto) 0.6 %; Immature Granulocytes # (auto) 0.11 K/uL (0.00-0.02); Immature Granulocytes % (auto) 0.8 %; Lymphocytes # (auto) 0.46 K/uL (1.2-3.4); Lymphocytes % (auto) 3.4 %; Monocytes # (auto) 1.28 K/uL (0.11-0.59); Monocytes % (auto) 9.5 %; Neutrophils % (auto) 85.6 %
--- NOTE | 2019-03-10 16:32 | Emergency Department Note ---
Entered by Maria E Vivar acting as a scribe for Courtney Chavarria MD History of Present Illness General Chief complaint: Illness Time Seen by Provider: 03/10/19 13:28 Source: patient History of Present Illness Provider complaint: shortness of breath Onset (ago): day(s) 1 Location: chest Pain Consistency: + constant Maximum Pain Intensity: 8 Quality: + other (shortness of breath ) Associated symptoms: + fever/chills, + shortness of breath and + other (Positive right leg pain; Positive fall; Positive lethargic) The patient, who is a 64 year old female with a medical history of cervical cancer, atrial fibrillation and pleural effusion, presents to the Emergency Room with complaints of illness that occurred prior to arrival. The patient expresses that her right leg pain and shortness of breath. The patient's report states that the patient was 63 on room air and a temperature of 38.3 C. The patient expresses that she is feeling really lethargic. The patient's report states that yesterday during physical therapy she was fine. The patient states that at 2100 that night while she was trying to get back in her chair she fell on her leg. The patient states she is unsure the last time her catheter was changed. Home Medications Home Medications Medication Instructions Recorded Confirmed Type gabapentin 300 mg capsule 300 mg PO TID 12/20/18 03/10/19 History magnesium 200 mg tablet 400 mg PO QAM tab 12/20/18 03/10/19 History Centrum Silver Women 1 tab PO QAM 01/25/19 03/10/19 History ascorbic acid (vitamin C) [Vitamin 500 mg PO QAM 01/25/19 03/10/19 History C] cholecalciferol (vitamin D3) 25 mcg PO QAM 01/25/19 03/10/19 History [Vitamin D3] coenzyme Q10 [Co Q-10] 100 mg PO QAM 01/25/19 03/10/19 History digestive enzymes 1 cap PO QAM 01/25/19 03/10/19 History vitamin B complex 1 tab PO QAM 02/15/19 03/10/19 History MAG-AL 15 ml PO Q4H PRN #3000 ml 02/17/19 03/10/19 Rx magnesium hydroxide [Milk of 30 ml PO Q6H PRN 30 Days #3840 ml 02/17/19 03/10/19 Rx Magnesia] polyethylene glycol 3350 [Miralax] 17 g PO DAILY PRN #30 ea 02/17/19 03/10/19 Rx ondansetron HCl [Zofran] 4 mg PO TID PRN 30 Days #120 tab 02/18/19 03/10/19 Rx diltiazem HCl 180 mg PO QAM #30 cap 03/01/19 03/10/19 Rx oxycodone 5 mg tablet 10 mg PO Q4 PRN #30 tab 03/07/19 03/10/19 Rx acetaminophen [Mapap 650 mg PO TID PRN 03/10/19 03/10/19 History (acetaminophen)] amiodarone 200 mg PO DAILY 03/10/19 03/10/19 History lidocaine 1 patch TRANSDERMAL DAILY@1900 PRN 03/10/19 03/10/19 History Allergies Allergy/AdvReac Type Severity Reaction Status Date / Time Iodinated Contrast Media Allergy Intermediate pruritus Verified 03/10/19 15:40 Penicillins Allergy Mild rash, Verified 03/10/19 15:40 nausea Sulfa (Sulfonamide Allergy Mild rash,nausea Verified 03/10/19 15:40 Antibiotics) Past Med/Surg History Medical History Anemia chronic (hgb in the 7-9 range over past month per chart review) most recent blood transfusion 12/2018 (felt chemo related) Diverticular disease GERD (gastroesophageal reflux disease) controlled Hypertension Lung mass Mediastinal lymphadenopathy Metastasis from cervical cancer Neuropathy 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- most recent chemo 11/2018;on dexamethasone 4mg every other day (started in setting of chemo/xrt)-- now weaning off Thrombocytopenia Surgical History History of cervical biopsy History of surgery insertion of Tandom & Ovoid x 5 History of tooth extraction History of tubal ligation History of vascular access device Left chest wall Family History Mother Breast cancer Hypertension Father Cancer Other No family history of adverse response to anesthesia Social History Preferred Language: Korean Communication Ability: Effective Security Auditor Required: No Beliefs That Will Affect Care: None marital status: Current Living Situation: Spouse Feels Safe at Home: Yes Smoking Status: Never smoker Second Hand Exposure: Yes (as a child and used to smoke in the house (stopped 1 year ago)) ; Hx Alcohol Use: No Hx Substance Use: No Dental Care, Regularly: No Seatbelt Use: always Review of Systems See HPI for pertinent positives & negatives. and A total of 10 systems reviewed and were otherwise negative Physical Exam Vital Signs Vital Signs - 24 hr 03/10/19 13:15 03/10/19 14:00 03/10/19 14:28 Temperature 38.3 C H Temperature Source Oral Pulse Rate 98 H Pulse Rate [Apical] 92 H Pulse Rate from SpO2 Sensor Respiratory Rate 22 20 Blood Pressure 152/79 H Blood Pressure [Right Arm] 149/65 H Blood Pressure Mean 103 Blood Pressure Mean [Right Arm] 93 Pulse Oximetry 64 L 100 100 Oxygen Delivery Method Room Air Non-rebreather Non-rebreather Oxygen Flow Rate 15 15 Sepsis Recent Fever Within 48 Hours No Sepsis New/Unexplained Change in Mental Status No Sepsis Action Taken by Nursing No Action Required Oxygen Flow Rate - Titration Pulse Oximetry Post Tiitration 03/10/19 15:03 03/10/19 15:04 03/10/19 15:09 Temperature 37.6 C H Temperature Source Pulse Rate 91 H 90 89 Pulse Rate [Apical] Pulse Rate from SpO2 Sensor 91 H 90 89 Respiratory Rate 25 H 24 29 H Blood Pressure 108/46 L 119/69 Blood Pressure [Right Arm] Blood Pressure Mean 58 90 Blood Pressure Mean [Right Arm] Pulse Oximetry 100 100 100 Oxygen Delivery Method Oxygen Flow Rate Sepsis Recent Fever Within 48 Hours Sepsis New/Unexplained Change in Mental Status Sepsis Action Taken by Nursing Oxygen Flow Rate - Titration Pulse Oximetry Post Tiitration 03/10/19 15:30 03/10/19 15:53 03/10/19 16:00 Temperature Temperature Source Pulse Rate 84 93 H Pulse Rate [Apical] Pulse Rate from SpO2 Sensor 85 85 Respiratory Rate 17 24 Blood Pressure 122/62 127/71 Blood Pressure [Right Arm] Blood Pressure Mean 88 82 Blood Pressure Mean [Right Arm] Pulse Oximetry 99 100 96 Oxygen Delivery Method Non-rebreather Oxygen Flow Rate 15 Sepsis Recent Fever Within 48 Hours Sepsis New/Unexplained Change in Mental Status Sepsis Action Taken by Nursing Oxygen Flow Rate - Titration 4 Pulse Oximetry Post Tiitration 96 Vital signs reviewed. Vitals signs are stable. General: Chronically ill-appearing female on nonbreather air, in no significant distress. HEENT: No scleral icterus, PERRLA, neck supple. Atraumatic. Dry mucous membranes. Cardiovascular: Regular rate and rhythm, no extra sounds. Pulmonary: Clear to auscultation bilaterally, normal work of breathing. Diminished breath sounds bilaterally. Abdomen: Soft, nontender, nondistended, positive bowel sounds. Musculoskeletal: Atraumatic, no peripheral edema. Tender distal right femur, pain with any range of motion. Neurologic: Patient awake alert and oriented x 3, full strength in all 4 extremities. Cranial nerves 2 through 12 grossly intact. Neurovascularly intact distally. Skin: Warm, dry, no rash Course Course 1322: Past medical records reviewed. The patient was evaluated in room A1. A complete history and physical exam was performed. 1551: I reassessed the patient and informed her about further evaluation with the hospitalist. 1552: I reviewed the patient's case with Bowen Goldsmith, Orthopedic surgery. He will evaluate the patient for further management. 1601: I reviewed the patient's case with Isabel Minor [facility] Hospitalist. He will evaluate the patient for further management. 1617: I reassessed the patient and received consent for blood administration. Consultations Consultation #1: I reviewed the patient's case with Bowen Goldsmith, Orthopedic surgery. He will evaluate the patient for further management. Time: 15:52 Consultation #2: I reviewed the patient's case with Isabel Minor [facility] Hospita list. He will evaluate the patient for further management. Time: 16:01 Administered Medications Gabapentin (Neurontin) 300 mg PO TID MALATHI Stop: 04/09/19 20:59 Last Admin: 03/10/19 21:23 Dose: 300 mg Documented by: [id number] Sodium Chloride (Nss 1000ml) 1,000 mls @ 100 mls/hr IV .Q10H ONE Stop: 03/10/19 23:28 Last Admin: 03/10/19 14:20 Dose: 100 mls/hr Documented by: [id number] Discontinued Medications Acetaminophen (Ofirmev) 1,000 mg IV NOW STA Stop: 03/10/19 13:31 Last Admin: 03/10/19 14:19 Dose: 1,000 mg Documented by: [id number] Diphenhydramine HCl (Benadryl) 50 mg IV NOW STA Stop: 03/10/19 14:09 Last Admin: 03/10/19 14:19 Dose: 50 mg Documented by: [id number] Fentanyl Citrate (Fentanyl Citrate) 50 mcg IV Q15M PRN PRN Reason: Pain Stop: 03/24/19 14:06 Last Admin: 03/10/19 17:01 Dose: 50 mcg Documented by: [id number] Admin: 03/10/19 16:08 Dose: 50 mcg Documented by: [id number] Admin: 03/10/19 14:18 Dose: 100 mcg Documented by: [id number] Potassium Chloride (K Dipak / Wtr) 10 meq in 100 mls @ 100 mls/hr IV Q1H MALATHI Stop: 03/10/19 16:44 Last Infusion: 03/10/19 16:27 Dose: 0 mls/hr Documented by: [id number] Admin: 03/10/19 15:36 Dose: 100 mls/hr Documented by: [id number] Infusion: 03/10/19 15:36 Dose: 100 mls/hr Documented by: [id number] Admin: 03/10/19 15:04 Dose: 100 mls/hr Documented by: [id number] Magnesium Sulfate/Dextrose (Magnesium Sulfate / D5w) 1 gm in 100 mls @ 100 mls/hr IV Q1H MALATHI Stop: 03/10/19 16:44 Last Infusion: 03/10/19 16:27 Dose: 0 mls/hr Documented by: [id number] Admin: 03/10/19 15:54 Dose: 100 mls/hr Documented by: [id number] Infusion: 03/10/19 15:54 Dose: 100 mls/hr Documented by: [id number] Admin: 03/10/19 15:04 Dose: 100 mls/hr Documented by: [id number] Ceftriaxone Sodium (Rocephin) 2,000 mg in 70 mls @ 140 mls/hr IV NOW STA Stop: 03/10/19 15:44 Last Infusion: 03/10/19 15:52 Dose: 0 mls/hr Documented by: [id number] Admin: 03/10/19 15:32 Dose: 140 mls/hr Documented by: [id number] Ioversol (Optiray 320 125ml) 116 ml IV ONCE PRN PRN Reason: Interaction Checking Stop: 03/14/19 15:01 Last Admin: 03/10/19 15:03 Dose: 116 ml Documented by: [id number] Methylprednisolone (Solumedrol) 125 mg IV NOW STA Stop: 03/10/19 14:13 Last Admin: 03/10/19 14:20 Dose: 125 mg Documented by: [id number] Ondansetron HCl (Zofran) 4 mg IV NOW STA Stop: 03/10/19 14:08 Last Admin: 03/10/19 14:19 Dose: 4 mg Documented by: [id number] Potassium Chloride (Klor-Con M20) 40 meq PO NOW STA Stop: 03/10/19 18:22 Last Admin: 03/10/19 18:31 Dose: 40 meq Documented by: [id number] Critical Care Time Critical Care Time: Yes Total Critical Care Time: 45 I have personally spent 45 minutes of critical care time in the direct management of this patient. This includes bedside care, interpretation of diagnostic studies, and testing, discussion with consultants, patient, and family members, and other required patient management activities. This 45 min utes is in excess of all separately billable procedures. Medical Decision Making Differential Diagnosis Differential diagnosis includes: infection, reactive airway disease, pneumonia, pneumothorax, COPD, CHF, cardiac ischemia, pulmonary embolism, musculoskeletal, gastrointestinal, fat embolism, femur fracture, soft tissue injury, patellar fracture and dislocation, well as others were entertained. Medical Records Attestation: I reviewed the patient's medical records. Home Medications Current Medication List: was personally reviewed by me Laboratory Data Attestation: I reviewed the patient's lab results. Result diagrams: 03/10/19 15:13 03/10/19 13:38 Lab Results 03/10/19 03/10/19 03/10/19 Range/Units 13:20 13:38 13:38 WBC Cancelled RBC Cancelled Hgb Cancelled Hct Cancelled MCV Cancelled MCH Cancelled MCHC Cancelled RDW Std Deviation Cancelled RDW Coeff of Nikki Cancelled Plt Count Cancelled MPV Cancelled Immature Gran % (Auto) Cancelled Neut % (Auto) Cancelled Lymph % (Auto) Cancelled [place] % (Auto) Cancelled Eos % (Auto) Cancelled Baso % (Auto) Cancelled Immature Gran # (Auto) Cancelled Neut # (Auto) Cancelled Lymph # (Auto) Cancelled [place] # (Auto) Cancelled Eos # (Auto) Cancelled Baso # (Auto) Cancelled Absolute Nucleated RBC Cancelled Nucleated RBC % (auto) Cancelled Neutrophils % (Manual) Cancelled Band Neutrophils % Cancelled Lymphocytes % (Manual) Cancelled Prolymphocyte % Cancelled Reactive Lymphs % (Man) Cancelled Monocytes % (Manual) Cancelled Eosinophils % (Manual) Cancelled Basophils % (Manual) Cancelled Metamyelocytes % (Man) Cancelled Myelocytes % (Man) Cancelled Promyelocytes % (Man) Cancelled Blast Cells % (Manual) Cancelled Plasma Cell % (Manual) Cancelled Other Cells % Cancelled Nucleated RBC % Cancelled Neutrophils # (Manual) Cancelled Band Neutrophils # Cancelled Total Absolute Neuts Cancelled Lymphocytes # (Manual) Cancelled Prolymphocyte # Cancelled Reactive Lymphs # Cancelled Total Abs Lymphocytes Cancelled Monocytes # (Manual) Cancelled Eosinophils # (Manual) Cancelled Basophils # (Manual) Cancelled Metamyelocytes # (Man) Cancelled Myelocytes # (Manual) Cancelled Promyelocytes # (Man) Cancelled Blast Cells # (Man) Cancelled Plasma Cell # (Manual) Cancelled Other Cells # Cancelled Nucleated RBCs # (Man) Cancelled Hypersegmented Neuts Cancelled Hyposegmented Neuts Cancelled Hypogranular Neuts Cancelled Large Granular Lymphs Cancelled # Lrg Granular Lymphs Cancelled Hairy Cells Cancelled Smudge Cells Cancelled Toxic Granulation Cancelled Toxic Vacuolation Cancelled Dohle Bodies Cancelled Jacquie Rods Cancelled Platelet Estimate Cancelled Hypogranular Platelets Cancelled Clumped Platelets Cancelled Giant Platelets Cancelled Platelet Satelliting Cancelled RBC Morphology Cancelled Polychromasia Cancelled Hypochromasia Cancelled Poikilocytosis Cancelled Basophilic Stippling Cancelled Anisocytosis Cancelled Microcytosis Cancelled Macrocytosis Cancelled Spherocytes Cancelled Pappenheimer Bodies Cancelled Sickle Cells Cancelled Target Cells Cancelled Tear Drop Cells Cancelled Ovalocytes Cancelled Stomatocytes Cancelled [place] Bodies Cancelled Echinocytes Cancelled Acanthocytes (Spur) Cancelled Rouleaux Cancelled RBC Agglutinates Cancelled Schistocytes Cancelled RBC Morph Comment Cancelled Sezary Cell Cancelled PT Cancelled INR Cancelled APTT Cancelled PTT Ratio Cancelled Sodium (136-145) mmol/L Potassium (3.5-5.1) mmol/L Chloride (98-107) mmol/L Carbon Dioxide (21-32) mmol/L Anion Gap (3-11) BUN (7-18) mg/dl Creatinine (0.6-1.2) mg/dl Est Cr Clr Drug Dosing ml/min Est GFR ( Amer) Est GFR (Non-Af Amer) BUN/Creatinine Ratio (10-20) Glucose (70-99) mg/dl Osmolality (280-300) mOsm/kg Lactate (0.4-2.0) mmol/L Calcium (8.5-10.1) mg/dl Magnesium (1.8-2.4) mg/dl Total Bilirubin (0.2-1) mg/dl AST (15-37) U/L ALT (12-78) U/L Alkaline Phosphatase (45-117) U/L Troponin I (0-0.045) ng/ml Total Protein (6.4-8.2) gm/dl Albumin (3.4-5.0) gm/dl Globulin (2.5-4.0) gm/dl Albumin/Globulin Ratio (0.9-2) Urine Color Yellow Urine Appearance Turbid A (Clear) Urine pH 6.5 (4.5-7.5) Ur Specific [place] 1.016 (1.000-1.030) Urine Protein 1+ H (Negative) Urine Glucose (UA) Negative (Negative) Urine Ketones Negative (Negative) Urine Blood 3+ H (Negative) Urine Nitrite Positive A (Negative) Urine Bilirubin Negative (Negative) Urine Urobilinogen Negative (Negative) Ur Leukocyte Esterase 2+ H (Negative) Urine WBC (Auto) >30 H (0-5) /hpf Urine RBC (Auto) >30 H (0-4) /hpf U Hyaline Cast (Auto) 5-10 H (0-5) /lpf U Epithel Cells (Auto) >30 H (0-5) /lpf Urine Bacteria (Auto) 2+ H (Negative) Granular Casts 1-5 H (0) /lpf Urine Yeast Not Reportable Influenza Type A (PCR) (Neg) Influenza Type B (PCR) (Neg) Blood Type Antibody Screen Crossmatch 03/10/19 03/10/19 03/10/19 Range/Units 13:38 13:38 13:38 WBC RBC Hgb Hct MCV MCH MCHC RDW Std Deviation RDW Coeff of Nikki Plt Count MPV Immature Gran % (Auto) Neut % (Auto) Lymph % (Auto) [place] % (Auto) Eos % (Auto) Baso % (Auto) Immature Gran # (Auto) Neut # (Auto) Lymph # (Auto) [place] # (Auto) Eos # (Auto) Baso # (Auto) Absolute Nucleated RBC Nucleated RBC % (auto) Neutrophils % (Manual) Band Neutrophils % Lymphocytes % (Manual) Prolymphocyte % Reactive Lymphs % (Man) Monocytes % (Manual) Eosinophils % (Manual) Basophils % (Manual) Metamyelocytes % (Man) Myelocytes % (Man) Promyelocytes % (Man) Blast Cells % (Manual) Plasma Cell % (Manual) Other Cells % Nucleated RBC % Neutrophils # (Manual) Band Neutrophils # Total Absolute Neuts Lymphocytes # (Manual) Prolymphocyte # Reactive Lymphs # Total Abs Lymphocytes Monocytes # (Manual) Eosinophils # (Manual) Basophils # (Manual) Metamyelocytes # (Man) Myelocytes # (Manual) Promyelocytes # (Man) Blast Cells # (Man) Plasma Cell # (Manual) Other Cells # Nucleated RBCs # (Man) Hypersegmented Neuts Hyposegmented Neuts Hypogranular Neuts Large Granular Lymphs # Lrg Granular Lymphs Hairy Cells Smudge Cells Toxic Granulation Toxic Vacuolation Dohle Bodies Jacquie Rods Platelet Estimate Hypogranular Platelets Clumped Platelets Giant Platelets Platelet Satelliting RBC Morphology Polychromasia Hypochromasia Poikilocytosis Basophilic Stippling Anisocytosis Microcytosis Macrocytosis Spherocytes Pappenheimer Bodies Sickle Cells Target Cells Tear Drop Cells Ovalocytes Stomatocytes [place] Bodies Echinocytes Acanthocytes (Spur) Rouleaux RBC Agglutinates Schistocytes RBC Morph Comment Sezary Cell PT INR APTT PTT Ratio Sodium 126 L (136-145) mmol/L Potassium 3.0 L (3.5-5.1) mmol/L Chloride 81 L (98-107) mmol/L Carbon Dioxide 41 H* (21-32) mmol/L Anion Gap 5.0 (3-11) BUN 10 (7-18) mg/dl Creatinine 0.61 (0.6-1.2) mg/dl Est Cr Clr Drug Dosing 108.0 ml/min Est GFR ( Amer) 111.0 Est GFR (Non-Af Amer) 95.8 BUN/Creatinine Ratio 15.6 (10-20) Glucose 97 (70-99) mg/dl Osmolality 269 L (280-300) mOsm/kg Lactate 1.4 (0.4-2.0) mmol/L Calcium 11.0 H (8.5-10.1) mg/dl Magnesium 1.4 L (1.8-2.4) mg/dl Total Bilirubin 0.5 (0.2-1) mg/dl AST 27 (15-37) U/L ALT 12 (12-78) U/L Alkaline Phosphatase 119 H (45-117) U/L Troponin I < 0.015 (0-0.045) ng/ml Total Protein 6.5 (6.4-8.2) gm/dl Albumin 1.8 L (3.4-5.0) gm/dl Globulin 4.7 H (2.5-4.0) gm/dl Albumin/Globulin Ratio 0.4 L (0.9-2) Urine Color Urine Appearance (Clear) Urine pH (4.5-7.5) Ur Specific [place] (1.000-1.030) Urine Protein (Negative) Urine Glucose (UA) (Negative) Urine Ketones (Negative) Urine Blood (Negative) Urine Nitrite (Negative) Urine Bilirubin (Negative) Urine Urobilinogen (Negative) Ur Leukocyte Esterase (Negative) Urine WBC (Auto) (0-5) /hpf Urine RBC (Auto) (0-4) /hpf U Hyaline Cast (Auto) (0-5) /lpf U Epithel Cells (Auto) (0-5) /lpf Urine Bacteria (Auto) (Negative) Granular Casts (0) /lpf Urine Yeast Influenza Type A (PCR) (Neg) Influenza Type B (PCR) (Neg) Blood Type Antibody Screen Crossmatch 03/10/19 03/10/19 03/10/19 Range/Units 15:13 15:13 15:13 WBC 13.54 H RBC 1.98 L Hgb 6.5 L* Hct 19.6 L* MCV 99.0 MCH 32.8 MCHC 33.2 RDW Std Deviation 64.3 H RDW Coeff of Nikki 17.8 H Plt Count 99 L MPV 9.7 Immature Gran % (Auto) 0.8 Neut % (Auto) 85.6 Lymph % (Auto) 3.4 [place] % (Auto) 9.5 Eos % (Auto) 0.6 Baso % (Auto) 0.1 Immature Gran # (Auto) 0.11 H Neut # (Auto) 11.60 H Lymph # (Auto) 0.46 L [place] # (Auto) 1.28 H Eos # (Auto) 0.08 Baso # (Auto) 0.01 Absolute Nucleated RBC Nucleated RBC % (auto) Neutrophils % (Manual) Band Neutrophils % Lymphocytes % (Manual) Prolymphocyte % Reactive Lymphs % (Man) Monocytes % (Manual) Eosinophils % (Manual) Basophils % (Manual) Metamyelocytes % (Man) Myelocytes % (Man) Promyelocytes % (Man) Blast Cells % (Manual) Plasma Cell % (Manual) Other Cells % Nucleated RBC % Neutrophils # (Manual) Band Neutrophils # Total Absolute Neuts Lymphocytes # (Manual) Prolymphocyte # Reactive Lymphs # Total Abs Lymphocytes Monocytes # (Manual) Eosinophils # (Manual) Basophils # (Manual) Metamyelocytes # (Man) Myelocytes # (Manual) Promyelocytes # (Man) Blast Cells # (Man) Plasma Cell # (Manual) Other Cells # Nucleated RBCs # (Man) Hypersegmented Neuts Hyposegmented Neuts Hypogranular Neuts Large Granular Lymphs # Lrg Granular Lymphs Hairy Cells Smudge Cells Toxic Granulation Toxic Vacuolation Dohle Bodies Jacquie Rods Platelet Estimate Hypogranular Platelets Clumped Platelets Giant Platelets Platelet Satelliting RBC Morphology Polychromasia Hypochromasia Poikilocytosis Basophilic Stippling Anisocytosis Present Microcytosis Macrocytosis Spherocytes Pappenheimer Bodies Sickle Cells Target Cells Tear Drop Cells Ovalocytes Stomatocytes [place] Bodies Echinocytes Acanthocytes (Spur) Rouleaux RBC Agglutinates Schistocytes RBC Morph Comment Sezary Cell PT 11.9 INR 1.2 H APTT 24.4 PTT Ratio 0.9 Sodium (136-145) mmol/L Potassium (3.5-5.1) mmol/L Chloride (98-107) mmol/L Carbon Dioxide (21-32) mmol/L Anion Gap (3-11) BUN (7-18) mg/dl Creatinine (0.6-1.2) mg/dl Est Cr Clr Drug Dosing ml/min Est GFR ( Amer) Est GFR (Non-Af Amer) BUN/Creatinine Ratio (10-20) Glucose (70-99) mg/dl Osmolality (280-300) mOsm/kg Lactate (0.4-2.0) mmol/L Calcium (8.5-10.1) mg/dl Magnesium (1.8-2.4) mg/dl Total Bilirubin (0.2-1) mg/dl AST (15-37) U/L ALT (12-78) U/L Alkaline Phosphatase (45-117) U/L Troponin I (0-0.045) ng/ml Total Protein (6.4-8.2) gm/dl Albumin (3.4-5.0) gm/dl Globulin (2.5-4.0) gm/dl Albumin/Globulin Ratio (0.9-2) Urine Color Urine Appearance (Clear) Urine pH (4.5-7.5) Ur Specific [place] (1.000-1.030) Urine Protein (Negative) Urine Glucose (UA) (Negative) Urine Ketones (Negative) Urine Blood (Negative) Urine Nitrite (Negative) Urine Bilirubin (Negative) Urine Urobilinogen (Negative) Ur Leukocyte Esterase (Negative) Urine WBC (Auto) (0-5) /hpf Urine RBC (Auto) (0-4) /hpf U Hyaline Cast (Auto) (0-5) /lpf U Epithel Cells (Auto) (0-5) /lpf Urine Bacteria (Auto) (Negative) Granular Casts (0) /lpf Urine Yeast Influenza Type A (PCR) Neg for Influ A (Neg) Influenza Type B (PCR) Neg for Influ B (Neg) Blood Type Antibody Screen Crossmatch 03/10/19 Range/Units 16:22 WBC RBC Hgb Hct MCV MCH MCHC RDW Std Deviation RDW Coeff of Nikki Plt Count MPV Immature Gran % (Auto) Neut % (Auto) Lymph % (Auto) [place] % (Auto) Eos % (Auto) Baso % (Auto) Immature Gran # (Auto) Neut # (Auto) Lymph # (Auto) [place] # (Auto) Eos # (Auto) Baso # (Auto) Absolute Nucleated RBC Nucleated RBC % (auto) Neutrophils % (Manual) Band Neutrophils % Lymphocytes % (Manual) Prolymphocyte % Reactive Lymphs % (Man) Monocytes % (Manual) Eosinophils % (Manual) Basophils % (Manual) Metamyelocytes % (Man) Myelocytes % (Man) Promyelocytes % (Man) Blast Cells % (Manual) Plasma Cell % (Manual) Other Cells % Nucleated RBC % Neutrophils # (Manual) Band Neutrophils # Total Absolute Neuts Lymphocytes # (Manual) Prolymphocyte # Reactive Lymphs # Total Abs Lymphocytes Monocytes # (Manual) Eosinophils # (Manual) Basophils # (Manual) Metamyelocytes # (Man) Myelocytes # (Manual) Promyelocytes # (Man) Blast Cells # (Man) Plasma Cell # (Manual) Other Cells # Nucleated RBCs # (Man) Hypersegmented Neuts Hyposegmented Neuts Hypogranular Neuts Large Granular Lymphs # Lrg Granular Lymphs Hairy Cells Smudge Cells Toxic Granulation Toxic Vacuolation Dohle Bodies Jacquie Rods Platelet Estimate Hypogranular Platelets Clumped Platelets Giant Platelets Platelet Satelliting RBC Morphology Polychromasia Hypochromasia Poikilocytosis Basophilic Stippling Anisocytosis Microcytosis Macrocytosis Spherocytes Pappenheimer Bodies Sickle Cells Target Cells Tear Drop Cells Ovalocytes Stomatocytes [place] Bodies Echinocytes Acanthocytes (Spur) Rouleaux RBC Agglutinates Schistocytes RBC Morph Comment Sezary Cell PT INR APTT PTT Ratio Sodium (136-145) mmol/L Potassium (3.5-5.1) mmol/L Chloride (98-107) mmol/L Carbon Dioxide (21-32) mmol/L Anion Gap (3-11) BUN (7-18) mg/dl Creatinine (0.6-1.2) mg/dl Est Cr Clr Drug Dosing ml/min Est GFR ( Amer) Est GFR (Non-Af Amer) BUN/Creatinine Ratio (10-20) Glucose (70-99) mg/dl Osmolality (280-300) mOsm/kg Lactate (0.4-2.0) mmol/L Calcium (8.5-10.1) mg/dl Magnesium (1.8-2.4) mg/dl Total Bilirubin (0.2-1) mg/dl AST (15-37) U/L ALT (12-78) U/L Alkaline Phosphatase (45-117) U/L Troponin I (0-0.045) ng/ml Total Protein (6.4-8.2) gm/dl Albumin (3.4-5.0) gm/dl Globulin (2.5-4.0) gm/dl Albumin/Globulin Ratio (0.9-2) Urine Color Urine Appearance (Clear) Urine pH (4.5-7.5) Ur Specific [place] (1.000-1.030) Urine Protein (Negative) Urine Glucose (UA) (Negative) Urine Ketones (Negative) Urine Blood (Negative) Urine Nitrite (Negative) Urine Bilirubin (Negative) Urine Urobilinogen (Negative) Ur Leukocyte Esterase (Negative) Urine WBC (Auto) (0-5) /hpf Urine RBC (Auto) (0-4) /hpf U Hyaline Cast (Auto) (0-5) /lpf U Epithel Cells (Auto) (0-5) /lpf Urine Bacteria (Auto) (Negative) Granular Casts (0) /lpf Urine Yeast Influenza Type A (PCR) (Neg) Influenza Type B (PCR) (Neg) Blood Type O Positive Antibody Screen NEGATIVE Crossmatch See Detail Imaging Data Radiologist's Impression: Radiology results as stated below per my review and the radiologist's interpretation: SINGLE VIEW CHEST CLINICAL HISTORY: Sepsis. FINDINGS: An AP, portable, upright chest radiograph is compared to chest x-ray and chest CT dated 02/26/2019. The examination is degraded by portable technique and patient rotation. A left subclavian central venous infusion port is unchanged in position. The heart is mildly enlarged noting atherosclerotic calcification of the thoracic aorta. There is mild pulmonary vascular congestion. Loculated fluid is seen at the right apex. Masslike opacities and consolidation in the right mid to lower lung is unchanged. Scarring/atelectasis is noted at the left lung base. No pneumothorax is seen. The skeletal structures are osteopenic. The bony thorax is grossly intact. IMPRESSION: 1. Cardiomegaly with mild pulmonary vascular congestion. 2. Masslike consolidation in the right mid to lower lung is similar to previous. This was better assessed on the 02/26/[address] 3. Loculated fluid is again seen at the right apex. ACT 112: Negative or not required by law. Electronically signed by: Faisal Cleary M.D. 03/10/2019 2:28 PM XR knee RT 1 or 2V routine HISTORY: 64 years-old Female trauma acute right knee pain. History of cervical cancer COMPARISON: CT abdomen and pelvis 02/15/2019 TECHNIQUE: 2 views of the right knee FINDINGS: There is an acute comminuted fracture of the distal diaphyseal femur, apex medial angulation of 25 degrees with 7 mm lateral displacement of the distal fracture fragment. There is apex volar angulation of 33 degrees. Fracture is centered about an infiltrative moderate lytic lesion of the medullary space and medial cortex with ill-defined margins. Moderate soft tissue swelling. The knee articulation is intact. No large joint effusion. Mild tricompartmental degenerative changes. IMPRESSION: Infiltrative lytic lesion of the distal femoral shaft with acute pathologic comminuted displaced and angulated fracture. ACT 112: Negative or not required by law. The above report was generated using voice recognition software. It may contain grammatical, syntax or spelling errors. Electronically signed by: Ernie Burrows M.D. 03/10/2019 2:[address] ANGIOGRAM OF THE CHEST CLINICAL HISTORY: Dyspnea. COMPARISON STUDY: Chest CT dated 02/26/2019 and 04/12/2018. TECHNIQUE: Following the IV administration of 116 cc of Optiray 320, CT angiogram of the chest was performed from the upper abdomen to the thoracic inlet utilizing the pulmonary embolus protocol. Images are reviewed in the axial, sagittal, and coronal planes. 3-D MIPS images are created and assessed. The patient was premedicated for a reported history of contrast allergy. IV contrast was administered without complication. A dose lowering technique was utilized adhering to the principles of ALARA. The Examination is significantly degraded by motion artifact. CT DOSE: 408.02 mGy.cm FINDINGS: Thyroid: Imaged portions of the thyroid gland are normal in size and attenuation. Thoracic aorta: The thoracic aorta is normal in caliber and demonstrates standard 3-vessel arch anatomy. No dissection is seen. Pulmonary vasculature: The pulmonary trunk is normal in caliber. There are no filling defects identified in main, lobar, or proximal segmental pulmonary branches to suggest pulmonary embolus. Evaluation of the peripheral branches is degraded by motion artifact. Heart: A left subclavian central venous infusion port is in place. The heart is normal in size and there is a small pericardial effusion. Pericardial implants are again noted. Lungs and pleural spaces: There is a large mass lesion in the right midlung with associated consolidation throughout the right lower lung. This occludes the ri ght middle and right lower lobe airways and also narrows the right middle and lower lobe pulmonary arteries. There is a moderate and multiloculated right pleural collection which extends from the lung base posteriorly to the apex. This is increased in size from 02/26/2019. There is trace pleural effusions seen on the left. Foci of atelectasis are noted throughout the left lung. The trachea is clear. Mediastinum: There are numerous mildly enlarged mediastinal lymph nodes. Yessi: The right hilum is obscured. The left hilum appears clear. Axillae: There is no axillary lymphadenopathy. Upper abdomen: Multifocal hepatic metastatic disease is similar to previous. The largest lesion is seen in the left lobe and measures 4.4 cm. A pathologically enlarged right cardiophrenic lymph node measures 3.0 x 1.7 cm. A 2.1 cm right adrenal nodule is seen on image #10. Skeletal structures: Findings of multifocal osteolytic metastatic disease have not significantly changed from 02/26/2019. The largest lesions are seen in the thoracic spine and sternum. IMPRESSION: 1. Motion compromised examination. 2. There is no evidence of pulmonary embolus in the main, lobar, or proximal segmental pulmonary arteries. 3. 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 4. A large mass lesion is again seen in the right midlung with complete atelectasis of the right lower lung. This has progressed from 02/26/2019. 5. There is a moderate and multiloculated right-sided pleural collection. This extends from the lung base to the apex and has increased in size from 02/26/2019. The sterility of this collection cannot be assessed by CT. 6. There is trace left pleural effusion. 7. There are pathologically enlarged mediastinal and right cardiophrenic lymph nodes. 8. Additional findings as above. ACT 112: Negative or not required by law. Electronically signed by: Faisal Cleary M.D. 03/10/2019 3:33 PM ECG Data Attestation: I personally reviewed and interpreted this ECG as follows: Indication: + SOB/dyspnea and + other (Hypoxia) Rate (beats per minute): 98 Rhythm: + sinus rhythm ECG Intervals/blocks: + Prolonged QT (674) ECG Findings: + Other (Poor quality baseline for interpretations; Nonspecific T wave abnormality but artificat makes it difficult to interpret. ) Blood Pressure Blood Pressure Findings: Normal blood pressure MDM Narrative This patient was evaluated and appeared to be in significant discomfort. Physical examination reveals a chronically ill woman on nonrebreather with fairly stable vital signs. Patient has a tender right lower extremity and pain with any movement. X-rays were obtained and significant for an infiltrative lytic lesion in the distal right femur with a subsequent pathologic comminuted fracture. Chest x-ray is significant for consolidation of the right mid to lower lung and loculated fluid at the right apex. Due to to the femur fracture and hypoxic episode, CT imaging of the chest was performed to rule out fatty e mbolus. Patient did require IV Benadryl and Solu-Medrol prior to IV contrast. This study is negative for PE and otherwise read as above. Patient's laboratory work reveals a hemoglobin of 6.5, likely secondary to bleeding from the femur fracture on top of baseline anemia. Patient received several doses of IV fentanyl and was given Zofran for nausea. A knee immobilizer was placed on the right lower extremity. Patient was consented for blood transfusion through her . She was typed and crossed for 2 units with 1 unit to be transfused. I did discuss the fracture with Dr. Goldsmith of orthopedic surgery who will consult on the patient while hospitalized, although she does not seem to be a strong surgical candidate. Patient's family was made aware of the findings and they agree with the plan for hospitalization. Case was discussed with the hospitalist for further management. Impression & Plan Hypoxia, Metastasis from cervical cancer, Malignant pleural effusion, Fracture of right femur Discharge Plan Visit Data *Final* Discharge Date/Time: 03/10/19 19:09 Chief Complaint: Illness ED Provider: Courtney Chavarria Discharge Problem: Hypoxia, Metastasis from cervical cancer, Malignant pleural effusion, Fracture of right femur Patient Disposition: Admitted As Inpatient Discharge Instructions Interventions: ED Discharge Assessment Last Done: 03/10/19 19:09 Discharge Problem: Fracture of right femur Qualifiers: Encounter type: initial encounter Femur location: distal, unspecified portion Fracture type: closed Fracture morphology: unspecified fracture morphology Qualified Code(s): S72.401A - Unspecified fracture of lower end of right femur, initial encounter for closed fracture The scribe's documentation has been prepared under my direction and personally reviewed by me in its entirety. I confirm that the note above accurately reflects all work, treatment, procedures, and medical decision making performed by me.
--- NOTE | 2019-03-10 17:51 | History & Physical Report ---
Date of Service March 10, 2019 Assessment & Plan (1) Fracture of right femur: - Following mechanical fall at home in setting generalized weakness/deconditioning and metastatic cervical cancer with bony metastases. - Knee XR showed infiltrative lytic lesion of distal femoral shaft with acute pathologic comminuted displaced and angulated fracture. - Orthopedics consulted, would need medically optimized prior to surgery. Has multiple lab work abnormalities and T-wave inversion noted on EKG. - Tylenol prn mild pain; Fentanyl IV prn severe pain - has required multiple doses in the ER. - Strict bedrest; knee immobilizer ordered. - Will consult palliative care to discuss goals of care prior to surgery. (2) Acute respiratory failure with hypoxia: - Acute requirements, hypoxic in the ER requiring non rebreather. Chronically requires 2L via NC at home. - Likely related to pleural effusion and progression of right metastatic lung mass with collapse of right lower lobe and obliteration of right middle lobe with tumor. - CTA during this admission neg for PE, showed progression of right lung mass and moderate right pleural effusion and trace left pleural effusion. - Received solu-medrol 125 mg IV in the ER; will hold further steroid doses. - Continue to wean oxygen as tolerated. (3) Malignant pleural effusion: - S/p PleurX by Dr. Somers, now removed. - CTA showed increase in right pleural collection compared to 02/26 and trace left pleural effusion. - Will consult Dr. Somers for evaluation. - Hold IV fluids to avoid volume overload -- also has mild pulm vascular congestion on CXR. (4) Mass of middle lobe of right lung: - Follows with oncology; per discharge summary, pt. was considering starting immunotherapy. - Has progression of lung mass noted on CTA. (5) Atrial fibrillation and flutter: - Continue Amiodarone and Cardizem as prescribed. -Currently in sinus rhythm although lots of artifact on ECG - Not currently on anticoagulation - likely related to thrombocytopenia, anemia, and previous brain metastasis. (6) UTI (urinary tract infection): - U/a + (may be contaminated) in setting of chronic alexander from home. - UC is pending; received Ceftriaxone in the ED, will continue daily abx and follow urine and blood cultures. (7) Urinary retention: - Discharged with alexander during her last admission; alexander was exchanged in the ER today. - Will continue to monitor urine output. - U/a + as noted above. (8) Thrombocytopenia: - In setting of recent chemo; holding pharmacologic ppx. (9) Anemia: - Hgb 6.5 on admission, likely secondary to acute blood loss anemia from femur fracture in the setting of chronic anemia -Transfusing 2 units pRBC. - Repeat CBC this evening at 11 pm then monitor CBC daily. (10) Metastasis from cervical cancer: - Liver, lung, brain and bone metastases. - Has had progression of disease noted on imaging. - Palliative care consulted, will need to discuss goals of care. POLST form was completed during last admission. -Was considering immunotherapy but has not yet started it (11) Goals of care, counseling/discussion: - Palliative consulted. (12) Acute electrocardiogram changes: - T wave inversion noted in anterior leads. - Admit to telemetry for monitoring. - Will order serial trops q6hr x 3. If troponin positive, would check echocardiogram - Would need to be medically optimized for surgery. (13) Prolonged QT interval: - QTc 674 on admission EKG, however difficult to interpret given a lot of artifact on ECG - Avoid QT prolonging agents and monitor serial EKGs. - Replace electrolytes as needed -- ordered KCl and Mag in the ER. (14) Hyponatremia: - Na level 126; serum osmo was <280, urine osmo and sodium are pending. - Possibly related to SIADH in setting of lung disease, but also likely due to hypovolemia from hemorrhage. -Transfusion with PRBCs to replete intravascular volume as above - Will hold IV fluids and repeat Na level this evening to verify levels are improving. (15) Electrolyte abnormality: - K level 3.0 - received 20 mEq IV in the ER, will order additional 40 mEq PO. - Mag level 1.4 - received 2 gm IV in the ER. - Repeat BMP at 11 pm and monitor mag level in the morning. (16) Elevated alkaline phosphatase level: - In setting of liver metastasis. (17) Severe protein-calorie malnutrition: - Albumin 1.8 in setting of metastatic cancer. - Encourage regular diet as tolerated. (18) Hypercalcemia: Corrected calcium on admission is 12.76 Likely secondary to bony metastases in the setting of malignancy -Monitor calcium and albumin levels, if still elevated in the morning, would start normal saline (19) DVT prophylaxis: - SCDs; holding pharmacologic ppx for possible procedure and in setting of thrombocytopenia. Dispo: PCU tele for acute femur fracture, palliative consult. DNR but okay with intubation and shock -- confirmed with at bedside. Spent 30 minutes prolonged time with the family members, reviewing the chart and completing documentation. History of Present Illness Chief Complaint: Right knee pain Primary Care Provider: Clemente Hays MD Mrs. Irvin is a 64 year old with metastatic cervical cancer with mets to the brain, liver, lung, and bones, chronic hypoxic respiratory failure, A. fib/flutter who presented with right knee pain following a fall at home. She was recently admitted from 02/20-03/01 for acute hypoxic respiratory failure secondary to pleural effusion and lung metastasis. Pt. did not pursue hospice at this visit and felt like she would like to trial immunotherapy as an outpatient. Her has been her primary caregiver at home but she has developed increased weakness with trouble ambulating. Pt. was attempting to move positions today with the help of her (from commode to bed) - her right leg "gave out" leading to her favoring her left leg. The patient developed bilateral weakness and fell to the ground. She denies chest pain, SOB, dizziness prior to fall. C/o right knee pain at the moment; she has been requiring multiple doses of Fentanyl IV for pain control in the ER. Has SOB -- chronically requires 2L via NC at home since the last admission. Denies chest pain, fever/chills, URI sy mptoms, LE edema, N/V, constipation. Has a alexander catheter that was placed during the previous admission for urinary retention; alexander was exchanged in the ER and u/a is positive. ER course: Lab work showed hyponatremia, hypokalemia, hypomagnesemia. CXR showed masslike consolidation in the right mid to lower lung and loculated fluid in the right apex, mild pulm vascular congestion. Knee XR showed an infiltrative lytic lesion of distal femoral shaft with acute pathologic comminuted displaced and angulated fracture. Chest CTA (in setting of hypoxia) was negative for PE, did show similar metastatic disease in liver and bones but progression of large mass in right lung. She will be admitted for orthopedic consult and to discuss goals of care with palliative care. Allergies Allergy/AdvReac Type Severity Reaction Status Date / Time Iodinated Contrast Media Allergy Intermediate pruritus Verified 03/10/19 15:40 Penicillins Allergy Mild rash, Verified 03/10/19 15:40 nausea Sulfa (Sulfonamide Allergy Mild rash,nausea Verified 03/10/19 15:40 Antibiotics) Home Medications Home Medications Medication Instructions Recorded Confirmed Type gabapentin 300 mg capsule 300 mg PO TID 12/20/18 03/10/19 History magnesium 200 mg tablet 400 mg PO QAM tab 12/20/18 03/10/19 History Centrum Silver Women 1 tab PO QAM 01/25/19 03/10/19 History ascorbic acid (vitamin C) [Vitamin 500 mg PO QAM 01/25/19 03/10/19 History C] cholecalciferol (vitamin D3) 25 mcg PO QAM 01/25/19 03/10/19 History [Vitamin D3] coenzyme Q10 [Co Q-10] 100 mg PO QAM 01/25/19 03/10/19 History digestive enzymes 1 cap PO QAM 01/25/19 03/10/19 History vitamin B complex 1 tab PO QAM 02/15/19 03/10/19 History MAG-AL 15 ml PO Q4H PRN #3000 ml 02/17/19 03/10/19 Rx magnesium hydroxide [Milk of 30 ml PO Q6H PRN 30 Days #3840 ml 02/17/19 03/10/19 Rx Magnesia] polyethylene glycol 3350 [Miralax] 17 g PO DAILY PRN #30 ea 02/17/19 03/10/19 Rx ondansetron HCl [Zofran] 4 mg PO TID PRN 30 Days #120 tab 02/18/19 03/10/19 Rx diltiazem HCl 180 mg PO QAM #30 cap 03/01/19 03/10/19 Rx oxycodone 5 mg tablet 10 mg PO Q4 PRN #30 tab 03/07/19 03/10/19 Rx acetaminophen [Mapap 650 mg PO TID PRN 03/10/19 03/10/19 History (acetaminophen)] amiodarone 200 mg PO DAILY 03/10/19 03/10/19 History lidocaine 1 patch TRANSDERMAL DAILY@1900 PRN 03/10/19 03/10/19 History Past Med/Surg History Medical History Anemia chronic (hgb in the 7-9 range over past month per chart review) most recent blood transfusion 12/2018 (felt chemo related) Diverticular disease GERD (gastroesophageal reflux disease) controlled Hypertension Lung mass Mediastinal lymphadenopathy Metastasis from cervical cancer Neuropathy 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- most recent chemo 11/2018;on dexamethasone 4mg every other day (started in setting of chemo/xrt)-- now weaning off Thrombocytopenia Surgical History History of cervical biopsy History of surgery insertion of Tandom & Ovoid x 5 History of tooth extraction History of tubal ligation History of vascular access device Left chest wall Family History Mother Breast cancer Hypertension Father Cancer Other No family history of adverse response to anesthesia Social History Preferred Language: Iranian Communication Ability: Effective Looper Fixer Required: No Beliefs That Will Affect Care: None marital status: Current Living Situation: Spouse Feels Safe at Home: Yes Smoking Status: Never smoker Second Hand Exposure: Yes (as a child and used to smoke in the house (stopped 1 year ago)) ; Hx Alcohol Use: No Hx Substance Use: No Dental Care, Regularly: No Seatbelt Use: always Review of Systems Review of Systems: All systems reviewed & are unremarkable except as noted in HPI & below Constitutional: + fatigue, + weakness and + anorexia; no fever and no chills Ear, Nose, Mouth, Throat: no dizziness, no nasal congestion, no nasal discharge, no post nasal drip and no sore throat Respiratory: + dyspnea and + dyspnea on exertion; no cough and no wheezing Cardiovascular: no chest pain, no palpitations, no lightheadedness, no syncope and no edema Gastrointestinal: no abdominal pain, no nausea, no vomiting, no constipation and no diarrhea/loose stools Genitourinary: no difficulty urinating, no decreased urination and no hematuria Musculoskeletal: + joint pain (Right knee pain ); no back pain Integumentary: no non-healing lesions Neurologic: + falls Physical Exam Physical Exam: General: Moderate distress, chronically ill appearing female. HEENT: NC/AT; PERRLA with EOMI; [place] conjunctiva, MMM. No erythema of posterior pharynx Neck: Supple and nontender Cardiac: RRR Lungs: on 4L via NC; diminished in bilat lung bases. Abdomen: Bowel normoactive X 4; Nontender to palpation : Alexander with yellow output Extremities: Warm. No edema present Neuro: No focal weakness Skin: No rash Results & Data Vital Signs (Past 12 Hours) Vital Signs Temp Pulse Pulse Resp BP BP Pulse Ox 03/10/19 17:40 36.7 C 78 23 124/85 94 03/10/19 16:00 93 H 24 127/71 96 03/10/19 15:53 100 03/10/19 15:30 84 17 122/62 99 03/10/19 15:09 37.6 C H 89 29 H 119/69 100 03/10/19 15:04 90 24 108/46 L 100 03/10/19 15:03 91 H 25 H 100 03/10/19 14:28 92 H 20 149/65 H 100 03/10/19 14:00 100 03/10/19 13:15 38.3 C H 98 H 22 152/79 H 64 L Laboratory Results 03/10/19 03/10/19 03/10/19 Range/Units 16:22 15:13 15:13 WBC RBC Hgb Hct MCV MCH MCHC RDW Std Deviation RDW Coeff of Nikki Plt Count MPV Immature Gran % (Auto) Neut % (Auto) Lymph % (Auto) [place] % (Auto) Eos % (Auto) Baso % (Auto) Immature Gran # (Auto) Neut # (Auto) Lymph # (Auto) [place] # (Auto) Eos # (Auto) Baso # (Auto) Absolute Nucleated RBC Nucleated RBC % (auto) Neutrophils % (Manual) Band Neutrophils % Lymphocytes % (Manual) Prolymphocyte % Reactive Lymphs % (Man) Monocytes % (Manual) Eosinophils % (Manual) Basophils % (Manual) Metamyelocytes % (Man) Myelocytes % (Man) Promyelocytes % (Man) Blast Cells % (Manual) Plasma Cell % (Manual) Other Cells % Nucleated RBC % Neutrophils # (Manual) Band Neutrophils # Total Absolute Neuts Lymphocytes # (Manual) Prolymphocyte # Reactive Lymphs # Total Abs Lymphocytes Monocytes # (Manual) Eosinophils # (Manual) Basophils # (Manual) Metamyelocytes # (Man) Myelocytes # (Manual) Promyelocytes # (Man) Blast Cells # (Man) Plasma Cell # (Manual) Other Cells # Nucleated RBCs # (Man) Hypersegmented Neuts Hyposegmented Neuts Hypogranular Neuts Large Granular Lymphs # Lrg Granular Lymphs Hairy Cells Smudge Cells Toxic Granulation Toxic Vacuolation Dohle Bodies Jacquie Rods Platelet Estimate Hypogranular Platelets Clumped Platelets Giant Platelets Platelet Satelliting RBC Morphology Polychromasia Hypochromasia Poikilocytosis Basophilic Stippling Anisocytosis Microcytosis Macrocytosis Spherocytes Pappenheimer Bodies Sickle Cells Target Cells Tear Drop Cells Ovalocytes Stomatocytes [place] Bodies Echinocytes Acanthocytes (Spur) Rouleaux RBC Agglutinates Schistocytes RBC Morph Comment Sezary Cell PT 11.9 INR 1.2 H APTT 24.4 PTT Ratio 0.9 Sodium (136-145) mmol/L Potassium (3.5-5.1) mmol/L Chloride (98-107) mmol/L Carbon Dioxide (21-32) mmol/L Anion Gap (3-11) BUN (7-18) mg/dl Creatinine (0.6-1.2) mg/dl Est Cr Clr Drug Dosing ml/min Est GFR ( Amer) Est GFR (Non-Af Amer) BUN/Creatinine Ratio (10-20) Glucose (70-99) mg/dl Osmolality (280-300) mOsm/kg Lactate (0.4-2.0) mmol/L Calcium (8.5-10.1) mg/dl Magnesium (1.8-2.4) mg/dl Total Bilirubin (0.2-1) mg/dl AST (15-37) U/L ALT (12-78) U/L Alkaline Phosphatase (45-117) U/L Troponin I (0-0.045) ng/ml Total Protein (6.4-8.2) gm/dl Albumin (3.4-5.0) gm/dl Globulin (2.5-4.0) gm/dl Albumin/Globulin Ratio (0.9-2) Urine Color Urine Appearance (Clear) Urine pH (4.5-7.5) Ur Specific [place] (1.000-1.030) Urine Protein (Negative) Urine Glucose (UA) (Negative) Urine Ketones (Negative) Urine Blood (Negative) Urine Nitrite (Negative) Urine Bilirubin (Negative) Urine Urobilinogen (Negative) Ur Leukocyte Esterase (Negative) Urine WBC (Auto) (0-5) /hpf Urine RBC (Auto) (0-4) /hpf U Hyaline Cast (Auto) (0-5) /lpf U Epithel Cells (Auto) (0-5) /lpf Urine Bacteria (Auto) (Negative) Granular Casts (0) /lpf Urine Yeast Influenza Type A (PCR) Neg for Influ A (Neg) Influenza Type B (PCR) Neg for Influ B (Neg) Blood Type O Positive Antibody Screen NEGATIVE Crossmatch See Detail 03/10/19 03/10/19 03/10/19 Range/Units 15:13 13:38 13:38 WBC 13.54 H RBC 1.98 L Hgb 6.5 L* Hct 19.6 L* MCV 99.0 MCH 32.8 MCHC 33.2 RDW Std Deviation 64.3 H RDW Coeff of Nikki 17.8 H Plt Count 99 L MPV 9.7 Immature Gran % (Auto) 0.8 Neut % (Auto) 85.6 Lymph % (Auto) 3.4 [place] % (Auto) 9.5 Eos % (Auto) 0.6 Baso % (Auto) 0.1 Immature Gran # (Auto) 0.11 H Neut # (Auto) 11.60 H Lymph # (Auto) 0.46 L [place] # (Auto) 1.28 H Eos # (Auto) 0.08 Baso # (Auto) 0.01 Absolute Nucleated RBC Nucleated RBC % (auto) Neutrophils % (Manual) Band Neutrophils % Lymphocytes % (Manual) Prolymphocyte % Reactive Lymphs % (Man) Monocytes % (Manual) Eosinophils % (Manual) Basophils % (Manual) Metamyelocytes % (Man) Myelocytes % (Man) Promyelocytes % (Man) Blast Cells % (Manual) Plasma Cell % (Manual) Other Cells % Nucleated RBC % Neutrophils # (Manual) Band Neutrophils # Total Absolute Neuts Lymphocytes # (Manual) Prolymphocyte # Reactive Lymphs # Total Abs Lymphocytes Monocytes # (Manual) Eosinophils # (Manual) Basophils # (Manual) Metamyelocytes # (Man) Myelocytes # (Manual) Promyelocytes # (Man) Blast Cells # (Man) Plasma Cell # (Manual) Other Cells # Nucleated RBCs # (Man) Hypersegmented Neuts Hyposegmented Neuts Hypogranular Neuts Large Granular Lymphs # Lrg Granular Lymphs Hairy Cells Smudge Cells Toxic Granulation Toxic Vacuolation Dohle Bodies Jacquie Rods Platelet Estimate Hypogranular Platelets Clumped Platelets Giant Platelets Platelet Satelliting RBC Morphology Polychromasia Hypochromasia Poikilocytosis Basophilic Stippling Anisocytosis Present Microcytosis Macrocytosis Spherocytes Pappenheimer Bodies Sickle Cells Target Cells Tear Drop Cells Ovalocytes Stomatocytes [place] Bodies Echinocytes Acanthocytes (Spur) Rouleaux RBC Agglutinates Schistocytes RBC Morph Comment Sezary Cell PT INR APTT PTT Ratio Sodium (136-145) mmol/L Potassium (3.5-5.1) mmol/L Chloride (98-107) mmol/L Carbon Dioxide (21-32) mmol/L Anion Gap (3-11) BUN (7-18) mg/dl Creatinine (0.6-1.2) mg/dl Est Cr Clr Drug Dosing ml/min Est GFR ( Amer) Est GFR (Non-Af Amer) BUN/Creatinine Ratio (10-20) Glucose (70-99) mg/dl Osmolality 269 L (280-300) mOsm/kg Lactate 1.4 (0.4-2.0) mmol/L Calcium (8.5-10.1) mg/dl Magnesium (1.8-2.4) mg/dl Total Bilirubin (0.2-1) mg/dl AST (15-37) U/L ALT (12-78) U/L Alkaline Phosphatase (45-117) U/L Troponin I (0-0.045) ng/ml Total Protein (6.4-8.2) gm/dl Albumin (3.4-5.0) gm/dl Globulin (2.5-4.0) gm/dl Albumin/Globulin Ratio (0.9-2) Urine Color Urine Appearance (Clear) Urine pH (4.5-7.5) Ur Specific [place] (1.000-1.030) Urine Protein (Negative) Urine Glucose (UA) (Negative) Urine Ketones (Negative) Urine Blood (Negative) Urine Nitrite (Negative) Urine Bilirubin (Negative) Urine Urobilinogen (Negative) Ur Leukocyte Esterase (Negative) Urine WBC (Auto) (0-5) /hpf Urine RBC (Auto) (0-4) /hpf U Hyaline Cast (Auto) (0-5) /lpf U Epithel Cells (Auto) (0-5) /lpf Urine Bacteria (Auto) (Negative) Granular Casts (0) /lpf Urine Yeast Influenza Type A (PCR) (Neg) Influenza Type B (PCR) (Neg) Blood Type Antibody Screen Crossmatch 03/10/19 03/10/19 03/10/19 Range/Units 13:38 13:38 13:38 WBC Cancelled RBC Cancelled Hgb Cancelled Hct Cancelled MCV Cancelled MCH Cancelled MCHC Cancelled RDW Std Deviation Cancelled RDW Coeff of Nikki Cancelled Plt Count Cancelled MPV Cancelled Immature Gran % (Auto) Cancelled Neut % (Auto) Cancelled Lymph % (Auto) Cancelled [place] % (Auto) Cancelled Eos % (Auto) Cancelled Baso % (Auto) Cancelled Immature Gran # (Auto) Cancelled Neut # (Auto) Cancelled Lymph # (Auto) Cancelled [place] # (Auto) Cancelled Eos # (Auto) Cancelled Baso # (Auto) Cancelled Absolute Nucleated RBC Cancelled Nucleated RBC % (auto) Cancelled Neutrophils % (Manual) Cancelled Band Neutrophils % Cancelled Lymphocytes % (Manual) Cancelled Prolymphocyte % Cancelled Reactive Lymphs % (Man) Cancelled Monocytes % (Manual) Cancelled Eosinophils % (Manual) Cancelled Basophils % (Manual) Cancelled Metamyelocytes % (Man) Cancelled Myelocytes % (Man) Cancelled Promyelocytes % (Man) Cancelled Blast Cells % (Manual) Cancelled Plasma Cell % (Manual) Cancelled Other Cells % Cancelled Nucleated RBC % Cancelled Neutrophils # (Manual) Cancelled Band Neutrophils # Cancelled Total Absolute Neuts Cancelled Lymphocytes # (Manual) Cancelled Prolymphocyte # Cancelled Reactive Lymphs # Cancelled Total Abs Lymphocytes Cancelled Monocytes # (Manual) Cancelled Eosinophils # (Manual) Cancelled Basophils # (Manual) Cancelled Metamyelocytes # (Man) Cancelled Myelocytes # (Manual) Cancelled Promyelocytes # (Man) Cancelled Blast Cells # (Man) Cancelled Plasma Cell # (Manual) Cancelled Other Cells # Cancelled Nucleated RBCs # (Man) Cancelled Hypersegmented Neuts Cancelled Hyposegmented Neuts Cancelled Hypogranular Neuts Cancelled Large Granular Lymphs Cancelled # Lrg Granular Lymphs Cancelled Hairy Cells Cancelled Smudge Cells Cancelled Toxic Granulation Cancelled Toxic Vacuolation Cancelled Dohle Bodies Cancelled Jacquie Rods Cancelled Platelet Estimate Cancelled Hypogranular Platelets Cancelled Clumped Platelets Cancelled Giant Platelets Cancelled Platelet Satelliting Cancelled RBC Morphology Cancelled Polychromasia Cancelled Hypochromasia Cancelled Poikilocytosis Cancelled Basophilic Stippling Cancelled Anisocytosis Cancelled Microcytosis Cancelled Macrocytosis Cancelled Spherocytes Cancelled Pappenheimer Bodies Cancelled Sickle Cells Cancelled Target Cells Cancelled Tear Drop Cells Cancelled Ovalocytes Cancelled Stomatocytes Cancelled [place] Bodies Cancelled Echinocytes Cancelled Acanthocytes (Spur) Cancelled Rouleaux Cancelled RBC Agglutinates Cancelled Schistocytes Cancelled RBC Morph Comment Cancelled Sezary Cell Cancelled PT Cancelled INR Cancelled APTT Cancelled PTT Ratio Cancelled Sodium 126 L (136-145) mmol/L Potassium 3.0 L (3.5-5.1) mmol/L Chloride 81 L (98-107) mmol/L Carbon Dioxide 41 H* (21-32) mmol/L Anion Gap 5.0 (3-11) BUN 10 (7-18) mg/dl Creatinine 0.61 (0.6-1.2) mg/dl Est Cr Clr Drug Dosing 108.0 ml/min Est GFR ( Amer) 111.0 Est GFR (Non-Af Amer) 95.8 BUN/Creatinine Ratio 15.6 (10-20) Glucose 97 (70-99) mg/dl Osmolality (280-300) mOsm/kg Lactate (0.4-2.0) mmol/L Calcium 11.0 H (8.5-10.1) mg/dl Magnesium 1.4 L (1.8-2.4) mg/dl Total Bilirubin 0.5 (0.2-1) mg/dl AST 27 (15-37) U/L ALT 12 (12-78) U/L Alkaline Phosphatase 119 H (45-117) U/L Troponin I < 0.015 (0-0.045) ng/ml Total Protein 6.5 (6.4-8.2) gm/dl Albumin 1.8 L (3.4-5.0) gm/dl Globulin 4.7 H (2.5-4.0) gm/dl Albumin/Globulin Ratio 0.4 L (0.9-2) Urine Color Urine Appearance (Clear) Urine pH (4.5-7.5) Ur Specific [place] (1.000-1.030) Urine Protein (Negative) Urine Glucose (UA) (Negative) Urine Ketones (Negative) Urine Blood (Negative) Urine Nitrite (Negative) Urine Bilirubin (Negative) Urine Urobilinogen (Negative) Ur Leukocyte Esterase (Negative) Urine WBC (Auto) (0-5) /hpf Urine RBC (Auto) (0-4) /hpf U Hyaline Cast (Auto) (0-5) /lpf U Epithel Cells (Auto) (0-5) /lpf Urine Bacteria (Auto) (Negative) Granular Casts (0) /lpf Urine Yeast Influenza Type A (PCR) (Neg) Influenza Type B (PCR) (Neg) Blood Type Antibody Screen Crossmatch 03/10/19 Range/Units 13:20 WBC RBC Hgb Hct MCV MCH MCHC RDW Std Deviation RDW Coeff of Nikki Plt Count MPV Immature Gran % (Auto) Neut % (Auto) Lymph % (Auto) [place] % (Auto) Eos % (Auto) Baso % (Auto) Immature Gran # (Auto) Neut # (Auto) Lymph # (Auto) [place] # (Auto) Eos # (Auto) Baso # (Auto) Absolute Nucleated RBC Nucleated RBC % (auto) Neutrophils % (Manual) Band Neutrophils % Lymphocytes % (Manual) Prolymphocyte % Reactive Lymphs % (Man) Monocytes % (Manual) Eosinophils % (Manual) Basophils % (Manual) Metamyelocytes % (Man) Myelocytes % (Man) Promyelocytes % (Man) Blast Cells % (Manual) Plasma Cell % (Manual) Other Cells % Nucleated RBC % Neutrophils # (Manual) Band Neutrophils # Total Absolute Neuts Lymphocytes # (Manual) Prolymphocyte # Reactive Lymphs # Total Abs Lymphocytes Monocytes # (Manual) Eosinophils # (Manual) Basophils # (Manual) Metamyelocytes # (Man) Myelocytes # (Manual) Promyelocytes # (Man) Blast Cells # (Man) Plasma Cell # (Manual) Other Cells # Nucleated RBCs # (Man) Hypersegmented Neuts Hyposegmented Neuts Hypogranular Neuts Large Granular Lymphs # Lrg Granular Lymphs Hairy Cells Smudge Cells Toxic Granulation Toxic Vacuolation Dohle Bodies Jacquie Rods Platelet Estimate Hypogranular Platelets Clumped Platelets Giant Platelets Platelet Satelliting RBC Morphology Polychromasia Hypochromasia Poikilocytosis Basophilic Stippling Anisocytosis Microcytosis Macrocytosis Spherocytes Pappenheimer Bodies Sickle Cells Target Cells Tear Drop Cells Ovalocytes Stomatocytes [place] Bodies Echinocytes Acanthocytes (Spur) Rouleaux RBC Agglutinates Schistocytes RBC Morph Comment Sezary Cell PT INR APTT PTT Ratio Sodium (136-145) mmol/L Potassium (3.5-5.1) mmol/L Chloride (98-107) mmol/L Carbon Dioxide (21-32) mmol/L Anion Gap (3-11) BUN (7-18) mg/dl Creatinine (0.6-1.2) mg/dl Est Cr Clr Drug Dosing ml/min Est GFR ( Amer) Est GFR (Non-Af Amer) BUN/Creatinine Ratio (10-20) Glucose (70-99) mg/dl Osmolality (280-300) mOsm/kg Lactate (0.4-2.0) mmol/L Calcium (8.5-10.1) mg/dl Magnesium (1.8-2.4) mg/dl Total Bilirubin (0.2-1) mg/dl AST (15-37) U/L ALT (12-78) U/L Alkaline Phosphatase (45-117) U/L Troponin I (0-0.045) ng/ml Total Protein (6.4-8.2) gm/dl Albumin (3.4-5.0) gm/dl Globulin (2.5-4.0) gm/dl Albumin/Globulin Ratio (0.9-2) Urine Color Yellow Urine Appearance Turbid A (Clear) Urine pH 6.5 (4.5-7.5) Ur Specific [place] 1.016 (1.000-1.030) Urine Protein 1+ H (Negative) Urine Glucose (UA) Negative (Negative) Urine Ketones Negative (Negative) Urine Blood 3+ H (Negative) Urine Nitrite Positive A (Negative) Urine Bilirubin Negative (Negative) Urine Urobilinogen Negative (Negative) Ur Leukocyte Esterase 2+ H (Negative) Urine WBC (Auto) >30 H (0-5) /hpf Urine RBC (Auto) >30 H (0-4) /hpf U Hyaline Cast (Auto) 5-10 H (0-5) /lpf U Epithel Cells (Auto) >30 H (0-5) /lpf Urine Bacteria (Auto) 2+ H (Negative) Granular Casts 1-5 H (0) /lpf Urine Yeast Not Reportable Influenza Type A (PCR) (Neg) Influenza Type B (PCR) (Neg) Blood Type Antibody Screen Crossmatch Diagnostic Findings XR knee RT 1 or 2V routine FINDINGS: There is an acute comminuted fracture of the distal diaphyseal femur, apex medial angulation of 25 degrees with 7 mm lateral displacement of the distal fracture fragment. There is apex volar angulation of 33 degrees. Fracture is centered about an infiltrative moderate lytic lesion of the medullary space and medial cortex with ill-defined margins. Moderate soft tissue swelling. The knee articulation is intact. No large joint effusion. Mild tricompartmental degenerative changes. IMPRESSION: Infiltrative lytic lesion of the distal femoral shaft with acute pathologic comminuted displaced and angulated fracture. Chest CTA: 1. Motion compromised examination. 2. There is no evidence of pulmonary embolus in the main, lobar, or proximal segmental pulmonary arteries. 3. 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 4. A large mass lesion is again seen in the right midlung with complete atelectasis of the right lower lung. This has progressed from 02/26/2019. 5. There is a moderate and multiloculated right-sided pleural collection. This extends from the lung base to the apex and has increased in size from 02/26/2019. The sterility of this collection cannot be assessed by CT. 6. There is trace left pleural effusion. 7. There are pathologically enlarged mediastinal and right cardiophrenic lymph n odes. 8. Additional findings as above. Code Status & VTE Plan Code Status Conditional Code -- DNR but okay with intubation and shock. VTE Prophylaxis Plan VTE Prophylaxis will be ordered: Yes Critical Care Time Prolonged Care Time Prolonged Care Time: Yes Total Prolonged Care Time: 30 Supervising Physician Co-Signing Physician Notes JULIO Supervision Note: I personally saw and examined the patient. I verified all martínez points and agree with JULIO King with the following exceptions and/or additions: Patient seen after arrival to floor and is hemodynamically stable. Reports pain is better controlled in the right thigh. Denies pain anywhere else. Denies shortness of breath and is now weaned back to 4 L nasal cannula. Denies chest pain. Patient well-known to me from recent previous admission History and ROS reviewed as above Vitals reviewed Gen: Alert and awake and oriented, NAD HEENT: Anicteric sclerae, EOMI CV: RRR no mgr nl S1S2 Pulm: Diminished breath sounds on the right, clear on the left Abd: +BS soft NT ND no masses or hernias Ext: Right lower extremity with immobilizer in place and not removed, able to dorsiflex and plantarflex feet bilaterally, 2+ DP pulses Skin: No rashes, warm/dry Neuro: No facial droop, moves all extremities except for right lower extremity with pain 64-year-old female with metastatic cervical cancer and history otherwise as above, here with pathologic right femur fracture from bony metastasis and mechanical fall, with severe acute blood loss anemia, multiple electrolyte abnormalities, and acute on chronic respiratory failure with hypoxia. -Plan outlined as above in detail -Transfusing, replacing electrolytes -Ruling out UT -Repeat ECG in the morning -Prognosis very poor overall -Will need to discuss with orthopedic surgery after stabilization, palliative care, patient, and her as to what goals of care are moving forward and as to whether surgical fixation of her right femur would be included in that goal. PG Care Time/CCT Total # of Minutes Spent Total Time Spent with Patient: Total time spent is greater than 50% in coordination of care (as documented) at patient's floor/unit and/or counseling patient: Prolonged Care Time Prolonged Care Time: Yes Total Prolonged Care Time: 30 (1) Fracture of right femur Encounter type: initial encounter Femur location: distal, unspecified portion Fracture morphology: unspecified fracture morphology Fracture type: closed Qualified Code(s): S72.401A - Unspecified fracture of lower end of right femur, initial encounter for closed fracture
[2019-03-10] MEDS ORDERED: POTASSIUM CHLORIDE 20 MEQ TABCR PO STA (18:21)
[2019-03-10 18:25] LABS: Base Excess VBG 14.5 mEq/L; Oxygen Saturation VBG 82.7 %; pH VBG 7.49 (7.36-7.41)
--- NOTE | 2019-03-10 19:09 | Orthopedic Consultation ---
Date of Consultation March 10, 2019 Assessment & Plan (1) Femur fracture: Assessment: Metastatic femur fracture Plan: Right now we medically stabilized Mrs. Irvin. Operative fixation because of her low globin and is out of the question at this point time long with her decreased wheezing and fluid-filled lung suh If she becomes stabilized over the next 24 to 48 hours and the family is consenting for her as well as the patient could proceed with surgery which would be an operative stabilization of her right femur the femoral implant. I will follow her daily Present on Admission?: Yes History of Present Illness Reason for Consultation: Reason for consultation: Pathologic right femur fracture History of Present Illness History: Heather is a pleasant lady she is 64 she has had a static carcinoma and a lytic lesion in her right femur. With household ambulation leg unfortunately gave out on her and she fell to the ground. She is brought via 911 the hospital for evaluation and treatment was stabilized medically. I was consulted orthopedically Allergies Allergy/AdvReac Type Severity Reaction Status Date / Time Iodinated Contrast Media Allergy Intermediate pruritus Verified 03/10/19 15:40 Penicillins Allergy Mild rash, Verified 03/10/19 15:40 nausea Sulfa (Sulfonamide Allergy Mild rash,nausea Verified 03/10/19 15:40 Antibiotics) Home Medications Home Medications Medication Instructions Recorded Confirmed Type gabapentin 300 mg capsule 300 mg PO TID 12/20/18 03/10/19 History magnesium 200 mg tablet 400 mg PO QAM tab 12/20/18 03/10/19 History Centrum Silver Women 1 tab PO QAM 01/25/19 03/10/19 History ascorbic acid (vitamin C) [Vitamin 500 mg PO QAM 01/25/19 03/10/19 History C] cholecalciferol (vitamin D3) 25 mcg PO QAM 01/25/19 03/10/19 History [Vitamin D3] coenzyme Q10 [Co Q-10] 100 mg PO QAM 01/25/19 03/10/19 History digestive enzymes 1 cap PO QAM 01/25/19 03/10/19 History vitamin B complex 1 tab PO QAM 02/15/19 03/10/19 History MAG-AL 15 ml PO Q4H PRN #3000 ml 02/17/19 03/10/19 Rx magnesium hydroxide [Milk of 30 ml PO Q6H PRN 30 Days #3840 ml 02/17/19 03/10/19 Rx Magnesia] polyethylene glycol 3350 [Miralax] 17 g PO DAILY PRN #30 ea 02/17/19 03/10/19 Rx ondansetron HCl [Zofran] 4 mg PO TID PRN 30 Days #120 tab 02/18/19 03/10/19 Rx amiodarone 400 mg PO QAM #60 tab 03/01/19 03/10/19 Rx diltiazem HCl 180 mg PO QAM #30 cap 03/01/19 03/10/19 Rx oxycodone 5 mg tablet 10 mg PO Q4 PRN #30 tab 03/07/19 03/10/19 Rx acetaminophen [Mapap 650 mg PO TID PRN 03/10/19 03/10/19 History (acetaminophen)] lidocaine 1 patch TRANSDERMAL DAILY@1900 PRN 03/10/19 03/10/19 History Patient History Medical History Anemia chronic (hgb in the 7-9 range over past month per chart review) most recent blood transfusion 12/2018 (felt chemo related) Diverticular disease GERD (gastroesophageal reflux disease) controlled Hypertension Lung mass Mediastinal lymphadenopathy Metastasis from cervical cancer Neuropathy 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- most recent chemo 11/2018;on dexamethasone 4mg every other day (started in setting of chemo/xrt)-- now weaning off Thrombocytopenia Surgical History History of cervical biopsy History of surgery insertion of Tandom & Ovoid x 5 History of tooth extraction History of tubal ligation History of vascular access device Left chest wall Family History Mother Breast cancer Hypertension Father Cancer Other No family history of adverse response to anesthesia Social History Preferred Language: Turkish Communication Ability: Effective Steam Box Tender Required: No Beliefs That Will Affect Care: None marital status: Current Living Situation: Spouse Feels Safe at Home: Yes Smoking Status: Never smoker Second Hand Exposure: Yes (as a child and used to smoke in the house (stopped 1 year ago)) ; Hx Alcohol Use: No Hx Substance Use: No Dental Care, Regularly: No Seatbelt Use: always Review of Systems Review of Systems: No fever sweats chills Admits to some shortness of breath Denies angina No history of nausea vomiting Positive review for musculoskeletal hip or femur pain Physical Exam Physical Exam: Alert oriented vital signs stable 127/82 blood pressure pulse regular HEENT examination satisfactory Lung suh diminished Cardiac examination normal rate rhythm Abdomen soft nontender Her right lower extremity is properly placed in a knee immobilizer it is stable skin is protected Results & Data Vital Signs (Past 12 Hours) Vital Signs Temp Pulse Pulse Resp BP BP Pulse Ox 03/10/19 18:47 36.7 C 76 24 127/82 93 03/10/19 18:17 36.7 C 78 18 132/75 94 03/10/19 18:02 36.7 C 77 17 132/75 93 03/10/19 18:01 36.9 C 77 17 120/81 97 03/10/19 17:40 36.7 C 78 23 124/85 94 03/10/19 16:00 93 H 24 127/71 96 03/10/19 15:53 100 03/10/19 15:30 84 17 122/62 99 03/10/19 15:09 37.6 C H 89 29 H 119/69 100 03/10/19 15:04 90 24 108/46 L 100 03/10/19 15:03 91 H 25 H 100 03/10/19 14:28 92 H 20 149/65 H 100 03/10/19 14:00 100 03/10/19 13:15 38.3 C H 98 H 22 152/79 H 64 L PG Care Time/CCT Total # of Minutes Spent Total Time Spent with Patient: Total time spent is greater than 50% in coordination of care (as documented) at patient's floor/unit and/or counseling patient:
[2019-03-10] MEDS ORDERED: ONDANSETRON INJ 2 MG/ML 2 ML VIAL IV PRN (19:44)
[2019-03-10] MEDS ORDERED: POLYETHYLENE (MIRALAX) 17 GM PACK PO PRN (19:44)
[2019-03-10] MEDS ORDERED: ACETAMINOPHEN 325 MG TAB PO PRN (19:44)
[2019-03-10] MEDS ORDERED: LIDOCAINE 5% 1 PATCH TD PRN (19:44)
[2019-03-10] MEDS ORDERED: NALOXONE HCL 0.4 MG/1 ML VIAL/CARP IV PRN (19:44)
[2019-03-10] MEDS ORDERED: fentaNYL citrate 100 MCG/2 ML VIAL IV PRN (19:54)
[2019-03-10] MEDS: GABAPENTIN 300 MG CAP PO SCH (21:23)
[2019-03-10] MEDS ORDERED: HEPARIN 100 UNIT/ML 5ML FLUSH FLUSH PRN (23:16)
[2019-03-10] MEDS: OXYCODONE HCL IR 5 MG TAB (IMMEDIATE RELEASE) PO PRN (23:38)
[2019-03-11 01:04] LABS: BUN Creatinine Ratio 22.2 (10-20); Calcium 10.7 mg/dl (8.5-10.1); Creatinine Clr Calc Pharmacy 121.5 ml/min; Potassium 3.6 mmol/L (3.5-5.1)
[2019-03-11 01:13] LABS: Hematocrit (blood only) 30.2 % (37-47); Mean Corpuscular Hemoglobin 31.1 pg (25-34); Mean Corpuscular Hgb Conc 33.1 g/dL (32-36); Mean Corpuscular Volume 93.8 fL (80-100); RDW Coefficient of Variation 18.4 % (11.5-14.5); RDW Standard Deviation 62.3 fL (36.4-46.3); Red Blood Count 3.22 M/uL (4.2-5.4); White Blood Count 16.35 K/uL (4.8-10.8)
[2019-03-11 01:58] LABS: Mean Platelet Volume 9.5 fL (7.4-10.4); Platelet Count 94 K/uL (130-400); Platelet Estimate Decreased (Normal)
[2019-03-11] MEDS: OXYCODONE HCL IR 5 MG TAB (IMMEDIATE RELEASE) PO PRN ×4 (05:50→18:32)
[2019-03-11] MEDS: SODIUM CHLORIDE 0.9% 1000ML 1,000 ML IV SCH ×2 (06:24→15:33)
[2019-03-11 07:12] LABS: Hematocrit (blood only) 29.6 % (37-47); Hemoglobin 9.9 g/dL (12.0-16.0); Mean Corpuscular Hemoglobin 31.3 pg (25-34); Mean Corpuscular Hgb Conc 33.4 g/dL (32-36); Mean Corpuscular Volume 93.7 fL (80-100); RDW Coefficient of Variation 18.8 % (11.5-14.5); RDW Standard Deviation 63.2 fL (36.4-46.3); Red Blood Count 3.16 M/uL (4.2-5.4); White Blood Count 14.65 K/uL (4.8-10.8)
[2019-03-11 07:22] LABS: INR 1.1 (0.9-1.1); Prothrombin Time 11.6 Seconds (9.0-12.0)
[2019-03-11 07:28] LABS: Mean Platelet Volume 9.5 fL (7.4-10.4); Platelet Count 94 K/uL (130-400)
[2019-03-11 07:42] LABS: Albumin Level 1.7 gm/dl (3.4-5.0); BUN Creatinine Ratio 25.2 (10-20); Calcium 11.1 mg/dl (8.5-10.1); Creatinine Clr Calc Pharmacy 115.3 ml/min; Est GFR (African American) 114.9; Est GFR (Non-African American) 99.1; Magnesium 1.7 mg/dl (1.8-2.4); Potassium 3.5 mmol/L (3.5-5.1)
[2019-03-11 07:45] LABS: Albumin Globulin Ratio 0.4 (0.9-2); Bilirubin,Total 0.6 mg/dl (0.2-1); Globulin 4.6 gm/dl (2.5-4.0); Total Protein 6.3 gm/dl (6.4-8.2)
[2019-03-11] MEDS ORDERED: PNEUMOCOCCAL Polysaccharide Vaccine 25mcg/0.5mL vial/Syr IM ONE (08:00)
--- NOTE | 2019-03-11 08:16 | Electrocardiogram Report ---
Test Reason : Blood Pressure : / mmHG Vent. Rate : 098 BPM Atrial Rate : 098 BPM P-R Int : 158 ms QRS Dur : 092 ms QT Int : 528 ms P-R-T Axes : 042 070 026 degrees QTc Int : 674 ms Poor data quality, interpretation may be adversely affected Sinus rhythm T wave abnormality, consider inferior ischemia Prolonged QT Abnormal ECG When compared with ECG of 26-FEB-2019 15:52, Premature atrial complexes are no longer Present T wave inversion now evident in Inferior leads QT has lengthened Confirmed by Rodolfo Flores ([id number]) on 03/10/2019 5:52:30 PM Referred By: Confirmed By:Nhan Flores
--- NOTE | 2019-03-11 08:31 | Surgery Consultation ---
Date of Consultation March 11, 2019 Assessment & Plan (1) Malignant pleural effusion: -pt. noted to have loculated pleural effusion on right side -discussed with radiology and they did not feel they could safely placed catheter with image guidance -will discuss further with Dr. Somers how to address fluid History of Present Illness Reason for Consultation: Pleural Effusion Attending Physician: Muna Rojo MD History of Present Illness 64 year old female known to our service. She has a hx. of metastatic cervical cancer. She underwent a right thoracentesis on 02/21/19. This was found to be a malignant effusion. She underwent a right pleurex insertion on 02/23/19. Chemical sclerosis was then performed on 02/25/19 using bleomycin. Her pleurex was then removed on 02/26/19. She was discharged home, but presented to [facility] after suffering a mechanical fall at home. She was fond to have a right femur fracture after this fall. In addition,m she was noted to have a loculated right pleural effusion on chest iamging and we are asked to see her for this issue. This morning, she notes her breathing does not feel labored at rest, but does note some minor DONNELLY. She states she really has not been experiencing labored breathing at home, but does notes some worsening generalized weakness. Allergies Allergy/AdvReac Type Severity Reaction Status Date / Time Iodinated Contrast Media Allergy Intermediate pruritus Verified 03/10/19 15:40 Penicillins Allergy Mild rash, Verified 03/10/19 15:40 nausea Sulfa (Sulfonamide Allergy Mild rash,nausea Verified 03/10/19 15:40 Antibiotics) Home Medications Home Medications Medication Instructions Recorded Confirmed Type gabapentin 300 mg capsule 300 mg PO TID 12/20/18 03/10/19 History magnesium 200 mg tablet 400 mg PO QAM tab 12/20/18 03/10/19 History Centrum Silver Women 1 tab PO QAM 01/25/19 03/10/19 History ascorbic acid (vitamin C) [Vitamin 500 mg PO QAM 01/25/19 03/10/19 History C] cholecalciferol (vitamin D3) 25 mcg PO QAM 01/25/19 03/10/19 History [Vitamin D3] coenzyme Q10 [Co Q-10] 100 mg PO QAM 01/25/19 03/10/19 History digestive enzymes 1 cap PO QAM 01/25/19 03/10/19 History vitamin B complex 1 tab PO QAM 02/15/19 03/10/19 History MAG-AL 15 ml PO Q4H PRN #3000 ml 02/17/19 03/10/19 Rx magnesium hydroxide [Milk of 30 ml PO Q6H PRN 30 Days #3840 ml 02/17/19 03/10/19 Rx Magnesia] polyethylene glycol 3350 [Miralax] 17 g PO DAILY PRN #30 ea 02/17/19 03/10/19 Rx ondansetron HCl [Zofran] 4 mg PO TID PRN 30 Days #120 tab 02/18/19 03/10/19 Rx diltiazem HCl 180 mg PO QAM #30 cap 03/01/19 03/10/19 Rx oxycodone 5 mg tablet 10 mg PO Q4 PRN #30 tab 03/07/19 03/10/19 Rx acetaminophen [Mapap 650 mg PO TID PRN 03/10/19 03/10/19 History (acetaminophen)] amiodarone 200 mg PO DAILY 03/10/19 03/10/19 History lidocaine 1 patch TRANSDERMAL DAILY@1900 PRN 03/10/19 03/10/19 History Patient History Medical History (Updated 03/11/19 @ 06:21 by Muna Rojo MD) Anemia chronic (hgb in the 7-9 range over past month per chart review) most recent blood transfusion 12/2018 (felt chemo related) Diverticular disease GERD (gastroesophageal reflux disease) controlled Hypercalcemia Hypertension Lung mass Mediastinal lymphadenopathy Metastasis from cervical cancer Neuropathy 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- most recent chemo 11/2018;on dexamethasone 4mg every other day (started in setting of chemo/xrt)-- now weaning off Thrombocytopenia Surgical History History of cervical biopsy History of surgery insertion of Tandom & Ovoid x 5 History of tooth extraction History of tubal ligation History of vascular access device Left chest wall Family History Mother Breast cancer Hypertension Father Cancer Other No family history of adverse response to anesthesia Social History Preferred Language: Kiswahili Communication Ability: Effective Pit Clerk Required: No Beliefs That Will Affect Care: None marital status: Current Living Situation: Spouse Feels Safe at Home: Yes Smoking Status: Never smoker Second Hand Exposure: Yes (as a child and used to smoke in the house (stopped 1 year ago)) ; Hx Alcohol Use: No Hx Substance Use: No Dental Care, Regularly: No Seatbelt Use: always Review of Systems Constitutional: + fatigue; no fever and no chills Eyes: no diplopia Ear, Nose, Mouth, Throat: no ear pain Respiratory: + dyspnea on exertion; no cough Cardiovascular: no chest pain Gastrointestinal: no nausea Integumentary: no rash Neurologic: + generalized weakness; no localized weakness Physical Exam Constitutional: no acute distress Eyes: no conjunctival abnormality ENMT: Ears: no hearing impairment Neck: trachea midline Respiratory: normal respiratory effort; no respiratory distress and no labored breathing BS are noted to be decreased on right side Cardiovascular: Rate/Rhythm: regular rate and regular rhythm Vessels: dorsalis pedis pulses present Gastrointestinal (Abdomen): Percussion/Palpation: abdomen soft Musculoskeletal: right leg in knee brace Skin: no rashes, warm and dry Neurologic: can follow simple commands and move all extremities without noted focal deficits Psychiatric: Orientation: alert and oriented x 3 Results & Data Vital Signs (Past 12 Hours) Vital Signs Temp Pulse Pulse Resp BP BP BP 03/11/19 07:50 36.5 C 72 23 121/67 03/11/19 04:29 36.4 C L 70 16 103/60 03/10/19 23:00 36.9 C 70 21 143/87 H 03/10/19 22:30 36.8 C 70 13 125/80 03/10/19 22:15 36.8 C 72 15 122/72 03/10/19 22:00 36.6 C 73 13 124/71 03/10/19 21:48 36.7 C 75 13 119/71 03/10/19 21:45 36.7 C 74 13 125/73 03/10/19 21:40 75 13 128/72 03/10/19 21:35 36.7 C 76 13 129/74 03/10/19 21:30 36.8 C 77 17 134/77 03/10/19 21:25 36.9 C 77 15 132/73 03/10/19 21:22 36.7 C 77 20 143/78 H 03/10/19 21:20 77 16 143/78 H Pulse Ox 03/11/19 07:50 92 03/11/19 04:29 94 03/10/19 23:00 94 03/10/19 22:30 95 03/10/19 22:15 96 03/10/19 22:00 96 03/10/19 21:48 95 03/10/19 21:45 96 03/10/19 21:40 96 03/10/19 21:35 96 03/10/19 21:30 95 03/10/19 21:25 95 03/10/19 21:22 94 03/10/19 21:20 95 PG Care Time/CCT Total # of Minutes Spent Total Time Spent with Patient: Total time spent is greater than 50% in coordination of care (as documented) at patient's floor/unit and/or counseling patient:
[2019-03-11] MEDS: GABAPENTIN 300 MG CAP PO SCH ×3 (08:56→21:24)
[2019-03-11] MEDS: POTASSIUM CHLORIDE 20 MEQ TABCR PO SCH ×2 (08:56→21:24)
[2019-03-11] MEDS: MAGNESIUM SULFATE / D5W 1 GM/100 ML BAG IV SCH ×2 (08:57→10:12)
[2019-03-11] MEDS: dilTIAZem HCL 180 MG CAPCR PO SCH (08:57)
[2019-03-11] MEDS: AMIODARONE 200 MG TAB PO SCH (08:57)
[2019-03-11] MEDS ORDERED: AMIODARONE 200 MG TAB PO SCH (09:00)
--- NOTE | 2019-03-11 11:20 | Palliative Care Consultation ---
Date of Consultation March 11, 2019 Assessment & Plan (1) Goals of care, counseling/discussion: -64 old female with a history of metastatic cervical cancer diagnosed in 2017-status post chemo/XRT who presented to the hospital with right femur fracture due to metastatic lesion after a fall at home. Patient with metastatic disease-mets to brain, liver, T8. Patient was hospitalized from 02/15-02/18 for increased shortness of breath. Patient again presented on 02/20 with increasing shortness of breath and right upper quadrant abdominal pain-she was found to have a flutter, pleural effusion, and a UTI. Patient underwent thoracentesis on 02/21-fluid positive for malignant cells, had a Pleurx catheter placed when fluid reaccumulated within 48 hours on 02/23. Patient underwent chemo sclerosis with bleomycin on 02/25 and had Pleurx catheter removed on 02/26. She was eventually discharged and now readmitted. Patient is to start Keytruda, but has not been well enough to begin this therapy. Questionable benefit from Keytruda as patient reportedly is not strongly PD L1 expressive. Unfortunately, patient has multiple readmissions, continues to have weakness and deteriorating condition. Palliative care was consulted during previous admission for goals of care and is asked to see the patient gain. Orthopedic surgery came today and said patient is not surgical candidate at this time due to worsening respiratory status with increased right sided malignant pleural effusion. Radiologist unable to place chest tube-- thoracic surgery reconsulted as well. -Met with patient this morning in room 207. She is tired, but oriented x4. Patient was tearful throughout conversation. -Patient states her goal is to continue with treatment and to "keep fighting." She is hoping to get well enough to start therapy with Keytruda-- she is hoping this slow the growth/progression of her cancer to buy her more time. -Discussed code status-- patient does NOT want chest compressions, but would be okay with intubation if needed as part of treatment. POLST form previously done which reflects these wishes. -Discussed with patient that she is not a surgical candidate, so having the right femur repaired may not be possible-- which will then in turn make rehab difficult-- which places her at risk yet for further decline. Patient verbalizes understanding but said, "I just want to see what my treatment options are for the fluid (pleural effusion)." -For now, continue with current treatment plan. Palliative care will follow along. (2) Femur fracture: (3) Hypercalcemia: (4) Severe protein-calorie malnutrition: (5) Metastasis from cervical cancer: History of Present Illness Attending Physician: Muna Rojo MD History of Present Illness This 64 old female with a history of metastatic cervical cancer diagnosed in 2016-status post chemo/XRT who presented to the hospital with right femur fracture due to metastatic lesion after a fall at home. Patient with metastatic disease-mets to brain, liver, T8. Patient was hospitalized from 02/15-02/18 for increased shortness of breath. Patient again presented on 02/20 with increasing shortness of breath and right upper quadrant abdominal pain-she was found to have a flutter, pleural effusion, and a UTI. Patient underwent thoracentesis on 02/21-fluid positive for malignant cells, had a Pleurx catheter placed when fluid reaccumulated within 48 hours on 02/23. Patient underwent chemo sclerosis with bleomycin on 02/25 and had Pleurx catheter removed on 02/26. She was eventually discharged and now readmitted. Patient is to start Keytruda, but has not been well enough to begin this therapy. Questionable benefit from Keytruda as patient reportedly is not strongly PD L1 expressive. Unfortunately, patient has multiple readmissions, continues to have weakness and deteriorating condition. Palliative care was consulted during previous admission for goals of care and is asked to see the patient gain. Orthopedic surgery came today and said patient is not surgical candidate at this time due to worsening respiratory status with increased right sided malignant pleural effusion. Radiologist unable to place chest tube-- thoracic surgery reconsulted as well. Thank you kindly for this consult. Palliative care team will follow as needed. Allergies Allergy/AdvReac Type Severity Reaction Status Date / Time Iodinated Contrast Media Allergy Intermediate pruritus Verified 03/10/19 15:40 Penicillins Allergy Mild rash, Verified 03/10/19 15:40 nausea Sulfa (Sulfonamide Allergy Mild rash,nausea Verified 03/10/19 15:40 Antibiotics) Home Medications Home Medications Medication Instructions Recorded Confirmed Type gabapentin 300 mg capsule 300 mg PO TID 12/20/18 03/10/19 History magnesium 200 mg tablet 400 mg PO QAM tab 12/20/18 03/10/19 History Centrum Silver Women 1 tab PO QAM 01/25/19 03/10/19 History ascorbic acid (vitamin C) [Vitamin 500 mg PO QAM 01/25/19 03/10/19 History C] cholecalciferol (vitamin D3) 25 mcg PO QAM 01/25/19 03/10/19 History [Vitamin D3] coenzyme Q10 [Co Q-10] 100 mg PO QAM 01/25/19 03/10/19 History digestive enzymes 1 cap PO QAM 01/25/19 03/10/19 History vitamin B complex 1 tab PO QAM 02/15/19 03/10/19 History MAG-AL 15 ml PO Q4H PRN #3000 ml 02/17/19 03/10/19 Rx magnesium hydroxide [Milk of 30 ml PO Q6H PRN 30 Days #3840 ml 02/17/19 03/10/19 Rx Magnesia] polyethylene glycol 3350 [Miralax] 17 g PO DAILY PRN #30 ea 02/17/19 03/10/19 Rx ondansetron HCl [Zofran] 4 mg PO TID PRN 30 Days #120 tab 02/18/19 03/10/19 Rx diltiazem HCl 180 mg PO QAM #30 cap 03/01/19 03/10/19 Rx oxycodone 5 mg tablet 10 mg PO Q4 PRN #30 tab 03/07/19 03/10/19 Rx acetaminophen [Mapap 650 mg PO TID PRN 03/10/19 03/10/19 History (acetaminophen)] amiodarone 200 mg PO DAILY 03/10/19 03/10/19 History lidocaine 1 patch TRANSDERMAL DAILY@1900 PRN 03/10/19 03/10/19 History Patient History Medical History (Updated 03/11/19 @ 17:17 by RELL Wiley) Anemia chronic (hgb in the 7-9 range over past month per chart review) most recent blood transfusion 12/2018 (felt chemo related) Diverticular disease GERD (gastroesophageal reflux disease) controlled Goals of care, counseling/discussion Hypercalcemia Hypertension Lung mass Mediastinal lymphadenopathy Metastasis from cervical cancer Neuropathy 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- most recent chemo 11/2018;on dexamethasone 4mg every other day (started in setting of chemo/xrt)-- now weaning off Thrombocytopenia Surgical History History of cervical biopsy History of surgery insertion of Tandom & Ovoid x 5 History of tooth extraction History of tubal ligation History of vascular access device Left chest wall Family History Mother Breast cancer Hypertension Father Cancer Other No family history of adverse response to anesthesia Social History Preferred Language: Nepali Communication Ability: Effective [employer] Supervisor Required: No Beliefs That Will Affect Care: None marital status: Current Living Situation: Spouse Feels Safe at Home: Yes Smoking Status: Never smoker Second Hand Exposure: Yes (as a child and used to smoke in the house (stopped 1 year ago)) ; Hx Alcohol Use: No Hx Substance Use: No Dental Care, Regularly: No Seatbelt Use: always Review of Systems Review of Systems: Const: + weakness ENMT: No dysphagia Resp: + SOB, + cough Cardio: No chest pain, + edema GI: No abdominal pain, no N/V MS: + right leg pain Neuro: No confusion Psych: No anxiety, no depression Physical Exam Constitutional: no acute distress ENMT: Ears: no hearing impairment Respiratory: + labored breathing and + pursed lip breathing Auscultation: + diminished lung sounds Cardiovascular: Rate/Rhythm: regular rate and regular rhythm Gastrointestinal (Abdomen): Percussion/Palpation: abdomen soft Psychiatric: Orientation: alert and oriented x 3 Results & Data Vital Signs (Past 12 Hours) Vital Signs Temp Pulse Resp BP BP Pulse Ox 03/11/19 07:50 36.5 C 72 23 121/67 92 03/11/19 04:29 36.4 C L 70 16 103/60 94 Time Spent Midlevel 70 minutes with >50% of the time spent at bedside with patient discussing condition and GOC.
--- NOTE | 2019-03-11 12:55 | Hospitalist Progress Note ---
Date of Service March 11, 2019 Assessment & Plan (1) Fracture of right femur: - Following mechanical fall at home in setting generalized weakness and metastatic cervical cancer with bony metastases. - Knee XR: infiltrative lytic lesion of distal femoral shaft with acute pathologic comminuted displaced and angulated fracture. - Orthopedics consulted, would need medically optimized prior to surgery. - Tylenol prn mild pain; Oxycodone and Dilaudid IV prn moderate to severe pain. - Strict bedrest; knee immobilizer ordered. - Consulted palliative care to discuss goals of care, greatly appreciate input. (2) Acute respiratory failure with hypoxia: - Hypoxic in the ER requiring non rebreather. Chronically requires 2L via NC at home but is now weaned to room air. - Likely related to pleural effusion and progression of right metastatic lung mass with collapse of right lower lobe and obliteration of right middle lobe with tumor. - CTA neg for PE, showed progression of right lung mass and moderate right pleural effusion and trace left pleural effusion. (3) Malignant pleural effusion: - S/p PleurX by Dr. Somers, now removed. - CTA showed increase in right pleural collection compared to 02/26 and trace left pleural effusion. - Consulted thoracic surgery, appreciate input. Pt. likely has limited options for treatment, CXR is pending. - Has mild pulm vascular congestion on CXR but lab work indicates dehydration - on IV fluids at 100 cc/hr. (4) Mass of middle lobe of right lung: - Follows with oncology; per discharge summary, pt. was considering starting immunotherapy & has appt on 03/15. - Has progression of lung mass noted on CTA. - Will discuss case with Dr. Mcmanus, consider inpt consult. (5) Atrial fibrillation and flutter: - Continue Amiodarone and Cardizem as prescribed. - Currently in sinus rhythm on telemetry, HR 60-70's. - Not currently on anticoagulation - likely related to thrombocytopenia, anemia, and previous brain metastasis. (6) UTI (urinary tract infection): - U/a + (may be contaminated) in setting of chronic alexander from home. - UC pending; will continue daily Ceftriaxone and follow urine and blood cultures. (7) Urinary retention: - Discharged with alexander during her last admission; alexander was exchanged in the ER. - Continue to monitor urine output. - UTI as noted above. (8) Thrombocytopenia: - In setting of recent chemo; holding pharmacologic ppx. (9) Anemia: - Hgb 6.5 on admission, likely secondary to acute blood loss anemia from femur fracture in the setting of chronic anemia - Transfused 2 units PRBCs with adequate response. - Monitor CBC daily. (10) Metastasis from cervical cancer: - Liver, lung, brain and bone metastases. - Has had progression of disease noted on imaging. - Palliative care consulted, greatly appreciate input. - Was considering immunotherapy but has not yet started it - has appt on 03/15. (11) Goals of care, counseling/discussion: - Palliative consulted, see note. At this point patient would like to continue treatment/proceed with OR if indicated. (12) Acute electrocardiogram changes: - T wave inversion noted on admission; did have ST elevation in inferior leads noted on EKG this morning. - Trop neg x 3; telemetry with NSR. - C/o mild chest pressure but is tender to palpation - not likely related to cardiac source. - Will hold further cardiac work up. Would need to be medically optimized for surgery. (13) Prolonged QT interval: - QTc 674 on admission EKG, however difficult to interpret given a lot of artifact on ECG. QTc now improving on repeat EKG. - Avoid QT prolonging agents if possible. - Replace electrolytes as needed. (14) Hyponatremia: - Na level 126; serum osmo was <280, urine sodium 17 and urine osmo was lo w. - Urine studies c/w chronic SIADH picture mixed with hypovolemia from hemorrhage/dehydration. - Currently receiving NS at 100 cc/hr (started this AM). - Na level trending up, was 130. Repeat level this evening. - Transfused with PRBCs to replete intravascular volume as above. (15) Electrolyte abnormality: - Ordered KCl 20 mEq BID and Mag sulfate 2 gm IV. - Monitor levels closely. (16) Elevated alkaline phosphatase level: - In setting of liver metastasis. (17) Severe protein-calorie malnutrition: - Albumin 1.8 in setting of metastatic cancer. - Encourage regular diet as tolerated. (18) Hypercalcemia: - Corrected calcium on admission 12.76 - Likely secondary to bony metastases in the setting of malignancy - Started NS at 100 cc/hr due to persistently high levels. (19) DVT prophylaxis: - SCDs; hold pharmacologic ppx for possible procedure and in setting of thrombocytopenia. Dispo: Downgrade to med/surg for acute femur fracture. DNR but okay with intubation and shock -- confirmed with at bedside. Supervising Physician Co-Signing Physician Notes PA Supervision Note: I did not personally see or examine the patient today, but I verified all martínez points of JULIO King's assessment and plan with the following exceptions/additions: None Subjective Pt. has pain in right knee, has been using Oxycodone prn doses. Pain is relatively well controlled. She denies urinary retention. Last BM was 2 days ago. Has mild chest pressure at sternum, is very tender to palpation on exam. Chest pressure is intermittent, has been ongoing for the last week or so. EKG did show mild ST wave changes but Trops were negative to date. Is currently weaned to room air. Review of Systems Review of Systems: All systems reviewed & are unremarkable except as noted in HPI & below Constitutional: + fatigue, + weakness, + anorexia and + weight loss; no fever and no chills Respiratory: + dyspnea and + dyspnea on exertion; no cough and no wheezing Cardiovascular: + chest pain; no radiating jaw, neck or arm pain, no palpitations and no edema Gastrointestinal: + constipation; no abdominal pain, no nausea and no vomiting Genitourinary: no dysuria and no difficulty urinating Musculoskeletal: + joint pain; no back pain Integumentary: no non-healing lesions Neurologic: + falls Physical Exam Physical Exam: General: Chronically ill appearing female, no acute distress. HEENT: NC/AT; PERRLA with EOMI; [place] conjunctiva, MMM. No erythema of posterior pharynx Neck: Supple and nontender Cardiac: RRR Lungs: on room air; diminished in bilat lung bases, otherwise clear throughout. Abdomen: Bowel normoactive X 4; Nontender to palpation : Alexander with good output. Extremities: Warm. No edema present Neuro: No focal weakness Skin: No rash Results & Data Vital Signs (Past 12 Hours) Vital Signs Temp Pulse Pulse Resp BP BP Pulse Ox 03/11/19 12:15 36.7 C 76 17 118/72 92 03/11/19 07:50 36.5 C 72 23 121/67 92 03/11/19 04:29 36.4 C L 70 16 103/60 94 Laboratory Results 03/11/19 03/11/19 03/11/19 Range/Units 07:01 07:01 07:01 WBC RBC Hgb Hct MCV MCH MCHC RDW Std Deviation RDW Coeff of Nikki Plt Count MPV Immature Gran % (Auto) Neut % (Auto) Lymph % (Auto) [place] % (Auto) Eos % (Auto) Baso % (Auto) Immature Gran # (Auto) Neut # (Auto) Lymph # (Auto) [place] # (Auto) Eos # (Auto) Baso # (Auto) Absolute Nucleated RBC Nucleated RBC % (auto) Neutrophils % (Manual) Band Neutrophils % Lymphocytes % (Manual) Prolymphocyte % Reactive Lymphs % (Man) Monocytes % (Manual) Eosinophils % (Manual) Basophils % (Manual) Metamyelocytes % (Man) Myelocytes % (Man) Promyelocytes % (Man) Blast Cells % (Manual) Plasma Cell % (Manual) Other Cells % Nucleated RBC % Neutrophils # (Manual) Band Neutrophils # Total Absolute Neuts Lymphocytes # (Manual) Prolymphocyte # Reactive Lymphs # Total Abs Lymphocytes Monocytes # (Manual) Eosinophils # (Manual) Basophils # (Manual) Metamyelocytes # (Man) Myelocytes # (Manual) Promyelocytes # (Man) Blast Cells # (Man) Plasma Cell # (Manual) Other Cells # Nucleated RBCs # (Man) Hypersegmented Neuts Hyposegmented Neuts Hypogranular Neuts Large Granular Lymphs # Lrg Granular Lymphs Hairy Cells Smudge Cells Toxic Granulation Toxic Vacuolation Dohle Bodies Jacquie Rods Platelet Estimate Hypogranular Platelets Clumped Platelets Giant Platelets Platelet Satelliting RBC Morphology Polychromasia Hypochromasia Poikilocytosis Basophilic Stippling Anisocytosis Microcytosis Macrocytosis Spherocytes Pappenheimer Bodies Sickle Cells Target Cells Tear Drop Cells Ovalocytes Stomatocytes [employer] Bodies Echinocytes Acanthocytes (Spur) Rouleaux RBC Agglutinates Schistocytes RBC Morph Comment Sezary Cell PT 11.6 INR 1.1 APTT PTT Ratio VBG pH (7.36-7.41) VBG pCO2 (38-50) mmHg VBG pO2 mmHg VBG HCO3 mmol/L VBG O2 Saturation % VBG Base Excess mEq/L Barometric Pressure mm/Hg Sodium 130 L (136-145) mmol/L Potassium 3.5 (3.5-5.1) mmol/L Chloride 86 L (98-107) mmol/L Carbon Dioxide 37 H (21-32) mmol/L Anion Gap 7.0 (3-11) BUN 14 (7-18) mg/dl Creatinine 0.55 L (0.6-1.2) mg/dl Est Cr Clr Drug Dosing 115.3 ml/min Est GFR ( Amer) 114.9 Est GFR (Non-Af Amer) 99.1 BUN/Creatinine Ratio 25.2 H (10-20) Glucose 126 H (70-99) mg/dl Osmolality (280-300) mOsm/kg Lactate (0.4-2.0) mmol/L Calcium 11.1 H (8.5-10.1) mg/dl Magnesium 1.7 L (1.8-2.4) mg/dl Total Bilirubin 0.6 (0.2-1) mg/dl AST 23 (15-37) U/L ALT 11 L (12-78) U/L Alkaline Phosphatase 118 H (45-117) U/L Troponin I < 0.015 (0-0.045) ng/ml Total Protein 6.3 L (6.4-8.2) gm/dl Albumin 1.7 L (3.4-5.0) gm/dl Globulin 4.6 H (2.5-4.0) gm/dl Albumin/Globulin Ratio 0.4 L (0.9-2) Urine Color Urine Appearance (Clear) Urine pH (4.5-7.5) Ur Specific [place] (1.000-1.030) Urine Protein (Negative) Urine Glucose (UA) (Negative) Urine Ketones (Negative) Urine Blood (Negative) Urine Nitrite (Negative) Urine Bilirubin (Negative) Urine Urobilinogen (Negative) Ur Leukocyte Esterase (Negative) Urine WBC (Auto) (0-5) /hpf Urine RBC (Auto) (0-4) /hpf U Hyaline Cast (Auto) (0-5) /lpf U Epithel Cells (Auto) (0-5) /lpf Urine Bacteria (Auto) (Negative) Granular Casts (0) /lpf Urine Yeast Urine Osmolality (500-800) mOsm/kg Ur Random Sodium mmol/L Influenza Type A (PCR) (Neg) Influenza Type B (PCR) (Neg) Blood Type Antibody Screen Crossmatch 03/11/19 03/11/19 03/11/19 Range/Units 07:01 00:35 00:35 WBC 14.65 H RBC 3.16 L Hgb 9.9 L Hct 29.6 L MCV 93.7 MCH 31.3 MCHC 33.4 RDW Std Deviation 63.2 H RDW Coeff of Nikki 18.8 H Plt Count 94 L MPV 9.5 Immature Gran % (Auto) Neut % (Auto) Lymph % (Auto) [place] % (Auto) Eos % (Auto) Baso % (Auto) Immature Gran # (Auto) Neut # (Auto) Lymph # (Auto) [place] # (Auto) Eos # (Auto) Baso # (Auto) Absolute Nucleated RBC Nucleated RBC % (auto) Neutrophils % (Manual) Band Neutrophils % Lymphocytes % (Manual) Prolymphocyte % Reactive Lymphs % (Man) Monocytes % (Manual) Eosinophils % (Manual) Basophils % (Manual) Metamyelocytes % (Man) Myelocytes % (Man) Promyelocytes % (Man) Blast Cells % (Manual) Plasma Cell % (Manual) Other Cells % Nucleated RBC % Neutrophils # (Manual) Band Neutrophils # Total Absolute Neuts Lymphocytes # (Manual) Prolymphocyte # Reactive Lymphs # Total Abs Lymphocytes Monocytes # (Manual) Eosinophils # (Manual) Basophils # (Manual) Metamyelocytes # (Man) Myelocytes # (Manual) Promyelocytes # (Man) Blast Cells # (Man) Plasma Cell # (Manual) Other Cells # Nucleated RBCs # (Man) Hypersegmented Neuts Hyposegmented Neuts Hypogranular Neuts Large Granular Lymphs # Lrg Granular Lymphs Hairy Cells Smudge Cells Toxic Granulation Toxic Vacuolation Dohle Bodies Jacquie Rods Platelet Estimate Hypogranular Platelets Clumped Platelets Giant Platelets Platelet Satelliting RBC Morphology Polychromasia Hypochromasia Poikilocytosis Basophilic Stippling Anisocytosis Microcytosis Macrocytosis Spherocytes Pappenheimer Bodies Sickle Cells Target Cells Tear Drop Cells Ovalocytes Stomatocytes [employer] Bodies Echinocytes Acanthocytes (Spur) Rouleaux RBC Agglutinates Schistocytes RBC Morph Comment Sezary Cell PT INR APTT PTT Ratio VBG pH (7.36-7.41) VBG pCO2 (38-50) mmHg VBG pO2 mmHg VBG HCO3 mmol/L VBG O2 Saturation % VBG Base Excess mEq/L Barometric Pressure mm/Hg Sodium 128 L (136-145) mmol/L Potassium 3.6 D (3.5-5.1) mmol/L Chloride 85 L (98-107) mmol/L Carbon Dioxide 38 H (21-32) mmol/L Anion Gap 5.0 (3-11) BUN 11 (7-18) mg/dl Creatinine 0.52 L (0.6-1.2) mg/dl Est Cr Clr Drug Dosing 121.5 ml/min Est GFR ( Amer) 117.0 Est GFR (Non-Af Amer) 101.0 BUN/Creatinine Ratio 22.2 H (10-20) Glucose 152 H (70-99) mg/dl Osmolality (280-300) mOsm/kg Lactate (0.4-2.0) mmol/L Calcium 10.7 H (8.5-10.1) mg/dl Magnesium (1.8-2.4) mg/dl Total Bilirubin (0.2-1) mg/dl AST (15-37) U/L ALT (12-78) U/L Alkaline Phosphatase (45-117) U/L Troponin I < 0.015 (0-0.045) ng/ml Total Protein (6.4-8.2) gm/dl Albumin (3.4-5.0) gm/dl Globulin (2.5-4.0) gm/dl Albumin/Globulin Ratio (0.9-2) Urine Color Urine Appearance (Clear) Urine pH (4.5-7.5) Ur Specific [place] (1.000-1.030) Urine Protein (Negative) Urine Glucose (UA) (Negative) Urine Ketones (Negative) Urine Blood (Negative) Urine Nitrite (Negative) Urine Bilirubin (Negative) Urine Urobilinogen (Negative) Ur Leukocyte Esterase (Negative) Urine WBC (Auto) (0-5) /hpf Urine RBC (Auto) (0-4) /hpf U Hyaline Cast (Auto) (0-5) /lpf U Epithel Cells (Auto) (0-5) /lpf Urine Bacteria (Auto) (Negative) Granular Casts (0) /lpf Urine Yeast Urine Osmolality (500-800) mOsm/kg Ur Random Sodium mmol/L Influenza Type A (PCR) (Neg) Influenza Type B (PCR) (Neg) Blood Type Antibody Screen Crossmatch 03/11/19 03/10/19 03/10/19 Range/Units 00:35 18:56 18:05 WBC 16.35 H RBC 3.22 L Hgb 10.0 L D Hct 30.2 L MCV 93.8 D MCH 31.1 MCHC 33.1 RDW Std Deviation 62.3 H RDW Coeff of Nikki 18.4 H Plt Count 94 L MPV 9.5 Immature Gran % (Auto) Neut % (Auto) Lymph % (Auto) [place] % (Auto) Eos % (Auto) Baso % (Auto) Immature Gran # (Auto) Neut # (Auto) Lymph # (Auto) [place] # (Auto) Eos # (Auto) Baso # (Auto) Absolute Nucleated RBC Nucleated RBC % (auto) Neutrophils % (Manual) Band Neutrophils % Lymphocytes % (Manual) Prolymphocyte % Reactive Lymphs % (Man) Monocytes % (Manual) Eosinophils % (Manual) Basophils % (Manual) Metamyelocytes % (Man) Myelocytes % (Man) Promyelocytes % (Man) Blast Cells % (Manual) Plasma Cell % (Manual) Other Cells % Nucleated RBC % Neutrophils # (Manual) Band Neutrophils # Total Absolute Neuts Lymphocytes # (Manual) Prolymphocyte # Reactive Lymphs # Total Abs Lymphocytes Monocytes # (Manual) Eosinophils # (Manual) Basophils # (Manual) Metamyelocytes # (Man) Myelocytes # (Manual) Promyelocytes # (Man) Blast Cells # (Man) Plasma Cell # (Manual) Other Cells # Nucleated RBCs # (Man) Hypersegmented Neuts Hyposegmented Neuts Hypogranular Neuts Large Granular Lymphs # Lrg Granular Lymphs Hairy Cells Smudge Cells Toxic Granulation Toxic Vacuolation Dohle Bodies Jacquie Rods Platelet Estimate Decreased L Hypogranular Platelets Clumped Platelets Giant Platelets Platelet Satelliting RBC Morphology Polychromasia Hypochromasia Poikilocytosis Basophilic Stippling Anisocytosis Microcytosis Macrocytosis Spherocytes Pappenheimer Bodies Sickle Cells Target Cells Tear Drop Cells Ovalocytes Stomatocytes [employer] Bodies Echinocytes Acanthocytes (Spur) Rouleaux RBC Agglutinates Schistocytes RBC Morph Comment Sezary Cell PT INR APTT PTT Ratio VBG pH (7.36-7.41) VBG pCO2 (38-50) mmHg VBG pO2 mmHg VBG HCO3 mmol/L VBG O2 Saturation % VBG Base Excess mEq/L Barometric Pressure mm/Hg Sodium (136-145) mmol/L Potassium (3.5-5.1) mmol/L Chloride (98-107) mmol/L Carbon Dioxide (21-32) mmol/L Anion Gap (3-11) BUN (7-18) mg/dl Creatinine (0.6-1.2) mg/dl Est Cr Clr Drug Dosing ml/min Est GFR ( Amer) Est GFR (Non-Af Amer) BUN/Creatinine Ratio (10-20) Glucose (70-99) mg/dl Osmolality (280-300) mOsm/kg Lactate (0.4-2.0) mmol/L Calcium (8.5-10.1) mg/dl Magnesium (1.8-2.4) mg/dl Total Bilirubin (0.2-1) mg/dl AST (15-37) U/L ALT (12-78) U/L Alkaline Phosphatase (45-117) U/L Troponin I < 0.015 (0-0.045) ng/ml Total Protein (6.4-8.2) gm/dl Albumin (3.4-5.0) gm/dl Globulin (2.5-4.0) gm/dl Albumin/Globulin Ratio (0.9-2) Urine Color Urine Appearance (Clear) Urine pH (4.5-7.5) Ur Specific [place] (1.000-1.030) Urine Protein (Negative) Urine Glucose (UA) (Negative) Urine Ketones (Negative) Urine Blood (Negative) Urine Nitrite (Negative) Urine Bilirubin (Negative) Urine Urobilinogen (Negative) Ur Leukocyte Esterase (Negative) Urine WBC (Auto) (0-5) /hpf Urine RBC (Auto) (0-4) /hpf U Hyaline Cast (Auto) (0-5) /lpf U Epithel Cells (Auto) (0-5) /lpf Urine Bacteria (Auto) (Negative) Granular Casts (0) /lpf Urine Yeast Urine Osmolality (500-800) mOsm/kg Ur Random Sodium 17 mmol/L Influenza Type A (PCR) (Neg) Influenza Type B (PCR) (Neg) Blood Type Antibody Screen Crossmatch 03/10/19 03/10/19 03/10/19 Range/Units 18:05 18:02 16:22 WBC RBC Hgb Hct MCV MCH MCHC RDW Std Deviation RDW Coeff of Nikki Plt Count MPV Immature Gran % (Auto) Neut % (Auto) Lymph % (Auto) [place] % (Auto) Eos % (Auto) Baso % (Auto) Immature Gran # (Auto) Neut # (Auto) Lymph # (Auto) [place] # (Auto) Eos # (Auto) Baso # (Auto) Absolute Nucleated RBC Nucleated RBC % (auto) Neutrophils % (Manual) Band Neutrophils % Lymphocytes % (Manual) Prolymphocyte % Reactive Lymphs % (Man) Monocytes % (Manual) Eosinophils % (Manual) Basophils % (Manual) Metamyelocytes % (Man) Myelocytes % (Man) Promyelocytes % (Man) Blast Cells % (Manual) Plasma Cell % (Manual) Other Cells % Nucleated RBC % Neutrophils # (Manual) Band Neutrophils # Total Absolute Neuts Lymphocytes # (Manual) Prolymphocyte # Reactive Lymphs # Total Abs Lymphocytes Monocytes # (Manual) Eosinophils # (Manual) Basophils # (Manual) Metamyelocytes # (Man) Myelocytes # (Manual) Promyelocytes # (Man) Blast Cells # (Man) Plasma Cell # (Manual) Other Cells # Nucleated RBCs # (Man) Hypersegmented Neuts Hyposegmented Neuts Hypogranular Neuts Large Granular Lymphs # Lrg Granular Lymphs Hairy Cells Smudge Cells Toxic Granulation Toxic Vacuolation Dohle Bodies Jacquie Rods Platelet Estimate Hypogranular Platelets Clumped Platelets Giant Platelets Platelet Satelliting RBC Morphology Polychromasia Hypochromasia Poikilocytosis Basophilic Stippling Anisocytosis Microcytosis Macrocytosis Spherocytes Pappenheimer Bodies Sickle Cells Target Cells Tear Drop Cells Ovalocytes Stomatocytes [employer] Bodies Echinocytes Acanthocytes (Spur) Rouleaux RBC Agglutinates Schistocytes RBC Morph Comment Sezary Cell PT INR APTT PTT Ratio VBG pH 7.49 H (7.36-7.41) VBG pCO2 54 H (38-50) mmHg VBG pO2 48 mmHg VBG HCO3 40 mmol/L VBG O2 Saturation 82.7 % VBG Base Excess 14.5 mEq/L Barometric Pressure 727.8 mm/Hg Sodium (136-145) mmol/L Potassium (3.5-5.1) mmol/L Chloride (98-107) mmol/L Carbon Dioxide (21-32) mmol/L Anion Gap (3-11) BUN (7-18) mg/dl Creatinine (0.6-1.2) mg/dl Est Cr Clr Drug Dosing ml/min Est GFR ( Amer) Est GFR (Non-Af Amer) BUN/Creatinine Ratio (10-20) Glucose (70-99) mg/dl Osmolality (280-300) mOsm/kg Lactate (0.4-2.0) mmol/L Calcium (8.5-10.1) mg/dl Magnesium (1.8-2.4) mg/dl Total Bilirubin (0.2-1) mg/dl AST (15-37) U/L ALT (12-78) U/L Alkaline Phosphatase (45-117) U/L Troponin I (0-0.045) ng/ml Total Protein (6.4-8.2) gm/dl Albumin (3.4-5.0) gm/dl Globulin (2.5-4.0) gm/dl Albumin/Globulin Ratio (0.9-2) Urine Color Urine Appearance (Clear) Urine pH (4.5-7.5) Ur Specific [place] (1.000-1.030) Urine Protein (Negative) Urine Glucose (UA) (Negative) Urine Ketones (Negative) Urine Blood (Negative) Urine Nitrite (Negative) Urine Bilirubin (Negative) Urine Urobilinogen (Negative) Ur Leukocyte Esterase (Negative) Urine WBC (Auto) (0-5) /hpf Urine RBC (Auto) (0-4) /hpf U Hyaline Cast (Auto) (0-5) /lpf U Epithel Cells (Auto) (0-5) /lpf Urine Bacteria (Auto) (Negative) Granular Casts (0) /lpf Urine Yeast Urine Osmolality 281 L (500-800) mOsm/kg Ur Random Sodium mmol/L Influenza Type A (PCR) (Neg) Influenza Type B (PCR) (Neg) Blood Type O Positive Antibody Screen NEGATIVE Crossmatch See Detail 03/10/19 03/10/19 03/10/19 Range/Units 15:13 15:13 15:13 WBC 13.54 H RBC 1.98 L Hgb 6.5 L* Hct 19.6 L* MCV 99.0 MCH 32.8 MCHC 33.2 RDW Std Deviation 64.3 H RDW Coeff of Nikki 17.8 H Plt Count 99 L MPV 9.7 Immature Gran % (Auto) 0.8 Neut % (Auto) 85.6 Lymph % (Auto) 3.4 [place] % (Auto) 9.5 Eos % (Auto) 0.6 Baso % (Auto) 0.1 Immature Gran # (Auto) 0.11 H Neut # (Auto) 11.60 H Lymph # (Auto) 0.46 L [place] # (Auto) 1.28 H Eos # (Auto) 0.08 Baso # (Auto) 0.01 Absolute Nucleated RBC Nucleated RBC % (auto) Neutrophils % (Manual) Band Neutrophils % Lymphocytes % (Manual) Prolymphocyte % Reactive Lymphs % (Man) Monocytes % (Manual) Eosinophils % (Manual) Basophils % (Manual) Metamyelocytes % (Man) Myelocytes % (Man) Promyelocytes % (Man) Blast Cells % (Manual) Plasma Cell % (Manual) Other Cells % Nucleated RBC % Neutrophils # (Manual) Band Neutrophils # Total Absolute Neuts Lymphocytes # (Manual) Prolymphocyte # Reactive Lymphs # Total Abs Lymphocytes Monocytes # (Manual) Eosinophils # (Manual) Basophils # (Manual) Metamyelocytes # (Man) Myelocytes # (Manual) Promyelocytes # (Man) Blast Cells # (Man) Plasma Cell # (Manual) Other Cells # Nucleated RBCs # (Man) Hypersegmented Neuts Hyposegmented Neuts Hypogranular Neuts Large Granular Lymphs # Lrg Granular Lymphs Hairy Cells Smudge Cells Toxic Granulation Toxic Vacuolation Dohle Bodies Jacquie Rods Platelet Estimate Hypogranular Platelets Clumped Platelets Giant Platelets Platelet Satelliting RBC Morphology Polychromasia Hypochromasia Poikilocytosis Basophilic Stippling Anisocytosis Present Microcytosis Macrocytosis Spherocytes Pappenheimer Bodies Sickle Cells Target Cells Tear Drop Cells Ovalocytes Stomatocytes [employer] Bodies Echinocytes Acanthocytes (Spur) Rouleaux RBC Agglutinates Schistocytes RBC Morph Comment Sezary Cell PT 11.9 INR 1.2 H APTT 24.4 PTT Ratio 0.9 VBG pH (7.36-7.41) VBG pCO2 (38-50) mmHg VBG pO2 mmHg VBG HCO3 mmol/L VBG O2 Saturation % VBG Base Excess mEq/L Barometric Pressure mm/Hg Sodium (136-145) mmol/L Potassium (3.5-5.1) mmol/L Chloride (98-107) mmol/L Carbon Dioxide (21-32) mmol/L Anion Gap (3-11) BUN (7-18) mg/dl Creatinine (0.6-1.2) mg/dl Est Cr Clr Drug Dosing ml/min Est GFR ( Amer) Est GFR (Non-Af Amer) BUN/Creatinine Ratio (10-20) Glucose (70-99) mg/dl Osmolality (280-300) mOsm/kg Lactate (0.4-2.0) mmol/L Calcium (8.5-10.1) mg/dl Magnesium (1.8-2.4) mg/dl Total Bilirubin (0.2-1) mg/dl AST (15-37) U/L ALT (12-78) U/L Alkaline Phosphatase (45-117) U/L Troponin I (0-0.045) ng/ml Total Protein (6.4-8.2) gm/dl Albumin (3.4-5.0) gm/dl Globulin (2.5-4.0) gm/dl Albumin/Globulin Ratio (0.9-2) Urine Color Urine Appearance (Clear) Urine pH (4.5-7.5) Ur Specific [place] (1.000-1.030) Urine Protein (Negative) Urine Glucose (UA) (Negative) Urine Ketones (Negative) Urine Blood (Negative) Urine Nitrite (Negative) Urine Bilirubin (Negative) Urine Urobilinogen (Negative) Ur Leukocyte Esterase (Negative) Urine WBC (Auto) (0-5) /hpf Urine RBC (Auto) (0-4) /hpf U Hyaline Cast (Auto) (0-5) /lpf U Epithel Cells (Auto) (0-5) /lpf Urine Bacteria (Auto) (Negative) Granular Casts (0) /lpf Urine Yeast Urine Osmolality (500-800) mOsm/kg Ur Random Sodium mmol/L Influenza Type A (PCR) Neg for Influ A (Neg) Influenza Type B (PCR) Neg for Influ B (Neg) Blood Type Antibody Screen Crossmatch 03/10/19 03/10/19 03/10/19 Range/Units 13:38 13:38 13:38 WBC RBC Hgb Hct MCV MCH MCHC RDW Std Deviation RDW Coeff of Nikki Plt Count MPV Immature Gran % (Auto) Neut % (Auto) Lymph % (Auto) [place] % (Auto) Eos % (Auto) Baso % (Auto) Immature Gran # (Auto) Neut # (Auto) Lymph # (Auto) [place] # (Auto) Eos # (Auto) Baso # (Auto) Absolute Nucleated RBC Nucleated RBC % (auto) Neutrophils % (Manual) Band Neutrophils % Lymphocytes % (Manual) Prolymphocyte % Reactive Lymphs % (Man) Monocytes % (Manual) Eosinophils % (Manual) Basophils % (Manual) Metamyelocytes % (Man) Myelocytes % (Man) Promyelocytes % (Man) Blast Cells % (Manual) Plasma Cell % (Manual) Other Cells % Nucleated RBC % Neutrophils # (Manual) Band Neutrophils # Total Absolute Neuts Lymphocytes # (Manual) Prolymphocyte # Reactive Lymphs # Total Abs Lymphocytes Monocytes # (Manual) Eosinophils # (Manual) Basophils # (Manual) Metamyelocytes # (Man) Myelocytes # (Manual) Promyelocytes # (Man) Blast Cells # (Man) Plasma Cell # (Manual) Other Cells # Nucleated RBCs # (Man) Hypersegmented Neuts Hyposegmented Neuts Hypogranular Neuts Large Granular Lymphs # Lrg Granular Lymphs Hairy Cells Smudge Cells Toxic Granulation Toxic Vacuolation Dohle Bodies Jacquie Rods Platelet Estimate Hypogranular Platelets Clumped Platelets Giant Platelets Platelet Satelliting RBC Morphology Polychromasia Hypochromasia Poikilocytosis Basophilic Stippling Anisocytosis Microcytosis Macrocytosis Spherocytes Pappenheimer Bodies Sickle Cells Target Cells Tear Drop Cells Ovalocytes Stomatocytes [employer] Bodies Echinocytes Acanthocytes (Spur) Rouleaux RBC Agglutinates Schistocytes RBC Morph Comment Sezary Cell PT INR APTT PTT Ratio VBG pH (7.36-7.41) VBG pCO2 (38-50) mmHg VBG pO2 mmHg VBG HCO3 mmol/L VBG O2 Saturation % VBG Base Excess mEq/L Barometric Pressure mm/Hg Sodium 126 L (136-145) mmol/L Potassium 3.0 L (3.5-5.1) mmol/L Chloride 81 L (98-107) mmol/L Carbon Dioxide 41 H* (21-32) mmol/L Anion Gap 5.0 (3-11) BUN 10 (7-18) mg/dl Creatinine 0.61 (0.6-1.2) mg/dl Est Cr Clr Drug Dosing 108.0 ml/min Est GFR ( Amer) 111.0 Est GFR (Non-Af Amer) 95.8 BUN/Creatinine Ratio 15.6 (10-20) Glucose 97 (70-99) mg/dl Osmolality 269 L (280-300) mOsm/kg Lactate 1.4 (0.4-2.0) mmol/L Calcium 11.0 H (8.5-10.1) mg/dl Magnesium 1.4 L (1.8-2.4) mg/dl Total Bilirubin 0.5 (0.2-1) mg/dl AST 27 (15-37) U/L ALT 12 (12-78) U/L Alkaline Phosphatase 119 H (45-117) U/L Troponin I < 0.015 (0-0.045) ng/ml Total Protein 6.5 (6.4-8.2) gm/dl Albumin 1.8 L (3.4-5.0) gm/dl Globulin 4.7 H (2.5-4.0) gm/dl Albumin/Globulin Ratio 0.4 L (0.9-2) Urine Color Urine Appearance (Clear) Urine pH (4.5-7.5) Ur Specific [place] (1.000-1.030) Urine Protein (Negative) Urine Glucose (UA) (Negative) Urine Ketones (Negative) Urine Blood (Negative) Urine Nitrite (Negative) Urine Bilirubin (Negative) Urine Urobilinogen (Negative) Ur Leukocyte Esterase (Negative) Urine WBC (Auto) (0-5) /hpf Urine RBC (Auto) (0-4) /hpf U Hyaline Cast (Auto) (0-5) /lpf U Epithel Cells (Auto) (0-5) /lpf Urine Bacteria (Auto) (Negative) Granular Casts (0) /lpf Urine Yeast Urine Osmolality (500-800) mOsm/kg Ur Random Sodium mmol/L Influenza Type A (PCR) (Neg) Influenza Type B (PCR) (Neg) Blood Type Antibody Screen Crossmatch 03/10/19 03/10/19 03/10/19 Range/Units 13:38 13:38 13:20 WBC Cancelled RBC Cancelled Hgb Cancelled Hct Cancelled MCV Cancelled MCH Cancelled MCHC Cancelled RDW Std Deviation Cancelled RDW Coeff of Nikki Cancelled Plt Count Cancelled MPV Cancelled Immature Gran % (Auto) Cancelled Neut % (Auto) Cancelled Lymph % (Auto) Cancelled [place] % (Auto) Cancelled Eos % (Auto) Cancelled Baso % (Auto) Cancelled Immature Gran # (Auto) Cancelled Neut # (Auto) Cancelled Lymph # (Auto) Cancelled [place] # (Auto) Cancelled Eos # (Auto) Cancelled Baso # (Auto) Cancelled Absolute Nucleated RBC Cancelled Nucleated RBC % (auto) Cancelled Neutrophils % (Manual) Cancelled Band Neutrophils % Cancelled Lymphocytes % (Manual) Cancelled Prolymphocyte % Cancelled Reactive Lymphs % (Man) Cancelled Monocytes % (Manual) Cancelled Eosinophils % (Manual) Cancelled Basophils % (Manual) Cancelled Metamyelocytes % (Man) Cancelled Myelocytes % (Man) Cancelled Promyelocytes % (Man) Cancelled Blast Cells % (Manual) Cancelled Plasma Cell % (Manual) Cancelled Other Cells % Cancelled Nucleated RBC % Cancelled Neutrophils # (Manual) Cancelled Band Neutrophils # Cancelled Total Absolute Neuts Cancelled Lymphocytes # (Manual) Cancelled Prolymphocyte # Cancelled Reactive Lymphs # Cancelled Total Abs Lymphocytes Cancelled Monocytes # (Manual) Cancelled Eosinophils # (Manual) Cancelled Basophils # (Manual) Cancelled Metamyelocytes # (Man) Cancelled Myelocytes # (Manual) Cancelled Promyelocytes # (Man) Cancelled Blast Cells # (Man) Cancelled Plasma Cell # (Manual) Cancelled Other Cells # Cancelled Nucleated RBCs # (Man) Cancelled Hypersegmented Neuts Cancelled Hyposegmented Neuts Cancelled Hypogranular Neuts Cancelled Large Granular Lymphs Cancelled # Lrg Granular Lymphs Cancelled Hairy Cells Cancelled Smudge Cells Cancelled Toxic Granulation Cancelled Toxic Vacuolation Cancelled Dohle Bodies Cancelled Jacquie Rods Cancelled Platelet Estimate Cancelled Hypogranular Platelets Cancelled Clumped Platelets Cancelled Giant Platelets Cancelled Platelet Satelliting Cancelled RBC Morphology Cancelled Polychromasia Cancelled Hypochromasia Cancelled Poikilocytosis Cancelled Basophilic Stippling Cancelled Anisocytosis Cancelled Microcytosis Cancelled Macrocytosis Cancelled Spherocytes Cancelled Pappenheimer Bodies Cancelled Sickle Cells Cancelled Target Cells Cancelled Tear Drop Cells Cancelled Ovalocytes Cancelled Stomatocytes Cancelled [employer] Bodies Cancelled Echinocytes Cancelled Acanthocytes (Spur) Cancelled Rouleaux Cancelled RBC Agglutinates Cancelled Schistocytes Cancelled RBC Morph Comment Cancelled Sezary Cell Cancelled PT Cancelled INR Cancelled APTT Cancelled PTT Ratio Cancelled VBG pH (7.36-7.41) VBG pCO2 (38-50) mmHg VBG pO2 mmHg VBG HCO3 mmol/L VBG O2 Saturation % VBG Base Excess mEq/L Barometric Pressure mm/Hg Sodium (136-145) mmol/L Potassium (3.5-5.1) mmol/L Chloride (98-107) mmol/L Carbon Dioxide (21-32) mmol/L Anion Gap (3-11) BUN (7-18) mg/dl Creatinine (0.6-1.2) mg/dl Est Cr Clr Drug Dosing ml/min Est GFR ( Amer) Est GFR (Non-Af Amer) BUN/Creatinine Ratio (10-20) Glucose (70-99) mg/dl Osmolality (280-300) mOsm/kg Lactate (0.4-2.0) mmol/L Calcium (8.5-10.1) mg/dl Magnesium (1.8-2.4) mg/dl Total Bilirubin (0.2-1) mg/dl AST (15-37) U/L ALT (12-78) U/L Alkaline Phosphatase (45-117) U/L Troponin I (0-0.045) ng/ml Total Protein (6.4-8.2) gm/dl Albumin (3.4-5.0) gm/dl Globulin (2.5-4.0) gm/dl Albumin/Globulin Ratio (0.9-2) Urine Color Yellow Urine Appearance Turbid A (Clear) Urine pH 6.5 (4.5-7.5) Ur Specific [place] 1.016 (1.000-1.030) Urine Protein 1+ H (Negative) Urine Glucose (UA) Negative (Negative) Urine Ketones Negative (Negative) Urine Blood 3+ H (Negative) Urine Nitrite Positive A (Negative) Urine Bilirubin Negative (Negative) Urine Urobilinogen Negative (Negative) Ur Leukocyte Esterase 2+ H (Negative) Urine WBC (Auto) >30 H (0-5) /hpf Urine RBC (Auto) >30 H (0-4) /hpf U Hyaline Cast (Auto) 5-10 H (0-5) /lpf U Epithel Cells (Auto) >30 H (0-5) /lpf Urine Bacteria (Auto) 2+ H (Negative) Granular Casts 1-5 H (0) /lpf Urine Yeast Not Reportable Urine Osmolality (500-800) mOsm/kg Ur Random Sodium mmol/L Influenza Type A (PCR) (Neg) Influenza Type B (PCR) (Neg) Blood Type Antibody Screen Crossmatch PG Care Time/CCT Total # of Minutes Spent Total Time Spent with Patient: Total time spent is greater than 50% in coordination of care (as documented) at patient's floor/unit and/or counseling patient: (1) Fracture of right femur Encounter type: initial encounter Femur location: distal, unspecified portion Fracture morphology: unspecified fracture morphology Fracture type: closed Qualified Code(s): S72.401A - Unspecified fracture of lower end of right femur, initial encounter for closed fracture
[2019-03-11] MEDS ORDERED: cefTRIAXone SODIUM 2,000 MG in DEXTROSE 5% 50 ML IV SCH (16:00)
[2019-03-11 17:15] LABS: BUN Creatinine Ratio 28.3 (10-20); Calcium 10.5 mg/dl (8.5-10.1); Creatinine Clr Calc Pharmacy 109.3 ml/min; Est GFR (African American) 112.9; Est GFR (Non-African American) 97.4; Potassium 3.5 mmol/L (3.5-5.1)
[2019-03-11] MEDS: HYDROmorphone INJ 1 MG/ML SYRINGE IV PRN (21:29)
[2019-03-12] MEDS: SODIUM CHLORIDE 0.9% 1000ML 1,000 ML IV SCH ×3 (01:01→21:11)
[2019-03-12] MEDS: OXYCODONE HCL IR 5 MG TAB (IMMEDIATE RELEASE) PO PRN ×4 (03:11→18:03)
[2019-03-12] MEDS: HYDROmorphone INJ 1 MG/ML SYRINGE IV PRN ×4 (06:49→19:46)
[2019-03-12 07:12] LABS: Albumin Globulin Ratio 0.4 (0.9-2); Albumin Level 1.7 gm/dl (3.4-5.0); BUN Creatinine Ratio 25.1 (10-20); Bilirubin,Total 0.3 mg/dl (0.2-1); Calcium 10.8 mg/dl (8.5-10.1); Creatinine Clr Calc Pharmacy 109.3 ml/min; Est GFR (African American) 112.9; Est GFR (Non-African American) 97.4; Globulin 4.5 gm/dl (2.5-4.0); Magnesium 1.8 mg/dl (1.8-2.4); Potassium 4.5 mmol/L (3.5-5.1); Total Protein 6.2 gm/dl (6.4-8.2)
--- NOTE | 2019-03-12 07:32 | Electrocardiogram Report ---
Test Reason : Blood Pressure : / mmHG Vent. Rate : 072 BPM Atrial Rate : 072 BPM P-R Int : 170 ms QRS Dur : 088 ms QT Int : 420 ms P-R-T Axes : 038 067 042 degrees QTc Int : 459 ms Normal sinus rhythm Possible Left atrial enlargement Borderline ECG When compared with ECG of 10-MAR-2019 13:17, T wave inversion no longer evident in Inferior leads QT has shortened Confirmed by Rodolfo Flores ([id number]) on 03/12/2019 7:32:35 AM Referred By: REFERRED SELF Confirmed By:Nhan Flores
[2019-03-12 07:48] LABS: Hemoglobin 10.3 g/dL (12.0-16.0); Mean Corpuscular Hemoglobin 30.7 pg (25-34); Mean Corpuscular Hgb Conc 32.2 g/dL (32-36); Mean Corpuscular Volume 95.2 fL (80-100); Platelet Count 114 K/uL (130-400); Red Blood Count 3.36 M/uL (4.2-5.4)
--- NOTE | 2019-03-12 09:09 | Orthopedic Progress Note ---
Date of Service March 12, 2019 Assessment & Plan (1) Fracture of right femur: .Assessment: Pathologic fracture right femur Plan: Possibly still exists for surgery which be an IM rodding of her right femur that I would or could perform on 14 March which is this Thursday. I will put no pressure on the patient for surgical intervention as the pathology could be argued in either direction Subjective Moderately significant right lower extremity difficulty secondary to her metastatic and pathologic fracture to the right femur Patient is leaning away from surgical intervention secondary to the risk of surgical intervention. Results & Data Vital Signs (Past 12 Hours) Vital Signs Temp Pulse Resp BP Pulse Ox Pulse Ox 03/12/19 07:53 36.5 C 71 18 133/75 95 03/11/19 23:03 36.5 C 78 24 145/81 H 94 94 PG Care Time/CCT Total # of Minutes Spent Total Time Spent with Patient: Total time spent is greater than 50% in coordination of care (as documented) at patient's floor/unit and/or counseling patient: (1) Fracture of right femur Encounter type: initial encounter Femur location: distal, unspecified portion Fracture morphology: unspecified fracture morphology Fracture type: closed Qualified Code(s): S72.401A - Unspecified fracture of lower end of right femur, initial encounter for closed fracture
[2019-03-12] MEDS: GABAPENTIN 300 MG CAP PO SCH ×3 (09:22→21:10)
[2019-03-12] MEDS: dilTIAZem HCL 180 MG CAPCR PO SCH (09:22)
[2019-03-12] MEDS: AMIODARONE 200 MG TAB PO SCH (09:22)
[2019-03-12] MEDS: POTASSIUM CHLORIDE 20 MEQ TABCR PO SCH (09:23)
--- NOTE | 2019-03-12 09:54 | Surgery Progress Note ---
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 She has a metastatic disease in her femur and suffered a pathologic fracture. The family is debating on whether or not intramedullary nailing should be offered. I spoke to Dr. Cunha after an Dr. Goldsmith will meet with the patient and her tomorrow. I am following this patient because she has a malignant right pleural effusion which we drained and then performed a chemical pleurodesis. Unfortunately, she has a small loculation of fluid however, it is not even large enough to put a pigtail catheter in under CT guidance. Her biggest problem in her right lung is she has a huge tumor burden. Her survival is going to be quite limited here however, I believe that pain control with IM rodding would probably be preferable. Present on Admission?: Yes Subjective "My leg snapped when they turned me". Results & Data Vital Signs (Past 12 Hours) Vital Signs Temp Pulse Resp BP Pulse Ox Pulse Ox 03/12/19 07:53 36.5 C 71 18 133/75 95 03/11/19 23:03 36.5 C 78 24 145/81 H 94 94 PG Care Time/CCT Total # of Minutes Spent Total Time Spent with Patient: Total time spent is greater than 50% in coordination of care (as documented) at patient's floor/unit and/or counseling patient:
[2019-03-12] MEDS: CEFEPIME 2,000 MG in SYRINGE 7.5 ML IV SCH ×2 (09:56→21:10)
[2019-03-12] MEDS ORDERED: MAGNESIUM SULFATE / D5W 1 GM/100 ML BAG IV ONE (10:00)
--- NOTE | 2019-03-12 19:21 | Hospitalist Progress Note ---
Date of Service March 12, 2019 Assessment & Plan (1) Fracture of right femur: - Following mechanical fall at home in setting generalized weakness and metastatic cervical cancer with bony metastases. - Knee XR: infiltrative lytic lesion of distal femoral shaft with acute pathologic comminuted displaced and angulated fracture. - Orthopedics consulted, would need medically optimized prior to surgery. Planning on possible surgery on Thursday if patient is agreeable-she is still undecided -Continue Tylenol prn mild pain; Oxycodone and Dilaudid IV prn moderate to severe pain. - Strict bedrest; knee immobilizer ordered. - Consulted palliative care to discuss goals of care, greatly appreciate input. (2) Acute respiratory failure with hypoxia: - Hypoxic in the ER requiring non rebreather. Chronically requires 2L via NC at home since last admission due to lung masses but is now weaned to room air. - Likely related to pleural effusion and progression of right metastatic lung mass with collapse of right lower lobe and obliteration of right middle lobe with tumor. - CTA neg for PE, showed progression of right lung mass and moderate right pleural effusion and trace left pleural effusion. -Consulted thoracic surgery-nothing left to offer (3) Malignant pleural effusion: - S/p PleurX by Dr. Somers, now removed. - CTA showed increase in right pleural collection compared to 02/26 and trace left pleural effusion. - Consulted thoracic surgery, appreciate input. Pt. likely has limited options for treatment, loculated effusion-too small to tap even with a pigtail catheter - Has mild pulm vascular congestion on CXR but lab work indicates dehydration - on IV fluids at 100 cc/hr. (4) Mass of middle lobe of right lung: - Follows with oncology; per discharge summary, pt. was considering starting immunotherapy & has appt on 03/15. - Has progression of lung mass noted on CTA. -I discussed the case with Dr. Mcmanus, there is no contraindication to starting immunotherapy when she gets stabilized although unclear if this will offer much benefit in a timely fashion (5) Atrial fibrillation and flutter: - Continue Amiodarone and Cardizem as prescribed. - Currently in sinus rhythm on telemetry, HR 60-70's. - Not currently on anticoagulation - likely related to thrombocytopenia, anemia, and previous brain metastasis. (6) UTI (urinary tract infection): - U/a + (may be contaminated) in setting of chronic alexander from home. - UC with Hafnia alvei resistant to Zosyn, ceftriaxone, cefuroxime, cefotaxime. -DC ceftriaxone start cefepime -Continue to follow blood cultures-no growth to date (7) Urinary retention: - Discharged with alexander during her last admission; alexander was exchanged in the ER. - Continue to monitor urine output. - UTI as noted above. (8) Thrombocytopenia: - In setting of recent chemo; holding pharmacologic ppx. (9) Anemia: - Hgb 6.5 on admission, likely secondary to acute blood loss anemia from femur fracture in the setting of chronic anemia - Transfused 2 units PRBCs and now hemoglobin increased to 10.3 and stable - Monitor CBC daily. (10) Metastasis from cervical cancer: - Liver, lung, brain and bone metastases. - Has had progression of disease noted on imaging. - Palliative care consulted, greatly appreciate input. - Was considering immunotherapy but has not yet started it - has appt on 03/15. (11) Goals of care, counseling/discussion: - Palliative consulted, see note. At this point patient would like to continue treatment/proceed with OR most likely (12) Acute electrocardiogram changes: - T wave inversion noted on admission; repeat ECG without ischemic changes - Trop neg x 3; telemetry with NSR. - C/o mild chest pressure but is tender to palpation and likely secondary to bony metastasis to the sternum- not likely related to cardiac source. - Will hold further cardiac work up (13) Prolonged QT interval: - QTc 674 on admission EKG, however difficult to interpret given a lot of artifact on ECG. QTc now improving on repeat EKG. - Avoid QT prolonging agents if possible. - Replace electrolytes as needed. (14) Hyponatremia: - Na level 126 on admission and now improved to 131 with normal saline and blood transfusion; serum osmo was <280, urine sodium 17 and urine osmo was low. - Urine studies c/w chronic SIADH picture mixed with hypovolemia from hemorrhage/dehydration. - Currently receiving NS at 100 cc/hr (started this AM). Will decrease fluids to 70 mL's per hour - Transfused with PRBCs to replete intravascular volume as above. (15) Electrolyte abnormality: - Potassium now improved-DC standing order of potassium -Give 1 g magnesium today - Monitor levels closely. (16) Elevated alkaline phosphatase level: - In setting of liver and bony metastases. (17) Severe protein-calorie malnutrition: - Albumin 1.8 in setting of metastatic cancer. - Encourage regular diet as tolerated. (18) Hypercalcemia: - Corrected calcium on admission 12.76, now decreasing - Likely secondary to bony metastases in the setting of malignancy - Started NS at 100 cc/hr due to persistently high levels. We will now decrease to 70 mL's per hour (19) DVT prophylaxis: - SCDs; hold pharmacologic ppx for possible procedure and in setting of thrombocytopenia. Dispo: Continued stay DNR but okay with intubation and shock Subjective Patient having significant pain in the thigh. She is also short of breath this evening. Has ongoing chest pain and a sternal met. She is still undecided as to whether she wants to have surgery or not to repair her leg but I informed her that she would not be able to bear weight or stand up if she did not have surgery and this made her tearful. I discussed her case at length with her oncologist. Review of Systems Review of Systems: All systems reviewed & are unremarkable except as noted in HPI & below Physical Exam Constitutional: well developed and + acute distress (Mild tachypnea) Eyes: + anicteric sclerae Neck: trachea midline, no thyromegaly Respiratory: + tachypneic Auscultation: + diminished lung sounds (On right side); no rhonchi and no wheezes Cardiovascular: Rate/Rhythm: regular rate and regular rhythm Heart Sounds: no murmur Extremities: + edema (Right leg with 1+ pitting edema) Chest (Breasts): Chest: normal inspection of chest (With tenderness to palpation over sternum) Gastrointestinal (Abdomen): normal bowel sounds, soft, nontender, no hepatosplenomegaly Musculoskeletal: Extremities: + extremities abnormal to inspection (Right lower extremity with immobilizer on), no cyanosis and no clubbing Skin: no rashes, warm and dry Neurologic: moves all extremities and awake; no focal motor deficits Psychiatric: Orientation: alert (Somewhat confused at times) and cooperative Lymphatic: no lymphedema Results & Data Vital Signs (Past 12 Hours) Vital Signs Temp Pulse Resp BP Pulse Ox 03/12/19 18:07 36.8 C 84 22 148/68 H 91 03/12/19 15:47 36.8 C 81 18 144/75 H 93 03/12/19 07:53 36.5 C 71 18 133/75 95 Laboratory Results 03/12/19 03/12/19 Range/Units 05:57 05:57 WBC 18.70 H (4.8-10.8) K/uL RBC 3.36 L (4.2-5.4) M/uL Hgb 10.3 L (12.0-16.0) g/dL Hct 32.0 L (37-47) % MCV 95.2 (80-100) fL MCH 30.7 (25-34) pg MCHC 32.2 (32-36) g/dL Plt Count 114 L (130-400) K/uL Sodium 131 L (136-145) mmol/L Potassium 4.5 D (3.5-5.1) mmol/L Chloride 91 L (98-107) mmol/L Carbon Dioxide 38 H (21-32) mmol/L Anion Gap 2.0 L (3-11) BUN 15 (7-18) mg/dl Creatinine 0.58 L (0.6-1.2) mg/dl Est Cr Clr Drug Dosing 109.3 ml/min Est GFR ( Amer) 112.9 Est GFR (Non-Af Amer) 97.4 BUN/Creatinine Ratio 25.1 H (10-20) Glucose 100 H (70-99) mg/dl Calcium 10.8 H (8.5-10.1) mg/dl Magnesium 1.8 (1.8-2.4) mg/dl Total Bilirubin 0.3 (0.2-1) mg/dl AST 25 (15-37) U/L ALT 15 (12-78) U/L Alkaline Phosphatase 119 H (45-117) U/L Total Protein 6.2 L (6.4-8.2) gm/dl Albumin 1.7 L (3.4-5.0) gm/dl Globulin 4.5 H (2.5-4.0) gm/dl Albumin/Globulin Ratio 0.4 L (0.9-2) PG Care Time/CCT Total # of Minutes Spent Total Time Spent with Patient: Total time spent is greater than 50% in coordination of care (as documented) at patient's floor/unit and/or counseling patient: (1) Fracture of right femur Encounter type: initial encounter Femur location: distal, unspecified portion Fracture morphology: unspecified fracture morphology Fracture type: closed Qualified Code(s): S72.401A - Unspecified fracture of lower end of right femur, initial encounter for closed fracture
[2019-03-13] MEDS: OXYCODONE HCL IR 5 MG TAB (IMMEDIATE RELEASE) PO PRN ×5 (00:43→19:03)
[2019-03-13] MEDS: HYDROmorphone INJ 1 MG/ML SYRINGE IV PRN ×5 (05:47→20:57)
[2019-03-13 06:15] LABS: Basophils # (auto) 0.01 K/uL (0-0.2); Basophils % (auto) 0.1 %; Eosinophils # (auto) 0.13 K/uL (0-0.5); Eosinophils % (auto) 0.7 %; Hematocrit (blood only) 31.8 % (37-47); Immature Granulocytes # (auto) 0.31 K/uL (0.00-0.02); Immature Granulocytes % (auto) 1.7 %; Lymphocytes # (auto) 0.89 K/uL (1.2-3.4); Mean Corpuscular Hemoglobin 31.2 pg (25-34); Mean Corpuscular Hgb Conc 31.4 g/dL (32-36); Mean Corpuscular Volume 99.1 fL (80-100); Mean Platelet Volume 9.5 fL (7.4-10.4); Monocytes # (auto) 1.81 K/uL (0.11-0.59); Monocytes % (auto) 10.1 %; Neutrophils # (auto) 14.78 K/uL (1.4-6.5); Neutrophils % (auto) 82.4 %; Platelet Count 104 K/uL (130-400); RDW Coefficient of Variation 17.9 % (11.5-14.5); RDW Standard Deviation 65.6 fL (36.4-46.3); Red Blood Count 3.21 M/uL (4.2-5.4); White Blood Count 17.93 K/uL (4.8-10.8)
[2019-03-13 06:45] LABS: BUN Creatinine Ratio 27.1 (10-20); Calcium 10.7 mg/dl (8.5-10.1); Creatinine Clr Calc Pharmacy 117.4 ml/min; Est GFR (African American) 115.6; Est GFR (Non-African American) 99.7; Magnesium 1.5 mg/dl (1.8-2.4)
--- NOTE | 2019-03-13 08:29 | Orthopedic Progress Note ---
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 Currently is very difficult to turn side to side and get the head of the bed elevated. We have elected for a retrograde placement of a femoral nail. Under spinal anesthetic. I anticipate the blood loss to be less than 100 cc. The procedure should take approximately 2 hours and have informed the family we will take utmost care throughout the entire procedure. We will proceed with scheduling. Optimistically I get to this case tomorrow 14 March at approximately 11 AM Subjective Moderate to significant complaints of right lower extremity difficulty. Very difficult to roll side to side for hygiene and pulmonary improvement. Denies any fever sweats chills Physical Exam Physical Exam: Vital signs stable blood pressure slightly elevated HEENT examination essentially normal Heart lungs not auscultated Lower extremity is supported appropriately well-positioned with good vascular flow Results & Data Vital Signs (Past 12 Hours) Vital Signs Temp Pulse Resp BP Pulse Ox Pulse Ox 03/13/19 07:25 36.9 C 84 20 154/80 H 94 03/13/19 01:29 93 03/12/19 23:05 36.9 C 91 H 16 143/72 H 94 PG Care Time/CCT Total # of Minutes Spent Total Time Spent with Patient: Total time spent is greater than 50% in coordination of care (as documented) at patient's floor/unit and/or counseling patient:
[2019-03-13] MEDS: GABAPENTIN 300 MG CAP PO SCH ×3 (09:10→20:19)
[2019-03-13] MEDS: dilTIAZem HCL 180 MG CAPCR PO SCH (09:10)
[2019-03-13] MEDS: AMIODARONE 200 MG TAB PO SCH (09:10)
[2019-03-13] MEDS: MAGNESIUM SULFATE / D5W 1 GM/100 ML BAG IV SCH ×2 (09:13→10:33)
[2019-03-13] MEDS: SODIUM CHLORIDE 0.9% 1000ML 1,000 ML IV SCH (10:30)
[2019-03-13] MEDS: CEFEPIME 2,000 MG in SYRINGE 7.5 ML IV SCH ×2 (10:35→21:49)
[2019-03-13] MEDS ORDERED: bisacodyL 10 MG SUPP PR STA (12:05)
--- NOTE | 2019-03-13 12:05 | Hospitalist Progress Note ---
Date of Service March 13, 2019 Assessment & Plan (1) Fracture of right femur: - Following mechanical fall at home in setting generalized weakness and metastatic cervical cancer with bony metastases. - Knee XR: infiltrative lytic lesion of distal femoral shaft with acute pathologic comminuted displaced and angulated fracture. - Orthopedics consulted, delay on surgical correction due to needing to get medically optimized prior to surgery. -Planning on surgery on Thursday to hopefully be done with spinal anesthesia to reduce her risk of pulmonary and cardiovascular compromise/complication -Continue Tylenol prn mild pain; Oxycodone and Dilaudid IV prn moderate to severe pain. - Strict bedrest; knee immobilizer ordered. - Consulted palliative care to discuss goals of care, greatly appreciate input. (2) Acute respiratory failure with hypoxia: - Hypoxic in the ER requiring non rebreather. Chronically requires 2L via NC at home since last admission due to lung masses -Is now requiring 4 L nasal cannula and still remains tachypneic and mildly diaphoretic -This is related to pleural effusion and progression of right metastatic lung mass with collapse of right lower lobe and obliteration of right middle lobe with tumor. - CTA neg for PE, showed progression of right lung mass and moderate right pleural effusion and trace left pleural effusion. -Consulted thoracic surgery-nothing left to offer as far as drainage of fluid because this is mostly just tumor and not fluid (3) Malignant pleural effusion: - S/p PleurX by Dr. Somers, now removed. - CTA showed increase in right pleural collection compared to 02/26 and trace left pleural effusion. - Consulted thoracic surgery, appreciate input. Pt. likely has limited options for treatment, loculated effusion-too small to tap even with a pigtail catheter (4) Mass of middle lobe of right lung: - Follows with oncology; per discharge summary, pt. was considering starting immunotherapy & has appt on 03/15 to do so but this will need to be on hold. - Has progression of lung mass noted on CTA. -I discussed the case with Dr. Mcmanus, there is no contraindication to starting immunotherapy when she gets stabilized although unclear if this will offer much benefit in a timely fashion-patient and her are aware of this (5) Atrial fibrillation and flutter: - Continue Amiodarone and Cardizem as prescribed. - Currently in a regular rhythm on examination but is more tachycardic today - Not currently on anticoagulation due to to thrombocytopenia, anemia, and previous brain metastasis. -Consider increasing dose of diltiazem to 240 mg if continues to be tachycardic (6) UTI (urinary tract infection): Alexander catheter associated UTI, POA -UA consistent with UTI, in setting of chronic alexander from home. Leukocytosis is improving now with converting to cefepime - UC with Hafnia alvei resistant to Zosyn, ceftriaxone, cefuroxime, cefotaxime. -Initially placed on ceftriaxone, but after sensitivities returned, have started cefepime on 03/12 -Continue cefepime for total 7-day course - Alexander catheter was changed out this admission in the ER -Continue to follow blood cultures-no growth to date (7) Urinary retention: - Discharged with alexander during her last admission; alexander was exchanged in the ER. -Unclear why she is retaining urine, but likely due to opioid use for pain management as well as constipation - Continue to monitor urine output. - UTI as noted above. (8) Thrombocytopenia: Platelets remain mildly low at 104, unknown etiology as she has not had any chemotherapy in 3 or 4 months -Follow CBC (9) Anemia: - Hgb 6.5 on admission, likely secondary to acute blood loss anemia from femur fracture in the setting of chronic anemia - Transfused 2 units PRBCs and now hemoglobin increased to 10.0 and stable - Monitor CBC daily. (10) Metastasis from cervical cancer: - Liver, lung, brain, pericardial, and diffuse bone metastases. - Has had progression of disease noted on imaging. - Palliative care consulted, greatly appreciate input. - Was considering immunotherapy but has not yet started it - has appt on 03/15 at the cancer center-this will likely be on hold-patient and question if she can start her immunotherapy in the hospital-we will need to discuss with oncology. (11) Goals of care, counseling/discussion: - Palliative consulted, see note. At this point patient would like to continue treatment/proceed with surgical repair and continued treatment of her cancer (12) Acute electrocardiogram changes: - T wave inversion noted on admission; repeat ECG without ischemic changes - Trop neg x 3; telemetry with NSR. - C/o mild chest pressure but is tender to palpation and likely secondary to bony metastasis to the sternum- not likely related to cardiac source. - Will hold further cardiac work up (13) Prolonged QT interval: - QTc 674 on admission EKG, however difficult to interpret given a lot of artifact on ECG. QTc now improving on repeat EKG. - Avoid QT prolonging agents if possible. - Replace electrolytes as needed. (14) Hyponatremia: - Na level 126 on admission and now improved to 130 with normal saline and blood transfusion; serum osmo was <280, urine sodium 17 and urine osmo was low. - Urine studies c/w chronic SIADH picture mixed with hypovolemia from hemorrhage/dehydration. -Continue NS at 70 cc/hr while has poor p.o. intake and will be n.p.o. after midnight for surgery - Transfused with PRBCs to replete intravascular volume as above. (15) Electrolyte abnormality: Hypokalemia-now resolved with replacement Also with hypomagnesemia -Give 2 g magnesium today - Monitor BMP and magnesium levels in the morning (16) Elevated alkaline phosphatase level: - In setting of liver and bony metastases. (17) Severe protein-calorie malnutrition: - Albumin 1.8 in setting of metastatic cancer. - Encourage regular diet as tolerated. (18) Hypercalcemia: - Corrected calcium on admission 12.76, now decreasing - Likely secondary to bony metastases in the setting of malignancy - Started NS at 100 cc/hr due to persistently high levels. IV fluids now decreased to 70 mL's per hour -Follow BMP, albumin (19) DVT prophylaxis: - SCDs; hold pharmacologic ppx for surgical procedure tomorrow, but okay to start Lovenox after that as she is very high risk for DVT Dispo: Continued stay DNR but okay with intubation and shock Will need rehab placement Subjective Patient continues to have a lot of pain not only at the site of her right femur fracture, but also in her right scapular region-she is numerous bony lesions on her CT scan and I do believe I also see 1 at the site of where her pain is on review of the CT. She does have sternal pain as well from a bony met there. Continues to be somewhat short of breath and on 4 L with good oxygenation. Blood pressures were actually high today and she remains little bit tachycardic. She has decided to move forward with surgical correction of her femur fracture under spinal anesthesia as per orthopedic surgery. Patient and her are aware that she is at increased risk of worsening respiratory failure and cardiovascular complications with surgery due to her compromise from her cancer in the lungs She is eating minimally. Patient does note that she is still quite constipated and has not had a BM in many days Review of Systems Review of Systems: All systems reviewed & are unremarkable except as noted in HPI & below Physical Exam Constitutional: well developed, + acute distress (Mild tachypnea) and + atiya phoretic (Mild) Eyes: + anicteric sclerae Neck: trachea midline, no thyromegaly Respiratory: + tachypneic Auscultation: + diminished lung sounds (On right side); no rhonchi and no wheezes Cardiovascular: Rate/Rhythm: regular rate and regular rhythm Heart Sounds: no murmur Extremities: + edema (Right leg with 1+ pitting edema) Chest (Breasts): Chest: normal inspection of chest (With tenderness to palpation over sternum) Gastrointestinal (Abdomen): normal bowel sounds, soft, nontender, no hepatosplenomegaly Musculoskeletal: Extremities: + extremities abnormal to inspection (Right lower extremity with immobilizer on), no cyanosis and no clubbing Shoulder: + joint line tenderness (Positive exquisite tenderness to palpation over the acromion on the right) Skin: no rashes, warm and dry Neurologic: moves all extremities and awake; no focal motor deficits Psychiatric: Orientation: alert (Somewhat confused at times) and cooperative Genitourinary: Alexander catheter in place draining clear yellow urine Lymphatic: no lymphedema Results & Data Vital Signs (Past 12 Hours) Vital Signs Temp Pulse Resp BP BP Pulse Ox Pulse Ox 03/13/19 10:39 108 H 20 209/66 H 03/13/19 10:37 37.1 C 84 18 181/84 H 91 03/13/19 07:25 36.9 C 84 20 154/80 H 94 03/13/19 01:29 93 Laboratory Results 03/13/19 03/13/19 Range/Units 05:51 05:51 WBC 17.93 H (4.8-10.8) K/uL RBC 3.21 L (4.2-5.4) M/uL Hgb 10.0 L (12.0-16.0) g/dL Hct 31.8 L (37-47) % MCV 99.1 (80-100) fL MCH 31.2 (25-34) pg MCHC 31.4 L (32-36) g/dL RDW Std Deviation 65.6 H (36.4-46.3) fL RDW Coeff of Nikki 17.9 H (11.5-14.5) % Plt Count 104 L (130-400) K/uL MPV 9.5 (7.4-10.4) fL Immature Gran % (Auto) 1.7 % Neut % (Auto) 82.4 % Lymph % (Auto) 5.0 % Mower % (Auto) 10.1 % Eos % (Auto) 0.7 % Baso % (Auto) 0.1 % Immature Gran # (Auto) 0.31 H (0.00-0.02) K/uL Neut # (Auto) 14.78 H (1.4-6.5) K/uL Lymph # (Auto) 0.89 L (1.2-3.4) K/uL Mower # (Auto) 1.81 H (0.11-0.59) K/uL Eos # (Auto) 0.13 (0-0.5) K/uL Baso # (Auto) 0.01 (0-0.2) K/uL Sodium 130 L (136-145) mmol/L Potassium 4.0 (3.5-5.1) mmol/L Chloride 92 L (98-107) mmol/L Carbon Dioxide 32 (21-32) mmol/L Anion Gap 6.0 (3-11) BUN 15 (7-18) mg/dl Creatinine 0.54 L (0.6-1.2) mg/dl Est Cr Clr Drug Dosing 117.4 ml/min Est GFR ( Amer) 115.6 Est GFR (Non-Af Amer) 99.7 BUN/Creatinine Ratio 27.1 H (10-20) Glucose 93 (70-99) mg/dl Calcium 10.7 H (8.5-10.1) mg/dl Magnesium 1.5 L (1.8-2.4) mg/dl PG Care Time/CCT Total # of Minutes Spent Total Time Spent with Patient: Total time spent is greater than 50% in coordination of care (as documented) at patient's floor/unit and/or counseling patient: (1) Fracture of right femur Encounter type: initial encounter Femur location: distal, unspecified portion Fracture morphology: unspecified fracture morphology Fracture type: closed Qualified Code(s): S72.401A - Unspecified fracture of lower end of right femur, initial encounter for closed fracture
[2019-03-13] MEDS: POLYETHYLENE (MIRALAX) 17 GM PACK PO SCH (12:59)
[2019-03-14] MEDS: SODIUM CHLORIDE 0.9% 1000ML 1,000 ML IV SCH (00:44)
[2019-03-14] MEDS: HYDROmorphone INJ 1 MG/ML SYRINGE IV PRN ×4 (00:44→23:13)
[2019-03-14] MEDS: OXYCODONE HCL IR 5 MG TAB (IMMEDIATE RELEASE) PO PRN (04:24)
[2019-03-14] MEDS ORDERED: ALBUT/IPRATROP 3MG/0.5MG NEB 3 ML VIAL NEB STA (05:14)
--- NOTE | 2019-03-14 05:28 | Progress Note ---
Date of Service March 14, 2019 Assessment & Plan (1) Respiratory distress: Called regarding breathing. Nursing states the patient has been labored throughout the night, increased o2 demand. Went upstairs to evaluate the patient--Crackles in bases on Exam Plan; - Nebs - Lasix 20 mg IV - Qliq me with status Supervising Physician Co-Signing Physician Notes Results & Data Vital Signs (Past 12 Hours) Vital Signs Temp Pulse Resp BP Pulse Ox 03/14/19 04:47 44 H 89 L 03/13/19 23:34 36.9 C 96 H 16 148/78 H 93 PG Care Time/CCT Total # of Minutes Spent Total Time Spent with Patient: Total time spent is greater than 50% in coordination of care (as documented) at patient's floor/unit and/or counseling patient:
[2019-03-14] MEDS ORDERED: FUROSEMIDE 20 MG in SYRINGE 0 ML IV ONE (05:45)
[2019-03-14 06:37] LABS: Hematocrit (blood only) 31.7 % (37-47); Hemoglobin 9.9 g/dL (12.0-16.0); Mean Corpuscular Hgb Conc 31.2 g/dL (32-36); Mean Corpuscular Volume 99.4 fL (80-100); RDW Coefficient of Variation 17.5 % (11.5-14.5); RDW Standard Deviation 63.8 fL (36.4-46.3); Red Blood Count 3.19 M/uL (4.2-5.4); White Blood Count 25.03 K/uL (4.8-10.8)
[2019-03-14 06:40] LABS: Mean Platelet Volume 9.7 fL (7.4-10.4); Platelet Count 99 K/uL (130-400)
[2019-03-14] MEDS ORDERED: ALBUT/IPRATROP 3MG/0.5MG NEB 3 ML VIAL NEB SCH (07:00)
[2019-03-14 07:09] LABS: Basophils # (auto) 0.02 K/uL (0-0.2); Basophils % (auto) 0.1 %; Eosinophils # (auto) 0.03 K/uL (0-0.5); Eosinophils % (auto) 0.1 %; Immature Granulocytes # (auto) 0.48 K/uL (0.00-0.02); Immature Granulocytes % (auto) 1.9 %; Lymphocytes # (auto) 0.45 K/uL (1.2-3.4); Lymphocytes % (auto) 1.8 %; Monocytes # (auto) 1.83 K/uL (0.11-0.59); Monocytes % (auto) 7.3 %; Neutrophils # (auto) 22.22 K/uL (1.4-6.5); Neutrophils % (auto) 88.8 %
[2019-03-14 07:25] LABS: Albumin Level 1.7 gm/dl (3.4-5.0); BUN Creatinine Ratio 27.1 (10-20); Calcium 10.4 mg/dl (8.5-10.1); Creatinine Clr Calc Pharmacy 147.5 ml/min; Est GFR (African American) 124.6; Est GFR (Non-African American) 107.5; Magnesium 1.5 mg/dl (1.8-2.4); Potassium 3.3 mmol/L (3.5-5.1)
--- NOTE | 2019-03-14 09:29 | Orthopedic Consultation ---
Date of Consultation March 14, 2019 History of Present Illness Attending Physician: Jayjay Hatch DO Allergies Allergy/AdvReac Type Severity Reaction Status Date / Time Iodinated Contrast Media Allergy Intermediate pruritus Verified 03/10/19 15:40 Penicillins Allergy Mild rash, Verified 03/10/19 15:40 nausea Sulfa (Sulfonamide Allergy Mild rash,nausea Verified 03/10/19 15:40 Antibiotics) Home Medications Home Medications Medication Instructions Recorded Confirmed Type gabapentin 300 mg capsule 300 mg PO TID 12/20/18 03/10/19 History magnesium 200 mg tablet 400 mg PO QAM tab 12/20/18 03/10/19 History Centrum Silver Women 1 tab PO QAM 01/25/19 03/10/19 History ascorbic acid (vitamin C) [Vitamin 500 mg PO QAM 01/25/19 03/10/19 History C] cholecalciferol (vitamin D3) 25 mcg PO QAM 01/25/19 03/10/19 History [Vitamin D3] coenzyme Q10 [Co Q-10] 100 mg PO QAM 01/25/19 03/10/19 History digestive enzymes 1 cap PO QAM 01/25/19 03/10/19 History vitamin B complex 1 tab PO QAM 02/15/19 03/10/19 History MAG-AL 15 ml PO Q4H PRN #3000 ml 02/17/19 03/10/19 Rx magnesium hydroxide [Milk of 30 ml PO Q6H PRN 30 Days #3840 ml 02/17/19 03/10/19 Rx Magnesia] polyethylene glycol 3350 [Miralax] 17 g PO DAILY PRN #30 ea 02/17/19 03/10/19 Rx ondansetron HCl [Zofran] 4 mg PO TID PRN 30 Days #120 tab 02/18/19 03/10/19 Rx diltiazem HCl 180 mg PO QAM #30 cap 03/01/19 03/10/19 Rx oxycodone 5 mg tablet 10 mg PO Q4 PRN #30 tab 03/07/19 03/10/19 Rx acetaminophen [Mapap 650 mg PO TID PRN 03/10/19 03/10/19 History (acetaminophen)] amiodarone 200 mg PO DAILY 03/10/19 03/10/19 History lidocaine 1 patch TRANSDERMAL DAILY@1900 PRN 03/10/19 03/10/19 History Patient History Medical History (Updated 03/14/19 @ 05:25 by Virgilio Addison MD) Anemia chronic (hgb in the 7-9 range over past month per chart review) most recent blood transfusion 12/2018 (felt chemo related) Diverticular disease GERD (gastroesophageal reflux disease) controlled Goals of care, counseling/discussion Hypercalcemia Hypertension Lung mass Mediastinal lymphadenopathy Metastasis from cervical cancer Neuropathy 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- most recent chemo 11/2018;on dexamethasone 4mg every other day (started in setting of chemo/xrt)-- now weaning off Thrombocytopenia Surgical History History of cervical biopsy History of surgery insertion of Tandom & Ovoid x 5 History of tooth extraction History of tubal ligation History of vascular access device Left chest wall Family History Mother Breast cancer Hypertension Father Cancer Other No family history of adverse response to anesthesia Social History Preferred Language: Syriac Communication Ability: Effective Cigarette Stamper Required: No Beliefs That Will Affect Care: None marital status: Current Living Situation: Spouse Feels Safe at Home: Yes Smoking Status: Never smoker Second Hand Exposure: Yes (as a child and used to smoke in the house (stopped 1 year ago)) ; Hx Alcohol Use: No Hx Substance Use: No Dental Care, Regularly: No Seatbelt Use: always Review of Systems Review of Systems: All systems reviewed & are unremarkable except as noted in HPI & below Results & Data Vital Signs (Past 12 Hours) Vital Signs Temp Pulse Resp BP BP Pulse Ox 03/14/19 08:02 171/73 H 03/14/19 07:24 36.7 C 109 H 20 191/100 H 96 03/14/19 05:24 102 H 28 H 92 03/14/19 04:47 44 H 89 L 03/13/19 23:34 36.9 C 96 H 16 148/78 H 93 PG Care Time/CCT Total # of Minutes Spent Total Time Spent with Patient: Total time spent is greater than 50% in coordination of care (as documented) at patient's floor/unit and/or counseling patient:
[2019-03-14] MEDS: POLYETHYLENE (MIRALAX) 17 GM PACK PO SCH (10:06)
[2019-03-14] MEDS: dilTIAZem HCL 180 MG CAPCR PO SCH (10:18)
[2019-03-14] MEDS: GABAPENTIN 300 MG CAP PO SCH ×3 (10:19→22:04)
[2019-03-14] MEDS: AMIODARONE 200 MG TAB PO SCH (10:19)
[2019-03-14] MEDS ORDERED: HYDROmorphone INJ 1 MG/ML SYRINGE IV STA (10:19)
[2019-03-14] MEDS: CEFEPIME 2,000 MG in SYRINGE 7.5 ML IV SCH (10:19)
[2019-03-14] MEDS ORDERED: FUROSEMIDE 40 MG in SYRINGE 0 ML IV ONE (10:30)
--- NOTE | 2019-03-14 10:32 | Hospitalist Progress Note ---
Date of Service March 14, 2019 Assessment & Plan (1) Fracture of right femur: - Following mechanical fall at home in setting generalized weakness and metastatic cervical cancer with bony metastases. - Knee XR: infiltrative lytic lesion of distal femoral shaft with acute pathologic comminuted displaced and angulated fracture. - Orthopedics consulted, delay on surgical correction due to needing to get medically optimized prior to surgery. surger cancelled on 03/14 due to respiratory distress, hypoxia will hold on surgery permanently will be placed on comfort measures Morphine 4 q2 PRN (2) Acute respiratory failure with hypoxia: -This is related to pleural effusion and progression of right metastatic lung mass with collapse of right lower lobe and obliteration of right middle lobe with tumor. - CTA neg for PE, showed progression of right lung mass and moderate right pleural effusion and trace left pleural effusion. went into respiratory distress from increased fluid in lungs on 03/14 responded well to Lasix IV will make patient comfortable, no plans for thoracentesis (3) Malignant pleural effusion: - S/p PleurX by Dr. Somers, now removed. - CTA showed increase in right pleural collection compared to 02/26 and trace left pleural effusion. - again, no thoracentesis, comfort care (4) Mass of middle lobe of right lung: - Follows with oncology; per discharge summary, pt. was considering starting immunotherapy & has appt on 03/15 to do so but this will need to be on hold. - Has progression of lung mass noted on CTA. - will make comfortable (5) Atrial fibrillation and flutter: - Continue Amiodarone and Cardizem as prescribed. - Currently in a regular rhythm on examination but is more tachycardic today - Not currently on anticoagulation due to to thrombocytopenia, anemia, and previous brain metastasis. - transfer to medical floor, comfort measures (6) UTI (urinary tract infection): Alexander catheter associated UTI, POA -UA consistent with UTI, in setting of chronic alexander from home. Leukocytosis is improving now with converting to cefepime - UC with Hafnia alvei resistant to Zosyn, ceftriaxone, cefuroxime, cefotaxime. -Initially placed on ceftriaxone, but after sensitivities returned, have started cefepime on 03/12 -Continue cefepime for total 7-day course, comfort is goal - Alexander catheter was changed out this admission in the ER -Continue to follow blood cultures-no growth to date (7) Urinary retention: - Discharged with alexander during her last admission; alexander was exchanged in the ER. -Unclear why she is retaining urine, but likely due to opioid use for pain management as well as constipation - Continue to monitor urine output. - UTI as noted above. (8) Thrombocytopenia: Platelets remain mildly low at 99, unknown etiology as she has not had any chemotherapy in 3 or 4 months -Follow CBC (9) Anemia: - Hgb 6.5 on admission, likely secondary to acute blood loss anemia from femur fracture in the setting of chronic anemia - Transfused 2 units PRBCs and now hemoglobin increased to 9.9 and stable comfort measures (10) Metastasis from cervical cancer: - Liver, lung, brain, pericardial, and diffuse bone metastases. - Has had progression of disease noted on imaging. - Palliative care consulted, greatly appreciate input. - Was considering immunotherapy but has not yet started it - has appt on 03/15 at the cancer center-this will likely be on hold-patient and question if she can start her immunotherapy in the hospital-we will need to discuss with oncology. (11) Goals of care, counseling/discussion: - Palliative consulted, see note. comfort care (12) Acute electrocardiogram changes: - T wave inversion noted on admission; repeat ECG without ischemic changes - Trop neg x 3; telemetry with NSR. - C/o mild chest pressure but is tender to palpation and likely secondary to bony metastasis to the sternum- not likely related to cardiac source. - Will hold further cardiac work up (13) Prolonged QT interval: - QTc 674 on admission EKG, however difficult to interpret given a lot of artifact on ECG. QTc now improving on repeat EKG. - Avoid QT prolonging agents if possible. - Replace electrolytes as needed. (14) Hyponatremia: - Na level 126 on admission and now improved to 130 with normal saline and blood transfusion; serum osmo was <280, urine sodium 17 and urine osmo was low. - Urine studies c/w chronic SIADH picture mixed with hypovolemia from hemorrhage/dehydration. -Continue NS at 70 cc/hr while has poor p.o. intake and will be n.p.o. after midnight for surgery - Transfused with PRBCs to replete intravascular volume as above. (15) Electrolyte abnormality: Hypokalemia-now resolved with replacement Also with hypomagnesemia -Give 2 g magnesium today - Monitor BMP and magnesium levels in the morning (16) Elevated alkaline phosphatase level: - In setting of liver and bony metastases. (17) Severe protein-calorie malnutrition: - Albumin 1.8 in setting of metastatic cancer. - Encourage regular diet as tolerated. (18) Hypercalcemia: - Corrected calcium on admission 12.76, now decreasing - Likely secondary to bony metastases in the setting of malignancy - Started NS at 100 cc/hr due to persistently high levels. IV fluids now decreased to 70 mL's per hour -Follow BMP, albumin (19) DVT prophylaxis: no prophylaxis as she is on comfort measures Dispo: medical floor DNR Subjective called to the bedside around 10am for respiratory distress patient breathing in the 30's, nasal mask at 8L and sats in the 80's she received Lasix 20mg IV this morning early and produced about 1000mL of urine ordered RN to stop fluids reviewed labs, K low at 3.3, Cr is normal, WBC is 25k, Hb 9.9 ordered CXR stat, per my read she has worsening right sided opacification, likely fluid but has atelectasis and known loculated effusion, metastatic cervical cancer in lungs discussed with patient and family, she is in pain right hip due to fracture explained that we will need to cancel OR today, I personally called anesthesiologist spoke with specialist field engineer, she would be better suited in the ICU as she wants intubated if needed reviewed palliative consultation from beginning of hospitalization patient wants to continue her treatment at this time, hoping to start Keytruda asked RN to give Diltiazem and Amiodarone and Gabapentin which she takes chronically will give an additional Lasix 40mg IV now and Dilaudid 1mg IV now move to ICU for likely BIPAP, may need intubated if she gets more fatigued after going to ICU, patient slowly improved with diuresis Dr. Garcia talked with patient and her family about the options, discussed her loculated effusions, her metastatic cancer and hip fracture patient elected to go on comfort measures, she no longer wants surgery will transfer back to medical floor on comfort care Review of Systems 2 Review of Systems: Unobtainable due to reduced consciousness Physical Exam Constitutional: + acute distress, + ill appearing, + thin, + frail appearing, + in distress and + diaphoretic Eyes: PERRL, conjunctivae normal, anicteric sclerae ENMT: external ear and nose normal, oropharynx normal Neck: trachea midline, no thyromegaly Respiratory: + respiratory distress, + labored breathing, + retractions and + uses accessory muscles; no cough Auscultation: + diminished lung sounds and + rales (bases) Cardiovascular: Rate/Rhythm: regular rhythm and + tachycardic Heart Sounds: normal S1 and normal S2; no murmur Extremities: normal capillary refill and + edema Gastrointestinal (Abdomen): normal bowel sounds, soft, nontender, no hepatosplenomegaly Musculoskeletal: no cyanosis or clubbing, extremities motor strength 5/5 (right hip tender with log roll, severely limited ROM due to pain) Skin: no rashes, warm and dry Neurologic: patellar DTR's 2+ bilat, sensation intact and PERRL, EOMI, accommodation nl, no face palsy, no dysarthria Psychiatric: Orientation: alert, oriented to person and oriented to place; + not oriented to time Apperance: not disheveled Eye Contact: good eye contact Lymphatic: no cervical or axillary lymphadenopathy Results & Data Vital Signs (Past 12 Hours) Vital Signs Temp Pulse Resp BP BP Pulse Ox 03/14/19 09:48 108 H 24 160/93 H 90 03/14/19 08:02 171/73 H 03/14/19 07:24 36.7 C 109 H 20 191/100 H 96 03/14/19 05:24 102 H 28 H 92 03/14/19 04:47 44 H 89 L 03/13/19 23:34 36.9 C 96 H 16 148/78 H 93 Laboratory Results Laboratory Results - last 24 hr 03/14/19 03/14/19 03/14/19 06:15 06:15 10:21 WBC 25.03 H RBC 3.19 L Hgb 9.9 L Hct 31.7 L MCV 99.4 MCH 31.0 MCHC 31.2 L RDW Std Deviation 63.8 H RDW Coeff of Nikki 17.5 H Plt Count 99 L MPV 9.7 Immature Gran % (Auto) 1.9 Neut % (Auto) 88.8 Lymph % (Auto) 1.8 Kimball % (Auto) 7.3 Eos % (Auto) 0.1 Baso % (Auto) 0.1 Immature Gran # (Auto) 0.48 H Neut # (Auto) 22.22 H Lymph # (Auto) 0.45 L Kimball # (Auto) 1.83 H Eos # (Auto) 0.03 Baso # (Auto) 0.02 ABG pH 7.44 ABG pCO2 49 H ABG pO2 66 L ABG HCO3 32 H ABG O2 Saturation 92.3 ABG Base Excess 7.1 H Miller Test Pos Barometric Pressure 730.9 Oxygen Given 8L Sodium 129 L Potassium 3.3 L D Chloride 92 L Carbon Dioxide 32 Anion Gap 5.0 BUN 12 Creatinine 0.43 L Est Cr Clr Drug Dosing 147.5 Est GFR ( Amer) 124.6 Est GFR (Non-Af Amer) 107.5 BUN/Creatinine Ratio 27.1 H Glucose 111 H Calcium 10.4 H Magnesium 1.5 L Albumin 1.7 L Medications Administered Current Inpatient Medications Acetaminophen (Tylenol) 650 mg PO Q4H PRN PRN Reason: Pain or Fever Stop: 04/09/19 19:43 Last Admin: 03/12/19 16:05 Dose: 650 mg Documented by: [facility]ar[facility] (Cordarone) [facility] Stop: 04/10/19 08:59 Last Admin: 03/14/19 10:19 Dose: 200 mg Documented by: Diltiazem HCl (Cardizem Cd) 180 mg PO [facility] Stop: 04/10/19 08:59 Last Admin: 03/14/19 10:18 Dose: 180 mg Documented by: Gabapentin (Neurontin) 300 mg PO TID [facility] Stop: 04/09/19 20:59 Last Admin: 03/14/19 10:19 Dose: 300 mg Documented by: Heparin Sodium (Porcine) (Heparin Sod 100 Unit/Ml Flush) 5 ml FLUSH PRN PRN PRN Reason: Flush Stop: 04/09/19 23:29 Hydromorphone HCl (Dilaudid) 1 mg IV Q3H PRN PRN Reason: Pain Stop: 03/25/19 12:08 Last Admin: 03/14/19 00:44 Dose: 1 mg Documented by: Cefepime HCl 2,000 mg/ Syringe 20 mls @ 5.5 mls/min IV Q12H [facility]; Protocol Stop: 03/22/19 09:59 Last Admin: 03/14/19 10:19 Dose: 5.5 mls/min Documented by: Potassium Chloride (K Dipak / Wtr) 10 meq in 100 mls @ 100 mls/hr IV Q1H MALATHI Stop: 03/14/19 14:29 Lidocaine (Lidoderm 5%) 1 patch TD DAILY@1900 PRN PRN Reason: Pain Stop: 04/09/19 19:43 Miscellaneous (Remove Lidoderm Patch) 1 ea N/A DAILY@0700 [facility]ATH[facility] Stop: 04/10/19 06:59 Last Admin: 03/14/19 06:42 Dose: Not Given Documented by: Naloxone HCl (Narcan) 0.1 mg IV UD PRN PRN Reason: Opiate Overdose Stop: 04/09/19 19:43 Oxycodone HCl (Roxicodone Immediate Rel) 10 mg PO Q4 PRN PRN Reason: Pain Stop: 03/24/19 20:01 Last Admin: 03/14/19 04:24 Dose: 10 mg Documented by: Polyethylene Glycol (Miralax Powder Packet) 17 gm PO DAILY MALATHI Stop: 04/12/19 12:14 Last Admin: 03/14/19 10:06 Dose: Not Given Documented by: PG Care Time/CCT Total # of Minutes Spent Total Time Spent with Patient: Total time spent is greater than 50% in coordination of care (as documented) at patient's floor/unit and/or counseling patient: (1) Fracture of right femur Encounter type: initial encounter Femur location: distal, unspecified portion Fracture morphology: unspecified fracture morphology Fracture type: closed Qualified Code(s): S72.401A - Unspecified fracture of lower end of right femur, initial encounter for closed fracture
[2019-03-14 10:33] LABS: Base Excess ABG 7.1 mEq/L (-9-1.8); HCO3 ABG 32 mmol/L (19-24); Oxygen Saturation ABG 92.3 % (90-95); PCO2 ABG 49 mmHg (35-46); PO2 ABG 66 mm/Hg (80-95); pH ABG 7.44 (7.35-7.45)
[2019-03-14 10:34] LABS: Allen Test Pos (Pos)
--- NOTE | 2019-03-14 10:35 | XRay Report ---
XR chest 1V portable CLINICAL HISTORY: hypoxia, tachypnea COMPARISON STUDY: March 10, 2019 FINDINGS: A left-sided A-Port catheter is again visualized. There is partial opacification of the rig ht hemithorax area right-sided air bronchograms are visualized. There is no focal parenchymal consoli dation on the left. There is right apical pleural thickening/fluid.[ IMPRESSION: 1. Partial opacification right hemithorax, a finding similar to the prior study and secondary to the patient's known right hemithoracic mass with secondary right lung atelectasis. Stable right apical lo culated fluid. ACT 112: Negative or not required by law. Electronically signed by: Clarence Rhoades M.D. 03/14/2019 10:34 AM
[2019-03-14] MEDS: POTASSIUM CHLORIDE / WTR 10 MEQ/100 ML PLCT IV SCH ×3 (11:26→13:15)
[2019-03-14] MEDS ORDERED: METOPROLOL TARTRATE 1 MG/ML VIAL IV ONE (11:28)
[2019-03-14] MEDS ORDERED: METOPROLOL TARTRATE 1 MG/ML VIAL IV STA (11:30)
[2019-03-14] MEDS ORDERED: MoRPHine SULFATE 4 MG/ML 1 ML CARP\\VIAL IV STA (12:31)
--- NOTE | 2019-03-14 13:08 | Critical Care Consultation ---
Date of Consultation March 14, 2019 Assessment & Plan (1) Acute hypoxemic respiratory failure: The patient has cancer that is metastatic and progressive on chemotherapy. The patient has a massive symptom burden with metastatic disease throughout her body. She has large loculated effusions on the right side of her chest and a large mass. She is in acute hypoxemic respiratory failure and very tachypneic. She has very significant amount of pain in her leg. I did discuss goals of care at length with her, her mother and present. Her and the patient were both agreeable and clear that they wanted the focus to be on comfort. She clearly indicated to me that she would not want any further pleural procedures, surgeries or any invasive test or procedures that would prolong life. She would like to focus on comfort. I have placed for comfort orders. Palliative care is following the patient. I have notified the hospitalist as well. She is now a DNR/DNI. I gave her 4 mg of IV morphine to help with her pain and her air hunger. She will likely need Ativan for anxiety and possibly glycopyrrolate for secretions. I have personally spent 40 minutes of critical care time in the direct management of this patient. This is a life/limb threatening event. This includes time spent evaluating patient, direct bedside care, chart review, placing orders, interpretation of diagnostic studies, discussion with consultants, patient, and family members, as well as other required patient management activities. This time is exclusive of all separately billable procedures, and teaching time and separate from and in addition to any other critical care service time. Thank you for allowing us to participate in the care of this patient. (2) Goals of care, counseling/discussion: (3) Acute respiratory failure with hypoxia: (4) Malignant pleural effusion: (5) Atrial fibrillation and flutter: (6) Femur fracture: (7) Metastasis from cervical cancer: History of Present Illness Reason for Consultation: Hypoxemic respiratory failure with atrial fibrillation and rapid ventricular response Requesting Physician: Dr. Hatch Attending Physician: Jayjay Hatch, History of Present Illness This is a 64-year-old female with a history of metastatic cervical cancer with mets to the brain, liver and lung who initially presented to the hospital on 03/10/2019 due to weakness and falling. She was found to have a metastatic femur fracture on the right and the plan was for operative fixation. She was transferred to the ICU today due to increasing oxygen demand, tachypnea and atrial fibrillation with rapid ventricular response. The patient's , mother and 2 pastors are at the bedside during my interview. The patient tells me that she has pain in the right leg and she does feel short of breath. She was on BiPAP when I saw her with settings of 12/5 and 60% FiO2. I was able to transition her to a nonrebreather during my discussion with her. She did receive a dose of Lasix by the hospitalist and had some urine output. When I saw her she had rates of 160 and was found to be in atrial fibrillation. I gave her 5 mg of metoprolol and her rates improved substantially. She is also followed by thoracic surgery and had a Pleurx catheter previously due to a malignant right-sided pleural effusion. She is followed by oncology for her cervical cancer and has been on chemotherapy. The goal was to start immunotherapy at some point in the near future. Palliative care is also following her, but up until this point the patient's and family involved was for immunotherapy. She is currently on cefepime for presumed pneumonia. She is on amiodarone p.o. for her history of atrial fibrillation with rapid ventricular response. She had a chest x-ray done today which demonstrated partial opacification in the right hemithorax. She had a CT of the chest on 03/10/2019 which indicated multiple loculated effusions with a right lower lobe mass. Allergies Allergy/AdvReac Type Severity Reaction Status Date / Time Iodinated Contrast Media Allergy Intermediate pruritus Verified 03/10/19 15:40 Penicillins Allergy Mild rash, Verified 03/10/19 15:40 nausea Sulfa (Sulfonamide Allergy Mild rash,nausea Verified 03/10/19 15:40 Antibiotics) Home Medications Home Medications Medication Instructions Recorded Confirmed Type gabapentin 300 mg capsule 300 mg PO TID 12/20/18 03/10/19 History magnesium 200 mg tablet 400 mg PO QAM tab 12/20/18 03/10/19 History Centrum Silver Women 1 tab PO QAM 01/25/19 03/10/19 History ascorbic acid (vitamin C) [Vitamin 500 mg PO QAM 01/25/19 03/10/19 History C] cholecalciferol (vitamin D3) 25 mcg PO QAM 01/25/19 03/10/19 History [Vitamin D3] coenzyme Q10 [Co Q-10] 100 mg PO QAM 01/25/19 03/10/19 History digestive enzymes 1 cap PO QAM 01/25/19 03/10/19 History vitamin B complex 1 tab PO QAM 02/15/19 03/10/19 History MAG-AL 15 ml PO Q4H PRN #3000 ml 02/17/19 03/10/19 Rx magnesium hydroxide [Milk of 30 ml PO Q6H PRN 30 Days #3840 ml 02/17/19 03/10/19 Rx Magnesia] polyethylene glycol 3350 [Miralax] 17 g PO DAILY PRN #30 ea 02/17/19 03/10/19 Rx ondansetron HCl [Zofran] 4 mg PO TID PRN 30 Days #120 tab 02/18/19 03/10/19 Rx diltiazem HCl 180 mg PO QAM #30 cap 03/01/19 03/10/19 Rx oxycodone 5 mg tablet 10 mg PO Q4 PRN #30 tab 03/07/19 03/10/19 Rx acetaminophen [Mapap 650 mg PO TID PRN 03/10/19 03/10/19 History (acetaminophen)] amiodarone 200 mg PO DAILY 03/10/19 03/10/19 History lidocaine 1 patch TRANSDERMAL DAILY@1900 PRN 03/10/19 03/10/19 History Patient History Medical History Anemia chronic (hgb in the 7-9 range over past month per chart review) most recent blood transfusion 12/2018 (felt chemo related) Diverticular disease GERD (gastroesophageal reflux disease) controlled Goals of care, counseling/discussion Hypercalcemia Hypertension Lung mass Mediastinal lymphadenopathy Metastasis from cervical cancer Neuropathy 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- most recent chemo 11/2018;on dexamethasone 4mg every other day (started in setting of chemo/xrt)-- now weaning off Thrombocytopenia Surgical History History of cervical biopsy History of surgery insertion of Tandom & Ovoid x 5 History of tooth extraction History of tubal ligation History of vascular access device Left chest wall Family History Mother Breast cancer Hypertension Father Cancer Other No family history of adverse response to anesthesia Social History Preferred Language: Hungarian Communication Ability: Effective Director Radio Required: No Beliefs That Will Affect Care: None marital status: Current Living Situation: Spouse Feels Safe at Home: Yes Smoking Status: Never smoker Second Hand Exposure: Yes (as a child and used to smoke in the house (stopped 1 year ago)) ; Hx Alcohol Use: No Hx Substance Use: No Dental Care, Regularly: No Seatbelt Use: always Review of Systems Review of Systems: All systems reviewed & are unremarkable except as noted in HPI & below Physical Exam Constitutional: The patient appears tachypneic and in mild distress. She has a nonrebreather mask in place. She is surrounded by family. Eyes: PERRL, conjunctivae normal, anicteric sclerae ENMT: external ear and nose normal, oropharynx normal Neck: normal visual inspection Respiratory: Diminished breath sounds on the right. Rhonchi and crackles on the right lower lobe. Tachypneic. Cardiovascular: Irregular rhythm. Tachycardic. 1+ pitting edema in the lower extremities. Gastrointestinal (Abdomen): normal bowel sounds, soft, nontender, no hepatosplenomegaly Musculoskeletal: Weak throughout all 4 extremities. Unable to move her right leg due to pain. Skin: no rashes, warm and dry Neurologic: No focal deficits Psychiatric: A+Ox3, euthymic affect Lymphatic: + lymphedema Results & Data Vital Signs (Past 12 Hours) Vital Signs Temp Pulse Pulse Resp BP BP BP 03/14/19 12:24 94 H 37 H 154/102 H 03/14/19 11:53 88 24 116/96 03/14/19 11:50 90 34 H 03/14/19 11:37 91 H 35 H 107/64 03/14/19 11:33 155 H 183/101 H 03/14/19 11:19 97.7 F 160 H 39 H 183/101 H 03/14/19 09:48 108 H 24 160/93 H 03/14/19 08:02 171/73 H 03/14/19 07:24 98.1 F 109 H 20 191/100 H 03/14/19 05:24 102 H 28 H 03/14/19 04:47 44 H Pulse Ox 03/14/19 12:24 99 03/14/19 11:53 96 03/14/19 11:50 97 03/14/19 11:37 97 03/14/19 11:33 03/14/19 11:19 89 L 03/14/19 09:48 90 03/14/19 08:02 03/14/19 07:24 96 03/14/19 05:24 92 03/14/19 04:47 89 L I personally reviewed the patient's pertinent labs, chest imaging and previous notes. Coding Level of Care Code Critical Care 1st 30-74 mins Diagnoses Acute hypoxemic respiratory failure J96.01 Goals of care, counseling/discussion Z71.89 Acute respiratory failure with hypoxia J96.01 Malignant pleural effusion J91.0 Atrial fibrillation and flutter I48.91; I48.92 Femur fracture S72.90XA Metastasis from cervical cancer C79.9; C53.9 Time Spent (min) 40
[2019-03-14] MEDS ORDERED: GLYCOPYRROLATE 0.2 MG/ML VIAL IV PRN (13:18)
--- NOTE | 2019-03-14 15:06 | Palliative Care Progress Note ---
Date of Service March 14, 2019 Assessment & Plan (1) Goals of care, counseling/discussion: -Patient with nearly complete right lung opacification due to tumor burden. Dr. Somers did see patient over weekend-- no pleural procedure needed as the issue is not the malignant pleural effusion, but rather tumor burden. -Patient was transferred to the ICU this morning for bipap and possible intubation for worsening respiratory distress. However, once patient and family arrived to ICU, they discussed goals of care further and decided to transition to comfort measures only. -I then met with patient, her /POA Henry Irvin, her mother, and several other family members in room 103. Given patient's extensive metastatic cancer and overall worsening condition, the patient and family confirm their wishes to transition to comfort measures only. -For now, we will continue patient's few routine medications. If patient becomes too lethargic or short of breath, okay to not give PO meds and we can discontinue. -Morphine 2mg IV Q2h PRN pain or SOB. -Lorazepam 0.5mg IV Q4h PRN anxiety/agitation. -Robinul for secretions. -Patient's specifically asked that we not reposition patient Q2h if she is not wanting to be repositioned as it causes her great pain. I did place a communication order: Offer repositioning Q2h, but okay to defer if patient/family do not want her moved. -Oxygen for comfort-- no need for NRB mask or bipap. Use nasal cannula or oxymask and titrate to comfort. No need to keep oxygen saturation >90%. -Transfer out of ICU. -Patient's prognosis is likely days to hours, which I did share with the family. They agree. At this point, she is not stable for transfer out of the hospital. If she does stabilize, we will discuss discharge planning at that time. Otherwise, she may be a candidate for GIP hospice if she continues to be awake and require frequent IV morphine/comfort medications. We will continue to follow. (2) Femur fracture: (3) Hypercalcemia: (4) Severe protein-calorie malnutrition: (5) Metastasis from cervical cancer: Subjective Patient's respiratory status worsened this morning. Dr. Hatch was called to bedside around 10am-- see his note. Patient essentially has almost complete right lung opacification from tumor burden. She was transferred to ICU for bipap and possible intubation if necessary. After transfer to the ICU and discussion with patient, family (including patient's and mother), and heel top lift splitter physician, patient decided to transition to comfort measures only. I visited with patient, her mother, her /POA Henry Irvin, her son, [id number], grandchild, and another female family member in room 103. See A&P. Review of Systems Review of Systems: C/o shortness of breath, pain in right leg and right shoulder. Denies N/V. Denies anxiety. Physical Exam Constitutional: + ill appearing; no acute distress ENMT: Ears: no hearing impairment Respiratory: + labored breathing Auscultation: + diminished lung sounds Cardiovascular: Rate/Rhythm: regular rate and regular rhythm Extremities: + edema (widespread) Gastrointestinal (Abdomen): Percussion/Palpation: abdomen soft Neurologic: awake (but slightly drowsy) Psychiatric: Orientation: oriented to person, oriented to place and oriented to time Results & Data Vital Signs (Past 12 Hours) Vital Signs Temp Pulse Pulse Resp BP BP BP 03/14/19 13:23 91 H 33 H 138/79 03/14/19 12:53 93 H 36 H 144/86 H 03/14/19 12:33 93 H 23 154/102 H 03/14/19 12:24 94 H 37 H 154/102 H 03/14/19 11:53 88 24 116/96 03/14/19 11:50 90 34 H 03/14/19 11:37 91 H 35 H 107/64 03/14/19 11:33 155 H 183/101 H 03/14/19 11:19 36.5 C 160 H 39 H 183/101 H 03/14/19 09:48 108 H 24 160/93 H 03/14/19 08:02 171/73 H 03/14/19 07:24 36.7 C 109 H 20 191/100 H 03/14/19 05:24 102 H 28 H 03/14/19 04:47 44 H Pulse Ox 03/14/19 13:23 99 03/14/19 12:53 99 03/14/19 12:33 99 03/14/19 12:24 99 03/14/19 11:53 96 03/14/19 11:50 97 03/14/19 11:37 97 03/14/19 11:33 01/06/20 11:19 89 L 03/14/19 09:48 90 03/14/19 08:02 03/14/19 07:24 96 03/14/19 05:24 92 03/14/19 04:47 89 L Time Spent Midlevel 45 minutes with >50% of the time spent at bedside with patient and family discussing comfort measures and end of life care.
--- NOTE | 2019-03-14 15:34 | Electrocardiogram Report ---
Test Reason : Blood Pressure : / mmHG Vent. Rate : 136 BPM Atrial Rate : 000 BPM P-R Int : 000 ms QRS Dur : 078 ms QT Int : 234 ms P-R-T Axes : 000 071 -87 degrees QTc Int : 352 ms Atrial fibrillation with rapid ventricular response with premature ventricular or aberrantly conducte d complexes Abnormal ECG When compared with ECG of 11-MAR-2019 07:03, Significant changes have occurred Confirmed by Tejas Le ([id number]) on 03/14/2019 3:34:06 PM Referred By: REFERRED SELF Confirmed By:Tejas Le
[2019-03-14] MEDS: MoRPHine SULFATE 4 MG/ML 1 ML CARP\\VIAL IV PRN ×4 (16:10→21:41)
[2019-03-14] MEDS: LORazepam 0.5 MG/1 ML VIAL IV PRN (20:09)
[2019-03-15] MEDS: MoRPHine SULFATE 4 MG/ML 1 ML CARP\\VIAL IV PRN ×6 (00:37→14:23)
[2019-03-15] MEDS: HYDROmorphone INJ 1 MG/ML SYRINGE IV PRN ×3 (06:26→13:01)
--- NOTE | 2019-03-15 09:09 | Hospitalist Progress Note ---
Date of Service March 15, 2019 Assessment & Plan (1) Comfort measures only status: patient with metastatic cervical cancer to lungs with associated pleural effusion pathological fracture of the right femur causing severe pain patient and family do not want any further intervention, accept that her condition is terminal Morphine 4mg IV q2, this is keeping her comfortable while still able to communicate which wants will likely transition to morphine drip once all family has visited with her Ativan PRN still using heart medications to keep HR under control (2) Fracture of right femur: - Following mechanical fall at home in setting generalized weakness and metastatic cervical cancer with bony metastases. - Knee XR: infiltrative lytic lesion of distal femoral shaft with acute pathologic comminuted displaced and angulated fracture. - Orthopedics consulted, delay on surgical correction due to needing to get medically optimized prior to surgery. surger cancelled on 03/14 due to respiratory distress, hypoxia will hold on surgery permanently will be placed on comfort measures Morphine 4 q2 PRN (3) Acute respiratory failure with hypoxia: -This is related to pleural effusion and progression of right metastatic lung mass with collapse of right lower lobe and obliteration of right middle lobe with tumor. - CTA neg for PE, showed progression of right lung mass and moderate right ple ural effusion and trace left pleural effusion. went into respiratory distress from increased fluid in lungs on 03/14 responded well to Lasix IV will make patient comfortable, no plans for thoracentesis give another dose of Lasix today to keep lungs dry (4) Malignant pleural effusion: - S/p PleurX by Dr. Somers, now removed. - CTA showed increase in right pleural collection compared to 02/26 and trace left pleural effusion. - again, no thoracentesis, comfort care (5) Mass of middle lobe of right lung: - Follows with oncology; per discharge summary, pt. was considering starting immunotherapy & has appt on 03/15 to do so but this will need to be on hold. - Has progression of lung mass noted on CTA. - will make comfortable (6) Atrial fibrillation and flutter: - Continue Amiodarone and Cardizem as prescribed to keep HR under control if she gets to point where she cannot take PO meds will stop them (7) UTI (urinary tract infection): Alexander catheter associated UTI, POA -UA consistent with UTI, in setting of chronic alexander from home. Leukocytosis is improving now with converting to cefepime - UC with Hafnia alvei resistant to Zosyn, ceftriaxone, cefuroxime, cefotaxime. -Initially placed on ceftriaxone, but after sensitivities returned, have started cefepime on 03/12 -Continue cefepime for total 7-day course, comfort is goal - Alexander catheter was changed out this admission in the ER -Continue to follow blood cultures-no growth to date (8) Urinary retention: - Discharged with alexander during her last admission; alexander was exchanged in the ER. -Unclear why she is retaining urine, but likely due to opioid use for pain management as well as constipation - Continue to monitor urine output. - UTI as noted above. (9) Thrombocytopenia: Platelets remain mildly low at 99, unknown etiology as she has not had any chemotherapy in 3 or 4 months -Follow CBC (10) Anemia: - Hgb 6.5 on admission, likely secondary to acute blood loss anemia from femur fracture in the setting of chronic anemia - Transfused 2 units PRBCs and now hemoglobin increased to 9.9 and stable comfort measures (11) Metastasis from cervical cancer: - Liver, lung, brain, pericardial, and diffuse bone metastases. - Has had progression of disease noted on imaging. - Palliative care consulted, greatly appreciate input. - Was considering immunotherapy but has not yet started it - has appt on 03/15 at the cancer center-this will likely be on hold-patient and question if she can start her immunotherapy in the hospital-we will need to discuss with oncology. (12) Goals of care, counseling/discussion: - Palliative consulted, see note. comfort care (13) Acute electrocardiogram changes: - T wave inversion noted on admission; repeat ECG without ischemic changes - Trop neg x 3; telemetry with NSR. - C/o mild chest pressure but is tender to palpation and likely secondary to bony metastasis to the sternum- not likely related to cardiac source. - Will hold further cardiac work up (14) Prolonged QT interval: - QTc 674 on admission EKG, however difficult to interpret given a lot of artifact on ECG. QTc now improving on repeat EKG. - Avoid QT prolonging agents if possible. - Replace electrolytes as needed. (15) Hyponatremia: - Na level 126 on admission and now improved to 130 with normal saline and blood transfusion; serum osmo was <280, urine sodium 17 and urine osmo was low. - Urine studies c/w chronic SIADH picture mixed with hypovolemia from hemorrhage/dehydration. -Continue NS at 70 cc/hr while has poor p.o. intake and will be n.p.o. after midnight for surgery - Transfused with PRBCs to replete intravascular volume as above. (16) Electrolyte abnormality: Hypokalemia-now resolved with replacement Also with hypomagnesemia -Give 2 g magnesium today - Monitor BMP and magnesium levels in the morning (17) Elevated alkaline phosphatase level: - In setting of liver and bony metastases. (18) Severe protein-calorie malnutrition: - Albumin 1.8 in setting of metastatic cancer. - Encourage regular diet as tolerated. (19) Hypercalcemia: resolved with IV fluids (20) DVT prophylaxis: no prophylaxis as she is on comfort measures Dispo: medical floor DNR Subjective patient much more comfortable, resting with Morphing discussed with patient's at the bedside, he is pleased with how she is responding to Morphine she is resting but still able to respond to family members, says that their grand daughter coming today from [place] discussed that with her femur fracture we would not want to transport her home will likely transition to a morphine drip once all family arrives and says melvin Review of Systems Review of Systems: Unobtainable due to reduced consciousness Physical Exam Constitutional: + thin, + frail appearing and comfortable; no acute distress Eyes: PERRL, conjunctivae normal, anicteric sclerae ENMT: external ear and nose normal, oropharynx normal Neck: trachea midline, no thyromegaly Respiratory: no respiratory distress, no labored breathing and no cough Auscultation: + diminished lung sounds and + rales (bases) Cardiovascular: RRR, no murmur, no edema Gastrointestinal (Abdomen): normal bowel sounds, soft, nontender, no hepatosplenomegaly Musculoskeletal: no cyanosis or clubbing, extremities motor strength 5/5 (right hip tender with log roll, severely limited ROM due to pain) Skin: no rashes, warm and dry Neurologic: patellar DTR's 2+ bilat, sensation intact and PERRL, EOMI, accommodation nl, no face palsy, no dysarthria Psychiatric: Orientation: oriented to person and oriented to place; + not alert and + not oriented to time Apperance: not disheveled Lymphatic: no cervical or axillary lymphadenopathy Results & Data Medications Administered Current Inpatient Medications Acetaminophen (Tylenol) 650 mg PO Q4H PRN PRN Reason: Pain or Fever Stop: 04/09/19 19:43 Last Admin: 03/12/19 16:05 Dose: 650 mg Documented by: Amiodarone HCl (Cordarone) 200 mg PO QAM [facility] Stop: 04/10/19 08:59 Last Admin: 03/14/19 10:19 Dose: 200 mg Documented by: Diltiazem HCl (Cardizem Cd) 180 mg PO QAM [facility] Stop: 04/10/19 08:59 Last Admin: 03/14/19 10:18 Dose: 180 mg Documented by: Gabapentin (Neurontin) 300 mg PO TID [facility] Stop: 04/09/19 20:59 Last Admin: 03/14/19 22:04 Dose: Not Given Documented by: Glycopyrrolate (Robinul) 0.2 mg IV Q2H PRN PRN Reason: Consult Stop: 04/13/19 13:17 Hydromorphone HCl (Dilaudid) 1 mg IV Q3H PRN PRN Reason: Pain Stop: 03/25/19 12:08 Last Admin: 03/15/19 06:26 Dose: 1 mg Documented by: Lorazepam (Ativan) 0.5 mg in 1 mls @ 1 mls/min IV Q4H PRN PRN Reason: Anxiety or agitation Stop: 04/13/19 18:09 Last Admin: 03/14/19 20:09 Dose: 1 mls/min Documented by: Lidocaine (Lidoderm 5%) 1 patch TD DAILY@1900 PRN PRN Reason: Pain Stop: 04/09/19 19:43 Miscellaneous (Remove Lidoderm Patch) 1 ea N/A DAILY@0700 [facility] Stop: 04/10/19 06:59 Last Admin: 03/15/19 08:41 Dose: Not Given Documented by: Morphine Sulfate (Morphine Sulfate) 4 mg IV Q2H PRN PRN Reason: Dyspnea Stop: 03/28/19 14:39 Last Admin: 03/15/19 08:10 Dose: 4 mg Documented by: PG Care Time/CCT Total # of Minutes Spent Total Time Spent with Patient: Total time spent is greater than 50% in coordination of care (as documented) at patient's floor/unit and/or counseling patient: (1) Fracture of right femur Encounter type: initial encounter Femur location: distal, unspecified portion Fracture morphology: unspecified fracture morphology Fracture type: closed Qualified Code(s): S72.401A - Unspecified fracture of lower end of right femur, initial encounter for closed fracture
[2019-03-15] MEDS ORDERED: HEPARIN 100 UNIT/ML 5ML FLUSH ONE ×2 (11:37→13:00)
[2019-03-15] MEDS: AMIODARONE 200 MG TAB PO SCH (11:39)
[2019-03-15] MEDS: dilTIAZem HCL 180 MG CAPCR PO SCH (11:39)
--- NOTE | 2019-03-15 11:53 | Palliative Care Progress Note ---
Date of Service March 15, 2019 Assessment & Plan (1) Comfort measures only status: -Patient is resting comfortably with morphine on board. She is able to open eyes and nod head, but did not verbally respond. Was sleeping during most of visit. -End of life support/education provided to patient's family. They deny questions/concerns. -Continue morphine 4mg IV Q2h PRN pain or SOB. IF needed, can start continuous morphine infusion at 3mg/hr, titrate for comfort. Nursing staff to let provider know if further comfort meds are needed. -Patient is declining quickly. She is not stable for discharge out of the hospital at this time. Possibly GIP candidate, but patient is currently comfortable with the medications ordered. We will continue to follow and reassess. -Expected to in hours to days, likely days. Some family from out of town is arriving this evening. (2) Femur fracture: (3) Hypercalcemia: (4) Severe protein-calorie malnutrition: (5) Metastasis from cervical cancer: Subjective Patient is much more comfortable today. Receiving 4mg IV morphine PRN and tolerating well. Son Jordy, [id number] Charity, granddaughter Humaira present at bedside. Then a friend Colleen present. Physical Exam Constitutional: + ill appearing; no acute distress ENMT: Ears: no hearing impairment Respiratory: no labored breathing Auscultation: + diminished lung sounds Cardiovascular: Rate/Rhythm: regular rate and regular rhythm Extremities: + edema (widespread) Gastrointestinal (Abdomen): Percussion/Palpation: abdomen soft Neurologic: awake (but lethargic/drowsy) Supervising Physician Co-Signing Physician Notes Chart reviewed, patient seen and examined. Multiple family at bedside. Patient with increased respiratory rate, stated she was comfortable. More alert on exam this afternoon. Discussed increased respiratory rate with risk of fatigue-patient did request a PRN morphine. PE: Patient awake, dozes off quickly, able to respond with a few words to simple questions. HEENT: EOMI, hearing within normal limits Respirations: Increased respiratory rate CV: Regular rate Abdomen: Not distended Neuro: Responsive Agree with above note, assessment and plan as per RELL Macdonald-we will continue to follow and assist with comfort measures and provide support to family at bedside. Time Spent Midlevel 40 minutes with >50% of the time spent at bedside with patient and family discussing end of life care and comfort measures.
[2019-03-15] MEDS: GABAPENTIN 300 MG CAP PO SCH ×3 (12:01→20:07)
[2019-03-15] MEDS: LORazepam 0.5 MG/1 ML VIAL IV PRN ×2 (14:59→23:29)
[2019-03-15] MEDS ORDERED: MoRPHine SULFATE 4 MG/ML 1 ML CARP\\VIAL IV ONE (16:15)
[2019-03-15] MEDS: MoRPHine SULF/NSS 250 MG/250 ML BTL IV SCH (16:29)
[2019-03-16] MEDS: dilTIAZem HCL 180 MG CAPCR PO SCH (07:25)
[2019-03-16] MEDS: AMIODARONE 200 MG TAB PO SCH (07:25)
[2019-03-16] MEDS: GABAPENTIN 300 MG CAP PO SCH (07:26)
--- NOTE | 2019-03-16 09:22 | Palliative Care Progress Note ---
Date of Service March 16, 2019 Assessment & Plan (1) Comfort measures only status: -Patient is on LOCKSTITCH BACK MAKER, Morphine infusion at 6mg.hour. Pt still able to open her eyes, furrowed brow. -In speaking with the patients , she is pulling at her oxymask. Advised we can switch her to regular nasal canula, which I did and she is now on 4LNC. -Pt with increased terminal agitation during my encounter, discussed increasing the Morphine drip, which nursing will carry out. -I discontinued all other non-essential medications as patient is nearing end of life. -She is not stable for discharge out of the hospital at this time. -Expected to in hours to days, likely days. -All family arrived last night and were able to see the patient with some interactions from the patient as well. The patients described it as a "beautiful goodbye". -Please contact Palliative Care with and additional symptom management needs. -PPS: 10% (2) Femur fracture: (3) Hypercalcemia: (4) Severe protein-calorie malnutrition: (5) Metastasis from cervical cancer: Subjective Pt on comfort measures. Pt on continuous Morphine infusion, 6mg/hour. Pt , Alexis at the bedside. Pt has furrowed brow, actively pulling at oxymask. See A/P for further details. Review of Systems Review of Systems: Unobtainable due to reduced consciousness Physical Exam Constitutional: + acute distress and + ill appearing Respiratory: + uses accessory muscles, + nasal flaring and symmetric chest movement Auscultation: + diminished lung sounds Cardiovascular: RRR, no murmur, no edema Gastrointestinal (Abdomen): normal bowel sounds, soft, nontender, no hepatosplenomegaly Skin: no rashes, warm and dry Genitourinary: indwelling alexander catheter, making urine PG Care Time/CCT Total # of Minutes Spent Total Time Spent with Patient: Total time spent is greater than 50% in coordination of care (as documented) at patient's floor/unit and/or counseling patient:35 Time Spent Midlevel total time spent 35 minutes with > 50% of that time spent assessing the patient and discussing symptom management with the pt
[2019-03-16] MEDS: LORazepam 0.5 MG/1 ML VIAL IV PRN ×2 (11:28→16:18)
--- NOTE | 2019-03-16 14:16 | Hospitalist Progress Note ---
Date of Service March 16, 2019 Assessment & Plan (1) Comfort measures only status: patient with metastatic cervical cancer to lungs with associated pleural effusion pathological fracture of the right femur causing severe pain patient and family do not want any further intervention, accept that her condition is terminal Morphine drip, titrate upward for comfort Dilaudid PRN, Ativan PRN family updated at the bedside (2) Fracture of right femur: - Following mechanical fall at home in setting generalized weakness and metastatic cervical cancer with bony metastases. - Knee XR: infiltrative lytic lesion of distal femoral shaft with acute pathol ogic comminuted displaced and angulated fracture. - Orthopedics consulted, delay on surgical correction due to needing to get medically optimized prior to surgery. surger cancelled on 03/14 due to respiratory distress, hypoxia will hold on surgery permanently will be placed on comfort measures Morphine drip employed (3) Acute respiratory failure with hypoxia: -This is related to pleural effusion and progression of right metastatic lung mass with collapse of right lower lobe and obliteration of right middle lobe with tumor. - CTA neg for PE, showed progression of right lung mass and moderate right pleural effusion and trace left pleural effusion. went into respiratory distress from increased fluid in lungs on 03/14 responded well to Lasix IV will make patient comfortable, no plans for thoracentesis (4) Malignant pleural effusion: - S/p PleurX by Dr. Somers, now removed. - CTA showed increase in right pleural collection compared to 02/26 and trace left pleural effusion. - again, no thoracentesis, comfort care (5) Mass of middle lobe of right lung: - Follows with oncology; per discharge summary, pt. was considering starting immunotherapy & has appt on 03/15 to do so but this will need to be on hold. - Has progression of lung mass noted on CTA. - will make comfortable (6) Atrial fibrillation and flutter: - Continue Amiodarone and Cardizem as prescribed to keep HR under control if she gets to point where she cannot take PO meds will stop them (7) UTI (urinary tract infection): completed treatment comfort care (8) Urinary retention: alexander (9) Thrombocytopenia: no further labs (10) Anemia: no further labs comfort measures (11) Metastasis from cervical cancer: - Liver, lung, brain, pericardial, and diffuse bone metastases. - Has had progression of disease noted on imaging. - Palliative care consulted, greatly appreciate input. - Was considering immunotherapy comfort care (12) Goals of care, counseling/discussion: - Palliative consulted, see note. 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 operator of Systems Review of Systems: Unobtainable due to reduced consciousness Physical Exam Constitutional: + thin, + frail appearing and comfortable; no acute distress Respiratory: no respiratory distress, no labored breathing and no cough Auscultation: + diminished lung sounds and + rales (bases) Cardiovascular: RRR, no murmur, no edema Gastrointestinal (Abdomen): normal bowel sounds, soft, nontender, no hepatosplenomegaly Skin: no rashes, warm and dry Psychiatric: Orientation: + not alert (sedated on morphine) Lymphatic: no cervical or axillary lymphadenopathy Results & Data Medications Administered Current Inpatient Medications Acetaminophen (Tylenol) 650 mg PO Q4H PRN PRN Reason: Pain or Fever Stop: 04/09/19 19:43 Last Admin: 03/12/19 16:05 Dose: 650 mg Documented by: Glycopyrrolate (Robinul) 0.2 mg IV Q2H PRN PRN Reason: Consult Stop: 04/13/19 13:17 Heparin Sodium (Porcine) (Heparin Sod 100 Unit/Ml Flush) 5 ml IV PRN PRN PRN Reason: Flush Stop: 04/14/19 13:59 Lorazepam (Ativan) 0.5 mg in 1 mls @ 1 mls/min IV Q4H PRN PRN Reason: Anxiety or agitation Stop: 04/13/19 18:09 Last Admin: 03/16/19 11:28 Dose: 1 mls/min Documented by: Morphine Sulfate (Morphine Sulf/Nss) 250 mg in 250 mls @ 8 mls/hr IV .Q24H [facility]; Protocol Stop: 03/29/19 16:14 Last Titration: 03/16/19 11:51 Dose: 8 mg/hr, 8 mls/hr Documented by: Lidocaine (Lidoderm 5%) 1 patch TD DAILY@1900 PRN PRN Reason: Pain Stop: 04/09/19 19:43 Miscellaneous (Remove Lidoderm Patch) 1 ea N/A DAILY@0700 [facility] Stop: 04/10/19 06:59 Last Admin: 03/16/19 06:11 Dose: Not Given Documented by: PG Care Time/CCT Total # of Minutes Spent Total Time Spent with Patient: Total time spent is greater than 50% in coordination of care (as documented) at patient's floor/unit and/or counseling patient: (1) Fracture of right femur Encounter type: initial encounter Femur location: distal, unspecified portion Fracture morphology: unspecified fracture morphology Fracture type: closed Qualified Code(s): S72.401A - Unspecified fracture of lower end of right femur, initial encounter for closed fracture
[2019-03-16] MEDS ORDERED: HYDROmorphone INJ 1 MG/ML SYRINGE IV PRN (14:17)
[2019-03-17] MEDS: MoRPHine SULF/NSS 250 MG/250 ML BTL IV SCH (03:52)
--- NOTE | 2019-03-17 10:44 | Death Summary ---
Date of Service March 17, 2019 Pronouncement Note Date and Time of Date of : 03/17/19 Time of : 10:12 PCOD Preliminary cause of : Cervical cancer, FIGO stage JANEL Contributing Factors (1) Comfort measures only status: (2) Fracture of right femur: (3) Acute respiratory failure with hypoxia: (4) Malignant pleural effusion: (5) Mass of middle lobe of right lung: (6) Atrial fibrillation and flutter: (7) UTI (urinary tract infection): (8) Urinary retention: (9) Thrombocytopenia: (10) Anemia: (11) Metastasis from cervical cancer: (12) Goals of care, counseling/discussion: Summary Additional details: (1) Comfort measures only status: patient with metastatic cervical cancer to lungs with associated pleural effusion pathological fracture of the right femur causing severe pain patient and family do not want any further intervention, accept that her condition is terminal Morphine drip, titrate upward for comfort Dilaudid PRN, Ativan PRN patient peacefully with family at the bedside on 03/17/19 at 1012am (2) Fracture of right femur: - Following mechanical fall at home in setting generalized weakness and metastatic cervical cancer with bony metastases. - Knee XR: infiltrative lytic lesion of distal femoral shaft with acute pathologic comminuted displaced and angulated fracture. - Orthopedics consulted, delay on surgical correction due to needing to get medically optimized prior to surgery. surger cancelled on 03/14 due to respiratory distress, hypoxia will hold on surgery permanently will be placed on comfort measures Morphine drip employed (3) Acute respiratory failure with hypoxia: -This is related to pleural effusion and progression of right metastatic lung mass with collapse of right lower lobe and obliteration of right middle lobe with tumor. - CTA neg for PE, showed progression of right lung mass and moderate right pleural effusion and trace left pleural effusion. went into respiratory distress from increased fluid in lungs on 03/14 responded well to Lasix IV will make patient comfortable, no plans for thoracentesis (4) Malignant pleural effusion: - S/p PleurX by Dr. Somers, now removed. - CTA showed increase in right pleural collection compared to 02/26 and trace left pleural effusion. - again, no thoracentesis, comfort care (5) Mass of middle lobe of right lung: - Follows with oncology; per discharge summary, pt. was considering starting immunotherapy & has appt on 03/15 to do so but this will need to be on hold. - Has progression of lung mass noted on CTA. - will make comfortable Additional Data Confirmation of : no pulse, no respirations, no heart sounds and pupils fixed and dilated Family: at bedside Attending/PCP notified?: Yes Attending physician: Jayjay Hatch, DO Was code activated?: No Autopsy requested?: No hide examiner notified?: No Organ bank notified?: No Advance directives: No
--- NOTE | 2019-03-24 21:18 | Discharge Summary ---
Date of Service March 17, 2019 Admission HPI Per Admitting Provider Mrs. Irvin is a 64 year old with metastatic cervical cancer with mets to the brain, liver, lung, and bones, chronic hypoxic respiratory failure, A. fib/flutter who presented with right knee pain following a fall at home. She was recently admitted from 02/20-03/01 for acute hypoxic respiratory failure secondary to pleural effusion and lung metastasis. Pt. did not pursue hospice at this visit and felt like she would like to trial immunotherapy as an outpatient. Her has been her primary caregiver at home but she has developed increased weakness with trouble ambulating. Pt. was attempting to move positions today with the help of her (from commode to bed) - her right leg "gave out" leading to her favoring her left leg. The patient developed bilateral weakness and fell to the ground. She denies chest pain, SOB, dizziness prior to fall. C/o right knee pain at the moment; she has been requiring multiple doses of Fentanyl IV for pain control in the ER. Has SOB -- chronically requires 2L via NC at home since the last admission. Denies chest pain, fever/chills, URI symptoms, LE edema, N/V, constipation. Has a alexander catheter that was placed during the previous admission for urinary retention; alexander was exchanged in the ER and u/a is positive. ER course: Lab work showed hyponatremia, hypokalemia, hypomagnesemia. CXR showed masslike consolidation in the right mid to lower lung and loculated fluid in the right apex, mild pulm vascular congestion. Knee XR showed an infiltrative lytic lesion of distal femoral shaft with acute pathologic comminuted displaced and angulated fracture. Chest CTA (in setting of hypoxia) was negative for PE, did show similar metastatic disease in liver and bones but progression of large mass in right lung. She will be admitted for orthopedic consult and to discuss goals of care with palliative care. Principal Diagnosis Metastatic cervical cancer Discharge Exam no pulse, no heart sounds, no breath sounds, non-responsive, pupils fixed Discharge Data Allergies Allergy/AdvReac Type Severity Reaction Status Date / Time Iodinated Contrast Media Allergy Intermediate pruritus Verified 03/10/19 15:40 Penicillins Allergy Mild rash, Verified 03/10/19 15:40 nausea Sulfa (Sulfonamide Allergy Mild rash,nausea Verified 03/10/19 15:40 Antibiotics) Consultations 03/10/19 16:01 Consult Orthopedic Surgery Stat ED Decision to Admit Stat 03/10/19 19:44 Consult Case Management - Discharge Planning Routine Consult Palliative Care Routine Consult Thoracic Surgery Routine 03/14/19 12:36 Consult Mess Cook Routine Procedures Performed Operation Date: 03/14/19 09:50 <No data on this case meets the specified criteria> Ordered Studies 03/10/19 14:49 CT angio chest PE protocol Stat Hospital Course (1) Comfort measures only status: patient with metastatic cervical cancer to lungs with associated pleural effusion pathological fracture of the right femur causing severe pain patient and family do not want any further intervention, accept that her condition is terminal Morphine drip, titrate upward for comfort Dilaudid PRN, Ativan PRN family at the bedside patient peacefully with at the bedside on 03/17/19 (2) Fracture of right femur: - Following mechanical fall at home in setting generalized weakness and m etastatic cervical cancer with bony metastases. - Knee XR: infiltrative lytic lesion of distal femoral shaft with acute pathologic comminuted displaced and angulated fracture. - Orthopedics consulted, delay on surgical correction due to needing to get medically optimized prior to surgery. surger cancelled on 03/14 due to respiratory distress, hypoxia will hold on surgery permanently will be placed on comfort measures Morphine drip employed (3) Acute respiratory failure with hypoxia: -This is related to pleural effusion and progression of right metastatic lung mass with collapse of right lower lobe and obliteration of right middle lobe with tumor. - CTA neg for PE, showed progression of right lung mass and moderate right pleural effusion and trace left pleural effusion. went into respiratory distress from increased fluid in lungs on 03/14 responded well to Lasix IV will make patient comfortable, no plans for thoracentesis (4) Malignant pleural effusion: - S/p PleurX by Dr. Somers, now removed. - CTA showed increase in right pleural collection compared to 02/26 and trace left pleural effusion. - again, no thoracentesis, comfort care (5) Mass of middle lobe of right lung: - Follows with oncology; per discharge summary, pt. was considering start ing immunotherapy & has appt on 03/15 to do so but this will need to be on hold. - Has progression of lung mass noted on CTA. - will make comfortable (6) Atrial fibrillation and flutter: - Continue Amiodarone and Cardizem as prescribed to keep HR under control if she gets to point where she cannot take PO meds will stop them (7) UTI (urinary tract infection): completed treatment comfort care (8) Urinary retention: alexander (9) Thrombocytopenia: no further labs (10) Anemia: no further labs comfort measures (11) Metastasis from cervical cancer: - Liver, lung, brain, pericardial, and diffuse bone metastases. - Has had progression of disease noted on imaging. - Palliative care consulted, greatly appreciate input. - Was considering immunotherapy comfort care (12) Goals of care, counseling/discussion: - Palliative consulted, see note. comfort care Total Time Total Time Spent Total Time Spent (In Minutes): 10 Discharge Plan Discharge Items Patient Disposition: Reason For Visit: RIGHT FEMUR FRACTURE Follow-up/Referrals: Clemente Hays MD [Primary Care Provider] - Admission Data Admit Date/Time: 03/10/19 17:31 Other DC Date/Time DO NOT enter until pt leaves facility: 03/17/19 10:12
== END 2019-03-17 10:12 | disposition expired | DRG 542 ==
LOC: ED 13:10 → 2E 17:31 → SUATTDRO 17:31 → 2E 19:09 → 3N 03-11 12:06 → 1E 03-14 10:20 → 4W 03-14 14:41